=== PATIENT | male | born 1950 | race Caucasian/White ===

== ENCOUNTER → 2016-08-28 | Outpatient (REF) | payer MEDICARE ==
[~2016-08-28] MED LIST: /AUGM875TA; ACET650S3 PO; ASPI325T PO; ATOR1TAB18 PO; AUGM875T27 PO; AZUL500T; BENA25TA4 PO; BIOT10TA2 PO; CIPR500T3 PO; DARV100T; ECOT81TA5 PO; FLEXERIL; FLUO0.059 EXT; FURO40TA2 PO; GLIM4TAB PO; HUMA100I5 SC; HYDR-3713 PO; HYDR12.55 PO; INSULADS SC; K-TA10TA PO; KENAAER3 TOP; KETO2CR EXT; LASI40TA PO; LOPE1SUS PO; LOSA50TA20 PO; METF500T PO; MINO100T PO; NOVOINJ14 SC; POTA20TA PO; SILV1CRE19 TOP; SLOWTAB3 PO; SULF500T2 PO; TOUJ1.2I SC; TYLE325T5 PO; ZEST1TAB6 PO; [UNRECOGNIZED DRUG - CODE]
== END ==
LOC: M SFHCPLAZ 09:43
PROVIDERS: ATTEND Family Medicine
DX: Z00.00 Encounter for general adult medical examination without abnormal findings (principal)
CPT/HCPCS: 36415; G0103

== ENCOUNTER → 2016-09-16 | Outpatient (REF) | payer MEDICARE | LOC: M LABDRAWP 15:42 | PROVIDERS: ATTEND Surgery | DX: Z85.038 Personal history of other malignant neoplasm of large intestine (principal) ==

== ENCOUNTER 2016-09-25 02:16 | Emergency (ER) | payer MEDICARE ==
[~2016-09-25] VITALS: Ht 172.7 cm; Wt 163.3 kg
[2016-09-25] MEDS ORDERED: VICT18IN SC (02:30)
[2016-09-25 04:41] LABS: BASO % 0.1 % (0.0-1.0); EOS # 0.2 K/mm3 (0.0-0.50); EOS % 0.8 % (0.0-3.0); LARGE UNSTAINED CELL # 0.1 K/mm3 (0.0-0.4); LARGE UNSTAINED CELL % 0.2 % (0.0-4.0); LYMPH # 0.8 K/mm3 (1.5-4.5); LYMPH % 3.7 % (24.0-44.0); MEAN CORPUSCULAR HEMOGLOBIN 30.4 pg (27.0-33.0); MEAN CORPUSCULAR HGB CONC 34.1 g/dl (32.0-36.5); MEAN CORPUSCULAR VOLUME 89.1 fl (80.0-96.0); MONO # 0.4 K/mm3 (0.0-0.8); MONO % 1.8 % (0.0-5.0); NEUTROPHILS # 20.7 K/mm3 (1.8-7.7); NEUTROPHILS % 93.4 % (36.0-66.0); PLATELET COUNT, AUTOMATED 274 k/mm3 (150-450); RED CELL DISTRIBUTION WIDTH 13.2 % (11.5-14.5); WHITE BLOOD COUNT 22.2 K/mm3 (4.0-10.0)
[2016-09-25] MEDS ORDERED: GASTROGRAFIN SOLUTION 30ML (Q9963) PO ONE ×2 (04:45)
[2016-09-25 05:03] LABS: ALBUMIN 4.2 GM/DL (3.2-5.2); ALBUMIN/GLOBULIN RATIO 0.98 (1.00-1.93); ALKALINE PHOSPHATASE 135 U/L (45-117); ALT/SGPT 44 U/L (12-78); AMYLASE 43 U/L (25-115); ANION GAP 11 MEQ/L (8-16); AST/SGOT 21 U/L (15-37); BILIRUBIN,DIRECT 0.2 MG/DL (0.0-0.2); BILIRUBIN,TOTAL 0.7 MG/DL (0.2-1.0); BLOOD UREA NITROGEN 16 MG/DL (7-18); CALCIUM LEVEL 8.9 MG/DL (8.8-10.2); CARBON DIOXIDE LEVEL 22 MEQ/L (21-32); CHLORIDE LEVEL 106 MEQ/L (98-107); CREATININE FOR GFR 1.04 MG/DL (0.70-1.30); GLOMERULAR FILTRATION RATE > 60.0 (>49); GLUCOSE, FASTING 226 MG/DL (80-110); POTASSIUM SERUM 4.6 MEQ/L (3.5-5.1); SODIUM LEVEL 139 MEQ/L (136-145); TOTAL PROTEIN 8.5 GM/DL (6.4-8.2)
[2016-09-25] MEDS ORDERED: KETOROLAC 30 MG/ML VIAL (J1885) IV ONE (05:15)
--- NOTE | 2016-09-25 06:40 | REPUSA ---
CLINICAL HISTORY: Abdominal pain. TECHNIQUE: Multiple axial, sagittal and coronal CT images were obtained through the abdomen and pelvi s without administration of IV contrast material. Patient ingested oral contrast. COMMENTS: Comparison is made to the prior exam on 09/12/2015. Moderately distended stomach containing oral contrast. Prior colectomy. Moderate partial small bowel obstruction with a transition zone at the level of the ileostomy in the right lower quadrant. Anterior abdominal wall hernias containing distended small bowels. No evidence of bowel perforation or pneumatosis intestinalis. The liver is mildly enlarged without mass or defect. There is no intra or extrahepatic biliary ductal dilatation. The spleen is normal. The gallbladder is within normal limits. The pancreas is of normal contour and attenuation characteristics. There is no evidence of adrenal mass. Unchanged 4.5 cm left renal defined hypodense lesion suggestive of a cyst. The kidneys are normal in size, shape and configuration. No renal or ureteral calculi are identified. There is no hydroureter or hydronephrosis. There is no evidence of abdominal ascites or lymphadenopathy. There is no evidence of intrinsic or extrinsic bladder mass. There is no pelvic ascites or lymphadeno lyla. Images of the lung bases show no evidence of pleural or parenchymal mass. There are no pleural effusi ons. The bony structures are free of lytic or blastic lesions. Multilevel degenerative changes are seen in volving the thoracolumbar spine. Scattered calcifications are seen involving the aorta and major branches compatible with atherosclero sis. Bilateral fat containing inguinal hernias without incarceration. IMPRESSION: Prior colectomy. Moderate partial small bowel obstruction with a transition zone at the level of the ileostomy in the right lower quadrant. Anterior abdominal wall hernias containing distended small bowels. No evidence of bowel perforation or pneumatosis intestinalis. Thank you for your kind referral of this patient.
[2016-09-25] MEDS ORDERED: FURO40TA2 PO (07:49)
[2016-09-25] MEDS ORDERED: NOVO70IN SC (07:49)
[2016-09-25] MEDS ORDERED: POTA10TA16 PO (07:49)
[2016-09-25] MEDS ORDERED: FLUO5CR TOP (08:06)
[2016-09-25] MEDS ORDERED: KETO0.05 TOP (08:06)
--- NOTE | 2016-09-25 09:47 | ED PDOC ---
Post-Departure Follow-Up regarding ed eval on 09/25/16. dr robledo presented on multiple occasions to eval pt. pts osteomy opened up. pain resolved. symptoms resolved. pt tolerated fluids and food. dr robledo asked for discharge w zeus molina colorrectal surgeon - dr monteiro. Caroline Ricks MD September 25, 2016 09:47
[2016-09-25 10:25] VITALS: BP 136/72
== END 2016-09-25 11:18 | disposition home or self-care (01) ==
LOC: M ED 04:57
DX: R10.9 Unspecified abdominal pain (principal); Z93.2 Ileostomy status; K43.9 Ventral hernia without obstruction or gangrene; E11.9 Type 2 diabetes mellitus without complications; I10 Essential (primary) hypertension; E78.5 Hyperlipidemia, unspecified; K51.90 Ulcerative colitis, unspecified, without complications; Z87.891 Personal history of nicotine dependence; Z79.82 Long term (current) use of aspirin; Z79.4 Long term (current) use of insulin; Z79.84 Long term (current) use of oral hypoglycemic drugs; Z79.899 Other long term (current) drug therapy; Z91.030 Bee allergy status
CPT/HCPCS: 36415; 74176; 80048; 80076; 82150; 83690; 85025; 96374; 99284; J1885; Q9963

== ENCOUNTER 2017-01-17 09:54 | Inpatient (IN) | payer MEDICARE ==
[~2017-01-17] VITALS: Ht 172.7 cm; Wt 136.6 kg
[~2017-01-17 09:54] MED LIST changes: -ATOR1TAB18 PO; +ATOR80TA59 PO; -AUGM875T27 PO; +AUGM875T28 PO; +FLUO5CR TOP; +KETO0.05 TOP; -METF500T PO; +METF500T13 PO; +NOVO1INJ4 SC; +POTA10TA16 PO; -SILV1CRE19 TOP; +SILV1CRE60 TOP; +VICT18IN SC
[2017-01-17] MEDS ORDERED: PRED20TA (10:17)
[2017-01-17] MEDS ORDERED: ALBU17IN INH (10:17)
[2017-01-17] MEDS ORDERED: MORPHINE 4 MG/ML 1ML SYRINGE IV ONE ×3 (11:15→16:30)
[2017-01-17] MEDS ORDERED: NS 1,000 ML IV ONE (11:15)
[2017-01-17 11:48] LABS: BASO % 0.2 % (0.0-1.0); EOS % 0.2 % (0.0-3.0); LARGE UNSTAINED CELL # 0.1 K/mm3 (0.0-0.4); LARGE UNSTAINED CELL % 0.5 % (0.0-4.0); LYMPH # 0.8 K/mm3 (1.5-4.5); LYMPH % 4.4 % (24.0-44.0); MEAN CORPUSCULAR HEMOGLOBIN 30.5 pg (27.0-33.0); MEAN CORPUSCULAR HGB CONC 34.9 g/dl (32.0-36.5); MEAN CORPUSCULAR VOLUME 87.5 fl (80.0-96.0); MONO # 0.9 K/mm3 (0.0-0.8); MONO % 5.6 % (0.0-5.0); NEUTROPHILS # 14.2 K/mm3 (1.8-7.7); NEUTROPHILS % 89.1 % (36.0-66.0); PLATELET COUNT, AUTOMATED 234 k/mm3 (150-450); RED CELL DISTRIBUTION WIDTH 13.5 % (11.5-14.5)
[2017-01-17 11:59] LABS: ALBUMIN 3.8 GM/DL (3.2-5.2); ALBUMIN/GLOBULIN RATIO 0.97 (1.00-1.93); ALKALINE PHOSPHATASE 99 U/L (45-117); ALT/SGPT 39 U/L (12-78); ANION GAP 9 MEQ/L (8-16); AST/SGOT 22 U/L (15-37); BILIRUBIN,DIRECT 0.2 MG/DL (0.0-0.2); BILIRUBIN,TOTAL 0.7 MG/DL (0.2-1.0); BLOOD UREA NITROGEN 18 MG/DL (7-18); CALCIUM LEVEL 8.6 MG/DL (8.8-10.2); CARBON DIOXIDE LEVEL 26 MEQ/L (21-32); CHLORIDE LEVEL 103 MEQ/L (98-107); CREATININE FOR GFR 0.82 MG/DL (0.70-1.30); GLOMERULAR FILTRATION RATE > 60.0 (>49); GLUCOSE, FASTING 201 MG/DL (80-110); POTASSIUM SERUM 3.9 MEQ/L (3.5-5.1); SODIUM LEVEL 138 MEQ/L (136-145); TOTAL PROTEIN 7.7 GM/DL (6.4-8.2)
[2017-01-17] MEDS ORDERED: GASTROGRAFIN SOLUTION 30ML PO ONE (13:00)
[2017-01-17] MEDS ORDERED: GASTROGRAFIN SOLUTION 30ML (Q9963) PO ONE (13:30)
[2017-01-17] MEDS ORDERED: ISOVUE-370 76% 100ML VIAL (Q9967) As Ordered ONE (14:23)
--- NOTE | 2017-01-17 15:09 | REP ---
Clinical: Right lower quadrant pain. Technique: Axial contrast enhanced images from the lung bases to the pubic symphysis new oozing oral and 100 ml Isovue 370 intravenous contrast material with coronal and sagittal re-formations. Comparison: 09/25/2016. Findings: Acute small-bowel obstruction is appreciated and secondary to possible adhesions within a moderate to large parastomal hernia containing multiple dilated loops measuring up to approximately 4.7 cm diameter as well as collapsed loops within and exiting the multi-compartmental hernia. No free air, free fluid or drainable collection appreciated. Liver, spleen, pancreas, gallbladder, bilateral adrenal glands and right kidney are normal. Left kidney includes stable 5.8 cm cyst. Postsurgical changes involving the enteric system include colonic resection and right-sided ostomy. Pelvis demonstrates collapsed normal bladder and normal prostate gland. Fat containing left inguinal hernia identified. No significant adenopathy or mass lesion appreciated. Musculoskeletal structures demonstrate age-related degenerative changes. Lung bases clear. Impression: Findings most compatible with acute small-bowel obstruction with point of transition likely related to adhesions within the multi compartmental parastomal hernia. No associated free air, free fluid, or drainable collection. Signed by Rolando Sewell MD 01/17/2017 03:00 P
[2017-01-17] MEDS ORDERED: PIPERACILLIN/TAZOBACTAM SOD 3.375 GM in D5W MINI-BAG PLUS 50 ML IV ONE (15:15)
[2017-01-17] MEDS ORDERED: PRED10TA2 PO (15:56)
[2017-01-17] MEDS ORDERED: METF10004 PO (15:56)
--- NOTE | 2017-01-17 17:47 | REP ---
Abdomen series: Six views: History: Question obstruction versus ileus. Findings: Upright chest radiograph is compared with the prior study of 08/10/2015. The lungs are well inflated and clear. There is no evidence of free subdiaphragmatic air. Heart is not enlarged. The aorta is tortuous as before. There are some degenerative changes in the thoracic spine. Supine and upright views of the abdomen show air fluid levels and moderately dilated small bowel loops in the lower central abdomen. There is a right lower quadrant enterostomy ring. There is no colonic gas or air. Prior CT studies have shown that this patient is status post colon resection. Bowel gas pattern is similar to that seen at the time of the 09/25/[address] study. Impression: Dilated small bowel loops. Right lower quadrant ileostomy status post colon resection. I cannot exclude small bowel obstruction. No free air seen. Signed by Dru Anguiano MD 01/21/2017 08:08 A
[2017-01-17] MEDS ORDERED: GLUCOSE 4 GM CHEW TABLET PO PRN (20:15)
[2017-01-17] MEDS ORDERED: ALBUTEROL 90 MCG/ACT 8GM HFA INHALER INH PRN (20:15)
[2017-01-17] MEDS: NS 1,000 ML IV SCH (20:15)
[2017-01-17] MEDS ORDERED: DEXTROSE 50% 50 ML SYRINGE IV PRN (20:15)
[2017-01-17] MEDS ORDERED: GLUCAGON FOR INJ 1 MG VIAL (J1610) SC PRN (20:15)
[2017-01-17] MEDS ORDERED: KETOCONAZOLE 2% CREAM TOP PRN ×2 (20:15→20:45)
[2017-01-17] MEDS ORDERED: NORCO, ANEXSIA 5/325MG TABLET (HYDROcodone/ACETAMINOPHEN) PO PRN (20:15)
[2017-01-17] MEDS ORDERED: FLUOCINONIDE 0.05% CREAM 15 GM TOP PRN ×2 (20:15→20:45)
[2017-01-17] MEDS ORDERED: MORPHINE 2 MG/ML 1ML SYRINGE IV PRN (20:30)
[2017-01-17] MEDS ORDERED: ACETAMINOPHEN TAB 650MG DOSE (2X325MG) PO PRN (20:30)
[2017-01-17] MEDS ORDERED: ONDANSETRON 4MG/2ML VIAL (J2405) IV PRN (20:30)
[2017-01-17 23:30] VITALS: BP 169/72
[2017-01-18] MEDS: LEVEMIR (INSULIN DETEMIR) 1 UNITS/0.01ML SC SCH ×2 (00:44→09:03)
[2017-01-18] MEDS: HumaLOG INSULIN (NovoLOG) PER UNIT SC SCH ×2 (00:45→06:50)
[2017-01-18] MEDS: CHLORHEXIDINE GLUCONATE 0.12 % 15ML UDC (PERIDEX ORAL RINSE) SSP SCH ×2 (00:45→09:00)
[2017-01-18] MEDS: PIPERACILLIN/TAZOBACTAM SOD 3.375 GM in D5W MINI-BAG PLUS 50 ML IV SCH ×2 (00:45→06:50)
[2017-01-18 06:00] VITALS: BP 133/65
[2017-01-18] MEDS ORDERED: HEPARIN SOD (PORCINE) 5000 UNITS/ML VIAL SC SCH (06:00)
[2017-01-18] MEDS: NS 1,000 ML IV SCH (06:15)
--- NOTE | 2017-01-18 07:03 | HPE ---
DATE OF ADMISSION: 01/17/2017 PRIMARY CARE PROVIDER: Eugene Henriquez MD CHIEF COMPLAINT: Abdominal pain and distention, nausea, no vomiting, decrease in colostomy output. HISTORY OF PRESENT ILLNESS: This is a 66-year-old male patient with underlying medical history of morbid obesity, type 2 diabetes, poorly controlled, ulcerative colitis, depression, chronic lower back pain, obesity, degenerative disc disease, erythema nodosum, lower extremity edema, and history of malignant melanoma. As per patient, since last night at 7:00 p.m. the patient developed and started having abdominal pain and discomfort with distention, with nausea, no vomiting, and reported decreasing colostomy output. It was also noted that the patient has an open wound right next to the patient's ileostomy bag. As per patient, this wound has been there since the surgery for mesh in attempt to repair the patient's abdominal wall hernia. The patient denies any fevers or chills. Reported poor by mouth intake, reported decreasing ileostomy output, not passing gas. Patient denies any chest pain, pressure or discomfort. Has refused NG tube in the emergency room. Reported 4 out of 10 pain with no relieving or exacerbating factor. ALLERGIES: Bee venom. PAST MEDICAL HISTORY: Morbid obesity. Type 2 diabetes, poorly controlled. Ulcerative colitis. Depression. Chronic lower back pain. Obesity. Degenerative disc disease. Erythema nodosum. Lower extremity edema. Malignant melanoma. Chronic venous stasis. 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 PAST SURGICAL HISTORY: Broken nose repair. Appendectomy. Bowel repair for strangulated hernia. Colonoscopy. Robotic assisted proctocolectomy with ileostomy for ulcerative colitis and high grade adenocarcinoma with focal vascular space invasion with negative lymph nodes. Cataract removal bilateral eyes. FAMILY HISTORY: Father with liver failure and Methicillin-resistant Staphylococcus aureus (MRSA). Mother with insulin dependent diabetes. Brother with colon cancer. SOCIAL HISTORY: Lives alone at home. Quit smoking in 1998. Has not drank any alcoholic beverages for many years. Denies any illicit drug use. REVIEW OF SYSTEMS: Reported abdominal pain and abdominal distention, nausea, no vomiting, poor by mouth intake, not passing gas, abdominal wound, history of lower extremity swelling. All other review of systems negative. HOME MEDICATIONS: - hydrocodone/acetaminophen 5/325 by mouth four times a day as needed - Ventolin inhaler four times a day as needed - aspirin 81 mg by mouth daily - Lipitor 80 mg by mouth daily - fluocinonide cream as needed - Lasix 80 mg by mouth daily, 40 mg by mouth every evening - Novolin 70/30 34 units every morning and 34 units every evening - ketoconazole topical as needed - Victoza 0.2 mg subcu daily - losartan 50 mg by mouth daily - metformin 1000 mg by mouth twice a day - potassium chloride 20 mEq by mouth daily - prednisone 60 mg by mouth daily PHYSICAL EXAMINATION: VITAL SIGNS: Temperature 98.2, pulse 82, respirations 18, blood pressure 152/59, pulse oximetry 95% on room air. GENERAL: Patient alert and oriented times three in no acute distress, morbid obesity. HEENT: Normocephalic, atraumatic. PULMONARY: Bilaterally clear to auscultation. Distant heart sounds. CARDIAC: Regular rate and rhythm. Normal S1 and S2. ABDOMEN: Soft. Large abdominal wall hernia around the stump as well as a 2 cm open wound with purulent drainage with surrounding erythema. EXTREMITIES: Trace edema bilateral lower extremities. LABORATORIES: WBC 16, hemoglobin and hematocrit 13.7/39.4, platelets 234. Chemistries: Sodium 138, potassium 3.9, chloride 103, bicarb 26, BUN 18, creatinine 0.8, lactic acid 1.6, lipase negative. CT scan of the abdomen shows small bowel obstruction with point of transition likely related to adhesions within the multicompartmental parastomal hernia. ASSESSMENT/PLAN: This is a 66-year-old male patient with underlying medical history of multiple abdominal surgeries, obesity, type 2 diabetes, poorly controlled, ulcerative colitis, depression, high grade adenocarcinoma with proctocolectomy with ileostomy with abdominal wall hernia status post failed repair with open abdominal wound, depression, chronic low back pain, obesity, degenerative disc disease, erythema nodosum, and lower extremity edema, admitted with small bowel obstruction. PROBLEMS: 1. Small bowel obstruction secondary to abdominal wall hernia. Surgery has been consulted. Nothing by mouth. IV fluids. CT scan has been appreciated. Patient with abdominal pain and nausea, no vomiting. Strict intake and output. Monitor colostomy output. Patient refused NG tube. 2. Leukocytosis with open abdominal wound with surrounding erythema. C-reactive protein is negative. Possible leukocytosis secondary to steroids as well. Followup C-reactive protein. Followup cultures. Patient empirically started on Zosyn. Will continue to monitor. Prednisone has been discontinued. Likely received secondary to asthma exacerbation prior, but patient currently not having any wheeze. Will further investigate to see why the patient is on prednisone. 3. Diabetes. Poorly controlled. Given the patient is currently nothing by mouth, will put the patient on Levemir 15 units subcu twice a day which is a reduced dose from the patient's home medication and fingerstick every 6 hours with NovoLog insulin for coverage according to protocol. 4. Dyslipidemia. Continue statin. 5. Depression. Continue current medications. 6. Chronic lower back pain with degenerative disc disease. Continue current medications as ordered. 7. Hypertension. Continue current medications. 8. Deep vein thrombosis (DVT) prophylaxis. Heparin subcu. 9. Morbid obesity. Complicating care. DISPOSITION: Pending surgical consultation and clinical improvement.
[2017-01-18 07:07] LABS: MEAN CORPUSCULAR VOLUME 88.5 fl (80.0-96.0); RED CELL DISTRIBUTION WIDTH 13.5 % (11.5-14.5); WHITE BLOOD COUNT 9.6 K/mm3 (4.0-10.0)
[2017-01-18 07:30] LABS: ALBUMIN 3.1 GM/DL (3.2-5.2); ALBUMIN/GLOBULIN RATIO 0.79 (1.00-1.93); ALKALINE PHOSPHATASE 83 U/L (45-117); ALT/SGPT 31 U/L (12-78); ANION GAP 8 MEQ/L (8-16); AST/SGOT 16 U/L (15-37); BILIRUBIN,TOTAL 1.1 MG/DL (0.2-1.0); BLOOD UREA NITROGEN 11 MG/DL (7-18); CARBON DIOXIDE LEVEL 25 MEQ/L (21-32); CHLORIDE LEVEL 108 MEQ/L (98-107); CREATININE FOR GFR 0.77 MG/DL (0.70-1.30); GLOMERULAR FILTRATION RATE > 60.0 (>49); GLUCOSE, FASTING 133 MG/DL (80-110); MAGNESIUM LEVEL 2.1 MG/DL (1.8-2.4); POTASSIUM SERUM 3.8 MEQ/L (3.5-5.1); SODIUM LEVEL 141 MEQ/L (136-145)
[2017-01-18 08:00] VITALS: BP 146/63
[2017-01-18] MEDS ORDERED: PANTOPRAZOLE 40MG INJ (PROTONIX) (C9113) IV SCH (09:00)
[2017-01-18] MEDS ORDERED: ATORVASTATIN 20 MG TAB PO SCH (09:00)
[2017-01-18] MEDS ORDERED: LOSARTAN 50 MG TAB PO SCH (09:00)
[2017-01-18 09:04] VITALS: BP 146/63
--- NOTE | 2017-01-18 12:54 | DSES ---
DATE OF ADMISSION: 01/17/2017 DATE OF DISCHARGE: PRIMARY CARE PROVIDER: Eugene Henriquez MD CONSULTANTS: None. PROCEDURES: None. COMPLICATIONS: None. ADMISSION/DISCHARGE DIAGNOSES: 1. Small bowel obstruction likely related to colostomy obstruction, which has resolved. 2. History of high-grade adenocarcinoma of the sigmoid rectum resulting in resection and colostomy. 3. Morbid obesity, which complicates medical care. 4. Diabetes type 2, poorly controlled. 5. History of ulcerative colitis. 6. Depression. 7. Chronic low back pain. 8. Degenerative disc disease. 9. History of erythema nodosum, likely related to his ulcerative colitis. 10. Prior history of malignant melanoma. 11. Chronic venous stasis. BRIEF HOSPITAL COURSE: Mr. Singleton is a pleasant 66-year-old gentleman who presented to the emergency department last evening with abdominal pain, distension, nausea, vomiting, decreased colostomy output. He was made n.p.o., started on IV fluids and watched for observation. In the morning, his symptomatology had resolved and his colostomy has shown good output. There does not appear to be any erythema or redness or streaking around the ostomy site. No signs of infection. He is able to tolerate p.o. intake. For further information regarding intake physical, labs, and diagnostics, please refer to Dr. Puri's history and physical. PHYSICAL EXAMINATION: Temperature is 98, pulse 85, respiratory rate 18, blood pressure 146/63, SpO2 is 96% on room air. GENERAL: The patient appears to be in no acute distress, is alert, pleasant. HEENT: Unremarkable. LUNGS: Clear. HEART: Regular rate and rhythm. ABDOMEN: Obese, soft, nontender. Positive bowel sounds. Ostomy appears to be patent. EXTREMITIES: No edema, no calf tenderness. LABORATORIES: White count 9.6, hemoglobin is 13.2, platelets 202,000. Sodium 141, potassium 3.8, chloride 108, bicarb 25, anion gap 8, BUN is 11, creatinine 0.77, glucose 133, lactic acid 1.6, magnesium 2.1, total bilirubin 1.1, AST 16, ALT 31, alkaline phosphatase 83, albumin 3.1. CT of the abdomen and pelvis done on the admission did indicate acute small bowel obstruction with point transition likely related to adhesions within the multicompartmental parastomal hernia. No free air or drainable collection. DISCHARGE CONDITION: Good. DISPOSITION: Discharge to home. DISCHARGE MEDICATIONS: - [place] 5/325 one tablet four times a day as needed - albuterol inhaler as directed - aspirin 81 mg daily - Lipitor 40 mg daily - fluocinonide cream applied topically daily as needed - Lasix 80 mg daily and 40 mg at night - Novolin 70/30 34 units in the morning, 32 units in the evening - ketoconazole cream applied topically daily as needed - Victoza 18 mg injection 0.2 mL daily - losartan 50 mg daily - metformin 1000 mg twice a day - potassium chloride 20 mEq twice a day - prednisone 10 mg daily DISCHARGE INSTRUCTIONS: Discharge to home. Activity as tolerated. Followup with Dr. Henriquez in a week. Followup with Dr. Jones in the next week to 10 days for reevaluation of his colostomy. Consistent carbohydrate diet. He is instructed to seek medical attention if symptoms should worsen or progress. He voices understanding. Discharge took 35 minutes.
== END 2017-01-18 11:45 | disposition home or self-care (01) | DRG 394 ==
LOC: M ED 09:54 → M ED INP 20:21
PROVIDERS: ADMIT Hospitalist; ATTEND Hospitalist
DX: K94.03 Colostomy malfunction (principal); K56.60 Unspecified intestinal obstruction; E66.01 Morbid (severe) obesity due to excess calories; E11.9 Type 2 diabetes mellitus without complications; F32.9 Major depressive disorder, single episode, unspecified; M54.5 Low back pain; Z85.048 Personal history of other malignant neoplasm of rectum, rectosigmoid junction, and anus; Z79.899 Other long term (current) drug therapy; Z79.82 Long term (current) use of aspirin; I87.9 Disorder of vein, unspecified; E78.5 Hyperlipidemia, unspecified

== ENCOUNTER → 2017-02-25 | Outpatient (REF) | payer MEDICARE ==
[~2017-02-25] MED LIST changes: +ALBU17IN INH; +METF10004 PO; +PRED10TA2 PO; +PRED20TA
== END ==
LOC: M LABDRAWP 15:41
PROVIDERS: ATTEND Surgery
DX: Z85.038 Personal history of other malignant neoplasm of large intestine (principal)

== ENCOUNTER → 2017-02-25 | Outpatient (REF) | payer MEDICARE | LOC: M SFHCPLAZ 13:08 | PROVIDERS: ATTEND Family Medicine | DX: E11.42 Type 2 diabetes mellitus with diabetic polyneuropathy (principal); Z85.038 Personal history of other malignant neoplasm of large intestine ==

== ENCOUNTER → 2017-09-03 | Outpatient (REF) | payer MEDICARE | LOC: M LABDRAWP 15:25 | DX: Z85.038 Personal history of other malignant neoplasm of large intestine (principal) | CPT/HCPCS: 82378 ==

== ENCOUNTER → 2017-09-03 | Outpatient (REF) | payer MEDICARE ==
[2017-09-03 15:59] LABS: ANION GAP 8 MEQ/L (8-16); BLOOD UREA NITROGEN 19 MG/DL (7-18); CALCIUM LEVEL 8.9 MG/DL (8.8-10.2); CARBON DIOXIDE LEVEL 24 MEQ/L (21-32); CHLORIDE LEVEL 106 MEQ/L (98-107); GLOMERULAR FILTRATION RATE > 60.0 (>49); GLUCOSE, FASTING 120 MG/DL (70-100); POTASSIUM SERUM 3.8 MEQ/L (3.5-5.1); PSA SCREENING 0.61 NG/ML (< 4.0); SODIUM LEVEL 138 MEQ/L (136-145)
[2017-09-03 16:22] LABS: ESTIMATED AVERAGE GLUCOSE 194 MG/DL (60-110); HEMOGLOBIN A1c 8.4 %
[2017-09-03 16:24] LABS: CREATININE, URINE < 13.0 MG/DL; MALB URINE SIEMENS < 5.0 MG/L
[2017-09-05 11:01] LABS: CARCINOEMBRYONIC ANTIGEN < 0.5 NG/ML (<2.5)
== END ==
LOC: M SFHCPLAZ 13:01
DX: E11.65 Type 2 diabetes mellitus with hyperglycemia (principal); Z12.5 Encounter for screening for malignant neoplasm of prostate; Z85.038 Personal history of other malignant neoplasm of large intestine
CPT/HCPCS: 82378

== ENCOUNTER 2017-11-08 09:01 | Inpatient (IN) | payer MEDICARE ==
[2017-11-08] MEDS: NS 1,000 ML IV ×3 (10:12→21:09)
[2017-11-08] MEDS: MORPHINE 4 MG/ML 1ML VIAL/SYRINGE (J2270) IV ×7 (10:12→21:09)
[2017-11-08] MEDS: ONDANSETRON 4MG/2ML VIAL (J2405) IV ×2 (10:13→13:59)
[2017-11-08 10:21] LABS: BASO % 0.2 % (0.0-1.0); EOS % 0.1 % (0.0-3.0); HEMATOCRIT 44.2 % (42.0-52.0); HEMOGLOBIN 15.4 g/dl (13.5-17.5); LYMPH # 0.7 10^3/uL (1.5-4.5); LYMPH % 5.1 % (24.0-44.0); MEAN CORPUSCULAR HEMOGLOBIN 29.9 pg (27.0-33.0); MEAN CORPUSCULAR HGB CONC 34.8 g/dl (32.0-36.5); MEAN CORPUSCULAR VOLUME 85.8 fl (80.0-96.0); MONO # 0.8 10^3/uL (0.0-0.8); MONO % 5.7 % (0.0-5.0); NEUTROPHILS # 12.1 10^3/uL (1.8-7.7); NEUTROPHILS % 87.9 % (36.0-66.0); PLATELET COUNT, AUTOMATED 204 10^3/uL (150-450); RED BLOOD COUNT 5.15 10^6/uL (4.30-6.10); RED CELL DISTRIBUTION WIDTH 14.6 % (11.5-14.5); WHITE BLOOD COUNT 13.8 10^3/uL (4.0-10.0)
[2017-11-08 11:25] LABS: ALBUMIN 3.1 GM/DL (3.2-5.2); ALBUMIN/GLOBULIN RATIO 0.91 (1.00-1.93); ALKALINE PHOSPHATASE 83 U/L (45-117); ALT/SGPT 49 U/L (12-78); ANION GAP 10 MEQ/L (8-16); AST/SGOT 19 U/L (7-37); BILIRUBIN,TOTAL 0.7 MG/DL (0.2-1.0); BLOOD UREA NITROGEN 23 MG/DL (7-18); CALCIUM LEVEL 7.5 MG/DL (8.8-10.2); CARBON DIOXIDE LEVEL 26 MEQ/L (21-32); CHLORIDE LEVEL 101 MEQ/L (98-107); CREATININE FOR GFR 0.93 MG/DL (0.70-1.30); GLOMERULAR FILTRATION RATE > 60.0 (>49); GLUCOSE, FASTING 315 MG/DL (70-100); POTASSIUM SERUM 4.2 MEQ/L (3.5-5.1); SODIUM LEVEL 137 MEQ/L (136-145); TOTAL PROTEIN 6.5 GM/DL (6.4-8.2)
[2017-11-08 12:27] LABS: LACTIC ACID SEPSIS PROTOCOL 2.1 MMOL/L (0.4-2.0)
[2017-11-08] MEDS ORDERED: METOCLOPRAMIDE INJ 10MG/2ML VIAL (J2765) IV (12:30)
[2017-11-08] MEDS ORDERED: DEXTROSE 50% 50 ML SYRINGE IV (12:30)
[2017-11-08] MEDS ORDERED: IPRATROPIUM 0.5MG/ALBUTEROL 2.5MG INH SOL UD 3ML (DUONEB)(J7620) NEB (12:30)
[2017-11-08] MEDS ORDERED: GLUCAGON FOR INJ 1 MG VIAL (J1610) SC (12:30)
[2017-11-08] MEDS ORDERED: PROMETHAZINE INJ 25 MG/ML VIAL (J2550) IV (12:30)
[2017-11-08] MEDS ORDERED: GLUCOSE 4 GM CHEW TABLET PO (12:30)
[2017-11-08 13:15] LABS: BEDSIDE GLUCOSE 265 MG/DL (80-115)
[2017-11-08] MEDS: CIPROFLOXACIN 400 MG in APPROPRIATE DILUENT 1 EA IV (13:22)
[2017-11-08] MEDS: predniSONE 20 MG TAB PO (13:23)
[2017-11-08] MEDS: HumaLOG INSULIN (NovoLOG) PER UNIT SC ×2 (13:23→18:16)
[2017-11-08] MEDS: PANTOPRAZOLE 40MG INJ (PROTONIX) (C9113) IV (13:23)
[2017-11-08] MEDS: IPRATROPIUM 0.5MG/ALBUTEROL 2.5MG INH SOL UD 3ML (DUONEB)(J7620) NEB ×2 (14:00→19:58)
[2017-11-08] MEDS: metroNIDAZOLE 500 MG in APPROPRIATE DILUENT 1 EA IV ×2 (15:27→21:07)
[2017-11-08 16:04] LABS: LACTIC ACID SEPSIS PROTOCOL 1.7 MMOL/L (0.4-2.0)
[2017-11-08] MEDS: IRBESARTAN 150 MG TAB PO (16:35)
[2017-11-08 17:41] LABS: BEDSIDE GLUCOSE 220 MG/DL (80-115)
[2017-11-08] MEDS: methylPREDNISolone INJ 125 MG/2 ML VIAL (J2930) IV (21:09)
[2017-11-08] MEDS: LEVEMIR (INSULIN DETEMIR) 1 UNITS/0.01ML SC (21:10)
[2017-11-08 23:48] LABS: BEDSIDE GLUCOSE 267 MG/DL (80-115)
[2017-11-09] MEDS: CIPROFLOXACIN 400 MG in APPROPRIATE DILUENT 1 EA IV ×2 (00:26→13:00)
[2017-11-09] MEDS: HumaLOG INSULIN (NovoLOG) PER UNIT SC ×3 (00:26→12:03)
[2017-11-09] MEDS: IPRATROPIUM 0.5MG/ALBUTEROL 2.5MG INH SOL UD 3ML (DUONEB)(J7620) NEB ×3 (02:00→13:44)
[2017-11-09 02:39] LABS: BEDSIDE GLUCOSE 264 MG/DL (80-115)
[2017-11-09 05:29] LABS: HEMOGLOBIN 13.7 g/dl (13.5-17.5); MEAN CORPUSCULAR HEMOGLOBIN 29.5 pg (27.0-33.0); MEAN CORPUSCULAR HGB CONC 34.3 g/dl (32.0-36.5); MEAN CORPUSCULAR VOLUME 86.2 fl (80.0-96.0); PLATELET COUNT, AUTOMATED 178 10^3/uL (150-450); RED BLOOD COUNT 4.64 10^6/uL (4.30-6.10); RED CELL DISTRIBUTION WIDTH 14.8 % (11.5-14.5); WHITE BLOOD COUNT 6.3 10^3/uL (4.0-10.0)
[2017-11-09 05:45] LABS: ALBUMIN 2.9 GM/DL (3.2-5.2); ALBUMIN/GLOBULIN RATIO 0.81 (1.00-1.93); ALKALINE PHOSPHATASE 72 U/L (45-117); ALT/SGPT 41 U/L (12-78); ANION GAP 7 MEQ/L (8-16); AST/SGOT 10 U/L (7-37); BILIRUBIN,TOTAL 0.8 MG/DL (0.2-1.0); BLOOD UREA NITROGEN 15 MG/DL (7-18); CALCIUM LEVEL 7.4 MG/DL (8.8-10.2); CARBON DIOXIDE LEVEL 27 MEQ/L (21-32); CHLORIDE LEVEL 105 MEQ/L (98-107); CREATININE FOR GFR 0.83 MG/DL (0.70-1.30); GLOMERULAR FILTRATION RATE > 60.0 (>49); GLUCOSE, FASTING 267 MG/DL (70-100); POTASSIUM SERUM 4.3 MEQ/L (3.5-5.1); SODIUM LEVEL 139 MEQ/L (136-145); TOTAL PROTEIN 6.5 GM/DL (6.4-8.2)
[2017-11-09 05:46] LABS: BEDSIDE GLUCOSE 256 MG/DL (80-115)
[2017-11-09] MEDS: NS 1,000 ML IV (06:14)
[2017-11-09] MEDS: metroNIDAZOLE 500 MG in APPROPRIATE DILUENT 1 EA IV ×2 (06:15→14:00)
[2017-11-09] MEDS: IRBESARTAN 150 MG TAB PO (08:24)
[2017-11-09] MEDS: PANTOPRAZOLE 40MG INJ (PROTONIX) (C9113) IV (08:25)
[2017-11-09] MEDS: ATORVASTATIN 20 MG TAB PO (08:25)
[2017-11-09] MEDS: methylPREDNISolone INJ 125 MG/2 ML VIAL (J2930) IV (08:25)
[2017-11-09] MEDS ORDERED: GLUCOSE 4 GM CHEW TABLET PO (09:00)
[2017-11-09] MEDS ORDERED: DEXTROSE 50% 50 ML SYRINGE IV (09:00)
[2017-11-09] MEDS ORDERED: GLUCAGON FOR INJ 1 MG VIAL (J1610) SC (09:00)
[2017-11-09 11:24] LABS: BEDSIDE GLUCOSE 304 MG/DL (80-115)
[2017-11-09] MEDS ORDERED: HumaLOG INSULIN (NovoLOG) PER UNIT SC (21:00)
== END 2017-11-09 16:20 | disposition home or self-care (01) | DRG 394 ==
LOC: M ED 09:01 → M ED INP 12:16 → M MSPAV 14:38
DX: K43.3 Parastomal hernia with obstruction, without gangrene (principal); L88 Pyoderma gangrenosum; Z68.43 Body mass index [BMI] 50.0-59.9, adult; K51.90 Ulcerative colitis, unspecified, without complications; E66.01 Morbid (severe) obesity due to excess calories; E11.9 Type 2 diabetes mellitus without complications; Z79.52 Long term (current) use of systemic steroids; I10 Essential (primary) hypertension; Z79.899 Other long term (current) drug therapy; Z79.82 Long term (current) use of aspirin; Z79.4 Long term (current) use of insulin; Z91.038 Other insect allergy status; Z93.2 Ileostomy status; K40.90 Unilateral inguinal hernia, without obstruction or gangrene, not specified as recurrent

== ENCOUNTER 2017-11-10 21:47 | Inpatient (IN) | payer MEDICARE ==
[2017-11-11 00:38] LABS: BASO % 0.1 % (0.0-1.0); EOS % 0.1 % (0.0-3.0); HEMOGLOBIN 13.7 g/dl (13.5-17.5); IMMATURE GRANULOCYTE % 0.8 % (0-3.0); LYMPH # 0.5 10^3/uL (1.5-4.5); MEAN CORPUSCULAR HEMOGLOBIN 29.5 pg (27.0-33.0); MEAN CORPUSCULAR HGB CONC 34.3 g/dl (32.0-36.5); MEAN CORPUSCULAR VOLUME 86.2 fl (80.0-96.0); MONO # 0.6 10^3/uL (0.0-0.8); MONO % 6.4 % (0.0-5.0); NEUTROPHILS # 8.5 10^3/uL (1.8-7.7); NEUTROPHILS % 87.6 % (36.0-66.0); PLATELET COUNT, AUTOMATED 193 10^3/uL (150-450); RED BLOOD COUNT 4.64 10^6/uL (4.30-6.10); RED CELL DISTRIBUTION WIDTH 14.6 % (11.5-14.5); WHITE BLOOD COUNT 9.7 10^3/uL (4.0-10.0)
[2017-11-11 01:03] LABS: ALBUMIN/GLOBULIN RATIO 0.88 (1.00-1.93); ALKALINE PHOSPHATASE 70 U/L (45-117); ALT/SGPT 41 U/L (12-78); ANION GAP 9 MEQ/L (8-16); AST/SGOT 31 U/L (7-37); BILIRUBIN,DIRECT 0.1 MG/DL (0.0-0.2); BILIRUBIN,TOTAL 0.6 MG/DL (0.2-1.0); BLOOD UREA NITROGEN 21 MG/DL (7-18); CALCIUM LEVEL 7.8 MG/DL (8.8-10.2); CARBON DIOXIDE LEVEL 24 MEQ/L (21-32); CHLORIDE LEVEL 104 MEQ/L (98-107); CREATININE FOR GFR 1.08 MG/DL (0.70-1.30); GLOMERULAR FILTRATION RATE > 60.0 (>49); GLUCOSE, FASTING 212 MG/DL (70-100); LIPASE 86 U/L (73-393); SODIUM LEVEL 137 MEQ/L (136-145); TOTAL PROTEIN 6.4 GM/DL (6.4-8.2)
[2017-11-11 01:13] LABS: POTASSIUM SERUM 5.4 MEQ/L (3.5-5.1)
[2017-11-11] MEDS: ONDANSETRON 4MG/2ML VIAL (J2405) IV (02:41)
[2017-11-11] MEDS: MORPHINE 4 MG/ML 1ML VIAL/SYRINGE (J2270) IV ×2 (02:42→23:22)
[2017-11-11] MEDS: NS 1,000 ML IV (03:00)
[2017-11-11] MEDS ORDERED: ONDANSETRON 4MG/2ML VIAL (J2405) IV (07:00)
[2017-11-11] MEDS ORDERED: METOCLOPRAMIDE INJ 10MG/2ML VIAL (J2765) IV (07:00)
[2017-11-11] MEDS ORDERED: GLUCOSE 4 GM CHEW TABLET PO (07:00)
[2017-11-11] MEDS ORDERED: GLUCAGON FOR INJ 1 MG VIAL (J1610) SC (07:00)
[2017-11-11] MEDS ORDERED: DEXTROSE 50% 50 ML SYRINGE IV (07:00)
[2017-11-11 08:20] LABS: BEDSIDE GLUCOSE 214 MG/DL (80-115)
[2017-11-11] MEDS: LR 1,000 ML IV ×2 (08:28→16:29)
[2017-11-11] MEDS: KETOROLAC 30 MG/ML VIAL (J1885) IV (08:29)
[2017-11-11] MEDS: HumaLOG INSULIN (NovoLOG) PER UNIT SC ×3 (08:30→18:00)
[2017-11-11] MEDS: PANTOPRAZOLE 40MG INJ (PROTONIX) (C9113) IV (09:49)
[2017-11-11] MEDS: ENOXAPARIN 40 MG/0.4 ML SYRINGE (J1650) SC (09:50)
[2017-11-11 12:21] LABS: BASO % 0.1 % (0.0-1.0); EOS % 0.3 % (0.0-3.0); HEMATOCRIT 37.4 % (42.0-52.0); HEMOGLOBIN 12.8 g/dl (13.5-17.5); IMMATURE GRANULOCYTE % 0.4 % (0-3.0); LYMPH % 14.2 % (24.0-44.0); MEAN CORPUSCULAR HEMOGLOBIN 29.6 pg (27.0-33.0); MEAN CORPUSCULAR HGB CONC 34.2 g/dl (32.0-36.5); MEAN CORPUSCULAR VOLUME 86.6 fl (80.0-96.0); MONO % 13.8 % (0.0-5.0); NEUTROPHILS # 5.1 10^3/uL (1.8-7.7); NEUTROPHILS % 71.2 % (36.0-66.0); PLATELET COUNT, AUTOMATED 172 10^3/uL (150-450); RED BLOOD COUNT 4.32 10^6/uL (4.30-6.10); RED CELL DISTRIBUTION WIDTH 14.6 % (11.5-14.5); WHITE BLOOD COUNT 7.1 10^3/uL (4.0-10.0)
[2017-11-11 13:09] LABS: ANION GAP 5 MEQ/L (8-16); BLOOD UREA NITROGEN 15 MG/DL (7-18); CALCIUM LEVEL 7.7 MG/DL (8.8-10.2); CARBON DIOXIDE LEVEL 29 MEQ/L (21-32); CHLORIDE LEVEL 105 MEQ/L (98-107); CREATININE FOR GFR 0.81 MG/DL (0.70-1.30); GLOMERULAR FILTRATION RATE > 60.0 (>49); GLUCOSE, FASTING 166 MG/DL (70-100); POTASSIUM SERUM 3.9 MEQ/L (3.5-5.1); SODIUM LEVEL 139 MEQ/L (136-145)
[2017-11-11 18:11] LABS: BEDSIDE GLUCOSE 118 MG/DL (80-115)
[2017-11-11 23:55] LABS: BEDSIDE GLUCOSE 162 MG/DL (80-115)
[2017-11-12] MEDS: HumaLOG INSULIN (NovoLOG) PER UNIT SC ×5 (00:05→23:13)
[2017-11-12] MEDS: LR 1,000 ML IV ×4 (00:05→23:12)
[2017-11-12] MEDS: MORPHINE 4 MG/ML 1ML VIAL/SYRINGE (J2270) IV ×3 (02:15→10:06)
[2017-11-12 05:57] LABS: BEDSIDE GLUCOSE 152 MG/DL (80-115)
[2017-11-12 06:21] LABS: BEDSIDE GLUCOSE 161 MG/DL (80-115)
[2017-11-12] MEDS: PANTOPRAZOLE 40MG INJ (PROTONIX) (C9113) IV (10:05)
[2017-11-12] MEDS: ENOXAPARIN 40 MG/0.4 ML SYRINGE (J1650) SC (10:50)
[2017-11-12 12:06] LABS: BEDSIDE GLUCOSE 144 MG/DL (80-115)
[2017-11-12 17:46] LABS: BEDSIDE GLUCOSE 162 MG/DL (80-115)
[2017-11-12 23:10] LABS: BEDSIDE GLUCOSE 163 MG/DL (80-115)
[2017-11-13] MEDS: HumaLOG INSULIN (NovoLOG) PER UNIT SC ×4 (06:00→23:57)
[2017-11-13 06:20] LABS: BASO % 0.3 % (0.0-1.0); EOS # 0.1 10^3/uL (0.0-0.50); EOS % 1.6 % (0.0-3.0); HEMATOCRIT 39.8 % (42.0-52.0); HEMOGLOBIN 13.4 g/dl (13.5-17.5); IMMATURE GRANULOCYTE % 0.9 % (0-3.0); LYMPH % 30.1 % (24.0-44.0); MEAN CORPUSCULAR HEMOGLOBIN 29.6 pg (27.0-33.0); MEAN CORPUSCULAR HGB CONC 33.7 g/dl (32.0-36.5); MEAN CORPUSCULAR VOLUME 88.1 fl (80.0-96.0); MONO # 0.5 10^3/uL (0.0-0.8); MONO % 16.1 % (0.0-5.0); NEUTROPHILS # 1.6 10^3/uL (1.8-7.7); PLATELET COUNT, AUTOMATED 171 10^3/uL (150-450); RED BLOOD COUNT 4.52 10^6/uL (4.30-6.10); RED CELL DISTRIBUTION WIDTH 14.4 % (11.5-14.5); WHITE BLOOD COUNT 3.2 10^3/uL (4.0-10.0)
[2017-11-13 06:45] LABS: ALBUMIN 2.5 GM/DL (3.2-5.2); ALBUMIN/GLOBULIN RATIO 0.71 (1.00-1.93); ALKALINE PHOSPHATASE 58 U/L (45-117); ALT/SGPT 26 U/L (12-78); ANION GAP 6 MEQ/L (8-16); AST/SGOT 9 U/L (7-37); BLOOD UREA NITROGEN 8 MG/DL (7-18); CALCIUM LEVEL 8.1 MG/DL (8.8-10.2); CARBON DIOXIDE LEVEL 29 MEQ/L (21-32); CHLORIDE LEVEL 107 MEQ/L (98-107); CREATININE FOR GFR 0.76 MG/DL (0.70-1.30); GLOMERULAR FILTRATION RATE > 60.0 (>49); GLUCOSE, FASTING 132 MG/DL (70-100); SODIUM LEVEL 142 MEQ/L (136-145)
[2017-11-13] MEDS: ENOXAPARIN 40 MG/0.4 ML SYRINGE (J1650) SC (08:01)
[2017-11-13] MEDS: PANTOPRAZOLE 40MG INJ (PROTONIX) (C9113) IV (08:01)
[2017-11-13 11:41] LABS: BEDSIDE GLUCOSE 147 MG/DL (80-115)
[2017-11-13] MEDS: LR 1,000 ML IV (12:37)
[2017-11-13] MEDS ORDERED: BUPIVACAINE HCL 0.25% 30 ML VIAL As Ordered ×2 (15:34→17:25)
[2017-11-13] MEDS ORDERED: LIDOCAINE 2% INJ 100 MG/5 ML SDV (FOR ANES.) As Ordered (17:10)
[2017-11-13] MEDS ORDERED: ROCURONIUM BROMIDE 50 MG/5 ML VIAL As Ordered ×4 (17:10→21:26)
[2017-11-13] MEDS ORDERED: PROPOFOL 200 MG/20 ML VIAL As Ordered (17:10)
[2017-11-13] MEDS ORDERED: MIDAZOLAM INJ 2 MG/2 ML VIAL (J2250) As Ordered (17:10)
[2017-11-13] MEDS ORDERED: METOCLOPRAMIDE INJ 10MG/2ML VIAL (J2765) As Ordered (17:10)
[2017-11-13] MEDS ORDERED: dexameTHASONE 4 MG/ML 1ML VIAL (J1100) As Ordered (17:10)
[2017-11-13] MEDS ORDERED: fentaNYL 250 MCG/5 ML INJECTION (J3010) As Ordered ×2 (17:10→17:32)
[2017-11-13] MEDS ORDERED: NEOSTIGMINE 10 MG/10 ML VIAL (J2710) As Ordered (17:10)
[2017-11-13] MEDS ORDERED: GLYCOPYRROLATE INJ 0.2 MG/ML 2 ML VIAL As Ordered (17:10)
[2017-11-13] MEDS: cefoTEtan INJ 2GM VIAL (S0074 PER 500MG) As Ordered (17:25)
[2017-11-13] MEDS ORDERED: ONDANSETRON 4MG/2ML VIAL (J2405) As Ordered (17:39)
[2017-11-13] MEDS ORDERED: SUGAMMADEX SODIUM 500 MG/5 ML VIAL (BRIDION) As Ordered (17:39)
[2017-11-13] MEDS ORDERED: LABETALOL HCL 100 MG/20 ML VIAL As Ordered (18:47)
[2017-11-13] MEDS ORDERED: DESFLURANE 240 ML INHALANT As Ordered (20:22)
[2017-11-13] MEDS: ceFAZolin 1GM INJ (J0690 PER 500MG) As Ordered (21:25)
[2017-11-13] MEDS ORDERED: fentaNYL 100 MCG/2 ML INJECTION (J3010) As Ordered ×2 (22:02→23:03)
[2017-11-13] MEDS ORDERED: NALBUPHINE HCL 10 MG/ML AMP (J2300) IV (22:45)
[2017-11-13] MEDS ORDERED: MORPHINE 1MG/ML IN 0.9% NACL 100ML IV BAG As Ordered (22:45)
[2017-11-13] MEDS ORDERED: MORPHINE 1MG/ML IN 0.9% NACL 100ML IV BAG IV (22:45)
[2017-11-13] MEDS ORDERED: EPIDURAL/PCA KEYS XX (22:45)
[2017-11-13] MEDS ORDERED: ALBUTEROL 90 MCG/ACT 8GM HFA INHALER INH (22:45)
[2017-11-13] MEDS ORDERED: diphenhydrAMINE INJ 50MG/ML VIAL (J1200) IV (22:45)
[2017-11-13] MEDS ORDERED: NALOXONE INJ 0.4 MG/1 ML VIAL (J2310) IV (22:45)
[2017-11-13] MEDS ORDERED: ONDANSETRON 4MG/2ML VIAL (J2405) IV (23:00)
[2017-11-13] MEDS ORDERED: LR 1,000 ML IV (23:00)
[2017-11-13] MEDS ORDERED: MORPHINE 10 MG/ML 1ML VIAL (J2270) IV (23:00)
[2017-11-13] MEDS ORDERED: HumaLOG INSULIN (NovoLOG) PER UNIT As Ordered (23:03)
[2017-11-13] MEDS: fentaNYL 100 MCG/2 ML INJECTION (J3010) IV ×4 (23:07→23:37)
[2017-11-14] MEDS: predniSONE 20 MG TAB PO ×2 (01:17→17:29)
[2017-11-14] MEDS: guaiFENesin DM *SUGAR FREE* 5ML**DIABETIC TUSSIN DM PO ×3 (03:09→21:34)
[2017-11-14] MEDS: KETOROLAC 30 MG/ML VIAL (J1885) IV ×4 (05:08→14:03)
[2017-11-14] MEDS: LR 1,000 ML IV (05:22)
[2017-11-14 05:55] LABS: BASO % 0.2 % (0.0-1.0); HEMATOCRIT 37.1 % (42.0-52.0); HEMOGLOBIN 12.9 g/dl (13.5-17.5); IMMATURE GRANULOCYTE % 1.6 % (0-3.0); LYMPH # 0.3 10^3/uL (1.5-4.5); LYMPH % 5.5 % (24.0-44.0); MEAN CORPUSCULAR HGB CONC 34.8 g/dl (32.0-36.5); MEAN CORPUSCULAR VOLUME 86.3 fl (80.0-96.0); MONO # 0.4 10^3/uL (0.0-0.8); MONO % 6.4 % (0.0-5.0); NEUTROPHILS # 4.7 10^3/uL (1.8-7.7); NEUTROPHILS % 86.3 % (36.0-66.0); PLATELET COUNT, AUTOMATED 200 10^3/uL (150-450); RED CELL DISTRIBUTION WIDTH 14.1 % (11.5-14.5); WHITE BLOOD COUNT 5.5 10^3/uL (4.0-10.0)
[2017-11-14 06:24] LABS: ALBUMIN 2.3 GM/DL (3.2-5.2); ALBUMIN/GLOBULIN RATIO 0.66 (1.00-1.93); ALKALINE PHOSPHATASE 56 U/L (45-117); ALT/SGPT 28 U/L (12-78); ANION GAP 11 MEQ/L (8-16); AST/SGOT 8 U/L (7-37); BILIRUBIN,TOTAL 0.4 MG/DL (0.2-1.0); BLOOD UREA NITROGEN 9 MG/DL (7-18); CALCIUM LEVEL 7.8 MG/DL (8.8-10.2); CARBON DIOXIDE LEVEL 25 MEQ/L (21-32); CHLORIDE LEVEL 104 MEQ/L (98-107); CREATININE FOR GFR 0.74 MG/DL (0.70-1.30); GLOMERULAR FILTRATION RATE > 60.0 (>49); GLUCOSE, FASTING 220 MG/DL (70-100); POTASSIUM SERUM 4.5 MEQ/L (3.5-5.1); SODIUM LEVEL 140 MEQ/L (136-145); TOTAL PROTEIN 5.8 GM/DL (6.4-8.2)
[2017-11-14] MEDS: HumaLOG INSULIN (NovoLOG) PER UNIT SC ×5 (06:34→21:00)
[2017-11-14] MEDS: IRBESARTAN 150 MG TAB PO (09:23)
[2017-11-14] MEDS: FUROSEMIDE 40 MG TAB PO (09:23)
[2017-11-14] MEDS: PANTOPRAZOLE 40MG INJ (PROTONIX) (C9113) IV (09:24)
[2017-11-14] MEDS: ENOXAPARIN 40 MG/0.4 ML SYRINGE (J1650) SC (09:24)
[2017-11-14 11:37] LABS: BEDSIDE GLUCOSE 236 MG/DL (80-115)
[2017-11-14] MEDS: ATORVASTATIN 20 MG TAB PO (14:44)
[2017-11-14] MEDS: LEVEMIR (INSULIN DETEMIR) 1 UNITS/0.01ML SC ×2 (14:44→21:22)
[2017-11-14 16:58] LABS: BEDSIDE GLUCOSE 261 MG/DL (80-115)
[2017-11-14] MEDS ORDERED: HumaLOG INSULIN (NovoLOG) PER UNIT SC (17:30)
[2017-11-14 20:26] LABS: BEDSIDE GLUCOSE 234 MG/DL (80-115)
[2017-11-15] MEDS: KETOROLAC 30 MG/ML VIAL (J1885) IV ×4 (05:45→14:58)
[2017-11-15 05:55] LABS: BASO % 0.2 % (0.0-1.0); HEMATOCRIT 35.9 % (42.0-52.0); HEMOGLOBIN 12.3 g/dl (13.5-17.5); IMMATURE GRANULOCYTE % 1.6 % (0-3.0); LYMPH # 0.6 10^3/uL (1.5-4.5); LYMPH % 11.3 % (24.0-44.0); MEAN CORPUSCULAR HEMOGLOBIN 29.8 pg (27.0-33.0); MEAN CORPUSCULAR HGB CONC 34.3 g/dl (32.0-36.5); MEAN CORPUSCULAR VOLUME 86.9 fl (80.0-96.0); MONO # 0.8 10^3/uL (0.0-0.8); MONO % 14.6 % (0.0-5.0); NEUTROPHILS # 3.7 10^3/uL (1.8-7.7); NEUTROPHILS % 72.3 % (36.0-66.0); PLATELET COUNT, AUTOMATED 206 10^3/uL (150-450); RED BLOOD COUNT 4.13 10^6/uL (4.30-6.10); RED CELL DISTRIBUTION WIDTH 14.1 % (11.5-14.5); WHITE BLOOD COUNT 5.1 10^3/uL (4.0-10.0)
[2017-11-15 06:18] LABS: ANION GAP 7 MEQ/L (8-16); BLOOD UREA NITROGEN 8 MG/DL (7-18); CARBON DIOXIDE LEVEL 30 MEQ/L (21-32); CHLORIDE LEVEL 101 MEQ/L (98-107); CREATININE FOR GFR 0.66 MG/DL (0.70-1.30); GLOMERULAR FILTRATION RATE > 60.0 (>49); GLUCOSE, FASTING 217 MG/DL (70-100); POTASSIUM SERUM 4.1 MEQ/L (3.5-5.1); SODIUM LEVEL 138 MEQ/L (136-145)
[2017-11-15] MEDS: guaiFENesin DM *SUGAR FREE* 5ML**DIABETIC TUSSIN DM PO (06:36)
[2017-11-15] MEDS: LR 1,000 ML IV (08:15)
[2017-11-15] MEDS: LEVEMIR (INSULIN DETEMIR) 1 UNITS/0.01ML SC ×2 (08:16→21:26)
[2017-11-15] MEDS: ENOXAPARIN 40 MG/0.4 ML SYRINGE (J1650) SC (08:17)
[2017-11-15] MEDS: ATORVASTATIN 20 MG TAB PO (08:17)
[2017-11-15] MEDS: PANTOPRAZOLE 40MG INJ (PROTONIX) (C9113) IV (08:17)
[2017-11-15] MEDS: HumaLOG INSULIN (NovoLOG) PER UNIT SC ×4 (08:17→21:00)
[2017-11-15] MEDS: FUROSEMIDE 40 MG TAB PO ×2 (08:17→21:25)
[2017-11-15] MEDS: IRBESARTAN 150 MG TAB PO (08:18)
[2017-11-15] MEDS ORDERED: MORPHINE 4 MG/ML 1ML VIAL/SYRINGE (J2270) IV (10:15)
[2017-11-15] MEDS: NORCO, ANEXSIA 5/325MG TABLET (HYDROcodone/ACETAMINOPHEN) PO (10:43)
[2017-11-15 11:17] LABS: BEDSIDE GLUCOSE 262 MG/DL (80-115)
[2017-11-15 11:50] LABS: BEDSIDE GLUCOSE 252 MG/DL (80-115)
[2017-11-15 16:31] LABS: BEDSIDE GLUCOSE 158 MG/DL (80-115)
[2017-11-15] MEDS: predniSONE 20 MG TAB PO (18:11)
[2017-11-15 20:52] LABS: BEDSIDE GLUCOSE 165 MG/DL (80-115)
[2017-11-16] MEDS: KETOROLAC 30 MG/ML VIAL (J1885) IV ×2 (00:16→05:21)
[2017-11-16 06:16] LABS: BEDSIDE GLUCOSE 286 MG/DL (80-115)
[2017-11-16] MEDS ORDERED: IBUPROFEN 600 MG TAB PO (08:30)
[2017-11-16] MEDS: HumaLOG INSULIN (NovoLOG) PER UNIT SC ×4 (08:38→21:00)
[2017-11-16] MEDS: IRBESARTAN 150 MG TAB PO (08:39)
[2017-11-16] MEDS: PANTOPRAZOLE 40MG INJ (PROTONIX) (C9113) IV (08:39)
[2017-11-16] MEDS: ATORVASTATIN 20 MG TAB PO (08:39)
[2017-11-16] MEDS: LEVEMIR (INSULIN DETEMIR) 1 UNITS/0.01ML SC ×2 (08:39→21:21)
[2017-11-16] MEDS: ENOXAPARIN 40 MG/0.4 ML SYRINGE (J1650) SC (08:40)
[2017-11-16] MEDS: FUROSEMIDE 40 MG TAB PO ×2 (08:40→21:20)
[2017-11-16 11:54] LABS: BEDSIDE GLUCOSE 244 MG/DL (80-115)
[2017-11-16] MEDS: NORCO, ANEXSIA 5/325MG TABLET (HYDROcodone/ACETAMINOPHEN) PO ×2 (14:12→21:26)
[2017-11-16] MEDS: guaiFENesin DM *SUGAR FREE* 5ML**DIABETIC TUSSIN DM PO (16:18)
[2017-11-16 16:47] LABS: BEDSIDE GLUCOSE 165 MG/DL (80-115)
[2017-11-16] MEDS: predniSONE 20 MG TAB PO (18:10)
[2017-11-16 20:33] LABS: BEDSIDE GLUCOSE 156 MG/DL (80-115)
[2017-11-17] MEDS: NORCO, ANEXSIA 5/325MG TABLET (HYDROcodone/ACETAMINOPHEN) PO ×2 (03:42→09:56)
[2017-11-17 06:16] LABS: BEDSIDE GLUCOSE 277 MG/DL (80-115)
[2017-11-17] MEDS: FUROSEMIDE 40 MG TAB PO (07:33)
[2017-11-17] MEDS: ATORVASTATIN 20 MG TAB PO (07:34)
[2017-11-17] MEDS: ENOXAPARIN 40 MG/0.4 ML SYRINGE (J1650) SC (07:34)
[2017-11-17] MEDS: PANTOPRAZOLE 40MG INJ (PROTONIX) (C9113) IV (07:34)
[2017-11-17] MEDS: LEVEMIR (INSULIN DETEMIR) 1 UNITS/0.01ML SC (07:35)
[2017-11-17] MEDS: HumaLOG INSULIN (NovoLOG) PER UNIT SC (07:35)
[2017-11-17] MEDS: IRBESARTAN 150 MG TAB PO (10:21)
== END 2017-11-17 11:16 | disposition home or self-care (01) | DRG 336 ==
LOC: M ED 21:47 → M ED INP 11-11 06:58 → M MS4PR 11-11 09:05 → M MSPAV 11-11 16:02
PROC: 0DNU0ZZ Release Omentum, Open Approach (ICD-10-PCS; principal; 2017-11-13 07:30)
PROC: 0WQF0ZZ Repair Abdominal Wall, Open Approach (ICD-10-PCS; 2017-11-13 07:30)
PROC: 0WUF0JZ Supplement Abdominal Wall with Synthetic Substitute, Open Approach (ICD-10-PCS; 2017-11-13 07:30)
DX: K43.3 Parastomal hernia with obstruction, without gangrene (principal); Z68.43 Body mass index [BMI] 50.0-59.9, adult; E66.01 Morbid (severe) obesity due to excess calories; K43.9 Ventral hernia without obstruction or gangrene; K43.0 Incisional hernia with obstruction, without gangrene; E11.9 Type 2 diabetes mellitus without complications; Z79.899 Other long term (current) drug therapy; Z79.82 Long term (current) use of aspirin; Z79.4 Long term (current) use of insulin; M54.5 Low back pain; I10 Essential (primary) hypertension; K21.9 Gastro-esophageal reflux disease without esophagitis; E78.5 Hyperlipidemia, unspecified; Z85.038 Personal history of other malignant neoplasm of large intestine; I87.2 Venous insufficiency (chronic) (peripheral)

== ENCOUNTER → 2017-12-29 | Outpatient (REF) | payer MEDICARE | LOC: M LAB REF 16:38 | DX: S31.109D Unspecified open wound of abdominal wall, unspecified quadrant without penetration into peritoneal cavity, subsequent encounter (principal); X58.XXXD Exposure to other specified factors, subsequent encounter; Y92.9 Unspecified place or not applicable; Y93.9 Activity, unspecified | CPT/HCPCS: 87186 ==

== ENCOUNTER → 2018-02-16 | Outpatient (REF) | payer MEDICARE ==
[2018-02-16 14:01] LABS: CREATININE FOR GFR 0.78 MG/DL (0.70-1.30); GLOMERULAR FILTRATION RATE > 60.0 (>49)
[2018-02-16 14:01] LABS: BLOOD UREA NITROGEN 18 MG/DL (7-18)
== END ==
LOC: M LAB REF 12:11
DX: S31.109D Unspecified open wound of abdominal wall, unspecified quadrant without penetration into peritoneal cavity, subsequent encounter (principal); W18.30XD Fall on same level, unspecified, subsequent encounter; Y92.009 Unspecified place in unspecified non-institutional (private) residence as the place of occurrence of the external cause
CPT/HCPCS: 82565

== ENCOUNTER → 2018-02-19 | Outpatient (CLI) | payer MEDICARE ==
[~2018-02-19] MED LIST changes: -/AUGM875TA; -ACET650S3 PO; -ALBU17IN INH; -ASPI325T PO; -ATOR80TA59 PO; -AUGM875T28 PO; -AZUL500T; -BENA25TA4 PO; -BIOT10TA2 PO; -CIPR500T3 PO; -DARV100T; -ECOT81TA5 PO; -FLEXERIL; -FLUO0.059 EXT; -FLUO5CR TOP; -FURO40TA2 PO; +GASTROGRAFIN SOLUTION 30ML (Q9963) As Ordered; -GLIM4TAB PO; -HUMA100I5 SC; -HYDR-3713 PO; -HYDR12.55 PO; -INSULADS SC; +ISOVUE-370 76% 100ML VIAL (Q9967) As Ordered; -K-TA10TA PO; -KENAAER3 TOP; -KETO0.05 TOP; -KETO2CR EXT; -LASI40TA PO; -LOPE1SUS PO; -LOSA50TA20 PO; -METF10004 PO; -METF500T13 PO; -MINO100T PO; -NOVO1INJ4 SC; -NOVOINJ14 SC; -POTA10TA16 PO; -POTA20TA PO; -PRED10TA2 PO; -PRED20TA; -SILV1CRE60 TOP; -SLOWTAB3 PO; -SULF500T2 PO; -TOUJ1.2I SC; -TYLE325T5 PO; -VICT18IN SC; -ZEST1TAB6 PO; -[UNRECOGNIZED DRUG - CODE]
== END ==
LOC: M RAD 13:26
DX: S31.109D Unspecified open wound of abdominal wall, unspecified quadrant without penetration into peritoneal cavity, subsequent encounter (principal); K40.90 Unilateral inguinal hernia, without obstruction or gangrene, not specified as recurrent; T81.49XA Infection following a procedure, other surgical site, initial encounter
CPT/HCPCS: Q9963

== ENCOUNTER → 2018-04-22 | Outpatient (REF) | payer MEDICARE ==
[2018-04-22 12:42] LABS: ESTIMATED AVERAGE GLUCOSE 169 MG/DL (60-110); HEMOGLOBIN A1c 7.5 %
== END ==
LOC: M SFHCPLAZ 08:27
DX: E11.65 Type 2 diabetes mellitus with hyperglycemia (principal)

== ENCOUNTER → 2018-04-22 | Outpatient (REF) | payer MEDICARE ==
[2018-04-24 10:36] LABS: CARCINOEMBRYONIC ANTIGEN < 0.5 NG/ML (<2.5)
== END ==
LOC: M LABDRAWP 08:34
DX: Z08 Encounter for follow-up examination after completed treatment for malignant neoplasm (principal); Z85.038 Personal history of other malignant neoplasm of large intestine; E11.65 Type 2 diabetes mellitus with hyperglycemia
CPT/HCPCS: 82378

== ENCOUNTER 2018-08-31 13:46 | Emergency (ER) | payer MEDICARE ==
[~2018-08-31] VITALS: Ht 172.7 cm; Wt 172.7 kg
[~2018-08-31 13:46] MED LIST changes: +/AUGM875TA; +ACET650S3 PO; +ALBU17IN INH; +ASPI-1 PO; +ASPI81TAEC PO; +ATOR80TA59 PO; +AUGM875T28 PO; +AZUL500T; +BENA25TA4 PO; +BIOT10TA2 PO; +CIPR500T3 PO; +DARV100T; +ECOT81TA5 PO; +FLEXERIL; +FLUO-157 EXT; +FLUO0.05 TOP; +FURO40TA2 PO; -GASTROGRAFIN SOLUTION 30ML (Q9963) As Ordered; +GLIM4TAB PO; +HUMA100I5 SC; +HYDR-3713 PO; +HYDR12.55 PO; +INSULADS SC; +IRBE300T10 PO; -ISOVUE-370 76% 100ML VIAL (Q9967) As Ordered; +K-TA10TA PO; +KENAAER3 TOP; +KETO0.05 TOP; +KETO2CR EXT; +KLOR20TA42 PO; +LASI40TA9 PO; +LOPE1SUS PO; +LOSA50TA88 PO; +METF10004 PO; +METF500T13 PO; +MINO100T PO; +NOVO1INJ4 SC; +NOVOINJ14 SC; +POTA10TA16 PO; +PRED10TA2 PO; +PRED20TA; +PRED20TA PO; +SILV1CRE60 TOP; +SLOWTAB3 PO; +SULF500T2 PO; +TOUJ1.2I SC; +TYLE325T5 PO; +VICT18IN SC; +ZEST1TAB6 PO; +[UNRECOGNIZED DRUG - CODE]
[2018-08-31 15:45] VITALS: BP 155/69
[2018-08-31] MEDS ORDERED: NAPR-837 PO (15:45)
[2018-08-31] MEDS ORDERED: ROBA500T PO (15:45)
[2018-08-31] MEDS ORDERED: KETOROLAC 60 MG/2 ML VIAL (J1885) IM ONE (15:45)
== END 2018-08-31 16:10 | disposition home or self-care (01) ==
LOC: M ED 13:46
DX: M54.41 Lumbago with sciatica, right side (principal); I10 Essential (primary) hypertension; E11.9 Type 2 diabetes mellitus without complications; E78.00 Pure hypercholesterolemia, unspecified; G62.9 Polyneuropathy, unspecified; K21.9 Gastro-esophageal reflux disease without esophagitis; F33.9 Major depressive disorder, recurrent, unspecified; F41.9 Anxiety disorder, unspecified; Z79.899 Other long term (current) drug therapy; Z79.4 Long term (current) use of insulin; Z79.82 Long term (current) use of aspirin; Z91.030 Bee allergy status; Z87.891 Personal history of nicotine dependence
CPT/HCPCS: 96372; 99283; J1885

== ENCOUNTER → 2018-10-22 | Outpatient (REF) | payer MEDICARE ==
[~2018-10-22] MED LIST changes: +NAPR-837 PO; +ROBA500T PO
[2018-10-22 16:27] LABS: BLOOD UREA NITROGEN 26 MG/DL (7-18); CARBON DIOXIDE LEVEL 25 MEQ/L (21-32); CHLORIDE LEVEL 105 MEQ/L (98-107); CHOLESTEROL LEVEL 112 MG/DL (<200); CHOLESTEROL RISK RATIO 2.871 (<5); CREATININE FOR GFR 0.92 MG/DL (0.70-1.30); GLOMERULAR FILTRATION RATE > 60.0 (>49); GLUCOSE, FASTING 159 MG/DL (70-100); HDL CHOLESTEROL 39 MG/DL (>40); LDL CHOLESTEROL 40 MG/DL (<100); NON-HDL-C 73 MG/DL; POTASSIUM SERUM 4.3 MEQ/L (3.5-5.1); SODIUM LEVEL 139 MEQ/L (136-145); TRIGLYCERIDES LEVEL 166 MG/DL (<150)
[2018-10-22 18:26] LABS: HEMOGLOBIN A1c 8.3 %
== END ==
LOC: M SFHCPLAZ 13:45
PROVIDERS: ATTEND Family Medicine
DX: E11.65 Type 2 diabetes mellitus with hyperglycemia (principal)

== ENCOUNTER → 2018-10-28 | Outpatient (REF) | payer MEDICARE ==
[2018-10-28 16:38] LABS: MALB URINE SIEMENS 10.2 MG/L; MAU/CREAT RATIO 9.7 MCG/MG (0.0-30.0)
== END ==
LOC: M SFHCPLAZ 15:43
PROVIDERS: ATTEND Family Medicine
DX: E11.65 Type 2 diabetes mellitus with hyperglycemia (principal)
CPT/HCPCS: 82043; G0463

== ENCOUNTER → 2018-11-24 | Outpatient (CLI) | payer MEDICARE ==
--- NOTE | 2018-11-24 13:34 | REP ---
RIGHT LOWER EXTREMITY DUPLEX DOPPLER VENOUS ULTRASOUND WITH EVALUATION FOR VENOUS REFLUX: Real-time compression and duplex Doppler interrogation of the right lower extremity deep venous system is performed. The right common femoral, superficial femoral and popliteal veins are fully compressible with transducer pressure and demonstrate normal spontaneous and phasic flow without evidence of deep venous thrombosis. Evaluation for venous reflux demonstrates some reflux in the common femoral vein and proximal superficial femoral vein with no reflux in the more distal superficial femoral vein. There is also reflux in the popliteal vein. There is no evidence of an anterior accessory greater saphenous vein. There is reflux in the greater saphenous vein at the saphenofemoral junction with duration of 5.4 seconds, AP diameter of 5 mm, also at the mid thigh with a duration of 4.8 seconds with AP diameter 5 mm as well as at the level of the knee with a duration of 3 seconds, AP dimension 7 mm. There is no reflux in the lesser saphenous vein. Electronically Signed by Paul Martinez MD 11/26/2018 09:18 A
== END ==
LOC: M RAD 08:03
PROVIDERS: ATTEND Surgery
DX: I87.311 Chronic venous hypertension (idiopathic) with ulcer of right lower extremity (principal)

== ENCOUNTER → 2018-12-04 | Outpatient (REF) | payer MEDICARE ==
[~2018-12-04] MED LIST changes: -GLIM4TAB PO; +GLIM4TAB5 PO
== END ==
LOC: M SFHCPLAZ 17:04
PROVIDERS: ATTEND Dermatology
DX: L82.1 Other seborrheic keratosis (principal)

== ENCOUNTER → 2019-01-12 | Outpatient (CLI) | payer MEDICARE ==
[~2019-01-12] MED LIST changes: +GLIM4TAB PO; -GLIM4TAB5 PO
--- NOTE | 2019-01-16 00:20 | ECWPNPC ---
PATIENT NAME: MIKEY SOLIZ : 1950 GENDER: MALE VISIT DATE: 01/12/2019 DISCHARGE DATE: 01/12/19 1636 VISIT LOCKED DATE TIME: PHYSICIAN: DONI DUMONT MD RESOURCE: DONI DUMONT MD REASON FOR APPOINTMENT 1. NPC BACK HISTORY OF PRESENT ILLNESS PAIN SCREENING: PATIENT HAS A COMPLAINT OF ACUTE OR CHRONIC PAIN :YES 68 YEAR OLD MALE PATIENT WITH A HISTORY OF CHRONIC LOW BACK PAIN. THE PATIENT DESCRIBES THE PAIN ACHING, SHARP, AND CONTINUOUS WITH A PAIN SCORE OF 6-9/10 DEPENDING ON PHYSICAL ACTIVITY. THE PATIENT STATES HIS PAIN BEGINS IN HIS LOW BACK AND RADIATES DOWN HIS RIGHT LEG. THE PATIENT SAYS HE HAS BEEN SUFFERING FROM THIS PAIN FOR MANY YEARS. THE PATIENT SAYS THE PAIN IS AFFECTING HIS ABILITY TO PERFORM HIS DAILY ACTIVITIES SUCH WALKING, GROCERY SHOPPING, AND CLEANING HIS HOUSE. THE PATIENT STATES HE HAS A COLOSTOMY BAG AND HAS A HISTORY OF DIABETES. THE PATIENT MENTIONS HE HAS BEEN SEEN AT A WOUND CARE CLINIC TO TREAT HIS ULCERS IN THE PAST, HOWEVER THE ULCERS ARE CURRENTLY HEALED. PATIENT DENIES UNEXPLAINABLE WEIGHT LOSS, FEVER, CHILLS, NEW CHANGES ON HIS URINARY OR BOWEL CONTROL. FALL RISK SCREENING: SCREENING :NO FALLS REPORTED IN THE LAST YEAR CURRENT MEDICATIONS TAKING ALCOHOL SWABS 70 % PAD SWAB SKIN PRIOR TO FINGERSTICK BEFORE MEALS AND BEDTIME. DX: Z79.4 TAKING MAY HAVE . 1 [facility] POUCH REFER [id number]/ DX CODE 154.1 CHANGE NEEDED TAKING MAY USE . [id number] DX CODE 154.1 CHANGE DIRECTED TAKING [employer] ADHESIVE REMOVER WIPES . PACKET DX CODE 154.1 TOPICALLY USE DIRECTED TAKING [employer] PROTECT BARRIER WIPES . MISCELLANEOUS DX CODE 154.21 TOPICALLY USE DIRECTED TAKING STOMAHESIVE PASTE . PASTE DX CODE 154.21 TOPICALLY DIRECTED TAKING TEOFILO COHESIVE SEALS . MISCELLANEOUS DX CODE 154.1 TOPICALLY DIRECTED TAKING ASPIRIN 81 MG TABLET CHEWABLE 1 TABLET ORALLY ONCE A DAY TAKING LANCETS FOR ONE TOUCH ULTRA MINI TAKE 1 STRIP TOP TWICE A DAY NEEDED DX E11.9 TAKING MAY . POWDER DX FXOK337.1 TOPICALLY DIRECTED TAKING VENTOLIN HFA 108 (90 BASE) MCG/ACT AEROSOL SOLUTION 2 PUFFS NEEDED INHALATION EVERY 4 HRS NEEDED FOR WHEEZING OR SHORTNESS OF BREATH TAKING ALCOHOL SWABS 70 % PAD BEFORE GLUCOSE CHECKS TO SKIN. DX: E11.9 BEFORE MEALS AND BEDTIME TAKING ALCOHOL SWABS N/A ALCOHOL PADS USE BEFORE MEALS AND BEDTIME TAKING FLUOCINONIDE 0.05 % CREAM 1 EXTERNALLY APPLY TO ULCER WITH EACH STOMA CHANGE TAKING BLOOD GLUCOSE TEST - STRIP DIRECTED IN VITRO 2 TIMES DAILY. Z79.4 TAKING INSULIN SYRINGE 28G X 1/2 MISCELLANEOUS DIRECTED SUBCUTANEOUSLY TWICE DAILY. DX: Z79.4 TAKING REPAGLINIDE 0.5 MG TABLET 1 TABLET 15 TO 30 MINUTES BEFORE MEALS ORALLY THREE TIMES DAILY AT MEALS ONLY, NOTES: DIABETES TAKING BLOOD GLUCOSE TEST ONETOUCH ULTRA BLUE STRIP USE DIRECTED TWO TIMES A DAY TAKING MAY HAVE - - LIFT CHAIR TO AIDE IN MOBILITY SIT-STAND CHAIR DAILY NEEDED FOR IMPAIRED MOBILITY AND MORBID OBESITY. DX: E66.01, Z74.09 TAKING LIPITOR 80 MG TABLET TAKE ONE TABLET BY MOUTH EVERY DAY ORALLY ONCE A DAY TAKING TYLENOL EXTRA STRENGTH 500 MG TABLET 1 TABLET NEEDED ORALLY EVERY 6 HRS TAKING METFORMIN HCL 1000 MG TABLET 1 TABLET WITH MEALS ORALLY TWICE A DAY TAKING NOVOLIN 70/30 (70-30) 100 UNIT/ML SUSPENSION 40 UNITS IN THE AM, 50 UNITS IN THE PM SUBCUTANEOUS TWICE A DAY TAKING GABAPENTIN 600 MG TABLET 1 CAPSULE ORALLY THREE TIMES DAILY TAKING POTASSIUM CHLORIDE ER 10 MEQ TABLET EXTENDED RELEASE 2 TABLET WITH FOOD ORALLY TWICE A DAY TAKING IRBESARTAN 300 MG TABLET 1 TABLET ORALLY ONCE A DAY TAKING FUROSEMIDE 40 MG TABLET 1 TABLETS ORALLY 2 TABS IN AM, 1 TAB IN PM TAKING METOPROLOL SUCCINATE ER 100 MG TABLET EXTENDED RELEASE 24 HOUR 1 TABLET ORALLY ONCE A DAY TAKING DULOXETINE HCL 60 MG CAPSULE DELAYED RELEASE PARTICLES 1 CAPSULE ORALLY DAILY, NOTES: START WITH 1 CAP DAILY FOR 7 DAYS, THEN INCREASE TO 1 CAP TWICE DAILY THEREAFTER TAKING BUPROPION HCL ER (XL) 150 MG TABLET EXTENDED RELEASE 24 HOUR 1 TABLET IN THE MORNING ORALLY ONCE A DAY TAKING HYDROCODONE-ACETAMINOPHEN 5-325 MG TABLET 1 TABLET NEEDED ORALLY THREE TIMES DAILY NEEDED FOR SEVERE PAIN.MDD 3 NOT-TAKING IRBESARTAN 300 MG TABLET 1 TABLET ORALLY ONCE A DAY NOT-TAKING METHOCARBAMOL 500 MG TABLET TAKE TWO TABLETS BY MOUTH AT BEDTIME NEEDED FOR PAIN ORAL NOT-TAKING NAPROXEN 500 MG TABLET TAKE ONE TABLET BY MOUTH TWICE A DAY WITH FOOD ORAL MEDICATION LIST REVIEWED AND RECONCILED WITH THE PATIENT PAST MEDICAL HISTORY TYPE 2 DM 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 ULCERATIVE COLITIS DEPRESSION CHRONIC LBP OBESITY DEGENERATIVE DISC DISEASE ERYTHEMA NODOSUM LE EDEMA MALIGNANT MELANOMA LEFT FOREARM 11/26-- SEES DERM Q [address] PRAKASH CHRONIC VENOUS STASIS DERMATITIS AND ULCES OF RIGHT LE HIGH GRADE ADENOCARCINOMA SIGMOID/RECTAL 05/01; CEA 0.5 01/31, 05/02 HTN; NM STRESS TEST 03/2017 ALLERGIES BEE STINGS/ YELLOW JACKET: HIVES/SWELLING - ALLERGY - ONSET DATE 12/01/2018 SURGICAL HISTORY BROKEN NOSE REPAIR NO PERSONAL OR FHX OF SEVERE REACTION TO ANESTHESIA APPENDECTOMY BOWEL REPAIR D/T STRANGULATED HERNIA 09/2009 COLONOSCOPIES 2003,2007,2008 ROBOTIC-ASISTED TOTAL PROCTOCOLECTOMY WITH ILEOSTOMY FOR U/C AND HIGH GRADE ADENOCARCINOMA; FOCAL VASCULAR SPACE INVASION ON PATH BUT ALL LYMPH NODES (23 PERIRECTAL AND 53 COLONIC) NEG FOR TUMOR 06/2014 CATARACT REMOVED FROM RIGHT EYE 04/2016 CATARACT REMOVED LEFT EYE 05/03/16 LAPAROSCOPTIC AND OPEN REPAIR OF INCARCERATED PARASTOMAL HERNIA WITH SMALL BOWEL OBSTRUCTION 10/2017 LAPRASCOPTIC AND PARTIAL OPEN REPAIR OF INCRACERATED RECURRENT VENTRAL INCISIONAL HERNIA WITH MESH 10/2017 LESION REMOVED FROM LEFT FOREARM- MELANOMA 2009 FAMILY HISTORY FATHER: 84 YRS, LIVER FAILURE, MRSA MOTHER: 87 YRS, NIDDM, DIAGNOSED WITH DIABETES SIBLINGS: ALIVE 61 YRS, BROTHER DM, SISTER COLON CA AGE 61, DIABETES, CANCER 1 BROTHER(S) , 3 SISTER(S) . 1 SON(S) , 3 DAUGHTER(S) . BROTHER DIABETIC TYPE 2 AND COPD\NSISTER DIABETIC AND CANCER- IN MAY PATERANAL AUNT HAD PANCREATIC CANCER. DENIES FAMILY HX OF MELANOMA. SOCIAL HISTORY GENERAL: TOBACCO USE ARE YOU A:FORMER SMOKER HOW LONG HAS IT BEEN SINCE YOU LAST SMOKED?> 10 YEARS HIV / HEP-C SCREENING HIV TEST OFFERED TO PATIENT:YES DATE OFFERED:07/02/2016 TEST ACCEPTED:NO REASON:PATIENT DECLINED HEP-C TEST OFFERED TO PATIENT:YES DATE OFFERED:07/02/2016 TEST ACCEPTED:NO REASON:PATIENT DECLINED OTHERS AT HOME: CHILDREN, GRANDCHILDREN. HOUSING: OWNS HOME. DIET: REGULAR. DOMESTIC VIOLENCE DO YOU FEEL SAFE IN YOUR ENVIRONMENT?YES NEW PATIENT PAIN DIARY PATIENT DESCRIBES PAIN :ACHING, SHARP FROM 0-10, WHAT LEVEL IS YOUR PAIN TODAY?7 PRECIPITATING FACTORS STANDING, WALKING ALLEVIATING FACTORS SITTING AND LYING DOWN MAKE PAIN BETTER IMPACT ON FUNCTION MAKES HIM NOT BE ABLE TO DO THE THINGS HE USED TO DO HAVE YOU BEEN SICK IN THE LAST WEEK (COLD, COUGH, FEVER, FLU, ETC)NO DO YOU TAKE ANY BLOOD THINNERS?NO ASPIRIN 81 MG DAILY DO YOU HAVE ANY RASHES OR OPEN SORES?NO ANY CHANGE IN BOWEL OR BLADDER CONTROL?NO ARE YOU ALLERGIC TO SHELLFISH OR IV DYE?NO ARE YOU DIABETIC?YES DO YOU HAVE A PACEMAKER OR DEFIBRILLATOR?NO HAVE YOU FALLEN IN THE LAST 6 MONTHS?YES FELL IN NOVEMBER- TRIPPED ON A STICK IN THE [place], NO INJURIES, NO MEDICAL CARE DO YOU USE ANY TYPE OF TOBACCO (SMOKE, SMOKELESS, CHEW, ETC.)NO ARE YOU ABUSED, NEGLECTED, OR IN AN UNSAFE ENVIRONMENT?NO DO YOU HAVE THOUGHTS OF HURTING YOURSELF OR SOMEONE ELSE?NO INTENSITY SCALE REVIEWEDNUMBER BMI CARE GOAL FOLLOW-UP ABOVE NORMAL BMI FOLLOW-UPLIFESTYLE EDUCATION REGARDING DIET RECREATIONAL DRUG USE DRUG USE?NO EXERCISE: NO REGULAR EXERCISE. LEARNING BARRIERS / SPECIAL NEEDS CHANGE FROM LAST VISIT?NO 12/04/18 BARRIERS TO LEARNING?NO HEARING IMPAIRED?NO VISION IMPAIRED?YES :CORRECTIVE LENSES COGNITIVELY IMPAIRED?NO READINESS TO LEARN?YES LEARNING PREFERENCES?NO LEARNING CAPABILITIES PRESENT?YES EMOTIONAL BARRIERS?NO SPECIAL DEVICES?YES :CANE SKI LIFT MECHANIC NEEDED?NO PAIN CLINIC PFS, CLERGY, PUBLIC HEALTH REFERRALS PFS REFERRAL NEEDED?NO CLERGY REFERRAL NEEDED?NO PUBLIC HEALTH REFERRAL NEEDED?NO WAS THE PROVIDER NOTIFIED OF ANY PERTINENT INFO?YES HAS THE PATIENT BEEN EDUCATED REGARDING HIS/HER PLAN OF CARE?YES HAS THE PATIENT BEEN EDUCATED REGARDING PAIN, THE RISK FOR PAIN, THE IMPORTANCE OF EFFECTIVE PAIN MANAGEMENT, AND THE PAIN ASSESSMENT PROCESS?YES LATEX QUESTIONNAIRE LATEX ALLERGY : HAVE YOU EVER DEVELOPED ANY TYPE OF REACTION AFTER HANDLING LATEX PRODUCTS SUCH RUBBER GLOVES, CONDOMS, DIAPHRAGMS, BALLOONS, SOCKS, OR UNDERWEAR?NO LATEX ALLERGY : HAVE YOU EVER DEVELOPED ANY TYPE OF REACTION DURING OR AFTER DENTAL APPOINTMENT, VAGINAL/RECTAL EXAMINATION, SURGICAL PROCEDURE, OR ANY OTHER EXPOSURE?NO LATEX RISK : HAVE YOU EVER HAD ANY DIFFICULTY BREATHING OR HIVES AFTER EATING OR HANDLING ANY FRUITS, OR VEGETABLES; SUCH KIWI, BANANAS, STONE FRUITS, OR CHESTNUTSNO LATEX RISK : DO YOU HAVE A PREVIOUS PERSONAL HISTORY OF MORE THAN NINE SURGERIES, SPINA BIFIDA, OR REPEATED CATHERIZATIONS? NO LATEX RISK : ARE YOU FREQUENTLY EXPOSED TO LATEX PRODUCTS IN YOUR OCCUPATION?NO DATE ASKED : 07/29/2018 CAFFEINE CAFFEINE USE? TEA >5 ADVANCE DIRECTIVE ADVANCE DIRECTIVE DISCUSSED WITH PATIENT: PATIENT STATES HE DOES NOT HAVE ANY ADVANCED DIRECTIVES, DECLINED INFORMATION 01/12/19 1538 NL MARITAL STATUS: .. ALCOHOL SCREENING POINTS: 0, INTERPRETATION: NEGATIVE. OCCUPATION: DISABLED. SEXUAL HX HAD SEX IN THE LAST 12 MONTHS (VAGINAL, ORAL, OR ANAL)?NO HAVE YOU EVER HAD AN STD?NO REVIEWED, NO CHANGESREVIEWED WITH PATIENT 01/12/19 1538 NLJ. HOSPITALIZATION/MAJOR DIAGNOSTIC PROCEDURE SURGERY RELATED BOWEL OBSTRUCTION JULY 2015 BILATERAL LOWER LEG CELLULITIS 2013 BOWEL OBSTRUCTION 01/17/17 BOWEL OBSTRUCTION 10/2017 3 DAY STAY FOR BROKEN FINGER WHEN A CHILD REVIEW OF SYSTEMS REVIEWED BY: PROVIDER: DONI DUMONT MD . CONSTITUTIONAL: ANY CHANGE IN YOUR MEDICAL CONDITION? NO . CHILLS NO . FEVER NO . INFECTION: DO YOU HAVE NEW INFECTIONS? NO . DO YOU HAVE HISTORY OF MRSA? NO . MUSCULOSKELETAL: ANY NEW PATTERNS OF PAIN OR NUMBNESS? YES- LOW BACK PAIN SINCE IN THE 90S, STATES HE NOTICED THE INCREASED PAIN WHILE WALKING IN THE [place], STATES HE HAS HIS RIGHT LEG BE VERY PAINFUL, AND HAS HAD TO COME TO ER AT TIMES FROM PAIN . SYTEMIC LUPUS NO . GASTROENTEROLOGY: ANY NEW CHANGE IN BOWEL CONTROL? NO . BARRETTS ESOPHAGUS NO . CIRRHOSIS NO . HEPATITIS NO . LIVER FAILURE NO . ACID REFLUX NO . UNEXPLAINED WEIGHT LOSS NO . GENITOURINARY: ANY NEW CHANGE IN BLADDER CONTROL? NO . IS THERE A CHANCE YOU COULD BE ? NO . HEMATOLOGY/LYMPH: DO YOU TAKE ANY BLOOD THINNERS? (FOR EXAMPLE- COUMADIN, PLAVIX, AGGRENOX, PLATEL, PRADAXA, OR XARELTO) YES- ASPIRIN 81 MG DAILY . WHEN WAS YOUR LAST DOSE? DATE: TIME: . LOW PLATELET COUNT NO . SICKLE CELL DISEASE NO . VON WILLIEBRANDS NO . FACTOR V LEIDEN NO . THALLASEMIA NO . ANEMIA NO . EASY BRUISING NO . NEUROLOGY: HAVE YOU FALLEN IN THE PAST 12 MONTHS? YES- FELL IN THE [place] IN NOVEMBER, TRIPPED OVER A STICK IN THE [place], NO INJURIES . ANY NEW EXTREMITY NUMBNESS OR WEAKNESS? NO . HEAD INJURY NO . DEMENTIA NO . CEREBRAL PALSY NO . MULTIPLE SCLEROSIS NO . DIZZINESS NO . HEADACHE NO . STROKES NO . VERTIGO NO . CARDIOLOGY: DO YOU HAVE A PACEMAKER OR DEFIBRILLATOR? NO . ANGINA NO . HEART ATTACK NO . HEART SURGERY NO . CONGESTIVE HEART FAILURE/FLUID OVERLOAD NO . CHEST PAIN NO . HIGH BLOOD PRESSURE ON MEDICATION(S) . IRREGULAR HEART BEAT NO . RESPIRATORY: HAVE YOU BEEN SICK IN THE PAST WEEK? NO . FEVER NO . FLU LIKE SYMPTOMS? NO . CPAP NO . BYPAP NO . ASTHMA NO . EMPHYSEMA NO . CHRONIC LUNG DISEASES NO . SHORTNESS OF BREATH ON EXERTION NO . COUGH NO . SNORING NO . INTEGUMENTARY: DO YOU HAVE ANY RASHES OR OPEN SORES? NO . ALLERGIC/IMMUNO: ARE YOU ALLERGIC TO IV DYE? NO . ANY NEW ALLERGIES? NO . PSYCHIATRIC: DO YOU HAVE THOUGHTS OF HURTING YOURSELF OR SOMEONE ELSE? NO . ARE YOU ABUSED, NEGLECTED, OR IN AN UNSAFE ENVIRONMENT? NO . ENDOCRINOLOGY: ARE YOU DIABETIC? YES . THYROID DISORDER NO . OTHER: DO YOU NEED ANY PRESCRIPTIONS? NO . IF YES, PLEASE LIST: ____ . ANY NEW PROBLEMS WITH YOUR MEDICATIONS? NO . WHEN DID YOU LAST EAT? ____ . WHEN DID YOU LAST DRINK? ____ . WHAT DID YOU LAST DRINK? ____ . 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 ____ . DO YOU HAVE ANY OTHER QUESTIONS OR CONCERNS YES- STATES HE WOULD LIKE TO DISCUSS OPTIONS TO HELP WITH BACK PAIN SO THAT HE CAN DO THINGS ON HIS OWN AND NOT OTHER PEOPLE TO DO THINGS WITH HIM, STATES HE CAN ONLY DO SO MUCH BEFORE HE HAS TO STOP AND SIT DUE TO THE PAIN . VITAL SIGNS WT 386.4 LBS, HT 69 IN, BMI 57.06 INDEX, BP 169/74 MM HG, HR 71 /MIN, RR 18 /MIN, TEMP 97.6 F, OXYGEN SAT % 97%, NA INITIALS SC 14:11. EXAMINATION GENERAL EXAMINATION: PATIENT IS ALERT O X 3 AND COOPERATIVE. LUNGS CLEAR, TO AUSCULTATION. HEART: NO MURMURS OR GALLOPS; FACIAL CRANIAL NERVES ARE GROSSLY NORMAL. GOOD SYMMETRY OF FACIAL MUSCLE MOVEMENT. NORMAL VISUAL BETHEA. ANTALGIC WALK. TENDERNESS IN THE LOW BACK, ESPECIALLY ON THE RIGHT SIDE. PRESENCE OF BANDS OF TISSUE AND TRIGGER POINTS WITH RESTRICTION OF MOVEMENT OF THE LOW BACK. RIGHT LEG IS WEAKER AT EXTENSION AND FLEXION. SOME INFLAMMATION AND PAST EVIDENCE OF ULCERS OF THE LOWER EXTREMITIES. X-RAYS OF THE LUMBAR SPINE DONE ON 10/28/2018 SHOWS FACET ARTHROPATHY CHANGES AND SOME NARROWING OF DISC SPACE AT MULTIPLE LEVELS. ASSESSMENTS LUMBAGO WITH SCIATICA, UNSPECIFIED SIDE - M54.40 (PRIMARY) OTHER CHRONIC PAIN - G89.29 MYALGIA, OTHER SITE - M79.18 SPONDYLOSIS OF LUMBAR REGION WITHOUT MYELOPATHY OR RADICULOPATHY - M47.816 SPONDYLOSIS OF LUMBOSACRAL REGION WITHOUT MYELOPATHY OR RADICULOPATHY - M47.817 TREATMENT LUMBAGO WITH SCIATICA, UNSPECIFIED SIDE CLINICAL NOTES: WE DISCUSSED SEVERAL ISSUES WITH MR. SOLIZ'S PAIN MANAGEMENT CASE. DUE TO THE TRIGGER POINTS, BANDS OF TISSUE, AND RESTRICTION OF MOVEMENT, I WOULD LIKE TO MOVE FORWARD WITH A TRIGGER POINT INJECTION AT THIS TIME. WE DISCUSSED THE BENEFITS, RISKS, AND ALTERNATIVES OF THE INJECTION AND THE PATIENT WOULD LIKE TO PROCEED. I AM REFERRING THE PATIENT TO [facility]'S PALLIATIVE CARE PROGRAM TO CONSIDER MEDICATION MANAGEMENT. I AM REQUESTING FOR A LUMBAR SPINE MRI TO BE PERFORMED TO UNDERSTAND WHERE THE PATIENT'S PAIN IS ORIGINATING FROM. THE PATIENT WILL FOLLOW UP IN SEVERAL WEEKS AFTER THE INJECTION. INSTRUCTIONS WERE GIVEN, QUESTIONS WERE ANSWERED, PATIENT REPORTS UNDERSTANDING AND AGREES WITH THE PLAN. I, GREGG GARCIA, DOCUMENTED THE ABOVE INFORMATION ACTING A SCRIBE FOR DR. DUMONT. I HAVE REVIEWED THE ABOVE DOCUMENT, WRITTEN BY GREGG CRAMER AND I VERIFY THAT IT IS ACCURATE. DEAR DR. MACKENZIE FAULKNER MD: THANK YOU FOR YOUR KIND REFERRAL OF MIKEY SOLIZ. IF YOU WANT TO DISCUSS HIS CASE WITH ME PLEASE CALL ME AT THE PAIN CENTER AT [phone]. SINCERELY, DONI DUMONT MD PAIN MEDICINE . PREVENTIVE MEDICINE PAIN CLINIC TEACHING: PROCEDURE TEACHING TRIGGER POINT INJECTION INFORMATION PRINTED AND REVIEWED WITH PATIENT 01/12/19 1623 NLJ. PROCEDURE CODES FA211 ESTABILISHED PATIENT [facility] FACILITY CHARGE [id number] CURRENT MEDS W/DOSAGES DOCUMENTED G8730 PAIN ASSESS POS TOOL F/U PLAN DOC DISPOSITION & COMMUNICATION FOLLOW UP 3 WEEKS (REASON: TPI, LS MRI, REFERRING TO PALLIATIVE CARE FOR MED MANAGE) ELECTRONICALLY SIGNED BY DONI DUMONT MD, MD ON 01/15/2019 AT 05:02 PM EDT DISCLAIMER : THIS IS A VISIT SUMMARY EXTRACTED FROM THE [employer] CHART. IT IS NOT A COPY OF THE [employer] PROGRESS NOTE. MTDD
== END ==
LOC: M PAIN 14:00
PROVIDERS: ATTEND Anesthesiology
DX: M54.40 Lumbago with sciatica, unspecified side (principal); G89.29 Other chronic pain; M79.18 Myalgia, other site; M47.816 Spondylosis without myelopathy or radiculopathy, lumbar region; M47.817 Spondylosis without myelopathy or radiculopathy, lumbosacral region; E11.40 Type 2 diabetes mellitus with diabetic neuropathy, unspecified; Z86.59 Personal history of other mental and behavioral disorders; I10 Essential (primary) hypertension; Z87.891 Personal history of nicotine dependence; Z91.030 Bee allergy status; Z79.82 Long term (current) use of aspirin; E66.01 Morbid (severe) obesity due to excess calories; Z68.43 Body mass index [BMI] 50.0-59.9, adult; Z79.4 Long term (current) use of insulin; Z79.899 Other long term (current) drug therapy

== ENCOUNTER → 2019-01-26 | Outpatient (CLI) | payer MEDICARE ==
--- NOTE | 2019-01-26 13:31 | REP ---
MRI of the lumbar spine without contrast Indication: Low back pain. Lumbago. Comparison: None Technique: MRI of the lumbar spine was performed utilizing sagittal STIR, T1 and T2, and axial T1 and T2 weighted imaging. No intravenous contrast was administered. Findings: There is mild exaggeration of lumbar lordosis. There is 2 mm retrolisthesis of L1 on L2 and L4 on L5. There is edema signal along the superior endplates of L2 and L4, likely degenerative. There is susceptibility related to vacuum disc phenomenon at L1-L5. Vertebral body heights and intervertebral disc heights are maintained. The visualized spinal cord is normal. The conus medullaris terminates at the level of L1. There is a component of congenital spinal canal stenosis. There is prominence of the posterior epidural fat at T12-L1 and below. Level specific observations: L1-L2: Diffuse disc bulge, eccentric to the right. Superimposed central disc extrusion with inferior migration. No acquired spinal canal stenosis. Mild bilateral neural foraminal narrowing, worse on the right. L2-L3: Diffuse disc bulge, eccentric to the left. Bilateral facet arthropathy, greater on the right. Prominence of the posterior epidural fat. Moderate to severe spinal canal stenosis. Moderate bilateral neural foraminal narrowing, worse on the right. L3-L4: Diffuse disc bulge, eccentric to the right. Bilateral facet arthropathy. Prominence of the posterior epidural fat. Moderate spinal canal stenosis. Moderate left and severe right neural foraminal narrowing. L4-L5: Diffuse disc bulge. Bilateral facet arthropathy. Prominence of the posterior epidural fat. Mild left neural foraminal narrowing. L5-S1: Bilateral facet arthropathy. Impression: 1. Grade 1 retrolisthesis of L1 on L2 and L4 on L5. 2. Lumbar spondylosis with a component of congenital spinal stenosis, multilevel facet arthropathy and prominence of the posterior epidural fat resulting in moderate to severe spinal canal stenosis at L2-L3 and moderate spinal canal stenosis at L3-L4. 3. Additionally, there is multilevel neural foraminal narrowing at L1-L5, most notably at L3-L4 with moderate left and severe right neural foraminal narrowing, moderate bilateral neural foraminal narrowing and L2-L3, mild bilateral neural foraminal narrowing at L1-L2 and mild left neural foraminal narrowing at L4-L5. Electronically Signed by Regina Guzmán MD 01/26/2019 01:22 P
== END ==
LOC: M RAD 10:55
PROVIDERS: ATTEND Anesthesiology
DX: M54.5 Low back pain (principal)

== ENCOUNTER → 2019-02-17 | Outpatient (CLI) | payer MEDICARE ==
[~2019-02-17] MED LIST changes: +BUPIVACAINE HCL 0.25% 10 ML VIAL As Ordered ONE; +BUPIVACAINE HCL 0.25% 30 ML VIAL As Ordered ONE; -GLIM4TAB PO; +GLIM4TAB5 PO; +NORCO, ANEXSIA 5/325MG TABLET (HYDROcodone/ACETAMINOPHEN) As Ordered ONE; +TRIAMCINOLONE ACETONIDE SUSP 40 MG/ML VIAL (J3301) As Ordered ONE
--- NOTE | 2019-03-08 11:39 | ECWPNPC ---
PATIENT NAME: MIKEY SOLIZ : 1950 GENDER: MALE VISIT DATE: 02/17/2019 DISCHARGE DATE: 02/17/19 1228 VISIT LOCKED DATE TIME: PHYSICIAN: DONI DUMONT MD RESOURCE: DONI DUMONT MD REASON FOR APPOINTMENT 1. TPI BACK HISTORY OF PRESENT ILLNESS HISTORY OF PRESENT ILLNESS: PAIN THE PATIENT DESCRIBES THE PAIN... FALL RISK SCREENING: SCREENING :NO FALLS REPORTED IN THE LAST YEAR CURRENT MEDICATIONS TAKING ALCOHOL SWABS 70 % PAD SWAB SKIN PRIOR TO FINGERSTICK BEFORE MEALS AND BEDTIME. DX: Z79.4 TAKING MAY HAVE . 1 CONVATEC POUCH REFER [id number]/ DX CODE 154.1 CHANGE NEEDED TAKING MAY USE . 1 CONVATEC FLANGE REF NUM [id number] DX CODE 154.1 CHANGE DIRECTED TAKING [employer] ADHESIVE REMOVER WIPES . PACKET DX CODE 154.1 TOPICALLY USE DIRECTED TAKING [employer] PROTECT BARRIER WIPES . MISCELLANEOUS DX CODE 154.21 TOPICALLY USE DIRECTED TAKING STOMAHESIVE PASTE . PASTE DX CODE 154.21 TOPICALLY DIRECTED TAKING TEOFILO COHESIVE SEALS . MISCELLANEOUS DX CODE 154.1 TOPICALLY DIRECTED TAKING ASPIRIN 81 MG TABLET CHEWABLE 1 TABLET ORALLY ONCE A DAY, NOTES: 02/16 10AM TAKING LANCETS FOR ONE TOUCH ULTRA MINI TAKE 1 STRIP TOP TWICE A DAY NEEDED DX E11.9 TAKING MAY . POWDER DX UODK037.1 TOPICALLY DIRECTED TAKING VENTOLIN HFA 108 (90 BASE) MCG/ACT AEROSOL SOLUTION 2 PUFFS NEEDED INHALATION EVERY 4 HRS NEEDED FOR WHEEZING OR SHORTNESS OF BREATH, NOTES: DECEMBER 2017 TAKING ALCOHOL SWABS 70 % PAD BEFORE GLUCOSE CHECKS TO SKIN. DX: E11.9 BEFORE MEALS AND BEDTIME TAKING ALCOHOL SWABS N/A ALCOHOL PADS USE BEFORE MEALS AND BEDTIME TAKING BLOOD GLUCOSE TEST - STRIP DIRECTED IN VITRO 2 TIMES DAILY. Z79.4 TAKING INSULIN SYRINGE 28G X /2 MISCELLANEOUS DIRECTED SUBCUTANEOUSLY TWICE DAILY. DX: Z79.4, NOTES: 02/17 1AM TAKING REPAGLINIDE 0.5 MG TABLET 1 TABLET 15 TO 30 MINUTES BEFORE MEALS ORALLY THREE TIMES DAILY AT MEALS ONLY, NOTES: DIABETES 02/16 10AM TAKING BLOOD GLUCOSE TEST ONETOUCH ULTRA BLUE STRIP USE DIRECTED TWO TIMES A DAY TAKING MAY HAVE - - LIFT CHAIR TO AIDE IN MOBILITY SIT-STAND CHAIR DAILY NEEDED FOR IMPAIRED MOBILITY AND MORBID OBESITY. DX: E66.01, Z74.09 TAKING LIPITOR 80 MG TABLET TAKE ONE TABLET BY MOUTH EVERY DAY ORALLY ONCE A DAY, NOTES: 02/16 10AM TAKING TYLENOL EXTRA STRENGTH 500 MG TABLET 1 TABLET NEEDED ORALLY EVERY 6 HRS TAKING METFORMIN HCL 1000 MG TABLET 1 TABLET WITH MEALS ORALLY TWICE A DAY, NOTES: 02/17 1A TAKING NOVOLIN 70/30 (70-30) 100 UNIT/ML SUSPENSION 40 UNITS IN THE AM, 50 UNITS IN THE PM SUBCUTANEOUS TWICE A DAY, NOTES: 02/17 1A TAKING GABAPENTIN 600 MG TABLET 1 CAPSULE ORALLY THREE TIMES DAILY, NOTES: 02/17 1A TAKING POTASSIUM CHLORIDE ER 10 MEQ TABLET EXTENDED RELEASE 2 TABLET WITH FOOD ORALLY TWICE A DAY, NOTES: 02/17 TAKING IRBESARTAN 300 MG TABLET 1 TABLET ORALLY ONCE A DAY, NOTES: 02/16M TAKING FUROSEMIDE 40 MG TABLET 1 TABLETS ORALLY 2 TABS IN AM, 1 TAB IN PM, NOTES: 02/17 1A TAKING METOPROLOL SUCCINATE ER 100 MG TABLET EXTENDED RELEASE 24 HOUR 1 TABLET ORALLY ONCE A DAY, NOTES: 02/16 10AM TAKING DULOXETINE HCL 60 MG CAPSULE DELAYED RELEASE PARTICLES 1 CAPSULE ORALLY DAILY, NOTES: START WITH 1 CAP DAILY FOR 7 DAYS, THEN INCREASE TO 1 CAP TWICE DAILY THEREAFTER TAKING BUPROPION HCL ER (XL) 150 MG TABLET EXTENDED RELEASE 24 HOUR 1 TABLET IN THE MORNING ORALLY ONCE A DAY, NOTES: 02/16 10AM TAKING HYDROCODONE-ACETAMINOPHEN 5-325 MG TABLET 1 TABLET NEEDED ORALLY THREE TIMES DAILY NEEDED FOR SEVERE PAIN.MDD 3, NOTES: 02/16 10AM NOT-TAKING FLUOCINONIDE 0.05 % CREAM 1 EXTERNALLY APPLY TO ULCER WITH EACH STOMA CHANGE, NOTES: 1 YEAR AGO NOT-TAKING IRBESARTAN 300 MG TABLET 1 TABLET ORALLY ONCE A DAY NOT-TAKING METHOCARBAMOL 500 MG TABLET TAKE TWO TABLETS BY MOUTH AT BEDTIME NEEDED FOR PAIN ORAL NOT-TAKING NAPROXEN 500 MG TABLET TAKE ONE TABLET BY MOUTH TWICE A DAY WITH FOOD ORAL MEDICATION LIST REVIEWED AND RECONCILED WITH THE PATIENT PAST MEDICAL HISTORY TYPE 2 DM 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 ULCERATIVE COLITIS DEPRESSION CHRONIC LBP OBESITY DEGENERATIVE DISC DISEASE ERYTHEMA NODOSUM LE EDEMA MALIGNANT MELANOMA LEFT FOREARM 11/26-- SEES DERM Q [address] PRAKASH CHRONIC VENOUS STASIS DERMATITIS AND ULCES OF RIGHT LE HIGH GRADE ADENOCARCINOMA SIGMOID/RECTAL 05/01; CEA 0.5 01/31, 05/02 HTN; NM STRESS TEST 03/2017 ALLERGIES BEE STINGS/ YELLOW JACKET: HIVES/SWELLING - ALLERGY - ONSET DATE 12/01/2018 SURGICAL HISTORY BROKEN NOSE REPAIR NO PERSONAL OR FHX OF SEVERE REACTION TO ANESTHESIA APPENDECTOMY BOWEL REPAIR D/T STRANGULATED HERNIA 09/2009 COLONOSCOPIES 2003,2007,2008 ROBOTIC-ASISTED TOTAL PROCTOCOLECTOMY WITH ILEOSTOMY FOR U/C AND HIGH GRADE ADENOCARCINOMA; FOCAL VASCULAR SPACE INVASION ON PATH BUT ALL LYMPH NODES (23 PERIRECTAL AND 53 COLONIC) NEG FOR TUMOR 06/2014 CATARACT REMOVED FROM RIGHT EYE 04/2016 CATARACT REMOVED LEFT EYE 05/03/16 LAPAROSCOPTIC AND OPEN REPAIR OF INCARCERATED PARASTOMAL HERNIA WITH SMALL BOWEL OBSTRUCTION 10/2017 LAPRASCOPTIC AND PARTIAL OPEN REPAIR OF 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 1 SON(S) , 3 DAUGHTER(S) . BROTHER DIABETIC TYPE 2 AND COPD\NSISTER DIABETIC AND CANCER- IN MAY PATERANAL AUNT HAD PANCREATIC CANCER. DENIES FAMILY HX OF MELANOMA. SOCIAL HISTORY GENERAL: TOBACCO USE ARE YOU A:FORMER SMOKER HOW LONG HAS IT BEEN SINCE YOU LAST SMOKED?> 10 YEARS HIV / HEP-C SCREENING HIV TEST OFFERED TO PATIENT:YES DATE OFFERED:07/02/2016 TEST ACCEPTED:NO HEP-C TEST OFFERED TO PATIENT:YES DATE OFFERED:07/02/2016 REASON:PATIENT DECLINED TEST ACCEPTED:NO REASON:PATIENT DECLINED OTHERS AT HOME: CHILDREN, GRANDCHILDREN. HOUSING: OWNS HOME. DIET: REGULAR. DOMESTIC VIOLENCE DO YOU FEEL SAFE IN YOUR ENVIRONMENT?YES NEW PATIENT PAIN DIARY PATIENT DESCRIBES PAIN :ACHING, SHARP FROM 0-10, WHAT LEVEL IS YOUR PAIN TODAY?7 PRECIPITATING FACTORS STANDING, WALKING ALLEVIATING FACTORS SITTING AND LYING DOWN MAKE PAIN BETTER IMPACT ON FUNCTION MAKES HIM NOT BE ABLE TO DO THE THINGS HE USED TO DO HAVE YOU BEEN SICK IN THE LAST WEEK (COLD, COUGH, FEVER, FLU, ETC)NO DO YOU TAKE ANY BLOOD THINNERS?NO ASPIRIN 81 MG DAILY DO YOU HAVE ANY RASHES OR OPEN SORES?NO ANY CHANGE IN BOWEL OR BLADDER CONTROL?NO ARE YOU ALLERGIC TO SHELLFISH OR IV DYE?NO ARE YOU DIABETIC?YES DO YOU HAVE A PACEMAKER OR DEFIBRILLATOR?NO HAVE YOU FALLEN IN THE LAST 6 MONTHS?YES FELL IN NOVEMBER- TRIPPED ON A STICK IN THE [place], NO INJURIES, NO MEDICAL CARE DO YOU USE ANY TYPE OF TOBACCO (SMOKE, SMOKELESS, CHEW, ETC.)NO ARE YOU ABUSED, NEGLECTED, OR IN AN UNSAFE ENVIRONMENT?NO DO YOU HAVE THOUGHTS OF HURTING YOURSELF OR SOMEONE ELSE?NO INTENSITY SCALE REVIEWEDNUMBER BMI CARE GOAL FOLLOW-UP ABOVE NORMAL BMI FOLLOW-UPLIFESTYLE EDUCATION REGARDING DIET RECREATIONAL DRUG USE DRUG USE?NO EXERCISE: NO REGULAR EXERCISE. 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 NEEDED?NO PAIN CLINIC PFS, CLERGY, PUBLIC HEALTH REFERRALS PFS REFERRAL NEEDED?NO CLERGY REFERRAL NEEDED?NO PUBLIC HEALTH REFERRAL NEEDED?NO WAS THE PROVIDER NOTIFIED OF ANY PERTINENT INFO?YES HAS THE PATIENT BEEN EDUCATED REGARDING HIS/HER PLAN OF CARE?YES HAS THE PATIENT BEEN EDUCATED REGARDING PAIN, THE RISK FOR PAIN, THE IMPORTANCE OF EFFECTIVE PAIN MANAGEMENT, AND THE PAIN ASSESSMENT PROCESS?YES LATEX QUESTIONNAIRE LATEX ALLERGY : HAVE YOU EVER DEVELOPED ANY TYPE OF REACTION AFTER HANDLING LATEX PRODUCTS SUCH RUBBER GLOVES, CONDOMS, DIAPHRAGMS, BALLOONS, SOCKS, OR UNDERWEAR?NO LATEX ALLERGY : HAVE YOU EVER DEVELOPED ANY TYPE OF REACTION DURING OR AFTER DENTAL APPOINTMENT, VAGINAL/RECTAL EXAMINATION, SURGICAL PROCEDURE, OR ANY OTHER EXPOSURE?NO LATEX RISK : HAVE YOU EVER HAD ANY DIFFICULTY BREATHING OR HIVES AFTER EATING OR HANDLING ANY FRUITS, OR VEGETABLES; SUCH KIWI, BANANAS, STONE FRUITS, OR CHESTNUTSNO LATEX RISK : DO YOU HAVE A PREVIOUS PERSONAL HISTORY OF MORE THAN NINE SURGERIES, SPINA BIFIDA, OR REPEATED CATHERIZATIONS? NO LATEX RISK : ARE YOU FREQUENTLY EXPOSED TO LATEX PRODUCTS IN YOUR OCCUPATION?NO DATE ASKED : 02/17/2019 CAFFEINE CAFFEINE USE? TEA >5 ADVANCE DIRECTIVE ADVANCE DIRECTIVE DISCUSSED WITH PATIENT: PATIENT STATES HE DOES NOT HAVE ANY ADVANCED DIRECTIVES, DECLINED INFORMATION MARITAL STATUS: .. ALCOHOL SCREENING POINTS: 0, INTERPRETATION: NEGATIVE. OCCUPATION: DISABLED. SEXUAL HX HAD SEX IN THE LAST 12 MONTHS (VAGINAL, ORAL, OR ANAL)?NO HAVE YOU EVER HAD AN STD?NO REVIEWED, NO CHANGESREVIEWED WITH PATIENT 01/12/19 1538 NLJ. HOSPITALIZATION/MAJOR DIAGNOSTIC PROCEDURE SURGERY RELATED BOWEL OBSTRUCTION JULY 2015 BILATERAL LOWER LEG CELLULITIS 2013 BOWEL OBSTRUCTION 01/17/17 BOWEL OBSTRUCTION 10/2017 3 DAY STAY FOR BROKEN FINGER WHEN A CHILD REVIEW OF SYSTEMS REVIEWED BY: PROVIDER: . CONSTITUTIONAL: ANY CHANGE IN YOUR MEDICAL CONDITION? NO . CHILLS NO . FEVER NO . INFECTION: DO YOU HAVE NEW INFECTIONS? NO . DO YOU HAVE HISTORY OF MRSA? NO . MUSCULOSKELETAL: ANY NEW PATTERNS OF PAIN OR NUMBNESS? YES, PAIN MORE INTENSE . GASTROENTEROLOGY: ANY NEW CHANGE IN BOWEL CONTROL? NO . GENITOURINARY: ANY NEW CHANGE IN BLADDER CONTROL? NO . IS THERE A CHANCE YOU COULD BE ? NO . HEMATOLOGY/LYMPH: DO YOU TAKE ANY BLOOD THINNERS? (FOR EXAMPLE- COUMADIN, PLAVIX, AGGRENOX, PLATEL, PRADAXA, OR XARELTO) YES, ASA 81MG 02/16 10AM . WHEN WAS YOUR LAST DOSE? DATE: TIME: . NEUROLOGY: HAVE YOU FALLEN IN THE PAST 12 MONTHS? YES, PT STATES THAT HE FELL WHILE IN THE [place], NO INJURY. DS . ANY NEW EXTREMITY NUMBNESS OR WEAKNESS? NO . CARDIOLOGY: DO YOU HAVE A PACEMAKER OR DEFIBRILLATOR? NO . RESPIRATORY: HAVE YOU BEEN SICK IN THE PAST WEEK? NO . FEVER NO . FLU LIKE SYMPTOMS? NO . COUGH NO . INTEGUMENTARY: DO YOU HAVE ANY RASHES OR OPEN SORES? YES, STUBBED TOE AND NAIL CAME OFF ON 02/16/19 . ALLERGIC/IMMUNO: ARE YOU ALLERGIC TO IV DYE? NO . ANY NEW ALLERGIES? NO . PSYCHIATRIC: DO YOU HAVE THOUGHTS OF HURTING YOURSELF OR SOMEONE ELSE? NO . ARE YOU ABUSED, NEGLECTED, OR IN AN UNSAFE ENVIRONMENT? NO . ENDOCRINOLOGY: ARE YOU DIABETIC? YES, FSBS 101 02/17 0945AM . OTHER: DO YOU NEED ANY PRESCRIPTIONS? NO . IF YES, PLEASE LIST: ____ . ANY NEW PROBLEMS WITH YOUR MEDICATIONS? NO . WHEN DID YOU LAST EAT? 02/17 1AM . WHEN DID YOU LAST DRINK? 02/17 10AM . WHAT DID YOU LAST DRINK? WATER . 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 DO YOU HAVE ANY OTHER QUESTIONS OR CONCERNS NO . VITAL SIGNS WT 385 LBS, HT 69 IN, BMI 56.85 INDEX, BP 162/69 MM HG, HR 74 /MIN, RR 18 /MIN, TEMP 97.3 F, OXYGEN SAT % 97%, SAFE IN ENV? (Y/N) Y, NA INITIALS MN 10;54, REVIEWED BY: DS. ASSESSMENTS MYALGIA, OTHER SITE - M79.18 (PRIMARY) PROCEDURES PN TRIGGER POINT INJECTION WITH STEROIDS PRE PROCEDURE DIAGNOSIS 1. MYALGIA 2. PAIN AT BILATERAL LOW BACK AREA. POST PROCEDURE DIAGNOSIS 1. MYALGIA 2. PAIN AT BILATERAL LOW BACK AREA. PROCEDURE TRIGGER POINT INJECTION AT RIGHT AND LEFT LOW BACK AREA. SURGEON DR. DONI DUMONT [facility] SECURITY DIRECTOR NONE ANESTHESIA LOCAL PRE PROCEDURE NOTE THE PATIENT HAS A HISTORY OF CHRONIC PAIN AT THE RIGHT AND LEFT LOW BACK AREA. I EVALUATED THE PATIENT AND REVIEWED THE CHART. THERE IS EVIDENCE OF BANDS OF TISSUE WITH RESTRICTION OF MOVEMENT AND PRESENCE OF TRIGGER POINT AT THE AFFECTED AREA. I WENT OVER THE RISKS, ALTERNATIVES, AND BENEFITS ASSOCIATED WITH THIS PROCEDURE. THE PATIENT WOULD LIKE TO PROCEED AND GIVES CONSENT TO PERFORM THE PROCEDURE. THE PATIENT DENIES UNEXPLAINABLE WEIGHT LOSS, FEVER, CHILLS, OR NEW CHANGES IN URINARY OR BOWEL CONTROL DESCRIPTION OF PROCEDURE THE PATIENT WAS BROUGHT TO THE PROCEDURE ROOM AND PLACED IN THE SITTING POSITION. THE AREA WAS CLEANED WITH ALCOHOL. THE PROCEDURE WAS DONE USING ASEPTIC STERILE TECHNIQUE. I CHECKED LATERALITY AND THE LEVEL WHERE THE PROCEDURE WAS GOING TO BE PERFORMED WITH THE PATIENT AND THE SUPPORTING STAFF AT THE MOMENT OF THE TIME OUT IN THE PROCEDURE ROOM. USING A 25-GAUGE NEEDLE, TRIGGER POINTS WERE INJECTED AT THE RIGHT AND LEFT LOW BACK AREA WITH A TOTAL OF 40 ML OF BUPIVACAINE 0.25% AND KENALOG 40 MG. THERE WAS NO EVIDENCE OF BLOOD, PARESTHESIA OR CEREBROSPINAL FLUID DURING THE PROCEDURE. THE PATIENT WAS SENT TO THE RECOVERY ROOM. THE PATIENT WAS MOVING THE EXTREMITIES AND DOING WELL. THERE WAS NO COMPLICATION DURING THE PROCEDURE POST PROCEDURE NOTE THE PATIENT WILL BE SEEN IN A FOLLOW UP IN THE NEXT FEW WEEKS. INSTRUCTIONS WERE GIVEN, QUESTIONS WERE ANSWERED, AND THE PATIENT EXPRESSED UNDERSTANDING AND AGREES WITH THE PLAN. I, GREGG GARCIA, DOCUMENTED THE ABOVE INFORMATION ACTING A SCRIBE FOR DR. DUMONT. I HAVE REVIEWED THE ABOVE DOCUMENT, WRITTEN BY GREGG CRAMER AND I VERIFY THAT IT IS ACCURATE. PREVENTIVE MEDICINE PAIN CLINIC TEACHING: THE PATIENT HAS BEEN EDUCATED REGARDING HIS/HER PLAN OF CARE : DISCUSSED AND REVIEWED TRIGGER POINT INJECTION PROCEDURE, PT ACKNOWLEDGED UNDERSTANDING. DS PROCEDURE CODES [id number] INJ TRIGGER POINT /2 MUSCL DISPOSITION & COMMUNICATION FOLLOW UP 3 WEEKS ELECTRONICALLY SIGNED BY DONI DUMONT MD, MD ON 02/25/2019 AT 03:16 PM EDT DISCLAIMER : THIS IS A VISIT SUMMARY EXTRACTED FROM THE [employer] CHART. IT IS NOT A COPY OF THE [employer] PROGRESS NOTE. CLAY
== END ==
LOC: M PAIN 10:45
PROVIDERS: ATTEND Anesthesiology
DX: M79.18 Myalgia, other site (principal); E11.42 Type 2 diabetes mellitus with diabetic polyneuropathy; K51.90 Ulcerative colitis, unspecified, without complications; F32.9 Major depressive disorder, single episode, unspecified; E66.9 Obesity, unspecified; M54.5 Low back pain; Z68.43 Body mass index [BMI] 50.0-59.9, adult; L52 Erythema nodosum; Z85.820 Personal history of malignant melanoma of skin; I87.2 Venous insufficiency (chronic) (peripheral); Z85.038 Personal history of other malignant neoplasm of large intestine; I10 Essential (primary) hypertension; L97.919 Non-pressure chronic ulcer of unspecified part of right lower leg with unspecified severity; Z90.49 Acquired absence of other specified parts of digestive tract; Z98.41 Cataract extraction status, right eye; Z98.42 Cataract extraction status, left eye; Z87.891 Personal history of nicotine dependence; Z91.030 Bee allergy status
CPT/HCPCS: 20552; J3301

== ENCOUNTER → 2019-03-08 | Outpatient (CLI) | payer MEDICARE ==
[~2019-03-08] MED LIST changes: -BUPIVACAINE HCL 0.25% 10 ML VIAL As Ordered ONE; -BUPIVACAINE HCL 0.25% 30 ML VIAL As Ordered ONE; +GLIM4TAB3 PO; -GLIM4TAB5 PO; -NORCO, ANEXSIA 5/325MG TABLET (HYDROcodone/ACETAMINOPHEN) As Ordered ONE; -TRIAMCINOLONE ACETONIDE SUSP 40 MG/ML VIAL (J3301) As Ordered ONE
--- NOTE | 2019-03-10 01:26 | ECWPNPC ---
PATIENT NAME: MIKEY SOLIZ : 1950 GENDER: MALE VISIT DATE: 03/08/2019 DISCHARGE DATE: 03/08/19 1518 VISIT LOCKED DATE TIME: PHYSICIAN: NOAH ELENA RESOURCE: NOAH ELENA REASON FOR APPOINTMENT 1. POST TPI HISTORY OF PRESENT ILLNESS HISTORY OF PRESENT ILLNESS: PAIN THE PATIENT DESCRIBES THE PAIN... 60-YEAR-OLD MALE IN FOR POST TPI FOLLOW-UP. HE RATES HIS PAIN PREPROCEDURE AT A 6-9 OUT OF 10 AND POSTPROCEDURE AT A 2-3 OUT OF 10. HE DOES ADMIT THAT THE PAIN RETURNS TO 6-9 OUT OF 10 WITH MOVEMENT BUT FEELS THE TRIGGER POINT INJECTIONS DID GIVE HIM INCREASED FUNCTIONALITY. HE RATES HIS PAIN CURRENTLY AT A 2-3 OUT OF 10 WITH SITTING AND A 6 OUT OF 10 WITH STANDING AND/OR ACTIVITY. HE DESCRIBES HIS PAIN ACHING AND BURNING. FALL RISK SCREENING: SCREENING :NO FALLS REPORTED IN THE LAST YEAR CURRENT MEDICATIONS TAKING ALCOHOL SWABS 70 % PAD SWAB SKIN PRIOR TO FINGERSTICK BEFORE MEALS AND BEDTIME. DX: Z79.4 TAKING MAY HAVE . [id number]/ DX CODE 154.1 CHANGE NEEDED TAKING MAY USE . [facility] [id number] DX CODE 154.1 CHANGE DIRECTED TAKING ALLKARE ADHESIVE REMOVER WIPES . PACKET DX CODE 154.1 TOPICALLY USE DIRECTED TAKING [employer]KARE PROTECT BARRIER WIPES . MISCELLANEOUS DX CODE 154.21 TOPICALLY USE DIRECTED TAKING STOMAHESIVE PASTE . PASTE DX CODE 154.21 TOPICALLY DIRECTED TAKING TEOFILO COHESIVE SEALS . MISCELLANEOUS DX CODE 154.1 TOPICALLY DIRECTED TAKING ASPIRIN 81 MG TABLET CHEWABLE 1 TABLET ORALLY ONCE A DAY TAKING LANCETS FOR ONE TOUCH ULTRA MINI TAKE 1 STRIP TOP TWICE A DAY NEEDED DX E11.9 TAKING MAY . POWDER DX QYIL785.1 TOPICALLY DIRECTED TAKING VENTOLIN HFA 108 (90 BASE) MCG/ACT AEROSOL SOLUTION 2 PUFFS NEEDED INHALATION EVERY 4 HRS NEEDED FOR WHEEZING OR SHORTNESS OF BREATH TAKING ALCOHOL SWABS 70 % PAD BEFORE GLUCOSE CHECKS TO SKIN. DX: E11.9 BEFORE MEALS AND BEDTIME TAKING ALCOHOL SWABS N/A ALCOHOL PADS USE BEFORE MEALS AND BEDTIME TAKING BLOOD GLUCOSE TEST - STRIP DIRECTED IN VITRO 2 TIMES DAILY. Z79.4 TAKING INSULIN SYRINGE 28G X 1/2 MISCELLANEOUS DIRECTED SUBCUTANEOUSLY TWICE DAILY. DX: Z79.4 TAKING REPAGLINIDE 0.5 MG TABLET 1 TABLET 15 TO 30 MINUTES BEFORE MEALS ORALLY THREE TIMES DAILY AT MEALS ONLY TAKING BLOOD GLUCOSE TEST ONETOUCH ULTRA BLUE STRIP USE DIRECTED TWO TIMES A DAY TAKING MAY HAVE - - LIFT CHAIR TO AIDE IN MOBILITY SIT-STAND CHAIR DAILY NEEDED FOR IMPAIRED MOBILITY AND MORBID OBESITY. DX: E66.01, Z74.09 TAKING LIPITOR 80 MG TABLET TAKE ONE TABLET BY MOUTH EVERY DAY ORALLY ONCE A DAY TAKING TYLENOL EXTRA STRENGTH 500 MG TABLET 1 TABLET NEEDED ORALLY EVERY 6 HRS TAKING NOVOLIN 70/30 (70-30) 100 UNIT/ML SUSPENSION 40 UNITS IN THE AM, 50 UNITS IN THE PM SUBCUTANEOUS TWICE A DAY TAKING GABAPENTIN 600 MG TABLET 1 CAPSULE ORALLY THREE TIMES DAILY TAKING POTASSIUM CHLORIDE ER 10 MEQ TABLET EXTENDED RELEASE 2 TABLET WITH FOOD ORALLY TWICE A DAY TAKING IRBESARTAN 300 MG TABLET 1 TABLET ORALLY ONCE A DAY TAKING FUROSEMIDE 40 MG TABLET 1 TABLETS ORALLY 2 TABS IN AM, 1 TAB IN PM TAKING METOPROLOL SUCCINATE ER 100 MG TABLET EXTENDED RELEASE 24 HOUR 1 TABLET ORALLY ONCE A DAY TAKING DULOXETINE HCL 60 MG CAPSULE DELAYED RELEASE PARTICLES 1 CAPSULE ORALLY DAILY, NOTES: START WITH 1 CAP DAILY FOR 7 DAYS, THEN INCREASE TO 1 CAP TWICE DAILY THEREAFTER TAKING BUPROPION HCL ER (XL) 150 MG TABLET EXTENDED RELEASE 24 HOUR 1 TABLET IN THE MORNING ORALLY ONCE A DAY TAKING HYDROCODONE-ACETAMINOPHEN 5-325 MG TABLET 1 TABLET NEEDED ORALLY THREE TIMES DAILY NEEDED FOR SEVERE PAIN.MDD 3 TAKING METFORMIN HCL 1000 MG TAB TAKE ONE TABLET BY MOUTH TWICE A DAY WITH MEALS NOT-TAKING FLUOCINONIDE 0.05 % CREAM 1 EXTERNALLY APPLY TO ULCER WITH EACH STOMA CHANGE, NOTES: 1 YEAR AGO NOT-TAKING IRBESARTAN 300 MG TABLET 1 TABLET ORALLY ONCE A DAY NOT-TAKING METHOCARBAMOL 500 MG TABLET TAKE TWO TABLETS BY MOUTH AT BEDTIME NEEDED FOR PAIN ORAL NOT-TAKING NAPROXEN 500 MG TABLET TAKE ONE TABLET BY MOUTH TWICE A DAY WITH FOOD ORAL DISCONTINUED METFORMIN HCL 1000 MG TABLET 1 TABLET WITH MEALS ORALLY TWICE A DAY MEDICATION LIST REVIEWED AND RECONCILED WITH THE PATIENT PAST MEDICAL HISTORY TYPE 2 DM WITH PN ULCERATIVE COLITIS DEPRESSION CHRONIC LBP OBESITY DEGENERATIVE DISC DISEASE ERYTHEMA NODOSUM LE EDEMA MALIGNANT MELANOMA LEFT FOREARM 11/26-- SEES DERM Q [address] PRAKASH CHRONIC VENOUS STASIS DERMATITIS AND ULCES OF RIGHT LE HIGH GRADE ADENOCARCINOMA SIGMOID/RECTAL 12/14; CEA 0.5 01/31, 05/02 HTN; NM STRESS TEST 03/2017 ALLERGIES BEE STINGS/ YELLOW JACKET: HIVES/SWELLING - ALLERGY - ONSET DATE 12/01/2018 SURGICAL HISTORY BROKEN NOSE REPAIR NO PERSONAL OR FHX OF SEVERE REACTION TO ANESTHESIA APPENDECTOMY BOWEL REPAIR D/T STRANGULATED HERNIA 09/2009 COLONOSCOPIES 2003,2007,2008 ROBOTIC-ASISTED TOTAL PROCTOCOLECTOMY WITH ILEOSTOMY FOR U/C AND HIGH GRADE ADENOCARCINOMA; FOCAL VASCULAR SPACE INVASION ON PATH BUT ALL LYMPH NODES (23 PERIRECTAL AND 53 COLONIC) NEG FOR TUMOR 06/2014 CATARACT REMOVED FROM RIGHT EYE 04/2016 CATARACT REMOVED LEFT EYE 05/03/16 LAPAROSCOPTIC AND OPEN REPAIR OF INCARCERATED PARASTOMAL HERNIA WITH SMALL BOWEL OBSTRUCTION 10/2017 LAPRASCOPTIC AND PARTIAL OPEN REPAIR OF 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 1 SON(S) , 3 DAUGHTER(S) . BROTHER DIABETIC TYPE 2 AND COPD\NSISTER DIABETIC AND CANCER- IN MAY PATERANAL AUNT HAD PANCREATIC CANCER. DENIES FAMILY HX OF MELANOMA. SOCIAL HISTORY GENERAL: TOBACCO USE ARE YOU A:FORMER SMOKER HOW LONG HAS IT BEEN SINCE YOU LAST SMOKED?> 10 YEARS HIV / HEP-C SCREENING HIV TEST OFFERED TO PATIENT:YES DATE OFFERED:07/02/2016 TEST ACCEPTED:NO HEP-C TEST OFFERED TO PATIENT:YES DATE OFFERED:07/02/2016 REASON:PATIENT DECLINED TEST ACCEPTED:NO REASON:PATIENT DECLINED OTHERS AT HOME: CHILDREN, GRANDCHILDREN. HOUSING: OWNS HOME. DIET: REGULAR. DOMESTIC VIOLENCE DO YOU FEEL SAFE IN YOUR ENVIRONMENT?YES NEW PATIENT PAIN DIARY PATIENT DESCRIBES PAIN :ACHING, SHARP FROM 0-10, WHAT LEVEL IS YOUR PAIN TODAY?7 PRECIPITATING FACTORS STANDING, WALKING ALLEVIATING FACTORS SITTING AND LYING DOWN MAKE PAIN BETTER IMPACT ON FUNCTION MAKES HIM NOT BE ABLE TO DO THE THINGS HE USED TO DO HAVE YOU BEEN SICK IN THE LAST WEEK (COLD, COUGH, FEVER, FLU, ETC)NO DO YOU TAKE ANY BLOOD THINNERS?NO ASPIRIN 81 MG DAILY DO YOU HAVE ANY RASHES OR OPEN SORES?NO ANY CHANGE IN BOWEL OR BLADDER CONTROL?NO ARE YOU ALLERGIC TO SHELLFISH OR IV DYE?NO ARE YOU DIABETIC?YES DO YOU HAVE A PACEMAKER OR DEFIBRILLATOR?NO HAVE YOU FALLEN IN THE LAST 6 MONTHS?YES FELL IN NOVEMBER- TRIPPED ON A STICK IN THE [place], NO INJURIES, NO MEDICAL CARE DO YOU USE ANY TYPE OF TOBACCO (SMOKE, SMOKELESS, CHEW, ETC.)NO ARE YOU ABUSED, NEGLECTED, OR IN AN UNSAFE ENVIRONMENT?NO DO YOU HAVE THOUGHTS OF HURTING YOURSELF OR SOMEONE ELSE?NO INTENSITY SCALE REVIEWEDNUMBER BMI CARE GOAL FOLLOW-UP ABOVE NORMAL BMI FOLLOW-UPLIFESTYLE EDUCATION REGARDING DIET RECREATIONAL DRUG USE DRUG USE?NO EXERCISE: NO REGULAR EXERCISE. 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 NEEDED?NO PAIN CLINIC PFS, CLERGY, PUBLIC HEALTH REFERRALS PFS REFERRAL NEEDED?NO CLERGY REFERRAL NEEDED?NO PUBLIC HEALTH REFERRAL NEEDED?NO WAS THE PROVIDER NOTIFIED OF ANY PERTINENT INFO?YES HAS THE PATIENT BEEN EDUCATED REGARDING HIS/HER PLAN OF CARE?YES HAS THE PATIENT BEEN EDUCATED REGARDING PAIN, THE RISK FOR PAIN, THE IMPORTANCE OF EFFECTIVE PAIN MANAGEMENT, AND THE PAIN ASSESSMENT PROCESS?YES LATEX QUESTIONNAIRE LATEX ALLERGY : HAVE YOU EVER DEVELOPED ANY TYPE OF REACTION AFTER HANDLING LATEX PRODUCTS SUCH RUBBER GLOVES, CONDOMS, DIAPHRAGMS, BALLOONS, SOCKS, OR UNDERWEAR?NO LATEX ALLERGY : HAVE YOU EVER DEVELOPED ANY TYPE OF REACTION DURING OR AFTER DENTAL APPOINTMENT, VAGINAL/RECTAL EXAMINATION, SURGICAL PROCEDURE, OR ANY OTHER EXPOSURE?NO DATE ASKED : 02/17/2019 LATEX RISK : HAVE YOU EVER HAD ANY DIFFICULTY BREATHING OR HIVES AFTER EATING OR HANDLING ANY FRUITS, OR VEGETABLES; SUCH KIWI, BANANAS, STONE FRUITS, OR CHESTNUTSNO LATEX RISK : DO YOU HAVE A PREVIOUS PERSONAL HISTORY OF MORE THAN NINE SURGERIES, SPINA BIFIDA, OR REPEATED CATHERIZATIONS? NO LATEX RISK : ARE YOU FREQUENTLY EXPOSED TO LATEX PRODUCTS IN YOUR OCCUPATION?NO CAFFEINE CAFFEINE USE? TEA >5 ADVANCE DIRECTIVE ADVANCE DIRECTIVE DISCUSSED WITH PATIENT: PATIENT STATES HE DOES NOT HAVE ANY ADVANCED DIRECTIVES, DECLINED INFORMATION MARITAL STATUS: .. ALCOHOL SCREENING POINTS: 0, INTERPRETATION: NEGATIVE. OCCUPATION: DISABLED. SEXUAL HX HAD SEX IN THE LAST 12 MONTHS (VAGINAL, ORAL, OR ANAL)?NO HAVE YOU EVER HAD AN STD?NO REVIEWED, NO CHANGESREVIEWED WITH PATIENT 01/12/19 1538 NLJ. HOSPITALIZATION/MAJOR DIAGNOSTIC PROCEDURE SURGERY RELATED BOWEL OBSTRUCTION JULY 2015 BILATERAL LOWER LEG CELLULITIS 2013 BOWEL OBSTRUCTION 01/17/17 BOWEL OBSTRUCTION 10/2017 3 DAY STAY FOR BROKEN FINGER WHEN A CHILD REVIEW OF SYSTEMS REVIEWED BY: PROVIDER: GARFIELD ELENA DECORATING CONSULTANT-C . CONSTITUTIONAL: ANY CHANGE IN YOUR MEDICAL CONDITION? NO . CHILLS NO . FEVER NO . INFECTION: DO YOU HAVE NEW INFECTIONS? NO . DO YOU HAVE HISTORY OF MRSA? NO . MUSCULOSKELETAL: ANY NEW PATTERNS OF PAIN OR NUMBNESS? YES, PAIN IS WORSE STANDING/WALKING . GASTROENTEROLOGY: ANY NEW CHANGE IN BOWEL CONTROL? NO . GENITOURINARY: ANY NEW CHANGE IN BLADDER CONTROL? NO . IS THERE A CHANCE YOU COULD BE ? NO . HEMATOLOGY/LYMPH: DO YOU TAKE ANY BLOOD THINNERS? (FOR EXAMPLE- COUMADIN, PLAVIX, AGGRENOX, PLATEL, PRADAXA, OR XARELTO) NO . WHEN WAS YOUR LAST DOSE? DATE: TIME: . NEUROLOGY: HAVE YOU FALLEN IN THE PAST 12 MONTHS? NO . ANY NEW EXTREMITY NUMBNESS OR WEAKNESS? YES, RIGHT LAG FELT WEAK IF IT WOULD BUCKLE . CARDIOLOGY: DO YOU HAVE A PACEMAKER OR DEFIBRILLATOR? NO . RESPIRATORY: HAVE YOU BEEN SICK IN THE PAST WEEK? YES, URI . FEVER NO . FLU LIKE SYMPTOMS? NO . COUGH YES, PRODUCTIVE YELLOW/GREEN SPUTUM . INTEGUMENTARY: DO YOU HAVE ANY RASHES OR OPEN SORES? YES, TO LEFT LOWER LEG . ALLERGIC/IMMUNO: ARE YOU ALLERGIC TO IV DYE? NO . ANY NEW ALLERGIES? NO . PSYCHIATRIC: DO YOU HAVE THOUGHTS OF HURTING YOURSELF OR SOMEONE ELSE? NO . ARE YOU ABUSED, NEGLECTED, OR IN AN UNSAFE ENVIRONMENT? NO . ENDOCRINOLOGY: ARE YOU DIABETIC? YES . OTHER: DO YOU NEED ANY PRESCRIPTIONS? NO . IF YES, PLEASE LIST: ____ . ANY NEW PROBLEMS WITH YOUR MEDICATIONS? NO . WHEN DID YOU LAST EAT? ____ . WHEN DID YOU LAST DRINK? ____ . WHAT DID YOU LAST DRINK? ____ . 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 ____ . DO YOU HAVE ANY OTHER QUESTIONS OR CONCERNS NO . VITAL SIGNS WT 378.4 LBS, HT 69 IN, BMI 55.87 INDEX, BP 173/74 MM HG, HR 74 /MIN, RR 18 /MIN, TEMP 97.9 F, OXYGEN SAT % 97%, NA INITIALS SC 14:26, REVIEWED BY: EM. EXAMINATION GENERAL EXAMINATION: GENERALNO ACUTE DISTRESS, WELL NOURISHED AND HYDRATED. PSYCHAPPROPRIATE MOOD AND AFFECT . LUNGS:CLEAR TO AUSCULTATION BILATERALLY, NO WHEEZES, RHONCHI, RALES. HEART:NO MURMURS, REGULAR RATE AND RHYTHM. ASSESSMENTS MYALGIA, OTHER SITE - M79.18 (PRIMARY) TREATMENT MYALGIA, OTHER SITE START TIZANIDINE HCL TABLET, 4 MG, 1 TABLET NEEDED, ORALLY, THREE TIMES A DAY, 30 DAYS, 90 TABLET, REFILLS 1 CLINICAL NOTES: 60-YEAR-OLD MALE IN FOR POST TPI FOLLOW-UP. HE IS NOTED TO HAVE A RESPIRATORY INFECTION AT THIS VISIT SUCH NO PROCEDURE WAS SCHEDULED AT THIS TIME. DID RECOMMEND TIZANIDINE 4 MG 3 TIMES A DAY NEEDED FOR MUSCLE SPASM. MRI RESULTS WERE DISCUSSED WITH PATIENT. GIVEN PRESENTING SYMPTOMS AND RESULTS PHYSICAL EXAMINATION RECOMMENDED FOLLOW-UP IN 2 MONTHS. PATIENT HAS EXPRESSED UNDERSTANDING OF AND WAS IN AGREEMENT WITH TREATMENT PLAN. GIVEN TIME TO ASK QUESTIONS AND EXPRESS CONCERNS. OTHERS NOTES: TIZANIDINE MATERIAL WAS PRINTED. PROCEDURE CODES FA211 ESTABILISHED PATIENT [facility] FACILITY CHARGE FA211 ESTABILISHED PATIENT [facility] CHARGE DISPOSITION & COMMUNICATION FOLLOW UP 2 MONTHS (REASON: CHRONIC PAIN ) ELECTRONICALLY SIGNED BY JACINTA KAPADIA ON 03/09/2019 AT 01:05 PM EDT DISCLAIMER : THIS IS A VISIT SUMMARY EXTRACTED FROM THE [employer] CHART. IT IS NOT A COPY OF THE [employer] PROGRESS NOTE. CLAY
== END ==
LOC: M PAIN 14:15
PROVIDERS: ATTEND Family Medicine
DX: M79.18 Myalgia, other site (principal); E11.9 Type 2 diabetes mellitus without complications; Z86.59 Personal history of other mental and behavioral disorders; I10 Essential (primary) hypertension; Z87.891 Personal history of nicotine dependence; Z91.030 Bee allergy status; E66.01 Morbid (severe) obesity due to excess calories; Z68.43 Body mass index [BMI] 50.0-59.9, adult; Z79.82 Long term (current) use of aspirin; Z79.4 Long term (current) use of insulin; Z79.899 Other long term (current) drug therapy

== ENCOUNTER → 2019-04-19 | Outpatient (REF) | payer MEDICARE ==
[2019-04-19 15:50] LABS: BLOOD UREA NITROGEN 15 MG/DL (7-18); CALCIUM LEVEL 8.8 MG/DL (8.8-10.2); CARBON DIOXIDE LEVEL 27 MEQ/L (21-32); CHLORIDE LEVEL 106 MEQ/L (98-107); CREATININE FOR GFR 0.96 MG/DL (0.70-1.30); GLOMERULAR FILTRATION RATE > 60.0 (>49); GLUCOSE, FASTING 94 MG/DL (70-100); SODIUM LEVEL 141 MEQ/L (136-145)
[2019-04-19 15:58] LABS: HEMOGLOBIN A1c 7.4 %
== END ==
LOC: M SFHCPLAZ 13:46
PROVIDERS: ATTEND Family Medicine
DX: E11.21 Type 2 diabetes mellitus with diabetic nephropathy (principal); I10 Essential (primary) hypertension; Z12.5 Encounter for screening for malignant neoplasm of prostate; Z51.81 Encounter for therapeutic drug level monitoring; Z85.038 Personal history of other malignant neoplasm of large intestine
CPT/HCPCS: 36415; 80048; 80307; 82378; 83036; G0103

== ENCOUNTER → 2019-05-07 | Outpatient (CLI) | payer MEDICARE ==
--- NOTE | 2019-05-11 04:25 | ECWPNPC ---
PATIENT NAME: MIKEY SOLIZ : 1950 GENDER: MALE VISIT DATE: 05/07/2019 DISCHARGE DATE: 05/07/19 1531 VISIT LOCKED DATE TIME: PHYSICIAN: NOAH ELENA RESOURCE: NOAH ELENA REASON FOR APPOINTMENT 1. 2 MONTHS HISTORY OF PRESENT ILLNESS HISTORY OF PRESENT ILLNESS: PAIN THE PATIENT DESCRIBES THE PAIN... 68-YEAR-OLD MALE IN FOR CHRONIC PAIN FOLLOW-UP. AT LAST CLINIC VISIT HE WAS STARTED ON TIZANIDINE AND FEELS THIS HAS BEEN HELPFUL IN MANAGING HIS SYMPTOMS. HE RATES HIS PAIN CURRENTLY AT AN 8 OUT OF 10 AND DESCRIBES IT ACHING, AND SHARP. FALL RISK SCREENING: SCREENING :NO FALLS REPORTED IN THE LAST YEAR CURRENT MEDICATIONS TAKING ALCOHOL SWABS 70 % PAD SWAB SKIN PRIOR TO FINGERSTICK BEFORE MEALS AND BEDTIME. DX: Z79.4 TAKING ASPIRIN 81 MG TABLET CHEWABLE 1 TABLET ORALLY ONCE A DAY TAKING LANCETS FOR ONE TOUCH ULTRA MINI TAKE 1 STRIP TOP TWICE A DAY NEEDED DX E11.9 TAKING BLOOD GLUCOSE TEST ONETOUCH ULTRA BLUE STRIP USE DIRECTED TWO TIMES A DAY TAKING NOVOLIN 70/30 (70-30) 100 UNIT/ML SUSPENSION 40 UNITS IN THE AM, 50 UNITS IN THE PM SUBCUTANEOUS TWICE A DAY TAKING GABAPENTIN 600 MG TABLET 1 CAPSULE ORALLY THREE TIMES A DAY TAKING HYDROCODONE-ACETAMINOPHEN 5-325 MG TABLET 1 TABLET NEEDED ORALLY THREE TIMES DAILY NEEDED FOR SEVERE PAIN.MDD 3 TAKING TIZANIDINE HCL 4 MG TABLET 1 TABLET NEEDED ORALLY THREE TIMES A DAY TAKING MAY HAVE - - LIFT CHAIR TO AIDE IN MOBILITY SIT-STAND CHAIR DAILY NEEDED FOR IMPAIRED MOBILITY AND MORBID OBESITY. 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 MISCELLANEOUS DX CODE 154.1 TOPICALLY DIRECTED TAKING STOMAHESIVE PASTE . PASTE DX CODE 154.21 TOPICALLY DIRECTED TAKING ALLKARE PROTECT BARRIER WIPES . MISCELLANEOUS DX CODE 154.21 TOPICALLY USE DIRECTED TAKING [employer] ADHESIVE REMOVER WIPES . PACKET DX CODE 154.1 TOPICALLY USE DIRECTED TAKING MAY USE . [facility] [id number] DX CODE 154.1 CHANGE DIRECTED TAKING MAY HAVE . 1 CONVATE POUCH REFER [id number]/ DX CODE 154.1 CHANGE NEEDED TAKING IRBESARTAN 300 MG TABLET 1 TABLET ORALLY ONCE A DAY TAKING BUPROPION HCL ER (XL) 150 MG TABLET EXTENDED RELEASE 24 HOUR 1 TABLET IN THE MORNING ORALLY BID TAKING DULOXETINE HCL 60 MG CAPSULE DELAYED RELEASE PARTICLES 1 CAPSULE ORALLY DAILY TAKING METOPROLOL SUCCINATE ER 100 MG TABLET EXTENDED RELEASE 24 HOUR 1 TABLET ORALLY ONCE A DAY TAKING FUROSEMIDE 40 MG TABLET 1 TABLETS ORALLY 2 TABS IN AM, 1 TAB IN PM TAKING METFORMIN HCL 1000 MG TAB TAKE ONE TABLET BY MOUTH TWICE A DAY WITH MEALS ORALLY TWICE A DAY TAKING POTASSIUM CHLORIDE ER 10 MEQ TABLET EXTENDED RELEASE 2 TABLET WITH FOOD ORALLY TWICE A DAY TAKING LIPITOR 80 MG TABLET TAKE ONE TABLET BY MOUTH EVERY DAY ORALLY ONCE A DAY TAKING REPAGLINIDE 0.5 MG TABLET 1 TABLET 15 TO 30 MINUTES BEFORE MEALS ORALLY THREE TIMES DAILY AT MEALS ONLY TAKING INSULIN SYRINGE 28G X 1/2 MISCELLANEOUS DIRECTED SUBCUTANEOUSLY TWICE DAILY. DX: Z79.4 TAKING BLOOD GLUCOSE TEST - STRIP DIRECTED IN VITRO 2 TIMES DAILY. Z79.4 NOT-TAKING TESSALON PERLES 100 MG CAPSULE 1 CAPSULE NEEDED ORALLY THREE TIMES A DAY NOT-TAKING MAY . POWDER DX FYWO721.1 TOPICALLY DIRECTED MEDICATION LIST REVIEWED AND RECONCILED WITH THE PATIENT PAST MEDICAL HISTORY TYPE 2 DM WITH PN ULCERATIVE COLITIS DEPRESSION CHRONIC LBP OBESITY DEGENERATIVE DISC DISEASE ERYTHEMA NODOSUM LE EDEMA MALIGNANT MELANOMA LEFT FOREARM 11/26-- SEES DERM Q [address] PRAKASH CHRONIC VENOUS STASIS DERMATITIS AND ULCES OF RIGHT LE HIGH GRADE ADENOCARCINOMA SIGMOID/RECTAL 05/01; CEA 0.5 01/31, 05/02 HTN; NM STRESS TEST 03/2017 ALLERGIES BEE STINGS/ YELLOW JACKET: HIVES/SWELLING - ALLERGY - ONSET DATE 12/01/2018 SURGICAL HISTORY BROKEN NOSE REPAIR NO PERSONAL OR FHX OF SEVERE REACTION TO ANESTHESIA APPENDECTOMY BOWEL REPAIR D/T STRANGULATED HERNIA 09/2009 COLONOSCOPIES 2003,2007,2008 ROBOTIC-ASISTED TOTAL PROCTOCOLECTOMY WITH ILEOSTOMY FOR U/C AND HIGH GRADE ADENOCARCINOMA; FOCAL VASCULAR SPACE INVASION ON PATH BUT ALL LYMPH NODES (23 PERIRECTAL AND 53 COLONIC) NEG FOR TUMOR 06/2014 CATARACT REMOVED FROM RIGHT EYE 04/2016 CATARACT REMOVED LEFT EYE 05/03/16 LAPAROSCOPTIC AND OPEN REPAIR OF INCARCERATED PARASTOMAL HERNIA WITH SMALL BOWEL OBSTRUCTION 10/2017 LAPRASCOPTIC AND PARTIAL OPEN REPAIR OF 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 1 SON(S) , 3 DAUGHTER(S) . BROTHER DIABETIC TYPE 2 AND COPD\\NSISTER DIABETIC AND CANCER- IN MAY PATERANAL AUNT HAD PANCREATIC CANCER. DENIES FAMILY HX OF MELANOMA. SOCIAL HISTORY GENERAL: TOBACCO USE ARE YOU A:FORMER SMOKER HOW LONG HAS IT BEEN SINCE YOU LAST SMOKED?> 10 YEARS HIV / HEP-C SCREENING HIV TEST OFFERED TO PATIENT:YES DATE OFFERED:07/02/2016 TEST ACCEPTED:NO HEP-C TEST OFFERED TO PATIENT:YES DATE OFFERED:07/02/2016 REASON:PATIENT DECLINED TEST ACCEPTED:NO REASON:PATIENT DECLINED OTHERS AT HOME: CHILDREN, GRANDCHILDREN. HOUSING: OWNS HOME. EDUCATION LEVEL OF EDUCATION:COLLEGE DIET: REGULAR. LANGUAGE LANGUAGES SPOKEN:[place] DOMESTIC VIOLENCE DO YOU FEEL SAFE IN YOUR ENVIRONMENT?YES NEW PATIENT PAIN DIARY PATIENT DESCRIBES PAIN :ACHING, SHARP FROM 0-10, WHAT LEVEL IS YOUR PAIN TODAY?7 PRECIPITATING FACTORS STANDING, WALKING ALLEVIATING FACTORS SITTING AND LYING DOWN MAKE PAIN BETTER IMPACT ON FUNCTION MAKES HIM NOT BE ABLE TO DO THE THINGS HE USED TO DO HAVE YOU BEEN SICK IN THE LAST WEEK (COLD, COUGH, FEVER, FLU, ETC)NO DO YOU TAKE ANY BLOOD THINNERS?NO ASPIRIN 81 MG DAILY DO YOU HAVE ANY RASHES OR OPEN SORES?NO ANY CHANGE IN BOWEL OR BLADDER CONTROL?NO ARE YOU ALLERGIC TO SHELLFISH OR IV DYE?NO ARE YOU DIABETIC?YES DO YOU HAVE A PACEMAKER OR DEFIBRILLATOR?NO HAVE YOU FALLEN IN THE LAST 6 MONTHS?YES FELL IN NOVEMBER- TRIPPED ON A STICK IN THE [place], NO INJURIES, NO MEDICAL CARE DO YOU USE ANY TYPE OF TOBACCO (SMOKE, SMOKELESS, CHEW, ETC.)NO ARE YOU ABUSED, NEGLECTED, OR IN AN UNSAFE ENVIRONMENT?NO DO YOU HAVE THOUGHTS OF HURTING YOURSELF OR SOMEONE ELSE?NO INTENSITY SCALE REVIEWEDNUMBER BMI CARE GOAL FOLLOW-UP ABOVE NORMAL BMI FOLLOW-UPLIFESTYLE EDUCATION REGARDING DIET RECREATIONAL DRUG USE DRUG USE?NO EXERCISE: NO REGULAR EXERCISE. 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 CLINIC PFS, CLERGY, PUBLIC HEALTH REFERRALS PFS REFERRAL NEEDED?NO CLERGY REFERRAL NEEDED?NO PUBLIC HEALTH REFERRAL NEEDED?NO WAS THE PROVIDER NOTIFIED OF ANY PERTINENT INFO?YES HAS THE PATIENT BEEN EDUCATED REGARDING HIS/HER PLAN OF CARE?YES HAS THE PATIENT BEEN EDUCATED REGARDING PAIN, THE RISK FOR PAIN, THE IMPORTANCE OF EFFECTIVE PAIN MANAGEMENT, AND THE PAIN ASSESSMENT PROCESS?YES LATEX QUESTIONNAIRE LATEX ALLERGY : HAVE YOU EVER DEVELOPED ANY TYPE OF REACTION AFTER HANDLING LATEX PRODUCTS SUCH RUBBER GLOVES, CONDOMS, DIAPHRAGMS, BALLOONS, SOCKS, OR UNDERWEAR?NO LATEX ALLERGY : HAVE YOU EVER DEVELOPED ANY TYPE OF REACTION DURING OR AFTER DENTAL APPOINTMENT, VAGINAL/RECTAL EXAMINATION, SURGICAL PROCEDURE, OR ANY OTHER EXPOSURE?NO DATE ASKED : 02/17/2019 LATEX RISK : HAVE YOU EVER HAD ANY DIFFICULTY BREATHING OR HIVES AFTER EATING OR HANDLING ANY FRUITS, OR VEGETABLES; SUCH KIWI, BANANAS, STONE FRUITS, OR CHESTNUTSNO LATEX RISK : DO YOU HAVE A PREVIOUS PERSONAL HISTORY OF MORE THAN NINE SURGERIES, SPINA BIFIDA, OR REPEATED CATHERIZATIONS? NO LATEX RISK : ARE YOU FREQUENTLY EXPOSED TO LATEX PRODUCTS IN YOUR OCCUPATION?NO CAFFEINE CAFFEINE USE? TEA >5 ADVANCE DIRECTIVE ADVANCE DIRECTIVE DISCUSSED WITH PATIENT: PATIENT STATES HE DOES NOT HAVE ANY ADVANCED DIRECTIVES, DECLINED INFORMATION CAODAISM [id number] NONE MARITAL STATUS: .. ALCOHOL SCREENING POINTS: 0, INTERPRETATION: NEGATIVE. OCCUPATION: DISABLED. SEXUAL HX HAD SEX IN THE LAST 12 MONTHS (VAGINAL, ORAL, OR ANAL)?NO HAVE YOU EVER HAD AN STD?NO REVIEWED, NO CHANGESREVIEWED WITH PATIENT 01/12/19 1538 NL. HOSPITALIZATION/MAJOR DIAGNOSTIC PROCEDURE SURGERY RELATED BOWEL OBSTRUCTION JULY 2015 BILATERAL LOWER LEG CELLULITIS 2014 BOWEL OBSTRUCTION 01/17/17 BOWEL OBSTRUCTION 10/2017 3 DAY STAY FOR BROKEN FINGER WHEN A CHILD REVIEW OF SYSTEMS REVIEWED BY: PROVIDER: GARFIELD WORKMAN-C . CONSTITUTIONAL: ANY CHANGE IN YOUR MEDICAL CONDITION? NO . CHILLS NO . FEVER NO . INFECTION: DO YOU HAVE NEW INFECTIONS? NO . DO YOU HAVE HISTORY OF MRSA? NO . MUSCULOSKELETAL: ANY NEW PATTERNS OF PAIN OR NUMBNESS? YES- "BENT OVER TO PICK SOMETHING UP" BEEN HURTING FOR A WHILE SINCE THEN - 2 TO 3 WEEKS AGO . GASTROENTEROLOGY: ANY NEW CHANGE IN BOWEL CONTROL? NO . GENITOURINARY: ANY NEW CHANGE IN BLADDER CONTROL? NO . IS THERE A CHANCE YOU COULD BE ? NO . HEMATOLOGY/LYMPH: DO YOU TAKE ANY BLOOD THINNERS? (FOR EXAMPLE- COUMADIN, PLAVIX, AGGRENOX, PLATEL, PRADAXA, OR XARELTO) NO . WHEN WAS YOUR LAST DOSE? DATE: TIME: . NEUROLOGY: HAVE YOU FALLEN IN THE PAST 12 MONTHS? LAST NOVEMBER "FEEL IN THE [place]" . ANY NEW EXTREMITY NUMBNESS OR WEAKNESS? NO . CARDIOLOGY: DO YOU HAVE A PACEMAKER OR DEFIBRILLATOR? NO . RESPIRATORY: HAVE YOU BEEN SICK IN THE PAST WEEK? NO . FEVER NO . FLU LIKE SYMPTOMS? NO . COUGH NO . INTEGUMENTARY: DO YOU HAVE ANY RASHES OR OPEN SORES? NO . ALLERGIC/IMMUNO: ARE YOU ALLERGIC TO IV DYE? NO . ANY NEW ALLERGIES? NO . PSYCHIATRIC: DO YOU HAVE THOUGHTS OF HURTING YOURSELF OR SOMEONE ELSE? NO . ARE YOU ABUSED, NEGLECTED, OR IN AN UNSAFE ENVIRONMENT? NO . ENDOCRINOLOGY: ARE YOU DIABETIC? NO . OTHER: DO YOU NEED ANY PRESCRIPTIONS? NO . IF YES, PLEASE LIST: ____ . ANY NEW PROBLEMS WITH YOUR MEDICATIONS? NO . WHEN DID YOU LAST EAT? ____ . WHEN DID YOU LAST DRINK? ____ . WHAT DID YOU LAST DRINK? ____ . 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 ____ . DO YOU HAVE ANY OTHER QUESTIONS OR CONCERNS NO . VITAL SIGNS WT 383.8 LBS, HT 69 IN, BMI 56.67 INDEX, BP 129/62 MM HG, HR 72 /MIN, RR 18 /MIN, TEMP 96.5 F, OXYGEN SAT % 96%, NA INITIALS AW 1447. EXAMINATION GENERAL EXAMINATION: GENERALNO ACUTE DISTRESS, WELL NOURISHED AND HYDRATED. PSYCHAPPROPRIATE MOOD AND AFFECT . LUNGS:CLEAR TO AUSCULTATION BILATERALLY, NO WHEEZES, RHONCHI, RALES. HEART:NO MURMURS, REGULAR RATE AND RHYTHM. ASSESSMENTS SPONDYLOSIS OF LUMBAR REGION WITHOUT MYELOPATHY OR RADICULOPATHY - M47.816 (PRIMARY) TREATMENT SPONDYLOSIS OF LUMBAR REGION WITHOUT MYELOPATHY OR RADICULOPATHY REFILL TIZANIDINE HCL TABLET, 4 MG, 1 TABLET NEEDED, ORALLY, THREE TIMES A DAY, 30 DAYS, 90 CLINICAL NOTES: 60-YEAR-OLD MALE IN FOR CHRONIC PAIN FOLLOW-UP. GIVEN PRESENTING SYMPTOMS AND RESULTS OF PHYSICAL EXAMINATION RECOMMENDED CONTINUATION OF CURRENT MEDICATION REGIMEN WITH FOLLOW-UP IN 2 MONTHS. PATIENT EXPRESSED UNDERSTANDING OF AND WAS IN AGREEMENT WITH TREATMENT PLAN. GIVEN TIME TO ASK QUESTIONS AND EXPRESS CONCERNS. PROCEDURE CODES FA211 ESTABILISHED PATIENT [facility] CHARGE DISPOSITION & COMMUNICATION FOLLOW UP 2 MONTHS (REASON: LOW BACK PAIN) ELECTRONICALLY SIGNED BY JACINTA KAPADIA ON 05/10/2019 AT 02:43 PM EST DISCLAIMER : THIS IS A VISIT SUMMARY EXTRACTED FROM THE [email or web address] CHART. IT IS NOT A COPY OF THE [email or web address] PROGRESS NOTE. CLAY
== END ==
LOC: M PAIN 14:30
PROVIDERS: ATTEND Family Medicine
DX: M47.816 Spondylosis without myelopathy or radiculopathy, lumbar region (principal)

== ENCOUNTER → 2019-07-02 | Outpatient (CLI) | payer MEDICARE ==
[~2019-07-02] MED LIST changes: -GLIM4TAB3 PO; +GLIM4TAB5 PO; -IRBE300T10 PO; +IRBE300T7 PO
--- NOTE | 2019-07-13 04:44 | ECWPNPC ---
PATIENT NAME: MIKEY SOLIZ : 1950 GENDER: MALE VISIT DATE: 07/02/2019 DISCHARGE DATE: 07/02/19 1454 VISIT LOCKED DATE TIME: PHYSICIAN: NOAH ELENA RESOURCE: NOAH ELENA REASON FOR APPOINTMENT 1. LOW BACK HISTORY OF PRESENT ILLNESS HISTORY OF PRESENT ILLNESS: PAIN THE PATIENT DESCRIBES THE PAIN... 68-YEAR-OLD MALE IN FOR CHRONIC PAIN FOLLOW-UP. HE RATES HIS PAIN AT A 6.5 OUT OF 10 AND DESCRIBING IT ACHING, AND SHARP. PATIENT HAS HAD TRIGGER POINT INJECTIONS IN THE PAST AND FOUND THEM HELPFUL AND WOULD LIKE TO DISCUSS REPEAT INJECTIONS TODAY. FALL RISK SCREENING: SCREENING :NO FALLS REPORTED IN THE LAST YEAR CURRENT MEDICATIONS TAKING ALCOHOL SWABS 70 % PAD SWAB SKIN PRIOR TO FINGERSTICK BEFORE MEALS AND BEDTIME. DX: Z79.4 TAKING ASPIRIN 81 MG TABLET CHEWABLE 1 TABLET ORALLY ONCE A DAY TAKING LANCETS FOR ONE TOUCH ULTRA MINI TAKE 1 STRIP TOP TWICE A DAY NEEDED DX E11.9 TAKING BLOOD GLUCOSE TEST ONETOUCH ULTRA BLUE STRIP USE DIRECTED TWO TIMES A DAY TAKING GABAPENTIN 600 MG TABLET 1 CAPSULE ORALLY THREE TIMES A DAY TAKING HYDROCODONE-ACETAMINOPHEN 5-325 MG TABLET 1 TABLET NEEDED ORALLY THREE TIMES DAILY NEEDED FOR SEVERE PAIN.MDD 3 TAKING MAY HAVE - - LIFT CHAIR TO AIDE IN MOBILITY SIT-STAND CHAIR DAILY NEEDED FOR IMPAIRED MOBILITY AND MORBID OBESITY. 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 MISCELLANEOUS DX CODE 154.1 TOPICALLY DIRECTED TAKING STOMAHESIVE PASTE . PASTE DX CODE 154.21 TOPICALLY DIRECTED TAKING [employer]KARE PROTECT BARRIER WIPES . MISCELLANEOUS DX CODE 154.21 TOPICALLY USE DIRECTED TAKING [employer]KARE ADHESIVE REMOVER WIPES . PACKET DX CODE 154.1 TOPICALLY USE DIRECTED TAKING [facility] . [id number] DX CODE 154.1 CHANGE DIRECTED TAKING MAY HAVE . [id number]/ DX CODE 154.1 CHANGE NEEDED TAKING LIPITOR 80 MG TABLET TAKE ONE TABLET BY MOUTH EVERY DAY ORALLY ONCE A DAY TAKING INSULIN SYRINGE 28G X 1/2 MISCELLANEOUS DIRECTED SUBCUTANEOUSLY TWICE DAILY. DX: Z79.4 TAKING BLOOD GLUCOSE TEST - STRIP DIRECTED IN VITRO 2 TIMES DAILY. Z79.4 TAKING TIZANIDINE HCL 4 MG TABLET 1 TABLET NEEDED ORALLY THREE TIMES A DAY TAKING CICLOPIROX 0.77 % GEL 1 APPLICATION EXTERNALLY TWICE A DAY TO CHEST AND ABDOMEN RASH TAKING DIFLUCAN 200 MG TABLET 1 TABLET ORALLY 1 TABLET NOW AND REPEAT IN 1 WEEK TAKING KETOCONAZOLE 2 % CREAM 1 APPLICATION EXTERNALLY ONCE A DAY TO HEAD AND NECK TAKING BUPROPION HCL ER (SR) 150 MG TABLET EXTENDED RELEASE 12 HOUR 1 TABLET IN THE MORNING ORALLY BID TAKING DULOXETINE HCL 60 MG CAPSULE DELAYED RELEASE PARTICLES 1 CAPSULE ORALLY DAILY TAKING METOPROLOL SUCCINATE ER 100 MG TABLET EXTENDED RELEASE 24 HOUR 1 TABLET ORALLY ONCE A DAY TAKING FUROSEMIDE 40 MG TABLET 1 TABLETS ORALLY 2 TABS IN AM, 1 TAB IN PM TAKING POTASSIUM CHLORIDE ER 10 MEQ TABLET EXTENDED RELEASE 2 TABLET WITH FOOD ORALLY TWICE A DAY TAKING METFORMIN HCL 1000 MG TAB TAKE ONE TABLET BY MOUTH TWICE A DAY WITH MEALS ORALLY TWICE A DAY TAKING REPAGLINIDE 0.5 MG TABLET 1 TABLET 15 TO 30 MINUTES BEFORE MEALS ORALLY THREE TIMES DAILY AT MEALS ONLY TAKING IRBESARTAN 300 MG TABLET 1 TABLET ORALLY ONCE A DAY TAKING NOVOLIN 70/30 (70-30) 100 UNIT/ML SUSPENSION 40 UNITS IN THE AM, 50 UNITS IN THE PM SUBCUTANEOUS TWICE A DAY NOT-TAKING CICLOPIROX OLAMINE 0.77 % CREAM 1 APPLICATION EXTERNALLY TWICE A DAY TO AREAS ON BODY WITH RASH NOT-TAKING TESSALON PERLES 100 MG CAPSULE 1 CAPSULE NEEDED ORALLY THREE TIMES A DAY NOT-TAKING SEPTEMBER . 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 ULCERATIVE COLITIS DEPRESSION CHRONIC LBP OBESITY DEGENERATIVE DISC DISEASE ERYTHEMA NODOSUM LE EDEMA MALIGNANT MELANOMA LEFT FOREARM 11/26-- SEES DERM Q [address] PRAKASH CHRONIC VENOUS STASIS DERMATITIS AND ULCES OF RIGHT LE HIGH GRADE ADENOCARCINOMA SIGMOID/RECTAL 05/01; CEA 0.5 01/31, 05/02 HTN; NM STRESS TEST 03/2017 ALLERGIES BEE STINGS/ YELLOW JACKET: HIVES/SWELLING - ALLERGY - ONSET DATE 12/01/2018 SURGICAL HISTORY BROKEN NOSE REPAIR NO PERSONAL OR FHX OF SEVERE REACTION TO ANESTHESIA APPENDECTOMY BOWEL REPAIR D/T STRANGULATED HERNIA 09/2009 COLONOSCOPIES 2003,2007,2008 ROBOTIC-ASISTED TOTAL PROCTOCOLECTOMY WITH ILEOSTOMY FOR U/C AND HIGH GRADE ADENOCARCINOMA; FOCAL VASCULAR SPACE INVASION ON PATH BUT ALL LYMPH NODES (23 PERIRECTAL AND 53 COLONIC) NEG FOR TUMOR 06/2014 CATARACT REMOVED FROM RIGHT EYE 04/2016 CATARACT REMOVED LEFT EYE 05/03/16 LAPAROSCOPTIC AND OPEN REPAIR OF INCARCERATED PARASTOMAL HERNIA WITH SMALL BOWEL OBSTRUCTION 10/2017 LAPRASCOPTIC AND PARTIAL OPEN REPAIR OF INCRACERATED RECURRENT VENTRAL INCISIONAL HERNIA WITH MESH 10/2017 LESION REMOVED FROM LEFT FOREARM- MELANOMA 2010 FAMILY HISTORY FATHER: 84 YRS, LIVER FAILURE, MRSA MOTHER: 87 YRS, NIDDM, DIAGNOSED WITH DIABETES SIBLINGS: ALIVE 61 YRS, BROTHER DM, SISTER COLON CA AGE 61, DIABETES, OTHER MALIGNANT NEOPLASM OF UNSPECIFIED SITE 1 BROTHER(S) , 3 SISTER(S) . 1 SON(S) , 3 DAUGHTER(S) . BROTHER DIABETIC TYPE 2 AND COPD\NSISTER DIABETIC AND CANCER- IN MAY PATERANAL AUNT HAD PANCREATIC CANCER. DENIES FAMILY HX OF MELANOMA. SOCIAL HISTORY GENERAL: TOBACCO USE ARE YOU A:FORMER SMOKER HOW LONG HAS IT BEEN SINCE YOU LAST SMOKED?> 10 YEARS HIV / HEP-C SCREENING HIV TEST OFFERED TO PATIENT:YES DATE OFFERED:07/02/2016 TEST ACCEPTED:NO HEP-C TEST OFFERED TO PATIENT:YES DATE OFFERED:07/02/2016 REASON:PATIENT DECLINED TEST ACCEPTED:NO REASON:PATIENT DECLINED OTHERS AT HOME: CHILDREN, GRANDCHILDREN. HOUSING: OWNS HOME. EDUCATION LEVEL OF EDUCATION:COLLEGE DIET: REGULAR. LANGUAGE LANGUAGES SPOKEN:FRENCH DOMESTIC VIOLENCE DO YOU FEEL SAFE IN YOUR ENVIRONMENT?YES NEW PATIENT PAIN DIARY PATIENT DESCRIBES PAIN :ACHING, SHARP FROM 0-10, WHAT LEVEL IS YOUR PAIN TODAY?7 PRECIPITATING FACTORS STANDING, WALKING ALLEVIATING FACTORS SITTING AND LYING DOWN MAKE PAIN BETTER IMPACT ON FUNCTION MAKES HIM NOT BE ABLE TO DO THE THINGS HE USED TO DO HAVE YOU BEEN SICK IN THE LAST WEEK (COLD, COUGH, FEVER, FLU, ETC)NO DO YOU TAKE ANY BLOOD THINNERS?NO ASPIRIN 81 MG DAILY DO YOU HAVE ANY RASHES OR OPEN SORES?NO ANY CHANGE IN BOWEL OR BLADDER CONTROL?NO ARE YOU ALLERGIC TO SHELLFISH OR IV DYE?NO ARE YOU DIABETIC?YES DO YOU HAVE A PACEMAKER OR DEFIBRILLATOR?NO HAVE YOU FALLEN IN THE LAST 6 MONTHS?YES FELL IN NOVEMBER- TRIPPED ON A STICK IN THE [place], NO INJURIES, NO MEDICAL CARE DO YOU USE ANY TYPE OF TOBACCO (SMOKE, SMOKELESS, CHEW, ETC.)NO ARE YOU ABUSED, NEGLECTED, OR IN AN UNSAFE ENVIRONMENT?NO DO YOU HAVE THOUGHTS OF HURTING YOURSELF OR SOMEONE ELSE?NO INTENSITY SCALE REVIEWEDNUMBER BMI CARE GOAL FOLLOW-UP ABOVE NORMAL BMI FOLLOW-UPLIFESTYLE EDUCATION REGARDING DIET RECREATIONAL DRUG USE DRUG USE?NO EXERCISE: NO REGULAR EXERCISE. LEARNING BARRIERS / SPECIAL NEEDS CHANGE FROM LAST VISIT?NO 12/04/18 BARRIERS TO LEARNING?NO HEARING IMPAIRED?NO VISION IMPAIRED?YES COGNITIVELY IMPAIRED?NO :CORRECTIVE LENSES READINESS TO LEARN?YES LEARNING PREFERENCES?NO LEARNING CAPABILITIES PRESENT?YES EMOTIONAL BARRIERS?NO SPECIAL DEVICES?YES :CANE FORENSIC SCIENCE EXAMINER NEEDED?NO PAIN CLINIC PFS, CLERGY, PUBLIC HEALTH REFERRALS PFS REFERRAL NEEDED?NO CLERGY REFERRAL NEEDED?NO PUBLIC HEALTH REFERRAL NEEDED?NO WAS THE PROVIDER NOTIFIED OF ANY PERTINENT INFO?YES HAS THE PATIENT BEEN EDUCATED REGARDING HIS/HER PLAN OF CARE?YES HAS THE PATIENT BEEN EDUCATED REGARDING PAIN, THE RISK FOR PAIN, THE IMPORTANCE OF EFFECTIVE PAIN MANAGEMENT, AND THE PAIN ASSESSMENT PROCESS?YES LATEX QUESTIONNAIRE LATEX ALLERGY : HAVE YOU EVER DEVELOPED ANY TYPE OF REACTION AFTER HANDLING LATEX PRODUCTS SUCH RUBBER GLOVES, CONDOMS, DIAPHRAGMS, BALLOONS, SOCKS, OR UNDERWEAR?NO LATEX ALLERGY : HAVE YOU EVER DEVELOPED ANY TYPE OF REACTION DURING OR AFTER DENTAL APPOINTMENT, VAGINAL/RECTAL EXAMINATION, SURGICAL PROCEDURE, OR ANY OTHER EXPOSURE?NO LATEX RISK : HAVE YOU EVER HAD ANY DIFFICULTY BREATHING OR HIVES AFTER EATING OR HANDLING ANY FRUITS, OR VEGETABLES; SUCH KIWI, BANANAS, STONE FRUITS, OR CHESTNUTSNO LATEX RISK : DO YOU HAVE A PREVIOUS PERSONAL HISTORY OF MORE THAN NINE SURGERIES, SPINA BIFIDA, OR REPEATED CATHERIZATIONS? NO LATEX RISK : ARE YOU FREQUENTLY EXPOSED TO LATEX PRODUCTS IN YOUR OCCUPATION?NO DATE ASKED : 07/02/2019 CAFFEINE CAFFEINE USE? TEA >5 ADVANCE DIRECTIVE ADVANCE DIRECTIVE DISCUSSED WITH PATIENT:YES PATIENT STATES HE DOES NOT HAVE ANY ADVANCED DIRECTIVES, DECLINED INFORMATION BAPTISM [id number] NONE MARITAL STATUS: .. ALCOHOL SCREENING POINTS: 0, INTERPRETATION: NEGATIVE. OCCUPATION: DISABLED. SEXUAL HX HAD SEX IN THE LAST 12 MONTHS (VAGINAL, ORAL, OR ANAL)?NO HAVE YOU EVER HAD AN STD?NO REVIEWED, NO CHANGESREVIEWED WITH PATIENT 01/12/19 1538 NLJREVIEWED WITH PATIENT 07/02/2019 DS. HOSPITALIZATION/MAJOR DIAGNOSTIC PROCEDURE SURGERY RELATED BOWEL OBSTRUCTION JULY 2015 BILATERAL LOWER LEG CELLULITIS 2013 BOWEL OBSTRUCTION 01/17/17 BOWEL OBSTRUCTION 10/2017 3 DAY STAY FOR BROKEN FINGER WHEN A CHILD REVIEW OF SYSTEMS REVIEWED BY: PROVIDER: [employer]AR[employer] WORKMAN-Delmar . CONSTITUTIONAL: ANY CHANGE IN YOUR MEDICAL CONDITION? NO . CHILLS NO . FEVER NO . INFECTION: DO YOU HAVE NEW INFECTIONS? NO . DO YOU HAVE HISTORY OF MRSA? NO . MUSCULOSKELETAL: ANY NEW PATTERNS OF PAIN OR NUMBNESS? YES, PT STATES THAT HE HAD PAIN IN BACK, INCREASED PAIN SINCE MAY. DECREASED MOBILITY, PT HAS BEEN SITTING OR LAYING DOWN PRIMARILY SINCE MAY. DS . GASTROENTEROLOGY: ANY NEW CHANGE IN BOWEL CONTROL? NO . GENITOURINARY: ANY NEW CHANGE IN BLADDER CONTROL? NO . IS THERE A CHANCE YOU COULD BE ? NO . HEMATOLOGY/LYMPH: DO YOU TAKE ANY BLOOD THINNERS? (FOR EXAMPLE- COUMADIN, PLAVIX, AGGRENOX, PLATEL, PRADAXA, OR XARELTO) NO . WHEN WAS YOUR LAST DOSE? DATE: TIME: . NEUROLOGY: HAVE YOU FALLEN IN THE PAST 12 MONTHS? YES, PT STATES THAT HE FELL WHILE AT HOME, NO INJURY FROM FALL, NO REPORT TO ED. DS . ANY NEW EXTREMITY NUMBNESS OR WEAKNESS? NO . CARDIOLOGY: DO YOU HAVE A PACEMAKER OR DEFIBRILLATOR? NO . RESPIRATORY: HAVE YOU BEEN SICK IN THE PAST WEEK? NO . FEVER NO . FLU LIKE SYMPTOMS? NO . COUGH NO . INTEGUMENTARY: DO YOU HAVE ANY RASHES OR OPEN SORES? YES, PT STATES THAT HE HAS RASHES AND OPEN SORES ON CHEST AND BACK, CURRRENTLY SEEING DERMATALOGIST, RECEIVING MEDICATION FOR TREATMENT AT THIS TIME. DS . ALLERGIC/IMMUNO: ARE YOU ALLERGIC TO IV DYE? NO . ANY NEW ALLERGIES? NO . PSYCHIATRIC: DO YOU HAVE THOUGHTS OF HURTING YOURSELF OR SOMEONE ELSE? NO . ARE YOU ABUSED, NEGLECTED, OR IN AN UNSAFE ENVIRONMENT? NO . ENDOCRINOLOGY: ARE YOU DIABETIC? YES, MANAGED WITH INSULIN AND ORAL MEDICATIONS. DS . OTHER: DO YOU NEED ANY PRESCRIPTIONS? NO . IF YES, PLEASE LIST: ____ . ANY NEW PROBLEMS WITH YOUR MEDICATIONS? NO . WHEN DID YOU LAST EAT? ____ . WHEN DID YOU LAST DRINK? ____ . WHAT DID YOU LAST DRINK? ____ . 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 ____ . DO YOU HAVE ANY OTHER QUESTIONS OR CONCERNS NO . VITAL SIGNS WT 387.2 LBS, HT 69 IN, BMI 57.17 INDEX, BP 166/70 MM HG, HR 70 /MIN, RR 18 /MIN, TEMP 97.7 F, OXYGEN SAT % 97, SAFE IN ENV? (Y/N) Y, REVIEWED BY: SID. EXAMINATION GENERAL EXAMINATION: GENERALNO ACUTE DISTRESS, WELL NOURISHED AND HYDRATED. PSYCHAPPROPRIATE MOOD AND AFFECT . LUNGS:CLEAR TO AUSCULTATION BILATERALLY, NO WHEEZES, RHONCHI, RALES. HEART:NO MURMURS, REGULAR RATE AND RHYTHM. BACK:SURROUNDING SKIN OF LOW BACK SHOWS NO ERYTHEMA, ECCHYMOSIS, INCREASED WARMTH, AND/OR SKIN ERUPTIONS NOTED.. ASSESSMENTS MYALGIA, OTHER SITE - M79.18 (PRIMARY) TREATMENT MYALGIA, OTHER SITE NOTES: BILATERAL LOW BACK TPI. CLINICAL NOTES: 68-YEAR-OLD MALE IN FOR CHRONIC PAIN FOLLOW-UP. GIVEN PRESENTING SYMPTOMS AND RESULTS OF PHYSICAL EXAMNATION RECOMMENDED CONTINUATION OF CURRENT MEDICATION REGIMEN AND TRIGGER POINT INJECTIONS OF THE LOW BACK BILATERALLY WITH POSTPROCEDURAL FOLLOW-UP. PATIENT HAS EXPRESSED UNDERSTANDING OF AND WAS IN AGREEMENT WITH TREATMENT PLAN. GIVEN TIME TO ASK QUESTIONS AND EXPRESS CONCERNS. PREVENTIVE MEDICINE PAIN CLINIC TEACHING: THE PATIENT HAS BEEN EDUCATED REGARDING PAIN, THE RISK FOR PAIN, THE IMPORTANCE OF EFFECTIVE PAIN MANAGEMENT, AND THE PAIN ASSESSMENT PROCESS. : REVIEWED AND DISCUSSED WRITTEN PRE-PROCEDURE INSTRUCTIONS WITH PATIENT, REVIEWED TREATMENT CARE PLAN WITH PT, PT ACKNOWLEDGED UNDERSTANDING. SID PROCEDURE CODES [id number] ESTABILISHED PATIENT [facility] CHARGE DISPOSITION & COMMUNICATION FOLLOW UP POSTPROCEDURE (REASON: BILATERAL LOW BACK TPI) ELECTRONICALLY SIGNED BY JACINTA KAPADIA ON 07/12/2019 AT 02:07 PM EST DISCLAIMER : THIS IS A VISIT SUMMARY EXTRACTED FROM THE [employer] CHART. IT IS NOT A COPY OF THE [employer] PROGRESS NOTE. CLAY
== END ==
LOC: M PAIN 14:15
PROVIDERS: ATTEND Family Medicine
DX: M79.18 Myalgia, other site (principal); E11.9 Type 2 diabetes mellitus without complications; Z86.59 Personal history of other mental and behavioral disorders; I10 Essential (primary) hypertension; Z87.891 Personal history of nicotine dependence; Z91.030 Bee allergy status; E66.01 Morbid (severe) obesity due to excess calories; Z68.43 Body mass index [BMI] 50.0-59.9, adult; Z79.82 Long term (current) use of aspirin; Z79.4 Long term (current) use of insulin; Z79.899 Other long term (current) drug therapy

== ENCOUNTER → 2019-07-12 | Outpatient (REF) | payer MEDICARE | LOC: M LAB REF 09:05 | PROVIDERS: ATTEND Dermatology | DX: D23.5 Other benign neoplasm of skin of trunk (principal) ==

== ENCOUNTER → 2019-07-30 | Outpatient (CLI) | payer MEDICARE ==
[~2019-07-30] MED LIST changes: +BUPIVACAINE HCL 0.25% 30 ML VIAL As Ordered ONE; +NORCO, ANEXSIA 5/325MG TABLET (HYDROcodone/ACETAMINOPHEN) As Ordered ONE; +TRIAMCINOLONE ACETONIDE SUSP 40 MG/ML VIAL (J3301) As Ordered ONE
--- NOTE | 2019-08-13 01:53 | ECWPNPC ---
PATIENT NAME: MIKEY SOLIZ : 1950 GENDER: MALE VISIT DATE: 07/30/2019 DISCHARGE DATE: 07/30/19 1634 VISIT LOCKED DATE TIME: PHYSICIAN: DONI DUMONT MD RESOURCE: DONI DUMONT MD REASON FOR APPOINTMENT 1. BIATERAL LB TPI HISTORY OF PRESENT ILLNESS HISTORY OF PRESENT ILLNESS: PAIN THE PATIENT DESCRIBES THE PAIN... FALL RISK SCREENING: SCREENING :NO FALLS REPORTED IN THE LAST YEAR CURRENT MEDICATIONS TAKING ALCOHOL SWABS 70 % PAD SWAB SKIN PRIOR TO FINGERSTICK BEFORE MEALS AND BEDTIME. DX: Z79.4 TAKING ASPIRIN 81 MG TABLET CHEWABLE 1 TABLET ORALLY ONCE A DAY, NOTES: 07/29/19 0900 TAKING LANCETS FOR ONE TOUCH ULTRA MINI TAKE 1 STRIP TOP TWICE A DAY NEEDED DX E11.9 TAKING BLOOD GLUCOSE TEST ONETOUCH ULTRA BLUE STRIP USE DIRECTED TWO TIMES A DAY TAKING GABAPENTIN 600 MG TABLET 1 CAPSULE ORALLY THREE TIMES A DAY, NOTES: 07/29/2019 0900 TAKING HYDROCODONE-ACETAMINOPHEN 5-325 MG TABLET 1 TABLET NEEDED ORALLY THREE TIMES DAILY NEEDED FOR SEVERE PAIN.MDD 3, NOTES: > 2 WEEKS TAKING MAY HAVE - - LIFT CHAIR TO AIDE IN MOBILITY SIT-STAND CHAIR DAILY NEEDED FOR IMPAIRED MOBILITY AND MORBID OBESITY. 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 MISCELLANEOUS DX CODE 154.1 TOPICALLY DIRECTED TAKING STOMAHESIVE PASTE . PASTE DX CODE 154.21 TOPICALLY DIRECTED TAKING [place] PROTECT BARRIER WIPES . MISCELLANEOUS DX CODE 154.21 TOPICALLY USE DIRECTED TAKING [employer] ADHESIVE REMOVER WIPES . PACKET DX CODE 154.1 TOPICALLY USE DIRECTED TAKING MAY USE . 1 [facility] REF NUM [id number] DX CODE 154.1 CHANGE DIRECTED TAKING MAY HAVE . 1 [facility] REFER [id number]/ DX CODE 154.1 CHANGE NEEDED TAKING LIPITOR 80 MG TABLET TAKE ONE TABLET BY MOUTH EVERY DAY ORALLY ONCE A DAY, NOTES: 07/30/2019 0900 TAKING INSULIN SYRINGE 28G X 1/2 MISCELLANEOUS DIRECTED SUBCUTANEOUSLY TWICE DAILY. DX: Z79.4 TAKING BLOOD GLUCOSE TEST - STRIP DIRECTED IN VITRO 2 TIMES DAILY. Z79.4 TAKING TIZANIDINE HCL 4 MG TABLET 1 TABLET NEEDED ORALLY THREE TIMES A DAY, NOTES: 07/26/2019 TAKING BUPROPION HCL ER (SR) 150 MG TABLET EXTENDED RELEASE 12 HOUR 1 TABLET IN THE MORNING ORALLY BID, NOTES: 07/30/2019899 TAKING DULOXETINE HCL 60 MG CAPSULE DELAYED RELEASE PARTICLES 1 CAPSULE ORALLY DAILY, NOTES: 07/30/2019899 TAKING METOPROLOL SUCCINATE ER 100 MG TABLET EXTENDED RELEASE 24 HOUR 1 TABLET ORALLY ONCE A DAY, NOTES: 07/30/2019899 TAKING FUROSEMIDE 40 MG TABLET 1 TABLETS ORALLY 2 TABS IN AM, 1 TAB IN PM, NOTES: 07/30/2019899 TAKING POTASSIUM CHLORIDE ER 10 MEQ TABLET EXTENDED RELEASE 2 TABLET WITH FOOD ORALLY TWICE A DAY, NOTES: 07/29/1009899 TAKING REPAGLINIDE 0.5 MG TABLET 1 TABLET 15 TO 30 MINUTES BEFORE MEALS ORALLY THREE TIMES DAILY AT MEALS ONLY, NOTES: 07/29/2019 TAKING IRBESARTAN 300 MG TABLET 1 TABLET ORALLY ONCE A DAY, NOTES: 07/30/2019899 TAKING NOVOLIN 70/30 (70-30) 100 UNIT/ML SUSPENSION 40 UNITS IN THE AM, 50 UNITS IN THE PM SUBCUTANEOUS TWICE A DAY, NOTES: 07/29/2019 TAKING CICLOPIROX OLAMINE 0.77 % CREAM 1 APPLICATION EXTERNALLY TWICE A DAY TO AREAS ON BODY WITH RASH, NOTES: 07/29/2019 TAKING METFORMIN HCL 1000 MG TAB TAKE ONE TABLET BY MOUTH TWICE A DAY WITH MEALS ORALLY TWICE A DAY, NOTES: 07/29/20192099 TAKING KETOCONAZOLE 2 % CREAM 1 APPLICATION EXTERNALLY ONCE A DAY NOT-TAKING DIFLUCAN 200 MG TABLET 1 TABLET ORALLY 1 TABLET NOW AND REPEAT IN 1 WEEK NOT-TAKING CICLOPIROX 0.77 % GEL 1 APPLICATION EXTERNALLY TWICE A DAY TO CHEST AND ABDOMEN RASH NOT-TAKING TESSALON PERLES 100 MG CAPSULE 1 CAPSULE NEEDED ORALLY THREE TIMES A DAY NOT-TAKING MAY . 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 ULCERATIVE COLITIS DEPRESSION CHRONIC LBP OBESITY DEGENERATIVE DISC DISEASE ERYTHEMA NODOSUM LE EDEMA MALIGNANT MELANOMA LEFT FOREARM 11/26-- SEES DERM Q [address] PRAKASH CHRONIC VENOUS STASIS DERMATITIS AND ULCES OF RIGHT LE HIGH GRADE ADENOCARCINOMA SIGMOID/RECTAL 05/01; CEA 0.5 01/31, 05/02 HTN; NM STRESS TEST 03/2017 ALLERGIES BEE STINGS/ YELLOW JACKET: HIVES/SWELLING - ALLERGY - ONSET DATE 12/01/2018 SURGICAL HISTORY BROKEN NOSE REPAIR NO PERSONAL OR FHX OF SEVERE REACTION TO ANESTHESIA APPENDECTOMY BOWEL REPAIR D/T STRANGULATED HERNIA 09/2009 COLONOSCOPIES 2003,2007,2008 ROBOTIC-ASISTED TOTAL PROCTOCOLECTOMY WITH ILEOSTOMY FOR U/C AND HIGH GRADE ADENOCARCINOMA; FOCAL VASCULAR SPACE INVASION ON PATH BUT ALL LYMPH NODES (23 PERIRECTAL AND 53 COLONIC) NEG FOR TUMOR 06/2014 CATARACT REMOVED FROM RIGHT EYE 04/2016 CATARACT REMOVED LEFT EYE 05/03/16 LAPAROSCOPTIC AND OPEN REPAIR OF INCARCERATED PARASTOMAL HERNIA WITH SMALL BOWEL OBSTRUCTION 10/2017 LAPRASCOPTIC AND PARTIAL OPEN REPAIR OF 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 1 SON(S) , 3 DAUGHTER(S) . BROTHER DIABETIC TYPE 2 AND COPD\NSISTER DIABETIC AND CANCER- IN MAY PATERANAL AUNT HAD PANCREATIC CANCER. DENIES FAMILY HX OF MELANOMA. SOCIAL HISTORY GENERAL: TOBACCO USE ARE YOU A:FORMER SMOKER HOW LONG HAS IT BEEN SINCE YOU LAST SMOKED?> 10 YEARS HIV / HEP-C SCREENING HIV TEST OFFERED TO PATIENT:YES DATE OFFERED:07/02/2016 TEST ACCEPTED:NO HEP-C TEST OFFERED TO PATIENT:YES DATE OFFERED:07/02/2016 REASON:PATIENT DECLINED TEST ACCEPTED:NO REASON:PATIENT DECLINED OTHERS AT HOME: CHILDREN, GRANDCHILDREN. HOUSING: OWNS HOME. EDUCATION LEVEL OF EDUCATION:COLLEGE DIET: REGULAR. LANGUAGE LANGUAGES SPOKEN:URUGUAYAN DOMESTIC VIOLENCE DO YOU FEEL SAFE IN YOUR ENVIRONMENT?YES NEW PATIENT PAIN DIARY PATIENT DESCRIBES PAIN :ACHING, SHARP FROM 0-10, WHAT LEVEL IS YOUR PAIN TODAY?7 PRECIPITATING FACTORS STANDING, WALKING ALLEVIATING FACTORS SITTING AND LYING DOWN MAKE PAIN BETTER IMPACT ON FUNCTION MAKES HIM NOT BE ABLE TO DO THE THINGS HE USED TO DO HAVE YOU BEEN SICK IN THE LAST WEEK (COLD, COUGH, FEVER, FLU, ETC)NO DO YOU TAKE ANY BLOOD THINNERS?NO ASPIRIN 81 MG DAILY DO YOU HAVE ANY RASHES OR OPEN SORES?NO ANY CHANGE IN BOWEL OR BLADDER CONTROL?NO ARE YOU ALLERGIC TO SHELLFISH OR IV DYE?NO ARE YOU DIABETIC?YES DO YOU HAVE A PACEMAKER OR DEFIBRILLATOR?NO HAVE YOU FALLEN IN THE LAST 6 MONTHS?YES FELL IN NOVEMBER- TRIPPED ON A STICK IN THE [place], NO INJURIES, NO MEDICAL CARE DO YOU USE ANY TYPE OF TOBACCO (SMOKE, SMOKELESS, CHEW, ETC.)NO ARE YOU ABUSED, NEGLECTED, OR IN AN UNSAFE ENVIRONMENT?NO DO YOU HAVE THOUGHTS OF HURTING YOURSELF OR SOMEONE ELSE?NO INTENSITY SCALE REVIEWEDNUMBER BMI CARE GOAL FOLLOW-UP ABOVE NORMAL BMI FOLLOW-UPLIFESTYLE EDUCATION REGARDING DIET RECREATIONAL DRUG USE DRUG USE?NO EXERCISE: NO REGULAR EXERCISE. LEARNING BARRIERS / SPECIAL NEEDS CHANGE FROM LAST VISIT?NO 12/04/18 BARRIERS TO LEARNING?NO HEARING IMPAIRED?NO VISION IMPAIRED?YES COGNITIVELY IMPAIRED?NO :CORRECTIVE LENSES READINESS TO LEARN?YES LEARNING PREFERENCES?NO LEARNING CAPABILITIES PRESENT?YES EMOTIONAL BARRIERS?NO SPECIAL DEVICES?YES :CANE ADMISSION DISCHARGE RN NEEDED?NO PAIN CLINIC PFS, CLERGY, PUBLIC HEALTH REFERRALS PFS REFERRAL NEEDED?NO CLERGY REFERRAL NEEDED?NO PUBLIC HEALTH REFERRAL NEEDED?NO WAS THE PROVIDER NOTIFIED OF ANY PERTINENT INFO?YES HAS THE PATIENT BEEN EDUCATED REGARDING HIS/HER PLAN OF CARE?YES HAS THE PATIENT BEEN EDUCATED REGARDING PAIN, THE RISK FOR PAIN, THE IMPORTANCE OF EFFECTIVE PAIN MANAGEMENT, AND THE PAIN ASSESSMENT PROCESS?YES LATEX QUESTIONNAIRE LATEX ALLERGY : HAVE YOU EVER DEVELOPED ANY TYPE OF REACTION AFTER HANDLING LATEX PRODUCTS SUCH RUBBER GLOVES, CONDOMS, DIAPHRAGMS, BALLOONS, SOCKS, OR UNDERWEAR?NO LATEX ALLERGY : HAVE YOU EVER DEVELOPED ANY TYPE OF REACTION DURING OR AFTER DENTAL APPOINTMENT, VAGINAL/RECTAL EXAMINATION, SURGICAL PROCEDURE, OR ANY OTHER EXPOSURE?NO DATE ASKED : 07/02/2019 LATEX RISK : HAVE YOU EVER HAD ANY DIFFICULTY BREATHING OR HIVES AFTER EATING OR HANDLING ANY FRUITS, OR VEGETABLES; SUCH KIWI, BANANAS, STONE FRUITS, OR CHESTNUTSNO LATEX RISK : DO YOU HAVE A PREVIOUS PERSONAL HISTORY OF MORE THAN NINE SURGERIES, SPINA BIFIDA, OR REPEATED CATHERIZATIONS? NO LATEX RISK : ARE YOU FREQUENTLY EXPOSED TO LATEX PRODUCTS IN YOUR OCCUPATION?NO CAFFEINE CAFFEINE USE? TEA >5 ADVANCE DIRECTIVE ADVANCE DIRECTIVE DISCUSSED WITH PATIENT:YES PATIENT STATES HE DOES NOT HAVE ANY ADVANCED DIRECTIVES, DECLINED INFORMATION OR ASSISTANCE AT THIS TIME ORTHODOX [id number] NONE MARITAL STATUS: .. ALCOHOL SCREENING POINTS: 0, INTERPRETATION: NEGATIVE. OCCUPATION: DISABLED. SEXUAL HX HAD SEX IN THE LAST 12 MONTHS (VAGINAL, ORAL, OR ANAL)?NO HAVE YOU EVER HAD AN STD?NO HOSPITALIZATION/MAJOR DIAGNOSTIC PROCEDURE SURGERY RELATED BOWEL OBSTRUCTION JULY 2015 BILATERAL LOWER LEG CELLULITIS 2013 BOWEL OBSTRUCTION 01/17/17 BOWEL OBSTRUCTION 10/2017 3 DAY STAY FOR BROKEN FINGER WHEN A CHILD REVIEW OF SYSTEMS REVIEWED BY: PROVIDER: . CONSTITUTIONAL: ANY CHANGE IN YOUR MEDICAL CONDITION? NO . CHILLS NO . FEVER NO . INFECTION: DO YOU HAVE NEW INFECTIONS? NO . DO YOU HAVE HISTORY OF MRSA? NO . MUSCULOSKELETAL: ANY NEW PATTERNS OF PAIN OR NUMBNESS? YES PAIN INCREASED SINCE MID MAY . GASTROENTEROLOGY: ANY NEW CHANGE IN BOWEL CONTROL? NO . GENITOURINARY: ANY NEW CHANGE IN BLADDER CONTROL? NO . IS THERE A CHANCE YOU COULD BE ? NO . HEMATOLOGY/LYMPH: DO YOU TAKE ANY BLOOD THINNERS? (FOR EXAMPLE- COUMADIN, PLAVIX, AGGRENOX, PLATEL, PRADAXA, OR XARELTO) NO . WHEN WAS YOUR LAST DOSE? DATE: TIME: . NEUROLOGY: HAVE YOU FALLEN IN THE PAST 12 MONTHS? YES PT REPORTS HE TRIPPED IN AND FELL, DENIES INJURIESL . ANY NEW EXTREMITY NUMBNESS OR WEAKNESS? NO . CARDIOLOGY: DO YOU HAVE A PACEMAKER OR DEFIBRILLATOR? NO . RESPIRATORY: HAVE YOU BEEN SICK IN THE PAST WEEK? NO . FEVER NO . FLU LIKE SYMPTOMS? NO . COUGH NO . INTEGUMENTARY: DO YOU HAVE ANY RASHES OR OPEN SORES? YES PT HAS SCALY SKIN PATCHES, SEES A DOUGHNUT FRYER . ALLERGIC/IMMUNO: ARE YOU ALLERGIC TO IV DYE? NO . ANY NEW ALLERGIES? NO . PSYCHIATRIC: DO YOU HAVE THOUGHTS OF HURTING YOURSELF OR SOMEONE ELSE? NO . ARE YOU ABUSED, NEGLECTED, OR IN AN UNSAFE ENVIRONMENT? NO . ENDOCRINOLOGY: ARE YOU DIABETIC? YES . OTHER: DO YOU NEED ANY PRESCRIPTIONS? NO . IF YES, PLEASE LIST: ____ . ANY NEW PROBLEMS WITH YOUR MEDICATIONS? NO . WHEN DID YOU LAST EAT? ____ . WHEN DID YOU LAST DRINK? ____ . WHAT DID YOU LAST DRINK? ____ . 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 ____ . DO YOU HAVE ANY OTHER QUESTIONS OR CONCERNS NO . VITAL SIGNS WT 394 LBS, HT 69 IN, BMI 58.18 INDEX, BP 134/65 MM HG, HR 78 /MIN, RR 18 /MIN, TEMP 99.7 F, OXYGEN SAT % 94%, BLOOD GLUCOSE LEVEL 105 THIS AM PER PT, SAFE IN ENV? (Y/N) YES, REVIEWED BY: LAS. EMANUEL MYALGIA, OTHER SITE - M79.18 (PRIMARY) PROCEDURES PN TRIGGER POINT INJECTION WITH STEROIDS PRE PROCEDURE DIAGNOSIS 1. MYALGIA 2. PAIN AT BILATERAL LUMBAR AREA. POST PROCEDURE DIAGNOSIS 1. MYALGIA 2. PAIN AT BILATERAL LOW BACK AREA. PROCEDURE TRIGGER POINT INJECTION AT RIGHT AND LEFT LOW BACK AREA. SURGEON DR. DONI DUMONT MANAGER ANIMAL NONE ANESTHESIA LOCAL PRE PROCEDURE NOTE THE PATIENT HAS A HISTORY OF CHRONIC PAIN AT THE RIGHT AND LEFT LOW BACK AREA. I EVALUATED THE PATIENT AND REVIEWED THE CHART. THERE IS EVIDENCE OF BANDS OF TISSUE WITH RESTRICTION OF MOVEMENT AND PRESENCE OF TRIGGER POINT AT THE AFFECTED AREA. I WENT OVER THE RISKS, ALTERNATIVES, AND BENEFITS ASSOCIATED WITH THIS PROCEDURE. THE PATIENT WOULD LIKE TO PROCEED AND GIVE CONSENT TO PERFORMED THE PROCEDURE. THE PATIENT DENIES UNEXPLAINABLE WEIGHT LOSS, FEVER, CHILLS, OR NEW CHANGES IN URINARY OR BOWEL CONTROL DESCRIPTION OF PROCEDURE THE PATIENT WAS BROUGHT TO THE PROCEDURE ROOM AND PLACED IN THE SITTING POSITION. THE AREA WAS CLEANED WITH ALCOHOL. THE PROCEDURE WAS DONE USING ASEPTIC STERILE TECHNIQUE. I CHECKED LATERALITY AND THE LEVEL WHERE THE PROCEDURE WAS GOING TO BE PERFORMED WITH THE PATIENT AND THE SUPPORTING STAFF AT THE MOMENT OF THE TIME OUT IN THE PROCEDURE ROOM. USING A 25-GAUGE NEEDLE, TRIGGER POINTS WERE INJECTED AT THE RIGHT AND LEFT LOW BACK AREA WITH A TOTAL OF 40 ML OF BUPIVACAINE 0.25% AND KENALOG 40 MG. THERE WAS NO EVIDENCE OF BLOOD, PARESTHESIA OR CEREBROSPINAL FLUID DURING THE PROCEDURE. THE PATIENT WAS SENT TO THE RECOVERY ROOM. THE PATIENT WAS MOVING THE EXTREMITIES AND DOING WELL. THERE WAS NO COMPLICATION DURING THE PROCEDURE POST PROCEDURE NOTE THE PATIENT WILL BE SEEN IN A FOLLOW UP IN THE NEXT FEW WEEKS. INSTRUCTIONS WERE GIVEN, QUESTIONS WERE ANSWERED, AND THE PATIENT EXPRESSED UNDERSTANDING AND AGREES WITH THE PLAN. I, GREGG GARCIA, DOCUMENTED THE ABOVE INFORMATION ACTING A SCRIBE FOR DR. DUMONT. I HAVE REVIEWED THE ABOVE DOCUMENT, WRITTEN BY GREGG CRAMER AND I VERIFY THAT IT IS ACCURATE. PROCEDURE CODES [id number] INJ TRIGGER POINT 05/20 [facility] [place] DISPOSITION & COMMUNICATION FOLLOW UP 3 WEEKS ELECTRONICALLY SIGNED BY DONI DUMONT MD, MD ON 08/12/2019 AT 10:04 AM EDT DISCLAIMER : THIS IS A VISIT SUMMARY EXTRACTED FROM THE [employer] CHART. IT IS NOT A COPY OF THE [employer] PROGRESS NOTE. CLAY
== END ==
LOC: M PAIN 14:30
PROVIDERS: ATTEND Anesthesiology
DX: M79.18 Myalgia, other site (principal)
CPT/HCPCS: 20552; J3301

== ENCOUNTER → 2019-08-17 | Outpatient (CLI) | payer MEDICARE ==
[~2019-08-17] MED LIST changes: -BUPIVACAINE HCL 0.25% 30 ML VIAL As Ordered ONE; -NORCO, ANEXSIA 5/325MG TABLET (HYDROcodone/ACETAMINOPHEN) As Ordered ONE; -TRIAMCINOLONE ACETONIDE SUSP 40 MG/ML VIAL (J3301) As Ordered ONE
--- NOTE | 2019-08-19 03:08 | ECWPNPC ---
PATIENT NAME: MIKEY SOLIZ : 1950 GENDER: MALE VISIT DATE: 08/17/2019 DISCHARGE DATE: 08/17/19 1210 VISIT LOCKED DATE TIME: PHYSICIAN: NOAH ELENA RESOURCE: NOAH ELENA REASON FOR APPOINTMENT 1. BILATERAL TPI FOLLOW UP HISTORY OF PRESENT ILLNESS HISTORY OF PRESENT ILLNESS: PAIN THE PATIENT DESCRIBES THE PAINAFTER THE PROCEDURE SEVERITY - PAIN SCORE OF4/10 LOCATIONSLOWER BACK QUALITYACHING DURATIONCONTINUOUS, CONSTANT, ALL DAY PAIN IS INCREASED BY:ACTIVITIES, PROLONGED STANDING PAIN IS DECREASED BY:SITTING PERMISSION REQUESTED AND RECEIVED FROM PATIENT TO PERFORM TELEPHONE VISIT. 68-YEAR-OLD MALE IN FOR POST TRIGGER POINT INJECTION FOLLOW-UP. PATIENT DOES ADMIT TO SOME TENDERNESS AT THE SITE A COUPLE DAYS AFTER THE PROCEDURE HOWEVER HE FEELS THE PROCEDURE WAS EFFECTIVE OVERALL RATING HIS PAIN PREPROCEDURE AT A 7-8 OUT OF 10 AND POSTPROCEDURE 0-4/10. HE FURTHER STATES THE PROCEDURE CONTINUES TO HELP HIM TODAY RATING HIS PAIN AT A 4 OUT OF 10 AND DESCRIBING IT ACHING. HE DOES ADMIT TO SOME BRUISING AND ITCHINESS AT THE SITE OF INJECTION. FALL RISK SCREENING: SCREENING :NO FALLS REPORTED IN THE LAST YEAR CURRENT MEDICATIONS TAKING ALCOHOL SWABS 70 % PAD SWAB SKIN PRIOR TO FINGERSTICK BEFORE MEALS AND BEDTIME. DX: Z79.4 TAKING ASPIRIN 81 MG TABLET CHEWABLE 1 TABLET ORALLY ONCE A DAY, NOTES: 07/29/19 0900 TAKING LANCETS FOR ONE TOUCH ULTRA MINI TAKE 1 STRIP TOP TWICE A DAY NEEDED DX E11.9 TAKING BLOOD GLUCOSE TEST ONETOUCH ULTRA BLUE STRIP USE DIRECTED TWO TIMES A DAY TAKING HYDROCODONE-ACETAMINOPHEN 5-325 MG TABLET 1 TABLET NEEDED ORALLY THREE TIMES DAILY NEEDED FOR SEVERE PAIN.MDD 3, NOTES: > 2 WEEKS TAKING MAY HAVE - - LIFT CHAIR TO AIDE IN MOBILITY SIT-STAND CHAIR DAILY NEEDED FOR IMPAIRED MOBILITY AND MORBID OBESITY. 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 MISCELLANEOUS DX CODE 154.1 TOPICALLY DIRECTED TAKING STOMAHESIVE PASTE . PASTE DX CODE 154.21 TOPICALLY DIRECTED TAKING ALLKARE PROTECT BARRIER WIPES . MISCELLANEOUS DX CODE 154.21 TOPICALLY USE DIRECTED TAKING ALLKARE ADHESIVE REMOVER WIPES . PACKET DX CODE 154.1 TOPICALLY USE DIRECTED TAKING MAY USE . 1 [facility] FLANGE REF NUM [id number] DX CODE 154.1 CHANGE DIRECTED TAKING MAY HAVE . 1 [facility] POUCH REFER [id number]/ DX CODE 154.1 CHANGE NEEDED TAKING LIPITOR 80 MG TABLET TAKE ONE TABLET BY MOUTH EVERY DAY ORALLY ONCE A DAY, NOTES: 07/30/2019899 TAKING INSULIN SYRINGE 28G X 1/2 MISCELLANEOUS DIRECTED SUBCUTANEOUSLY TWICE DAILY. DX: Z79.4 TAKING BLOOD GLUCOSE TEST - STRIP DIRECTED IN VITRO 2 TIMES DAILY. Z79.4 TAKING BUPROPION HCL ER (SR) 150 MG TABLET EXTENDED RELEASE 12 HOUR 1 TABLET IN THE MORNING ORALLY BID, NOTES: 07/30/2019899 TAKING DULOXETINE HCL 60 MG CAPSULE DELAYED RELEASE PARTICLES 1 CAPSULE ORALLY DAILY, NOTES: 07/30/2019899 TAKING METOPROLOL SUCCINATE ER 100 MG TABLET EXTENDED RELEASE 24 HOUR 1 TABLET ORALLY ONCE A DAY, NOTES: 07/30/2019899 TAKING FUROSEMIDE 40 MG TABLET 1 TABLETS ORALLY 2 TABS IN AM, 1 TAB IN PM, NOTES: 07/30/2019899 TAKING POTASSIUM CHLORIDE ER 10 MEQ TABLET EXTENDED RELEASE 2 TABLET WITH FOOD ORALLY TWICE A DAY, NOTES: 07/29/1009899 TAKING REPAGLINIDE 0.5 MG TABLET 1 TABLET 15 TO 30 MINUTES BEFORE MEALS ORALLY THREE TIMES DAILY AT MEALS ONLY, NOTES: 07/29/2019 TAKING IRBESARTAN 300 MG TABLET 1 TABLET ORALLY ONCE A DAY, NOTES: 07/30/2019899 TAKING NOVOLIN 70/30 (70-30) 100 UNIT/ML SUSPENSION 40 UNITS IN THE AM, 50 UNITS IN THE PM SUBCUTANEOUS TWICE A DAY, NOTES: 07/29/2019 TAKING CICLOPIROX OLAMINE 0.77 % CREAM 1 APPLICATION EXTERNALLY TWICE A DAY TO AREAS ON BODY WITH RASH, NOTES: 07/29/2019 TAKING METFORMIN HCL 1000 MG TAB TAKE ONE TABLET BY MOUTH TWICE A DAY WITH MEALS ORALLY TWICE A DAY, NOTES: 07/29/20192099 TAKING KETOCONAZOLE 2 % CREAM 1 APPLICATION EXTERNALLY ONCE A DAY TAKING TIZANIDINE HCL 4 MG TABLET 1 TABLET NEEDED ORALLY THREE TIMES A DAY, NOTES: 07/26/2019 TAKING GABAPENTIN 600 MG TABLET 1 CAPSULE ORALLY THREE TIMES A DAY NOT-TAKING DIFLUCAN 200 MG TABLET 1 TABLET ORALLY 1 TABLET NOW AND REPEAT IN 1 WEEK NOT-TAKING CICLOPIROX 0.77 % GEL 1 APPLICATION EXTERNALLY TWICE A DAY TO CHEST AND ABDOMEN RASH NOT-TAKING TESSALON PERLES 100 MG CAPSULE 1 CAPSULE NEEDED ORALLY THREE TIMES A DAY NOT-TAKING SEPTEMBER . POWDER DX EIFP098.1 TOPICALLY DIRECTED MEDICATION LIST REVIEWED AND RECONCILED WITH THE PATIENT PAST MEDICAL HISTORY TYPE 2 DM WITH PN ULCERATIVE COLITIS DEPRESSION CHRONIC LBP OBESITY DEGENERATIVE DISC DISEASE ERYTHEMA NODOSUM LE EDEMA MALIGNANT MELANOMA LEFT FOREARM 11/26-- SEES DERM Q [address] PRAKASH CHRONIC VENOUS STASIS DERMATITIS AND ULCES OF RIGHT LE HIGH GRADE ADENOCARCINOMA SIGMOID/RECTAL 05/01; CEA 0.5 01/31, 05/02 HTN; NM STRESS TEST 03/2017 ALLERGIES BEE STINGS/ YELLOW JACKET: HIVES/SWELLING - ALLERGY - ONSET DATE 12/01/2018 SURGICAL HISTORY BROKEN NOSE REPAIR NO PERSONAL OR FHX OF SEVERE REACTION TO ANESTHESIA APPENDECTOMY BOWEL REPAIR D/T STRANGULATED HERNIA 09/2009 COLONOSCOPIES 2003,2007,2008 ROBOTIC-ASISTED TOTAL PROCTOCOLECTOMY WITH ILEOSTOMY FOR U/C AND HIGH GRADE ADENOCARCINOMA; FOCAL VASCULAR SPACE INVASION ON PATH BUT ALL LYMPH NODES (23 PERIRECTAL AND 53 COLONIC) NEG FOR TUMOR 06/2014 CATARACT REMOVED FROM RIGHT EYE 04/2016 CATARACT REMOVED LEFT EYE 05/03/16 LAPAROSCOPTIC AND OPEN REPAIR OF INCARCERATED PARASTOMAL HERNIA WITH SMALL BOWEL OBSTRUCTION 10/2017 LAPRASCOPTIC AND PARTIAL OPEN REPAIR OF 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 1 SON(S) , 3 DAUGHTER(S) . BROTHER DIABETIC TYPE 2 AND COPD\NSISTER DIABETIC AND CANCER- IN MAY PATERANAL AUNT HAD PANCREATIC CANCER. DENIES FAMILY HX OF MELANOMA. SOCIAL HISTORY GENERAL: TOBACCO USE ARE YOU A:FORMER SMOKER HOW LONG HAS IT BEEN SINCE YOU LAST SMOKED?> 10 YEARS HIV / HEP-C SCREENING HIV TEST OFFERED TO PATIENT:YES DATE OFFERED:07/02/2016 TEST ACCEPTED:NO HEP-C TEST OFFERED TO PATIENT:YES DATE OFFERED:07/02/2016 REASON:PATIENT DECLINED TEST ACCEPTED:NO REASON:PATIENT DECLINED OTHERS AT HOME: CHILDREN, GRANDCHILDREN. HOUSING: OWNS HOME. EDUCATION LEVEL OF EDUCATION:COLLEGE DIET: REGULAR. LANGUAGE LANGUAGES SPOKEN:CAYMAN ISLANDER DOMESTIC VIOLENCE DO YOU FEEL SAFE IN YOUR ENVIRONMENT?YES NEW PATIENT PAIN DIARY PATIENT DESCRIBES PAIN :ACHING, SHARP FROM 0-10, WHAT LEVEL IS YOUR PAIN TODAY?7 PRECIPITATING FACTORS STANDING, WALKING ALLEVIATING FACTORS SITTING AND LYING DOWN MAKE PAIN BETTER IMPACT ON FUNCTION MAKES HIM NOT BE ABLE TO DO THE THINGS HE USED TO DO HAVE YOU BEEN SICK IN THE LAST WEEK (COLD, COUGH, FEVER, FLU, ETC)NO DO YOU TAKE ANY BLOOD THINNERS?NO ASPIRIN 81 MG DAILY DO YOU HAVE ANY RASHES OR OPEN SORES?NO ANY CHANGE IN BOWEL OR BLADDER CONTROL?NO ARE YOU ALLERGIC TO SHELLFISH OR IV DYE?NO ARE YOU DIABETIC?YES DO YOU HAVE A PACEMAKER OR DEFIBRILLATOR?NO HAVE YOU FALLEN IN THE LAST 6 MONTHS?YES FELL IN NOVEMBER- TRIPPED ON A STICK IN THE [place], NO INJURIES, NO MEDICAL CARE DO YOU USE ANY TYPE OF TOBACCO (SMOKE, SMOKELESS, CHEW, ETC.)NO ARE YOU ABUSED, NEGLECTED, OR IN AN UNSAFE ENVIRONMENT?NO DO YOU HAVE THOUGHTS OF HURTING YOURSELF OR SOMEONE ELSE?NO INTENSITY SCALE REVIEWEDNUMBER BMI CARE GOAL FOLLOW-UP ABOVE NORMAL BMI FOLLOW-UPLIFESTYLE EDUCATION REGARDING DIET RECREATIONAL DRUG USE DRUG USE?NO EXERCISE: NO REGULAR EXERCISE. LEARNING BARRIERS / SPECIAL NEEDS CHANGE FROM LAST VISIT?NO 12/04/18 BARRIERS TO LEARNING?NO HEARING IMPAIRED?NO VISION IMPAIRED?YES COGNITIVELY IMPAIRED?NO :CORRECTIVE LENSES READINESS TO LEARN?YES LEARNING PREFERENCES?NO LEARNING CAPABILITIES PRESENT?YES EMOTIONAL BARRIERS?NO SPECIAL DEVICES?YES :CANE MAGNETIC TESTING TECHNICIAN NEEDED?NO PAIN CLINIC PFS, CLERGY, PUBLIC HEALTH REFERRALS PFS REFERRAL NEEDED?NO CLERGY REFERRAL NEEDED?NO PUBLIC HEALTH REFERRAL NEEDED?NO WAS THE PROVIDER NOTIFIED OF ANY PERTINENT INFO?YES HAS THE PATIENT BEEN EDUCATED REGARDING HIS/HER PLAN OF CARE?YES HAS THE PATIENT BEEN EDUCATED REGARDING PAIN, THE RISK FOR PAIN, THE IMPORTANCE OF EFFECTIVE PAIN MANAGEMENT, AND THE PAIN ASSESSMENT PROCESS?YES LATEX QUESTIONNAIRE LATEX ALLERGY : HAVE YOU EVER DEVELOPED ANY TYPE OF REACTION AFTER HANDLING LATEX PRODUCTS SUCH RUBBER GLOVES, CONDOMS, DIAPHRAGMS, BALLOONS, SOCKS, OR UNDERWEAR?NO LATEX ALLERGY : HAVE YOU EVER DEVELOPED ANY TYPE OF REACTION DURING OR AFTER DENTAL APPOINTMENT, VAGINAL/RECTAL EXAMINATION, SURGICAL PROCEDURE, OR ANY OTHER EXPOSURE?NO DATE ASKED : 07/02/2019 LATEX RISK : HAVE YOU EVER HAD ANY DIFFICULTY BREATHING OR HIVES AFTER EATING OR HANDLING ANY FRUITS, OR VEGETABLES; SUCH KIWI, BANANAS, STONE FRUITS, OR CHESTNUTSNO LATEX RISK : DO YOU HAVE A PREVIOUS PERSONAL HISTORY OF MORE THAN NINE SURGERIES, SPINA BIFIDA, OR REPEATED CATHERIZATIONS? NO LATEX RISK : ARE YOU FREQUENTLY EXPOSED TO LATEX PRODUCTS IN YOUR OCCUPATION?NO CAFFEINE CAFFEINE USE? TEA >5 ADVANCE DIRECTIVE ADVANCE DIRECTIVE DISCUSSED WITH PATIENT:YES PATIENT STATES HE DOES NOT HAVE ANY ADVANCED DIRECTIVES, DECLINED INFORMATION OR ASSISTANCE AT THIS TIME SHINTO [id number] NONE MARITAL STATUS: .. ALCOHOL SCREENING POINTS: 0, INTERPRETATION: NEGATIVE. OCCUPATION: DISABLED. SEXUAL HX HAD SEX IN THE LAST 12 MONTHS (VAGINAL, ORAL, OR ANAL)?NO HAVE YOU EVER HAD AN STD?NO HOSPITALIZATION/MAJOR DIAGNOSTIC PROCEDURE SURGERY RELATED BOWEL OBSTRUCTION JULY 2015 BILATERAL LOWER LEG CELLULITIS 2013 BOWEL OBSTRUCTION 01/17/17 BOWEL OBSTRUCTION 10/2017 3 DAY STAY FOR BROKEN FINGER WHEN A CHILD REVIEW OF SYSTEMS REVIEWED BY: PROVIDER: GARFIELD WORKMAN-Delmar . CONSTITUTIONAL: ANY CHANGE IN YOUR MEDICAL CONDITION? NO . CHILLS NO . FEVER NO . INFECTION: DO YOU HAVE NEW INFECTIONS? NO . DO YOU HAVE HISTORY OF MRSA? NO . MUSCULOSKELETAL: ANY NEW PATTERNS OF PAIN OR NUMBNESS? NO . GASTROENTEROLOGY: ANY NEW CHANGE IN BOWEL CONTROL? YES, ILEOSTOMY . GENITOURINARY: ANY NEW CHANGE IN BLADDER CONTROL? NO . IS THERE A CHANCE YOU COULD BE ? NO . HEMATOLOGY/LYMPH: DO YOU TAKE ANY BLOOD THINNERS? (FOR EXAMPLE- COUMADIN, PLAVIX, AGGRENOX, PLATEL, PRADAXA, OR XARELTO) NO . WHEN WAS YOUR LAST DOSE? DATE: TIME: . NEUROLOGY: HAVE YOU FALLEN IN THE PAST 12 MONTHS? NO . ANY NEW EXTREMITY NUMBNESS OR WEAKNESS? NO . CARDIOLOGY: DO YOU HAVE A PACEMAKER OR DEFIBRILLATOR? NO . RESPIRATORY: HAVE YOU BEEN SICK IN THE PAST WEEK? NO . FEVER NO . FLU LIKE SYMPTOMS? NO . COUGH NO . INTEGUMENTARY: DO YOU HAVE ANY RASHES OR OPEN SORES? NO . ALLERGIC/IMMUNO: ARE YOU ALLERGIC TO IV DYE? NO . ANY NEW ALLERGIES? NO . PSYCHIATRIC: DO YOU HAVE THOUGHTS OF HURTING YOURSELF OR SOMEONE ELSE? NO . ARE YOU ABUSED, NEGLECTED, OR IN AN UNSAFE ENVIRONMENT? NO . ENDOCRINOLOGY: ARE YOU DIABETIC? NO . OTHER: DO YOU NEED ANY PRESCRIPTIONS? NO . IF YES, PLEASE LIST: ____ . ANY NEW PROBLEMS WITH YOUR MEDICATIONS? NO . WHEN DID YOU LAST EAT? ____ . WHEN DID YOU LAST DRINK? ____ . WHAT DID YOU LAST DRINK? ____ . 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 ____ . DO YOU HAVE ANY OTHER QUESTIONS OR CONCERNS YES, DISCUSS ITCHINESS AT THE AREA OF THE SHOT, WOULD LIKE TO KNOW IF REFILL CAN BE SENT OUT FOR TIZANIDINE . ASSESSMENTS MYALGIA, OTHER SITE - M79.18 (PRIMARY) TREATMENT MYALGIA, OTHER SITE CLINICAL NOTES: 68-YEAR-OLD MALE IN FOR POST BILATERAL TPI FOLLOW-UP. DISCUSSED IRRITATION AT THE SITE OF INJECTION INFORMED PATIENT THAT HE SHOULD CONTINUE TO WATCH IT AND IF HE NOTICES ANY WORSENING SYMPTOMS HE IS TO CALL THIS STORE TEAM MEMBER TO INFORM HIM. GIVEN PRESENTING SYMPTOMS RECOMMEND FOLLOW-UP IN 2 MONTHS. PATIENT EXPRESSED UNDERSTANDING OF AND WAS IN AGREEMENT WITH TREATMENT PLAN. GIVEN TIME TO ASK QUESTIONS AND EXPRESS CONCERNS.THIS VISIT TO BE BILLED BASED ON TIME SPENT WITH PATIENT. TIME SPENT WITH PATIENT 11 MINUTES. DISPOSITION & COMMUNICATION FOLLOW UP 2 MONTHS (REASON: BACK PAIN) ELECTRONICALLY SIGNED BY JACINTA KAPADIA ON 08/18/2019 AT 09:36 AM EDT DISCLAIMER : THIS IS A VISIT SUMMARY EXTRACTED FROM THE [employer] CHART. IT IS NOT A COPY OF THE [employer] PROGRESS NOTE. CLAY
== END ==
LOC: M PAIN 11:45
PROVIDERS: ATTEND Family Medicine
DX: M79.18 Myalgia, other site (principal)

== ENCOUNTER → 2019-09-16 | Outpatient (REF) | payer MEDICARE ==
[2019-09-16 10:49] LABS: HEMATOCRIT 43.1 % (42.0-52.0); HEMOGLOBIN 14.3 g/dl (13.5-17.5); MEAN CORPUSCULAR HGB CONC 33.2 g/dl (32.0-36.5); MEAN CORPUSCULAR VOLUME 90.4 fl (80.0-96.0); PLATELET COUNT, AUTOMATED 240 10^3/uL (150-450); RED BLOOD COUNT 4.77 10^6/uL (4.30-6.10); WHITE BLOOD COUNT 9.8 10^3/uL (4.0-10.0)
[2019-09-16 11:16] LABS: BLOOD UREA NITROGEN 10 MG/DL (7-18); CALCIUM LEVEL 8.9 MG/DL (8.8-10.2); CARBON DIOXIDE LEVEL 27 MEQ/L (21-32); CHLORIDE LEVEL 101 MEQ/L (98-107); FERRITIN 109 NG/ML (26-388); GLOMERULAR FILTRATION RATE > 60.0 (>49); GLUCOSE, FASTING 97 MG/DL (70-100); IRON (FE) 70 UG/DL (65-175); PERCENT SATURATION 21.8 % (19.7-50.0); POTASSIUM SERUM 3.9 MEQ/L (3.5-5.1); SODIUM LEVEL 136 MEQ/L (136-145); TOTAL IRON BINDING CAPACITY 321 UG/DL (250-450)
[2019-09-16 11:45] LABS: HEMOGLOBIN A1c 7.6 %
== END ==
LOC: M PLALAB 08:11
PROVIDERS: ATTEND Family Medicine
DX: D50.9 Iron deficiency anemia, unspecified (principal); E11.42 Type 2 diabetes mellitus with diabetic polyneuropathy; I10 Essential (primary) hypertension
CPT/HCPCS: 36415; 80048; 82728; 83036; 83550; 85027; G0463

== ENCOUNTER → 2019-10-14 | Outpatient (CLI) | payer MEDICARE ==
--- NOTE | 2019-10-16 03:55 | ECWPNPC ---
PATIENT NAME: MIKEY SOLIZ : 1950 GENDER: MALE VISIT DATE: 10/14/2019 DISCHARGE DATE: 10/14/19 1512 VISIT LOCKED DATE TIME: PHYSICIAN: NOAH ELENA RESOURCE: NOAH ELENA REASON FOR APPOINTMENT 1. BACK PAIN HISTORY OF PRESENT ILLNESS GENERAL: - PERMISSION REQUESTED AND RECEIVED FROM PATIENT TO PERFORM TELEPHONE VISIT. 69-YEAR-OLD MALE IN FOR CHRONIC PAIN FOLLOW-UP. WHEN ASKED TO RATE HIS PAIN PATIENT STATES HE REALLY DOESN'T HAVE ANY AT THIS MOMENT. PATIENT HAD TRIGGER POINT INJECTIONS DONE IN JULY AND FEELS THEY CONTINUE TO HELP HIM TODAY. FALL RISK SCREENING: SCREENING :TWO OR MORE FALLS WITHOUT INJURY IN THE PAST YEAR PAIN SCREENING: PATIENT HAS A COMPLAINT OF ACUTE OR CHRONIC PAIN :YES LOCATION OF PAIN:MID BACK, LOW BACK INTENSITY OF PAIN (SCALE OF 1 TO 10):5 WHAT DOES YOUR PAIN FEEL LIKE:ACHING, INTERMITTENT PAIN IS INREASED BY:ACTIVITIES PAIN IS DECREASED BY:USE OF PAIN MEDICATIONS, SITTING TREATMENT/MEDICATIONS USED TO MANAGE PAIN:NSAIDS, OPIOIDS PAIN HAS INTERFERED WITH THE FOLLOWING:WALKING ABILITY, SLEEP, ENJOYMENT OF LIFE PLAN/GOALS/TREATMENT/INTERVENTION/FOLLOW UP:SEE PLAN NURSING NOTE: -. PAIN CENTER INTAKE QUESTIONS: DO YOU HAVE A HISTORY OF MRSA? :NO DO YOU TAKE A BLOOD THINNERS? :NO DO YOU HAVE ANY BLEEDING DISORDERS? :NO ANY NEW NUMBNESS OR WEAKNESS IN YOUR LEGS OR ARMS? :YES PT REPORTS INCREASED WEAKNESS IN LEGS,AND AN ACHE IN LEFT ARM/NECK FOR 4-6 EEKS ANY PACEMAKER,DEFIBRILLATOR, OR DORSAL COLUMN STIMULATOR? :NO DO YOU HAVE ANY RASHES OR OPEN SORES? :YES BOTH LEGS, SEES DR KEYS ARE YOU ALLERGIC TO IV DYE? :NO ARE YOU DIABETIC? :YES ANY NEW PROBLEMS WITH YOUR MEDICATIONS? :NO HAVE YOU RECEIVED A VACCINE IN THE PAST 30 DAYS? :NO DO YOU PLAN TO RECEIVE A VACCINE IN THE NEXT 21 DAYS? :NO DO YOU NEED ANY PRESCRIPTION? :NO DO YOU TAKE ANY IMMUNOSUPPRESSIVE MEDICATIONS? :NO CURRENT MEDICATIONS TAKING ALCOHOL SWABS 70 % PAD SWAB SKIN PRIOR TO FINGERSTICK BEFORE MEALS AND BEDTIME. DX: Z79.4 TAKING LANCETS FOR ONE TOUCH ULTRA MINI TAKE 1 STRIP TOP TWICE A DAY NEEDED DX E11.9 TAKING BLOOD GLUCOSE TEST ONETOUCH ULTRA BLUE STRIP USE DIRECTED TWO TIMES A DAY TAKING MAY HAVE - - LIFT CHAIR TO AIDE IN MOBILITY SIT-STAND CHAIR DAILY NEEDED FOR IMPAIRED MOBILITY AND MORBID OBESITY. 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 MISCELLANEOUS DX CODE 154.1 TOPICALLY DIRECTED TAKING STOMAHESIVE PASTE . PASTE DX CODE 154.21 TOPICALLY DIRECTED TAKING ALLKARE PROTECT BARRIER WIPES . MISCELLANEOUS DX CODE 154.21 TOPICALLY USE DIRECTED TAKING ALLKARE ADHESIVE REMOVER WIPES . PACKET DX CODE 154.1 TOPICALLY USE DIRECTED TAKING MAY USE . [facility] REF NUM [id number] DX CODE 154.1 CHANGE DIRECTED TAKING MAY HAVE . [facility] POUCH REFER [id number]/ DX CODE 154.1 CHANGE NEEDED TAKING INSULIN SYRINGE 28G X 1/2 MISCELLANEOUS DIRECTED SUBCUTANEOUSLY TWICE DAILY. DX: Z79.4 TAKING BLOOD GLUCOSE TEST - STRIP DIRECTED IN VITRO 2 TIMES DAILY. Z79.4 TAKING CICLOPIROX OLAMINE 0.77 % CREAM 1 APPLICATION EXTERNALLY TWICE A DAY TO AREAS ON BODY WITH RASH, NOTES: 07/29/2019 TAKING KETOCONAZOLE 2 % CREAM 1 APPLICATION EXTERNALLY ONCE A DAY TAKING GABAPENTIN 600 MG TABLET 1 CAPSULE ORALLY THREE TIMES A DAY TAKING TIZANIDINE HCL 4 MG TABLET 1 TABLET NEEDED ORALLY THREE TIMES A DAY, NOTES: 07/26/2019 TAKING REPAGLINIDE 0.5 MG TABLET 1 TABLET 15 TO 30 MINUTES BEFORE MEALS ORALLY THREE TIMES DAILY AT MEALS ONLY TAKING ASPIRIN 81 MG TABLET CHEWABLE 1 TABLET ORALLY ONCE A DAY, NOTES: 07/29/19899 TAKING BUPROPION HCL ER (SR) 150 MG TABLET EXTENDED RELEASE 12 HOUR 1 TABLET IN THE MORNING ORALLY BID, NOTES: 07/30/2019899 TAKING DULOXETINE HCL 60 MG CAPSULE DELAYED RELEASE PARTICLES 1 CAPSULE ORALLY DAILY, NOTES: 07/30/2019899 TAKING METOPROLOL SUCCINATE ER 100 MG TABLET EXTENDED RELEASE 24 HOUR 1 TABLET ORALLY ONCE A DAY, NOTES: 07/30/2019899 TAKING FUROSEMIDE 40 MG TABLET 1 TABLETS ORALLY 2 TABS IN AM, 1 TAB IN PM, NOTES: 07/30/2019899 TAKING POTASSIUM CHLORIDE ER 10 MEQ TABLET EXTENDED RELEASE 2 TABLET WITH FOOD ORALLY TWICE A DAY, NOTES: 07/29/1009899 TAKING IRBESARTAN 300 MG TABLET 1 TABLET ORALLY ONCE A DAY, NOTES: 07/30/2019 0900 TAKING NOVOLIN 70/30 (70-30) 100 UNIT/ML SUSPENSION 40 UNITS IN THE AM, 50 UNITS IN THE PM SUBCUTANEOUS TWICE A DAY, NOTES: 07/29/2019 TAKING METFORMIN HCL 1000 MG TAB TAKE ONE TABLET BY MOUTH TWICE A DAY WITH MEALS ORALLY TWICE A DAY, NOTES: 07/29/20192099 TAKING LIPITOR 80 MG TABLET TAKE ONE TABLET BY MOUTH EVERY DAY ORALLY ONCE A DAY TAKING HYDROCODONE-ACETAMINOPHEN 5-325 MG TABLET 1 TABLET NEEDED ORALLY THREE TIMES DAILY NEEDED FOR SEVERE PAIN.MDD 3, NOTES: > 2 WEEKS MEDICATION LIST REVIEWED AND RECONCILED WITH THE PATIENT PAST MEDICAL HISTORY TYPE 2 DM WITH PN ULCERATIVE COLITIS DEPRESSION CHRONIC LBP OBESITY DEGENERATIVE DISC DISEASE ERYTHEMA NODOSUM LE EDEMA MALIGNANT MELANOMA LEFT FOREARM 11/26-- SEES DERM Q [address] PRAKASH CHRONIC VENOUS STASIS DERMATITIS AND ULCES OF RIGHT LE HIGH GRADE ADENOCARCINOMA SIGMOID/RECTAL 05/01; CEA 0.5 01/31, 05/02 HTN; NM STRESS TEST 03/2017 ALLERGIES BEE STINGS/ YELLOW JACKET: HIVES/SWELLING - ALLERGY - ONSET DATE 12/01/2018 SURGICAL HISTORY BROKEN NOSE REPAIR NO PERSONAL OR FHX OF SEVERE REACTION TO ANESTHESIA APPENDECTOMY BOWEL REPAIR D/T STRANGULATED HERNIA 09/2009 COLONOSCOPIES 2003,2007,2008 ROBOTIC-ASISTED TOTAL PROCTOCOLECTOMY WITH ILEOSTOMY FOR U/C AND HIGH GRADE ADENOCARCINOMA; FOCAL VASCULAR SPACE INVASION ON PATH BUT ALL LYMPH NODES (23 PERIRECTAL AND 53 COLONIC) NEG FOR TUMOR 06/2014 CATARACT REMOVED FROM RIGHT EYE 04/2016 CATARACT REMOVED LEFT EYE 05/03/16 LAPAROSCOPTIC AND OPEN REPAIR OF INCARCERATED PARASTOMAL HERNIA WITH SMALL BOWEL OBSTRUCTION 10/2017 LAPRASCOPTIC AND PARTIAL OPEN REPAIR OF 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 1 SON(S) , 3 DAUGHTER(S) . BROTHER DIABETIC TYPE 2 AND COPD\NSISTER DIABETIC AND CANCER- IN MAY PATERANAL AUNT HAD PANCREATIC CANCER. DENIES FAMILY HX OF MELANOMA. SOCIAL HISTORY GENERAL: TOBACCO USE ARE YOU A:FORMER SMOKER HOW LONG HAS IT BEEN SINCE YOU LAST SMOKED?> 10 YEARS LATEX QUESTIONNAIRE LATEX ALLERGY : HAVE YOU EVER DEVELOPED ANY TYPE OF REACTION AFTER HANDLING LATEX PRODUCTS SUCH RUBBER GLOVES, CONDOMS, DIAPHRAGMS, BALLOONS, SOCKS, OR UNDERWEAR?NO LATEX ALLERGY : HAVE YOU EVER DEVELOPED ANY TYPE OF REACTION DURING OR AFTER DENTAL APPOINTMENT, VAGINAL/RECTAL EXAMINATION, SURGICAL PROCEDURE, OR ANY OTHER EXPOSURE?NO DATE ASKED : 07/02/2019 LATEX RISK : HAVE YOU EVER HAD ANY DIFFICULTY BREATHING OR HIVES AFTER EATING OR HANDLING ANY FRUITS, OR VEGETABLES; SUCH KIWI, BANANAS, STONE FRUITS, OR CHESTNUTSNO LATEX RISK : DO YOU HAVE A PREVIOUS PERSONAL HISTORY OF MORE THAN NINE SURGERIES, SPINA BIFIDA, OR REPEATED CATHERIZATIONS? NO LATEX RISK : ARE YOU FREQUENTLY EXPOSED TO LATEX PRODUCTS IN YOUR OCCUPATION?NO BMI CARE GOAL FOLLOW-UP ABOVE NORMAL BMI FOLLOW-UPLIFESTYLE EDUCATION REGARDING DIET ALCOHOL SCREENING POINTS: 0, INTERPRETATION: NEGATIVE. RECREATIONAL DRUG USE DRUG USE?NO CAFFEINE CAFFEINE USE? TEA >5 SEXUAL HX HAD SEX IN THE LAST 12 MONTHS (VAGINAL, ORAL, OR ANAL)?NO HAVE YOU EVER HAD AN STD?NO HIV / HEP-C SCREENING HIV TEST OFFERED TO PATIENT:YES DATE OFFERED:07/02/2016 TEST ACCEPTED:NO HEP-C TEST OFFERED TO PATIENT:YES DATE OFFERED:07/02/2016 REASON:PATIENT DECLINED TEST ACCEPTED:NO REASON:PATIENT DECLINED [place] [id number] NONE LANGUAGE LANGUAGES SPOKEN:DIVEHI EDUCATION LEVEL OF EDUCATION:COLLEGE LEARNING BARRIERS / SPECIAL NEEDS CHANGE FROM LAST VISIT?NO 12/04/18 BARRIERS TO LEARNING?NO HEARING IMPAIRED?NO VISION IMPAIRED?YES COGNITIVELY IMPAIRED?NO :CORRECTIVE LENSES READINESS TO LEARN?YES LEARNING PREFERENCES?NO LEARNING CAPABILITIES PRESENT?YES EMOTIONAL BARRIERS?NO SPECIAL DEVICES?YES :CANE VESSEL SPECIALIST NEEDED?NO DOMESTIC VIOLENCE DO YOU FEEL SAFE IN YOUR ENVIRONMENT?YES OCCUPATION: DISABLED. DIET: REGULAR. EXERCISE: NO REGULAR EXERCISE. MARITAL STATUS: .. OTHERS AT HOME: CHILDREN, GRANDCHILDREN. NEW PATIENT PAIN DIARY PATIENT DESCRIBES PAIN :ACHING, SHARP FROM 0-10, WHAT LEVEL IS YOUR PAIN TODAY?7 PRECIPITATING FACTORS STANDING, WALKING ALLEVIATING FACTORS SITTING AND LYING DOWN MAKE PAIN BETTER IMPACT ON FUNCTION MAKES HIM NOT BE ABLE TO DO THE THINGS HE USED TO DO HAVE YOU BEEN SICK IN THE LAST WEEK (COLD, COUGH, FEVER, FLU, ETC)NO DO YOU TAKE ANY BLOOD THINNERS?NO ASPIRIN 81 MG DAILY DO YOU HAVE ANY RASHES OR OPEN SORES?NO ANY CHANGE IN BOWEL OR BLADDER CONTROL?NO ARE YOU ALLERGIC TO SHELLFISH OR IV DYE?NO ARE YOU DIABETIC?YES DO YOU HAVE A PACEMAKER OR DEFIBRILLATOR?NO HAVE YOU FALLEN IN THE LAST 6 MONTHS?YES FELL IN NOVEMBER- TRIPPED ON A STICK IN THE [place], NO INJURIES, NO MEDICAL CARE DO YOU USE ANY TYPE OF TOBACCO (SMOKE, SMOKELESS, CHEW, ETC.)NO ARE YOU ABUSED, NEGLECTED, OR IN AN UNSAFE ENVIRONMENT?NO DO YOU HAVE THOUGHTS OF HURTING YOURSELF OR SOMEONE ELSE?NO INTENSITY SCALE REVIEWEDNUMBER PAIN CLINIC PFS, CLERGY, PUBLIC HEALTH REFERRALS PFS REFERRAL NEEDED?NO CLERGY REFERRAL NEEDED?NO PUBLIC HEALTH REFERRAL NEEDED?NO WAS THE PROVIDER NOTIFIED OF ANY PERTINENT INFO?YES HAS THE PATIENT BEEN EDUCATED REGARDING HIS/HER PLAN OF CARE?YES HAS THE PATIENT BEEN EDUCATED REGARDING PAIN, THE RISK FOR PAIN, THE IMPORTANCE OF EFFECTIVE PAIN MANAGEMENT, AND THE PAIN ASSESSMENT PROCESS?YES HOUSING: OWNS HOME. ADVANCE DIRECTIVE ADVANCE DIRECTIVE DISCUSSED WITH PATIENT:YES PATIENT STATES HE DOES NOT HAVE ANY ADVANCED DIRECTIVES, DECLINED INFORMATION OR ASSISTANCE AT THIS TIME HOSPITALIZATION/MAJOR DIAGNOSTIC PROCEDURE SURGERY RELATED BOWEL OBSTRUCTION JULY 2015 BILATERAL LOWER LEG CELLULITIS 2013 BOWEL OBSTRUCTION 01/17/17 BOWEL OBSTRUCTION 10/2017 3 DAY STAY FOR BROKEN FINGER WHEN A CHILD REVIEW OF SYSTEMS CONSTITUTIONAL: ANY RECENT FEVER OR ILLNESS NO . CHILLS NO . GASTROENTEROLOGY: BOWEL INCONTINENCE NO . ANY NEW CHANGE IN BOWEL CONTROL? NO . ABDOMINAL PAIN NO . CONSTIPATION NO . GENITOURINARY: ANY NEW CHANGE IN BLADDER CONTROL? NO . IS THERE A CHANCE YOU COULD BE ? NO . URINARY INCONTINENCE NO . CARDIOLOGY: CHEST PRESSURE NO . CHEST PAIN NO . RESPIRATORY: COUGH NO . SHORTNESS OF BREATH NO . EXAMINATION GENERAL EXAMINATION: PSYCHAPPROPRIATE MOOD AND AFFECT , ORIENTED X 3. ASSESSMENTS SPONDYLOSIS OF LUMBOSACRAL REGION WITHOUT MYELOPATHY OR RADICULOPATHY - M47.817 (PRIMARY) TREATMENT SPONDYLOSIS OF LUMBOSACRAL REGION WITHOUT MYELOPATHY OR RADICULOPATHY CLINICAL NOTES: 69-YEAR-OLD MALE IN FOR CHRONIC PAIN FOLLOW-UP. GIVEN PRESENTING SYMPTOMS RECOMMEND FOLLOW-UP IN CLINIC IN 2 MONTHS. PATIENT HAS EXPRESSED UNDERSTANDING OF AND WAS IN AGREEMENT WITH TREATMENT PLAN. GIVEN TIME TO ASK QUESTIONS AND EXPRESS CONCERNS. VISIT TO BE BILLED BASED ON TIME SPENT WITH PATIENT. TIME SPENT WITH PATIENT 11 MINUTES. DISPOSITION & COMMUNICATION FOLLOW UP 2 MONTHS (REASON: BACK PAIN) ELECTRONICALLY SIGNED BY JACINTA KAPADIA ON 10/15/2019 AT 08:17 AM EDT DISCLAIMER : THIS IS A VISIT SUMMARY EXTRACTED FROM THE [employer] CHART. IT IS NOT A COPY OF THE [employer] PROGRESS NOTE. CLAY
== END ==
LOC: M PAIN 14:30
PROVIDERS: ATTEND Family Medicine
DX: M47.817 Spondylosis without myelopathy or radiculopathy, lumbosacral region (principal)

== ENCOUNTER 2020-01-19 02:24 | Inpatient (IN) | payer MEDICARE ==
[~2020-01-19] VITALS: Ht 172.7 cm; Wt 174.1 kg
[2020-01-19] MEDS ORDERED: BUPR150T5 (02:43)
[2020-01-19] MEDS ORDERED: GABA600T4 (02:43)
[2020-01-19] MEDS ORDERED: REPA1TAB3 (02:43)
[2020-01-19] MEDS ORDERED: METO1TAB33 (02:43)
[2020-01-19] MEDS ORDERED: DULO1CAP6 (02:43)
[2020-01-19] MEDS ORDERED: TIZA4TAB4 (02:43)
[2020-01-19] MEDS ORDERED: ONDANSETRON 4MG/2ML VIAL IV ONE (03:45)
[2020-01-19 03:59] LABS: BASO % 0.2 % (0.0-1.0); EOS % 0.1 % (0.0-3.0); HEMATOCRIT 45.8 % (42.0-52.0); HEMOGLOBIN 15.5 g/dl (13.5-17.5); LYMPH # 0.7 10^3/uL (1.5-5.0); LYMPH % 3.7 % (24.0-44.0); MEAN CORPUSCULAR HEMOGLOBIN 30.8 pg (27.0-33.0); MEAN CORPUSCULAR HGB CONC 33.8 g/dl (32.0-36.5); MEAN CORPUSCULAR VOLUME 91.1 fl (80.0-96.0); MONO # 0.8 10^3/uL (0.0-0.8); MONO % 4.3 % (0.0-5.0); NEUTROPHILS % 91.2 % (36.0-66.0); PLATELET COUNT, AUTOMATED 231 10^3/uL (150-450); RED BLOOD COUNT 5.03 10^6/uL (4.30-6.10); WHITE BLOOD COUNT 17.6 10^3/uL (4.0-10.0)
[2020-01-19] MEDS ORDERED: ISOVUE-370 76% 100ML VIAL As Ordered ONE (04:12)
[2020-01-19 04:44] LABS: ALBUMIN 3.7 GM/DL (3.2-5.2); ALT/SGPT 40 U/L (12-78); BILIRUBIN,DIRECT 0.1 MG/DL (0.0-0.2); BILIRUBIN,TOTAL 0.5 MG/DL (0.2-1.0); BLOOD UREA NITROGEN 18 MG/DL (7-18); CALCIUM LEVEL 9.2 MG/DL (8.8-10.2); CARBON DIOXIDE LEVEL 27 MEQ/L (21-32); CHLORIDE LEVEL 107 MEQ/L (98-107); CREATININE FOR GFR 1.13 MG/DL (0.70-1.30); GLOMERULAR FILTRATION RATE > 60.0 (>49); GLUCOSE, FASTING 243 MG/DL (70-100); LIPASE 57 U/L (73-393); POTASSIUM SERUM 4.1 MEQ/L (3.5-5.1); SODIUM LEVEL 143 MEQ/L (136-145); TOTAL PROTEIN 8.1 GM/DL (6.4-8.2)
[2020-01-19] MEDS: MORPHINE 4 MG/ML 1ML VIAL/SYRINGE (J2270) IV PRN ×2 (05:03→08:04)
--- NOTE | 2020-01-19 05:22 | REPVR ---
PROCEDURE INFORMATION: Exam: CT Abdomen And Pelvis With Contrast Exam date and time: 01/19/2020 4:05 AM Age: 69 years old Clinical indication: Abdominal pain; Generalized; Additional info: Abd pain, decreased ostomy output, R/O sbo TECHNIQUE: Imaging protocol: Computed tomography of the abdomen and pelvis with intravenous contrast. Radiation optimization: All CT scans at this facility use at least one of these dose optimization techniques: automated exposure control; mA and/or kV adjustment per patient size (includes targeted exams where dose is matched to clinical indication); or iterative reconstruction. Contrast material: ISO; Contrast volume: 100 ml; Contrast route: INTRAVENOUS (IV); COMPARISON: CT ABD PELVIS W/O FOL BY WIT 02/19/2018 3:29 PM FINDINGS: Lungs: Minimal bibasilar interstitial prominence with minimal right lower lobe atelectasis. Liver: Normal. No mass. Gallbladder and bile ducts: Normal. No calcified stones. No ductal dilation. Pancreas: Normal. No ductal dilation. Spleen: Normal. No splenomegaly. Adrenals: Normal. No mass. Kidneys and ureters: There is a left renal cyst measuring up to 3.4 cm in the upper pole with a Hounsfield measurement of 17 consistent with a Bosniak 1 cyst and is similar to 02/19/2018. No follow-up is recommended. Stomach and bowel: Borderline fluid distention of the stomach. Status post colectomy with large right anterolateral ventral wall hernia in the upper pelvis or lower abdomen which may be an ostomy hernia. Mild small bowel dilatation with multiple air-fluid levels which is likely a small bowel obstruction. There is distention of the small bowel which enters the hernia. There is likely a point of obstruction within the hernia sac which is not defined. Appendix: No evidence of appendicitis. Intraperitoneal space: Unremarkable. No free air. No significant fluid collection. Vasculature: There is minimal atherosclerotic calcification of the abdominal aorta. Lymph nodes: Unremarkable. No enlarged lymph nodes. Bladder: Unremarkable as visualized. Reproductive: Unremarkable as visualized. Bones/joints: Degenerative disc change and facet arthropathy of the lumbar spine. Soft tissues: Mild fat filled left inguinal hernia which is incompletely seen. IMPRESSION: 1. Large right anterolateral ventral wall hernia in the upper pelvis or lower abdomen which is likely and ostomy hernia which is not included on this examination. 2. Status post colectomy with probable ileostomy in the right lower quadrant which is incompletely seen. 3. Distended small bowel with air-fluid levels extending into the ostomy hernia and likely reflects a small bowel obstruction with a point of transition which probably lies within the hernia or possibly at the ostomy opening. 4. Mild fat filled left inguinal hernia which is incompletely seen but similar to the prior study. Electronically signed by: Silver Whitaker On 01/19/2020 05:22:11 AM
[2020-01-19] MEDS ORDERED: ONDANSETRON 4MG/2ML VIAL IV PRN (05:45)
[2020-01-19] MEDS ORDERED: NOVO1INJ4 SC (06:19)
[2020-01-19] MEDS ORDERED: HYDR-3713 PO (06:19)
[2020-01-19] MEDS ORDERED: BUPR15TASR PO (06:19)
[2020-01-19] MEDS ORDERED: METO1TAB33 PO (06:19)
[2020-01-19] MEDS ORDERED: GABA600T4 PO (06:19)
[2020-01-19] MEDS ORDERED: DULO1CAP6 PO (06:19)
[2020-01-19] MEDS ORDERED: REPA1TAB3 PO (06:19)
[2020-01-19] MEDS ORDERED: TIZA4TAB4 PO (06:19)
[2020-01-19] MEDS: LR 1,000 ML IV SCH ×3 (06:37→21:40)
[2020-01-19 06:43] LABS: INR 1.06
--- NOTE | 2020-01-19 07:29 | HPEPDOC ---
[facility] Medical History & Physical Date of Admission Jan 19, 2020 Date of Service: Jan 19, 2020 Attending Physician: RUDDY NICOLE MD History and Physical TIME OF SERVICE: 640am CHIEF COMPLAINT: abdominal pain HISTORY OF PRESENT ILLNESS: This is a 69 yr old M who presents w c/o /10 in severity RLQ abdominal pain which he cant characterize. He cant identify any aggravating or alleviating factors. He has had an SBO in the past requiring surgery. REVIEW OF SYSTEMS: n/a except as listed in HPI and left leg pain PAST MEDICAL/ SURGICAL HISTORY: DM UC s/p total proctocolectomy w Ileostomy Chronic ulceration around stoma Cataract surgery Infection of mesh w subsequent removal Resection of colon adenocarcinoma Melanoma resection Morbid obesity SOCIAL HISTORY: -tobacco, alcohol FAMILY HISTORY: Liver failure ALLERGIES: Please see below. HOME MEDICATIONS: Please see below. PHYSICAL EXAM Vital Signs Date Time Temp Pulse Resp B/P (MAP) Pulse Ox O2 Delivery O2 Flow Rate FiO2 01/19/20 02:25 96.8 68 18 192/88 (122) 95 Room Air GENERAL APPEARANCE: obese/ well developed /NAD HEENT: no scleral icterus / EOMI / NG in place CARDIOVASCULAR: RRR/NMRG / trace BLE edema LUNGS: CTAB on RA ABDOMEN: distended/ ileostomy bag draining liquid feces / skin surrounding ileostomy is red MUSCULOSKELETAL: ISAURO x 4 INTEGUMENT: no generalized pallor NEUROLOGICAL: CN -12 intact / speech not dysarthric PSYCHIATRIC: A&Ox 3 /able to understand and follow all commands LABORATORY DATA: 01/19/20 03:45 01/19/20 04:03 Immature Granulocyte % (Auto) 0.5, Neutrophils (%) (Auto) 91.2H, Lymphocytes (%) (Auto) 3.7L, Monocytes (%) (Auto) 4.3, Eosinophils (%) (Auto) 0.1, Basophils (%) (Auto) 0.2, Neutrophils # (Auto) 16.0H, Lymphocytes # (Auto) 0.7L, Monocytes # (Auto) 0.8, Eosinophils # (Auto) 0.0, Basophils # (Auto) 0.0, Nucleated Red Blood Cells % (auto) 0.0 01/19/20 04:03: Anion Gap 9, Glomerular Filtration Rate > 60.0, Lactic Acid Level 2.0, Calcium Level 9.2, Total Bilirubin 0.5, Direct Bilirubin 0.1, Aspartate Amino Transf (AST/SGOT) 16, Alanine Aminotransferase (ALT/SGPT) 40, Alkaline Phosphatase 104, Total Protein 8.1, Albumin 3.7, Albumin/Globulin Ratio 0.8, Lipase 57L 01/19/20 04:07: Prothrombin Time 14.0, Prothromb Time International Ratio 1.06, Activated Partial Thromboplast Time 34.0 01/19/20 06:34: IMAGING: CT abd/pelvis IMPRESSION: 1. Large right anterolateral ventral wall hernia in the upper pelvis or lower abdomen which is likely and ostomy hernia which is not included on this examination. 2. Status post colectomy with probable ileostomy in the right lower quadrant which is incompletely seen. 3. Distended small bowel with air-fluid levels extending into the ostomy hernia and likely reflects a small bowel obstruction with a point of transition which probably lies within the hernia or possibly at the ostomy opening. 4. Mild fat filled left inguinal hernia which is incompletely seen but similar to the prior study. MICROBIOLOGY: Please see below. ASSESSMENT: is a 69 yr old w hx of colectomy for cancer, protocolectomy for UC, hx of mesh implantation w resection and episodes of SBO who is admitted for the latter. PLAN: 1 SBO Likely 2/2 adhesions Plan: admit to med floor, NPO, IVF, NG to suction w intermittent clamping for oral meds / Zofran, f/u w Dr. Salazar / Ceftriaxone 2 Left Leg pain 2/2 Sciatica Plan: flector patch 3 Possible abdominal wall cellulitis Chronic ulceration around stoma but area is very red Plan: c/w ceftriaxone and vanc 4 UC s/p total proctocolectomy w Ileosotomy Plan: stoma care 5 DM w neuropathy Plan: FSBS, SSI, A1C, hypoglycemia protocol , gabapentin, levemir 20 units BID (home med 70-30 insulin 40 units daily and 50units qhs 6 Chronic HTN Plan: irbersartan, metoprolol, lasix Obesity 7 BMI of >59 complicates care Plan f/u w PCP for sleep apnea screening /baratric bed DVT Px SCDs Dispo: home after more than 2 midnights stay Home Medications Scheduled Aspirin (Aspirin EC) 81 Mg Tabec, 81 MG PO DAILY Atorvastatin Calcium (Atorvastatin Calcium) 80 Mg Tab, 80 MG PO DAILY Bupropion HCl (Bupropion HCl Sr) 150 Mg Tab.er.12h, 150 MG PO BID Duloxetine Hcl (Duloxetine HCl) 60 Mg Capsule.dr, 60 MG PO DAILY Furosemide (Lasix) 40 Mg Tab, 80 MG PO DAILY Furosemide (Furosemide) 40 Mg Tab, 40 MG PO QPM TAKES AROUND DINNERTIME Gabapentin (Gabapentin) 600 Mg Tablet, 600 MG PO TID Insulin NPH Hum/Reg Insulin Hm (Novolin 70-30 100 Unit/ml Vial) 1 Inj Inj, 50 UNITS SC QHS Insulin NPH Hum/Reg Insulin Hm (Novolin 70-30 100 Unit/ml Vial) 100 Unit/1 Ml Vial, 40 UNITS SC DAILY Irbesartan (Irbesartan) 300 Mg Tab, 300 MG PO DAILY Metformin HCl (Metformin HCl) 1,000 Mg Tab, 1,000 MG PO BID Metoprolol Succinate (Metoprolol Succinate) 100 Mg Tab.er.24h, 100 MG PO DAILY Potassium Chloride (Potassium Chloride) 10 Meq Tab, 20 MEQ PO BID Repaglinide (Repaglinide) 0.5 Mg Tablet, 0.5 MG PO AC Scheduled PRN Hydrocodone/Acetaminophen (Hydrocodone-Acetamin 5-325 mg) 1 Each Tablet, 1 TAB PO Q6H PRN for PAIN MDD 4 Tizanidine HCl (Tizanidine HCl) 4 Mg Tablet, 4 MG PO TID PRN for MUSCLE SPASMS Miscellaneous Medications Tizanidine HCl (Tizanidine HCl) 4 Mg Tablet Allergies Coded Allergies: bee venom protein (honey bee) (Verified Allergy, Intermediate, 08/31/18) hives A-FIB/CHADSVASC A-FIB History Current/History of A-Fib/PAF?: No Current PO Anticoag Therapy: No RUDDY NICOLE MD Jan 19, 2020 07:28
[2020-01-19] MEDS: LEVEMIR (INSULIN DETEMIR) 1 UNITS/0.01ML SC SCH ×2 (09:00→21:39)
[2020-01-19] MEDS: cefTRIAXone SOD 2 GM in D5W MINI-BAG PLUS 50 ML IV SCH (09:09)
[2020-01-19] MEDS: IRBESARTAN 150MG TAB PO SCH ×2 (10:12→12:02)
[2020-01-19] MEDS: DICLOFENAC EPOLAMINE 1.3 % PATCH TOP SCH ×2 (10:16→12:01)
[2020-01-19 10:51] LABS: HEMOGLOBIN A1c 7.6 %
[2020-01-19 11:00] VITALS: BP 140/76
[2020-01-19] MEDS ORDERED: VANCOMYCIN HCL 1,000 MG, VIAL MATE ADAPTER 1 EACH in D5W 250 ML IV ONE (11:00)
[2020-01-19] MEDS: VANCOMYCIN HCL 1,000 MG, VIAL MATE ADAPTER 1 EACH in D5W 250 ML IV SCH ×2 (12:00→18:59)
[2020-01-19] MEDS: buPROPion **SR TABLET** (ZYBAN) 150MG PO SCH ×2 (12:02→21:40)
[2020-01-19] MEDS: GABAPENTIN 300 MG CAP PO SCH ×3 (12:03→21:40)
[2020-01-19] MEDS: POTASSIUM CHLORIDE 10 MEQ SR TABLET PO SCH ×2 (12:03→21:40)
[2020-01-19] MEDS: DULoxetine 30 MG CAP (CYMBALTA) PO SCH (12:04)
[2020-01-19] MEDS: METOPROLOL SUCC (TopROL XL) 100MG *XL* TAB PO SCH (12:04)
[2020-01-19] MEDS: tiZANidine 4 MG TAB PO PRN (12:05)
[2020-01-19] MEDS: FUROSEMIDE 40 MG TAB PO SCH ×2 (12:06→17:44)
[2020-01-19] MEDS ORDERED: LEVEMIR (INSULIN DETEMIR) 1 UNITS/0.01ML SC ONE (12:45)
--- NOTE | 2020-01-19 12:59 | IPNPDOC ---
Text Note Date of Service The patient was seen on 01/19/20. NOTE Patient seen and examined, full consult to follow 69 M, morbidly obese (current BMI of 59.8) with incarcerated parastomal hernia and small bowel obstruction, has failed multiple hernia repairs including one done in 2018 also as an urgent procedure for bowel obstructiion. Plan: I adjusted his NGT and seems to be working better (at 60 cms at nares). continue with LIWS for bowel decompression. No signs of threatened, ischemic bowel, peritonitis. Would like to get better bowel decompression especially if this does not resolve and would need to go to surgery. will follow along closely. Continue IVF hydration. Ambulate if able. VS,Fishbone, I+O VS, Fishbone, I+O Laboratory Tests 01/19/20 03:45 01/19/20 04:03 Vital Signs Date Time Temp Pulse Resp B/P (MAP) Pulse Ox O2 Delivery O2 Flow Rate FiO2 01/19/20 12:04 91 140/76 01/19/20 11:00 97.0 18 92 Room Air CLARITA SMILEY MD Jan 19, 2020 12:59
[2020-01-19 14:00] VITALS: BP 152/82
[2020-01-19] MEDS: MORPHINE 2 MG/ML 1ML VIAL (J2270) IV PRN ×3 (15:25→22:06)
[2020-01-19 18:00] VITALS: BP 168/87
[2020-01-19] MEDS: NYSTATIN 100,000 UNITS/GM TOPICAL PWD 15 GM TOP SCH (21:39)
[2020-01-19 22:00] VITALS: BP 162/68
[2020-01-20 02:00] VITALS: BP 164/68
[2020-01-20] MEDS: VANCOMYCIN HCL 1,000 MG, VIAL MATE ADAPTER 1 EACH in D5W 250 ML IV SCH ×3 (02:23→17:21)
[2020-01-20 05:59] LABS: HEMATOCRIT 39.1 % (42.0-52.0); MEAN CORPUSCULAR HEMOGLOBIN 30.3 pg (27.0-33.0); MEAN CORPUSCULAR HGB CONC 33.2 g/dl (32.0-36.5); MEAN CORPUSCULAR VOLUME 91.1 fl (80.0-96.0); PLATELET COUNT, AUTOMATED 207 10^3/uL (150-450); RED BLOOD COUNT 4.29 10^6/uL (4.30-6.10); WHITE BLOOD COUNT 5.3 10^3/uL (4.0-10.0)
[2020-01-20 06:00] VITALS: BP 166/62
[2020-01-20 06:23] LABS: BLOOD UREA NITROGEN 13 MG/DL (7-18); CALCIUM LEVEL 8.5 MG/DL (8.8-10.2); CARBON DIOXIDE LEVEL 29 MEQ/L (21-32); CHLORIDE LEVEL 106 MEQ/L (98-107); CREATININE FOR GFR 0.93 MG/DL (0.70-1.30); GLOMERULAR FILTRATION RATE > 60.0 (>49); GLUCOSE, FASTING 223 MG/DL (70-100); POTASSIUM SERUM 3.9 MEQ/L (3.5-5.1); SODIUM LEVEL 142 MEQ/L (136-145)
[2020-01-20] MEDS: MORPHINE 2 MG/ML 1ML VIAL (J2270) IV PRN ×2 (08:08→17:30)
[2020-01-20] MEDS: LEVEMIR (INSULIN DETEMIR) 1 UNITS/0.01ML SC SCH ×2 (08:11→21:17)
[2020-01-20] MEDS: GABAPENTIN 300 MG CAP PO SCH ×3 (08:12→21:15)
[2020-01-20] MEDS: cefTRIAXone SOD 2 GM in D5W MINI-BAG PLUS 50 ML IV SCH (08:12)
[2020-01-20] MEDS: buPROPion **SR TABLET** (ZYBAN) 150MG PO SCH ×2 (08:12→21:15)
[2020-01-20] MEDS: FUROSEMIDE 40 MG TAB PO SCH ×2 (08:15→17:22)
[2020-01-20] MEDS: IRBESARTAN 150MG TAB PO SCH (08:15)
[2020-01-20] MEDS: METOPROLOL SUCC (TopROL XL) 100MG *XL* TAB PO SCH (08:16)
[2020-01-20] MEDS: POTASSIUM CHLORIDE 10 MEQ SR TABLET PO SCH ×2 (08:16→21:15)
[2020-01-20] MEDS: DULoxetine 30 MG CAP (CYMBALTA) PO SCH (08:16)
[2020-01-20] MEDS: DICLOFENAC EPOLAMINE 1.3 % PATCH TOP SCH ×2 (08:18→21:16)
[2020-01-20] MEDS: NYSTATIN 100,000 UNITS/GM TOPICAL PWD 15 GM TOP SCH ×2 (08:18→21:16)
[2020-01-20] MEDS ORDERED: FLUBLOK(EGG FREE)(QUAD)INFLUENZA VACC 0.5ML SYRINGE 18YRS & OLDER IM ONE (09:00)
[2020-01-20] MEDS ORDERED: FLUBLOK(EGG FREE)(QUAD)INFLUENZA VACC 0.5ML SYRINGE 18YRS & OLDER IM SCH (09:00)
[2020-01-20 10:00] VITALS: BP 180/83
[2020-01-20] MEDS: LR 1,000 ML IV SCH ×2 (10:27→23:13)
--- NOTE | 2020-01-20 10:42 | IPNPDOC ---
Text Note Date of Service The patient was seen on 01/20/20. NOTE Patient felt improvement today after he had a large amount of ngt output and his ostomy started putting out more output also eventually, had 2 emesis yesterday. His abdomen feels softer. VS stable: HTN nontachycardic Patient appears more comfortable today NGT in place abdomen markedly obese and protuberant. The parastomal hernia is softer though not fully reducible (patient reports chronically protuding outward). Ostomy is pink and healthy with thin brownish liquid stool in bag, not much air Impression: morbid obesity parastomal hernia small bowel obstruction Patient improved with bowel decompression and ostomy seems to be working now. will clamp ngt and see if tolerated. I had a long talk with him about his condition. The size of his hernia and condition of the abdominal wall, presence of permanent ostomy makes it likely that he will keep having intermittent o bstruction. At his current state he need extensive prehabilitation to meet criteria for abdominal wall reconstruction which he needs, primarily needs a lot of weight loss to a target of bmi 35 (current bmi 60) and only proven way to do this will be consideration for bariatric surgery. Patient does not want to go this route unfortunately. currently complains of left leg and buttock pain - I told him to address this with his medical doctors, suspect pad. may need workup prob. outpt. vascular con sult. VS,Jimenez, I+O VS, Jimenez, I+O Laboratory Tests 01/20/20 05:42 Vital Signs Date Time Temp Pulse Resp B/P (MAP) Pulse Ox O2 Delivery O2 Flow Rate FiO2 01/20/20 08:33 18 01/20/20 08:16 87 188/81 01/20/20 06:00 99.8 93 Room Air I&O- Last 24 Hours up to 6 AM 01/20/20 06:00 Intake Total 1340 ml Output Total 2425 ml Balance -1085 ml CLARITA SMILEY MD Jan 20, 2020 10:42
[2020-01-20 14:00] VITALS: BP 177/80
[2020-01-20 18:00] VITALS: BP 167/82
[2020-01-20 22:00] VITALS: BP 148/70
--- NOTE | 2020-01-20 23:59 | IPNPDOC ---
Text Note Date of Service The patient was seen on 01/20/20. NOTE SUBJECTIVE: stable overnight OBJECTIVE: FOCUSED EXAMINATION: GENERAL APPEARANCE: obese/ well developed /NAD HEENT: no scleral icterus / EOMI / NG in place CARDIOVASCULAR: RRR/NMRG / trace BLE edema LUNGS: CTAB on RA ABDOMEN: distended/ ileostomy bag draining liquid feces / skin surrounding ileostomy is red MUSCULOSKELETAL: ISAURO x 4 INTEGUMENT: no generalized pallor NEUROLOGICAL:no focal concerns PSYCHIATRIC: A&Ox 3 /able to understand and follow all commands VITAL SIGNS: Please see below. ASSESSMENT and PLAN: 1 SBO -no operative plans at this time 2 Left Leg pain 2/2 Sciatica Plan: flector patch 3 Possible abdominal wall cellulitis Chronic ulceration around stoma but area is very red Plan: c/w ceftriaxone and vanc 4 UC s/p total proctocolectomy w Ileosotomy Plan: stoma care 5 DM w neuropathy Plan: insulin dispo: PT/OT assessment VS,Jimenez, I+O VS, Jimenez, I+O Laboratory Tests 01/20/20 05:42 Vital Signs Date Time Temp Pulse Resp B/P (MAP) Pulse Ox O2 Delivery O2 Flow Rate FiO2 01/20/20 22:00 97.3 70 20 148/70 (96) 95 Room Air I&O- Last 24 Hours up to 6 AM 01/20/20 06:00 Intake Total 1340 ml Output Total 2425 ml Balance -1085 ml BALDOMERO RATLIFF DO Jan 20, 2020 23:59
[2020-01-21] MEDS: VANCOMYCIN HCL 1,000 MG, VIAL MATE ADAPTER 1 EACH in D5W 250 ML IV SCH ×3 (01:59→18:07)
[2020-01-21 02:00] VITALS: BP 160/68
[2020-01-21] MEDS: MORPHINE 2 MG/ML 1ML VIAL (J2270) IV PRN ×4 (03:37→23:34)
[2020-01-21 06:00] VITALS: BP 166/69
[2020-01-21] MEDS: NYSTATIN 100,000 UNITS/GM TOPICAL PWD 15 GM TOP SCH ×2 (09:09→20:52)
[2020-01-21] MEDS: DICLOFENAC EPOLAMINE 1.3 % PATCH TOP SCH ×2 (09:10→20:49)
[2020-01-21] MEDS: tiZANidine 4 MG TAB PO PRN ×2 (09:10→17:11)
[2020-01-21] MEDS: cefTRIAXone SOD 2 GM in D5W MINI-BAG PLUS 50 ML IV SCH (09:11)
[2020-01-21] MEDS: LR 1,000 ML IV SCH ×2 (09:11→18:10)
[2020-01-21] MEDS: FUROSEMIDE 40 MG TAB PO SCH ×2 (09:34→17:11)
[2020-01-21] MEDS: DULoxetine 30 MG CAP (CYMBALTA) PO SCH (09:34)
[2020-01-21] MEDS: IRBESARTAN 150MG TAB PO SCH (09:34)
[2020-01-21] MEDS: GABAPENTIN 300 MG CAP PO SCH ×3 (09:34→20:51)
[2020-01-21] MEDS: POTASSIUM CHLORIDE 10 MEQ SR TABLET PO SCH ×2 (09:35→20:51)
[2020-01-21] MEDS: METOPROLOL SUCC (TopROL XL) 100MG *XL* TAB PO SCH (09:36)
[2020-01-21] MEDS: LEVEMIR (INSULIN DETEMIR) 1 UNITS/0.01ML SC SCH ×2 (09:37→20:50)
[2020-01-21 10:00] VITALS: BP 160/60
[2020-01-21 11:01] LABS: BASO % 0.3 % (0.0-1.0); EOS # 0.2 10^3/uL (0.0-0.5); EOS % 2.6 % (0.0-3.0); HEMATOCRIT 38.4 % (42.0-52.0); LYMPH # 0.8 10^3/uL (1.5-5.0); MEAN CORPUSCULAR HEMOGLOBIN 30.7 pg (27.0-33.0); MEAN CORPUSCULAR HGB CONC 33.9 g/dl (32.0-36.5); MEAN CORPUSCULAR VOLUME 90.8 fl (80.0-96.0); MONO # 0.9 10^3/uL (0.0-0.8); MONO % 14.5 % (0.0-5.0); NEUTROPHILS # 4.3 10^3/uL (1.5-8.5); NEUTROPHILS % 69.1 % (36.0-66.0); PLATELET COUNT, AUTOMATED 191 10^3/uL (150-450); RED BLOOD COUNT 4.23 10^6/uL (4.30-6.10); WHITE BLOOD COUNT 6.2 10^3/uL (4.0-10.0)
--- NOTE | 2020-01-21 11:15 | IPNPDOC ---
Text Note Date of Service The patient was seen on 01/21/20. NOTE Patient opened up with bowel decompression. NGT removed yesterday and tolerating clears. I have started him on regular diet today. Ostomy output normal now. VS stable Comfortable Alert, awake, oriented abdomen: obese, soft, nondistended, parastomal hernia not fully reducible but soft, ostomy working Impression morbid obesity bmi 60 parastomal hernia small bowel obstruction resolved sbo from incarcerated parastomal hernia resolved. I have spoken to him about need for weight loss to be able to adequately repair his parastomal hernia. He will need abdominal wall reconstruction. I have suggested bariatric surgery but patient not too keen on it. Follow up with me prn once stable enough to go home. VS,Jimenez, I+O VS, Jimenez, I+O Laboratory Tests 01/21/20 10:37 Vital Signs Date Time Temp Pulse Resp B/P (MAP) Pulse Ox O2 Delivery O2 Flow Rate FiO2 01/21/20 09:37 16 01/21/20 09:36 77 167/68 01/21/20 09:09 Room Air 01/21/20 06:00 98.5 93 I&O- Last 24 Hours up to 6 AM 01/21/20 06:00 Intake Total 2630 ml Output Total 1140 ml Balance 1490 ml CLARITA SMILEY MD Jan 21, 2020 11:15
[2020-01-21] MEDS ORDERED: GLUCOSE 4GM CHEW TABLET PO PRN (11:30)
[2020-01-21] MEDS ORDERED: DEXTROSE 50% 50 ML SYRINGE IV PRN (11:30)
[2020-01-21] MEDS ORDERED: GLUCAGON INJ 1MG VIAL SC PRN (11:30)
[2020-01-21] MEDS: buPROPion **SR TABLET** (ZYBAN) 150MG PO SCH ×2 (11:31→20:50)
[2020-01-21 12:13] LABS: BLOOD UREA NITROGEN 9 MG/DL (7-18); CALCIUM LEVEL 7.9 MG/DL (8.8-10.2); CARBON DIOXIDE LEVEL 30 MEQ/L (21-32); CHLORIDE LEVEL 99 MEQ/L (98-107); CREATININE FOR GFR 0.86 MG/DL (0.70-1.30); GLOMERULAR FILTRATION RATE > 60.0 (>49); GLUCOSE, FASTING 224 MG/DL (70-100); POTASSIUM SERUM 3.5 MEQ/L (3.5-5.1); SODIUM LEVEL 136 MEQ/L (136-145)
[2020-01-21] MEDS: HumaLOG INSULIN (NovoLOG) PER UNIT SC SCH ×3 (12:51→20:52)
[2020-01-21 14:00] VITALS: BP 167/66
[2020-01-21 22:00] VITALS: BP 139/42
[2020-01-22] MEDS: VANCOMYCIN HCL 1,000 MG, VIAL MATE ADAPTER 1 EACH in D5W 250 ML IV SCH ×2 (01:59→10:13)
[2020-01-22 04:00] VITALS: BP 154/62
[2020-01-22] MEDS: LR 1,000 ML IV SCH ×2 (05:50→12:03)
[2020-01-22] MEDS: IRBESARTAN 150MG TAB PO SCH (09:27)
[2020-01-22] MEDS: DICLOFENAC EPOLAMINE 1.3 % PATCH TOP SCH ×2 (09:28→20:48)
[2020-01-22] MEDS: cefTRIAXone SOD 2 GM in D5W MINI-BAG PLUS 50 ML IV SCH (09:29)
[2020-01-22] MEDS: GABAPENTIN 300 MG CAP PO SCH ×3 (09:29→20:48)
[2020-01-22] MEDS: METOPROLOL SUCC (TopROL XL) 100MG *XL* TAB PO SCH (09:30)
[2020-01-22] MEDS: HumaLOG INSULIN (NovoLOG) PER UNIT SC SCH ×4 (09:30→21:00)
[2020-01-22] MEDS: DULoxetine 30 MG CAP (CYMBALTA) PO SCH (09:30)
[2020-01-22] MEDS: buPROPion **SR TABLET** (ZYBAN) 150MG PO SCH ×2 (09:31→20:48)
[2020-01-22] MEDS: FUROSEMIDE 40 MG TAB PO SCH ×2 (09:31→16:36)
[2020-01-22] MEDS: POTASSIUM CHLORIDE 10 MEQ SR TABLET PO SCH ×2 (09:31→20:48)
[2020-01-22] MEDS: LEVEMIR (INSULIN DETEMIR) 1 UNITS/0.01ML SC SCH ×2 (09:32→21:56)
[2020-01-22] MEDS: NYSTATIN 100,000 UNITS/GM TOPICAL PWD 15 GM TOP SCH ×2 (09:32→20:49)
[2020-01-22] MEDS: MORPHINE 2 MG/ML 1ML VIAL (J2270) IV PRN ×2 (13:10→20:50)
[2020-01-22] MEDS: LevoFLOXacin 750 MG TABLET PO SCH (18:03)
[2020-01-22] MEDS: metroNIDAZOLE (FLAGYL) 500MG TABLET PO SCH (21:55)
[2020-01-22] MEDS: HYDROCORTISONE 1% CREAM 30 GM TOP PRN (23:44)
[2020-01-23] MEDS ORDERED: diphenhydrAMINE 25MG CAP PO ONE (00:15)
[2020-01-23] MEDS: MORPHINE 2 MG/ML 1ML VIAL (J2270) IV PRN ×4 (01:38→22:57)
[2020-01-23] MEDS ORDERED: amLODIPine 5 MG TAB PO STA (04:59)
[2020-01-23] MEDS: metroNIDAZOLE (FLAGYL) 500MG TABLET PO SCH ×3 (05:08→21:45)
[2020-01-23 06:00] VITALS: BP_SYST 170; BP_SYST 185; BP_DIAS 75; BP_DIAS 90
[2020-01-23] MEDS ORDERED: amLODIPine 5 MG TAB PO ONE (07:00)
[2020-01-23] MEDS: HumaLOG INSULIN (NovoLOG) PER UNIT SC SCH ×4 (08:23→20:34)
[2020-01-23] MEDS: LEVEMIR (INSULIN DETEMIR) 1 UNITS/0.01ML SC SCH ×2 (08:23→21:46)
[2020-01-23] MEDS: DICLOFENAC EPOLAMINE 1.3 % PATCH TOP SCH ×2 (08:24→21:46)
[2020-01-23] MEDS: POTASSIUM CHLORIDE 10 MEQ SR TABLET PO SCH ×2 (08:26→21:45)
[2020-01-23] MEDS: IRBESARTAN 150MG TAB PO SCH (08:26)
[2020-01-23] MEDS: GABAPENTIN 300 MG CAP PO SCH ×3 (08:26→21:45)
[2020-01-23] MEDS: buPROPion **SR TABLET** (ZYBAN) 150MG PO SCH ×2 (08:26→21:45)
[2020-01-23] MEDS: FUROSEMIDE 40 MG TAB PO SCH ×2 (08:27→17:46)
[2020-01-23] MEDS: LevoFLOXacin 750 MG TABLET PO SCH (08:27)
[2020-01-23] MEDS: METOPROLOL SUCC (TopROL XL) 100MG *XL* TAB PO SCH (08:27)
[2020-01-23] MEDS: NYSTATIN 100,000 UNITS/GM TOPICAL PWD 15 GM TOP SCH ×2 (08:27→21:47)
[2020-01-23] MEDS: DULoxetine 30 MG CAP (CYMBALTA) PO SCH (08:27)
[2020-01-23] MEDS: HYDROCORTISONE 1% CREAM 30 GM TOP PRN (15:12)
[2020-01-24] MEDS: tiZANidine 4 MG TAB PO PRN ×2 (02:17→13:49)
[2020-01-24 06:00] VITALS: BP 133/83
[2020-01-24] MEDS: metroNIDAZOLE (FLAGYL) 500MG TABLET PO SCH ×3 (06:08→22:59)
[2020-01-24] MEDS: MORPHINE 2 MG/ML 1ML VIAL (J2270) IV PRN ×2 (06:08→10:22)
[2020-01-24 08:20] VITALS: BP 155/71
[2020-01-24] MEDS: LEVEMIR (INSULIN DETEMIR) 1 UNITS/0.01ML SC SCH ×2 (08:42→20:19)
[2020-01-24] MEDS: HumaLOG INSULIN (NovoLOG) PER UNIT SC SCH ×4 (08:43→20:18)
[2020-01-24] MEDS: NYSTATIN 100,000 UNITS/GM TOPICAL PWD 15 GM TOP SCH ×2 (08:44→20:20)
[2020-01-24] MEDS: IRBESARTAN 150MG TAB PO SCH (08:45)
[2020-01-24] MEDS: DICLOFENAC EPOLAMINE 1.3 % PATCH TOP SCH ×2 (08:46→20:19)
[2020-01-24] MEDS: DULoxetine 30 MG CAP (CYMBALTA) PO SCH (08:46)
[2020-01-24] MEDS: buPROPion **SR TABLET** (ZYBAN) 150MG PO SCH ×2 (08:47→20:18)
[2020-01-24] MEDS: METOPROLOL SUCC (TopROL XL) 100MG *XL* TAB PO SCH (08:47)
[2020-01-24] MEDS: POTASSIUM CHLORIDE 10 MEQ SR TABLET PO SCH ×2 (08:48→20:18)
[2020-01-24] MEDS: FUROSEMIDE 40 MG TAB PO SCH ×2 (08:48→16:56)
[2020-01-24] MEDS: LevoFLOXacin 750 MG TABLET PO SCH (08:48)
[2020-01-24] MEDS: GABAPENTIN 300 MG CAP PO SCH ×3 (08:49→20:18)
--- NOTE | 2020-01-24 12:50 | IPNPDOC ---
Text Note Date of Service The patient was seen on 01/24/20. NOTE SUBJECTIVE: Continues to complain of pain, particularly in the left knee and ankle. His hip also hurts him, but his knee and ankle seem to the limiting factors in his opinion. He continues to struggle with PT/OT. He reports that his belly is feeling much better, he was eating breakfast when I cam in this morning. Remainder of ROS is negative OBJECTIVE: FOCUSED EXAMINATION: GENERAL APPEARANCE: obese/ well developed /NAD HEENT: no scleral icterus / EOMI / NG in place CARDIOVASCULAR: RRR/NMRG / trace BLE edema LUNGS: CTAB on RA ABDOMEN: distended/ ileostomy bag draining liquid feces / skin surrounding ileostomy is red NEUROLOGICAL:no focal concerns PSYCHIATRIC: A&Ox 3 /able to understand and follow all commands VITAL SIGNS: Please see below. ASSESSMENT and PLAN: 1 SBO -no operative plans at this time. Pain improved. Continues to have output from ileostomy bag 2 Left Leg pain 2/2 Sciatica Plan: flector patch. He reports that he fell about 3 weeks ago on this leg. Will order xray of L knee and ankle also just to be sure. 3 Possible abdominal wall cellulitis Chronic ulceration around stoma but area is very red Plan: c/w levaquin 4 UC s/p total proctocolectomy w Ileosotomy Plan: stoma care 5 DM w neuropathy Plan: insulin dispo: per recommendations from PT/OT assessment VS,Fishbone, I+O VS, Fishbone, I+O Vital Signs Date Time Temp Pulse Resp B/P (MAP) Pulse Ox O2 Delivery O2 Flow Rate FiO2 01/24/20 10:55 18 01/24/20 08:45 155/71 01/24/20 08:20 98.9 77 96 Room Air I&O- Last 24 Hours up to 6 AM 01/24/20 06:00 Intake Total 900 ml Balance 900 ml GABBIE CHOUDHARY DO Jan 24, 2020 12:50
[2020-01-24] MEDS: HYDROCORTISONE 1% CREAM 30 GM TOP PRN (20:39)
[2020-01-24] MEDS: PERCOCET 5MG/325MG TAB PO PRN (22:58)
[2020-01-25] MEDS: PERCOCET 5MG/325MG TAB PO PRN ×3 (03:21→21:36)
[2020-01-25] MEDS: metroNIDAZOLE (FLAGYL) 500MG TABLET PO SCH ×3 (05:31→21:17)
[2020-01-25] MEDS: HYDROCORTISONE 1% CREAM 30 GM TOP PRN ×3 (05:44→21:37)
[2020-01-25 06:00] VITALS: BP 152/76
[2020-01-25] MEDS: DICLOFENAC EPOLAMINE 1.3 % PATCH TOP SCH ×2 (09:10→21:19)
[2020-01-25] MEDS: HumaLOG INSULIN (NovoLOG) PER UNIT SC SCH ×4 (09:10→21:00)
[2020-01-25] MEDS: LevoFLOXacin 750 MG TABLET PO SCH (09:10)
[2020-01-25] MEDS: IRBESARTAN 150MG TAB PO SCH (09:10)
[2020-01-25] MEDS: NYSTATIN 100,000 UNITS/GM TOPICAL PWD 15 GM TOP SCH ×2 (09:10→21:18)
[2020-01-25] MEDS: buPROPion **SR TABLET** (ZYBAN) 150MG PO SCH ×2 (09:10→21:16)
[2020-01-25] MEDS: METOPROLOL SUCC (TopROL XL) 100MG *XL* TAB PO SCH (09:10)
[2020-01-25] MEDS: FUROSEMIDE 40 MG TAB PO SCH ×2 (09:10→16:06)
[2020-01-25] MEDS: DULoxetine 30 MG CAP (CYMBALTA) PO SCH (09:10)
[2020-01-25] MEDS: POTASSIUM CHLORIDE 10 MEQ SR TABLET PO SCH ×2 (09:10→21:17)
[2020-01-25] MEDS: GABAPENTIN 300 MG CAP PO SCH ×3 (09:10→21:17)
[2020-01-25] MEDS: LEVEMIR (INSULIN DETEMIR) 1 UNITS/0.01ML SC SCH ×2 (09:10→21:16)
--- NOTE | 2020-01-25 10:29 | REPVR ---
PROCEDURE INFORMATION: Exam: XR Bilateral Hips with Pelvis when Performed Exam date and time: 01/25/2020 9:54 AM Age: 69 years old Clinical indication: Hip pain; Bilateral TECHNIQUE: Imaging protocol: XR bilateral hips with pelvis when performed. Views: 2 views. COMPARISON: CT ABD/PEL W/IV CONTRAST ONLY 01/19/2020 4:52 AM FINDINGS: Bones/joints: No acute fracture or dislocation is identified. The femoral head articular contours are maintained, and the femoral heads appear to be of normal density. There is very mild osteophyte formation about the hip joints. No focal lytic or blastic lesion is identified. Soft tissues: Phleboliths overlie the pelvis. Gastrointestinal tract: There again appears to be dilatation of multiple small bowel loops. IMPRESSION: 1. Degenerative changes as described. 2. Apparent dilatation of multiple small bowel loops, as on CT of 01/19/20. Electronically signed by: Juan Graff On 01/25/2020 10:30:20 AM
--- NOTE | 2020-01-25 10:32 | REPVR ---
PROCEDURE INFORMATION: Exam: XR Thoracolumbar Spine, 2 Views Exam date and time: 01/25/2020 10:00 AM Age: 69 years old Clinical indication: Low back pain; Patient HX: Physician ordered thoracolumbar cpt code 93845 thoracolumbar junction. Informed floor of order. Floor stated that is what they want. TECHNIQUE: Imaging protocol: XR of the thoracolumbar spine, 2 views. COMPARISON: MRI-Spine, L.S. without con 01/26/2019 11:39 AM FINDINGS: Vertebrae: The spine is included from the lower thoracic through upper lumbar levels. Vertebral body heights are intact. Alignment is maintained. The pedicles appear intact. No acute fracture is identified. There is multilevel facet arthrosis, disc space narrowing and marginal osteophyte formation. Soft tissues: Grossly unremarkable. IMPRESSION: Degenerative disk disease which could be better evaluated by means of MRI as clinically indicated. Electronically signed by: Juan Graff On 01/25/2020 10:31:46 AM
[2020-01-25] MEDS: **hydrALAZINE** 10 MG TAB PO SCH ×3 (12:23→21:18)
[2020-01-25] MEDS: HEPARIN SOD (PORCINE) 5000UNITS/ML 1ML VIAL/SYRINGE SQ SCH ×2 (14:01→21:15)
--- NOTE | 2020-01-25 14:16 | REPVR ---
PROCEDURE INFORMATION: Exam: MR Lumbar Spine Without Contrast. Exam date and time: 01/25/2020 1:18 PM Age: 69 years old Clinical indication: Pain; Lumbago with sciatica; Left; Additional info: Radicular pain TECHNIQUE: Imaging protocol: Multiplanar magnetic resonance images of the lumbar spine without intravenous contrast. COMPARISON: MRI-Spine, L.S. without con 01/26/2019 11:39 AM FINDINGS: Limitations: Variable motion. Vertebrae: Vertebral body heights are intact. Alignment is maintained. No pars defect is identified. Spinal cord: The conus is unremarkable in appearance, with its tip at the L1 level. Multilevel findings: There are fairly similar degrees of disc desiccation indicating intervertebral disc degeneration. T12-L1: Included on the sagittal sequences only, there appears to be a similar small bulge. L1-L2: Similar diffuse bulge with inferiorly directed central extrusion combining with facet arthrosis and ligamentum flavum hypertrophy to lead to similar, mild bilateral neural foraminal narrowing with very mild left lateral recess narrowing and borderline central canal stenosis. There is again small fluid in the right facet joint. L2-L3: Similar disc osteophyte complex combining with facet arthrosis and ligamentum flavum hypertrophy to lead to moderate bilateral neural foraminal narrowing with moderate right and mild left lateral recess narrowing and moderate central canal stenosis. L3-L4: Similar disc osteophyte complex combining with facet arthrosis and ligamentum flavum hypertrophy to lead to moderate to severe right and mild to moderate left neural foraminal narrowing with moderate right and mild left lateral recess narrowing and moderate central canal stenosis. L4-L5: Similar disc osteophyte complex combining with facet arthrosis and ligamentum flavum hypertrophy to lead to mild to moderate bilateral neural foraminal narrowing with moderate narrowing of the bilateral lateral recesses and mild central canal stenosis. L5-S1: Similar disc osteophyte complex combining with facet arthrosis to lead to very mild right and mild left neural foraminal narrowing with mild left lateral recess narrowing, without significant central canal stenosis. Soft tissues: Unremarkable. IMPRESSION: Multilevel disc desiccation indicating intervertebral disk degeneration with disc displacements as described. The appearance is fairly similar as compared with 01/26/19. COMMENTS: If surgery is considered, recommend level confirmation. Electronically signed by: Juan Graff On 01/25/2020 14:16:39 PM
[2020-01-25] MEDS: tiZANidine 4 MG TAB PO PRN (23:30)
[2020-01-26] MEDS: metroNIDAZOLE (FLAGYL) 500MG TABLET PO SCH ×2 (05:15→14:04)
[2020-01-26] MEDS: PERCOCET 5MG/325MG TAB PO PRN ×3 (05:16→20:25)
[2020-01-26] MEDS: HEPARIN SOD (PORCINE) 5000UNITS/ML 1ML VIAL/SYRINGE SQ SCH ×3 (05:16→21:15)
[2020-01-26 06:00] VITALS: BP 151/67
[2020-01-26] MEDS ORDERED: PERCOCET PO (07:51)
[2020-01-26] MEDS ORDERED: DICL1PAT6 TOP (07:53)
[2020-01-26] MEDS: LEVEMIR (INSULIN DETEMIR) 1 UNITS/0.01ML SC SCH ×2 (08:00→20:26)
[2020-01-26] MEDS: DULoxetine 30 MG CAP (CYMBALTA) PO SCH (08:01)
[2020-01-26] MEDS: HumaLOG INSULIN (NovoLOG) PER UNIT SC SCH ×4 (08:01→20:26)
[2020-01-26] MEDS: IRBESARTAN 150MG TAB PO SCH (08:02)
[2020-01-26] MEDS: METOPROLOL SUCC (TopROL XL) 100MG *XL* TAB PO SCH (08:03)
[2020-01-26] MEDS: GABAPENTIN 300 MG CAP PO SCH ×3 (08:03→20:27)
[2020-01-26] MEDS: **hydrALAZINE** 10 MG TAB PO SCH ×4 (08:03→20:27)
[2020-01-26] MEDS: FUROSEMIDE 40 MG TAB PO SCH ×2 (08:03→16:40)
[2020-01-26] MEDS: NYSTATIN 100,000 UNITS/GM TOPICAL PWD 15 GM TOP SCH ×2 (08:04→20:24)
[2020-01-26] MEDS: DICLOFENAC EPOLAMINE 1.3 % PATCH TOP SCH ×2 (08:04→20:24)
[2020-01-26] MEDS: buPROPion **SR TABLET** (ZYBAN) 150MG PO SCH ×2 (08:04→20:24)
[2020-01-26] MEDS: POTASSIUM CHLORIDE 10 MEQ SR TABLET PO SCH ×2 (08:04→20:24)
[2020-01-26] MEDS: HYDROCORTISONE 1% CREAM 30 GM TOP PRN (22:26)
[2020-01-27] MEDS: PERCOCET 5MG/325MG TAB PO PRN (05:11)
[2020-01-27] MEDS: HEPARIN SOD (PORCINE) 5000UNITS/ML 1ML VIAL/SYRINGE SQ SCH ×2 (05:12→14:00)
[2020-01-27 06:00] VITALS: BP 151/76
[2020-01-27] MEDS: LEVEMIR (INSULIN DETEMIR) 1 UNITS/0.01ML SC SCH (08:29)
[2020-01-27] MEDS: DICLOFENAC EPOLAMINE 1.3 % PATCH TOP SCH (08:29)
[2020-01-27] MEDS: HumaLOG INSULIN (NovoLOG) PER UNIT SC SCH ×2 (08:30→12:17)
[2020-01-27] MEDS: FUROSEMIDE 40 MG TAB PO SCH (08:30)
[2020-01-27] MEDS: **hydrALAZINE** 10 MG TAB PO SCH ×2 (08:31→12:16)
[2020-01-27] MEDS: DULoxetine 30 MG CAP (CYMBALTA) PO SCH (08:31)
[2020-01-27] MEDS: IRBESARTAN 150MG TAB PO SCH (08:31)
[2020-01-27] MEDS: METOPROLOL SUCC (TopROL XL) 100MG *XL* TAB PO SCH (08:31)
[2020-01-27] MEDS: buPROPion **SR TABLET** (ZYBAN) 150MG PO SCH (08:31)
[2020-01-27] MEDS: POTASSIUM CHLORIDE 10 MEQ SR TABLET PO SCH (08:32)
[2020-01-27] MEDS: NYSTATIN 100,000 UNITS/GM TOPICAL PWD 15 GM TOP SCH (08:32)
[2020-01-27] MEDS: GABAPENTIN 300 MG CAP PO SCH (08:32)
[2020-01-27] MEDS: HYDROCORTISONE 1% CREAM 30 GM TOP PRN (12:11)
[2020-01-27 12:16] VITALS: BP 122/55
--- NOTE | 2020-01-27 12:57 | IPN ---
DATE: 01/25/2020 SUBJECTIVE: Patient seen and examined at the bedside. Chart has been reviewed. Complains of pain in the left hip and back pain 10/10 when he tries to move, difficult when he is ambulating. Abdomen is better. Per surgery, medically stable for hospital discharge. He has right-sided ileostomy bag. He is on Levaquin for cellulitis of the abdomen. PHYSICAL EXAMINATION: VITALS: Temperature 97, pulse 72, respiratory rate 18, blood pressure 152/76. GENERAL: Awake, alert and oriented to person, place and time. Answers questions appropriately. LUNGS: Clear to auscultation. No wheezing, rales or rhonchi. HEART: S1, S2, sinus rhythm. ABDOMEN: Obese, soft, nontender, non-distended. There is some erythema around the ileostomy site. Some tenderness. No induration. EXTREMITIES: 2+ trace lower extremity edema bilaterally. Tenderness around L4, L3. Left hip could not be examined due to severe pain with range of motion. LABORATORY DATA: The 01/21/2020 CBC has been reviewed and metabolic panel. ASSESSMENT: This is a 69-year-old with super-morbid obesity; BMI of 58.4, history of ulcerative colitis with ileostomy and total proctocolectomy, chronic ulceration around the stoma, type 2 diabetes, cataract surgery, infection with mesh and subsequent removal, colon adenocarcinoma, melanoma resection, probable JU, and lumbar spinal stenosis, who presents with chronic back pain. PLAN: Medically stable from a surgical standpoint. Pain management has been consulted for the chronic back pain and left hip pain. Patient's CT abdomen and pelvis was unremarkable with a large ventral hernia, per surgery is medically stable for hospital discharge. Await pain control with pain management. Obtain MRI of the lumbar spine and x-ray of the left hip. [facility]
--- NOTE | 2020-01-27 15:46 | DS.PDOC ---
Discharge Summary General Date of Admission Jan 19, 2020 at 05:41 Date of Discharge 01/27/20 Discharge Summary DISCHARGE DIAGNOSES: morbid obesity bmi 58.4 parastomal hernia small bowel obstruction chronic ulceration around stoma abd wall cellulitis h/o uc with ileostomy dm2 sciatica lumbar spinal stenosis probable ju DISCHARGE MEDICATIONS; SEE BELOW LABORATORY TECH GENERAL SURGERY-DR. SHERICE QUACH [facility]RSE: This is a 69-year-old with super-morbid obesity; BMI of 58.4, history of ulcerative colitis with ileostomy and total proctocolectomy, chronic ulceration around the stoma, type 2 diabetes, cataract surgery, infection with mesh and subsequent removal, colon adenocarcinoma, melanoma resection, probable JU, and lumbar spinal stenosis, who presents with chronic back pain. SBO, resolved. managed by general surgery with conservative mgt. npo status, ivfluids, slowly advanced on diet. had been on levaquin and flagyl. Abd wall cellulitis. initially started on vanco and ceftriaxone. changed to levaquin with resolution . afebrile improved leukocytosis. Lumbar spine stenosis. [facility] with improvement with pe rcocet. outpt fu appt. DISCHARGE PHYSICAL EXAMINATION: VITALS : SEE BELOW GENERAL: Awake, alert and oriented to person, place and time. Answers questions appropriately. LUNGS: Clear to auscultation. No wheezing, rales or rhonchi. HEART: S1, S2, sinus rhythm. ABDOMEN: Obese, soft, nontender, non-distended. There is some erythema around the ileostomy site. Some tenderness. No induration. EXTREMITIES: 2+ trace lower extremity edema bilaterally. Tenderness around L4, L3. Left hip could not be examined due to severe pain with range of motion. DISCHARGE LABORATORY DATA, MICROBIOLOGY, IMAGING STUDIES: SEE BELOW MRI LUMBAR SPINE Vertebrae: Vertebral body heights are intact. Alignment is maintained. No pars defect is identified. Spinal cord: The conus is unremarkable in appearance, with its tip at the L1 level. Multilevel findings: There are fairly similar degrees of disc desiccation indicating intervertebral disc degeneration. T12-L1: Included on the sagittal sequences only, there appears to be a similar small bulge. L1-L2: Similar diffuse bulge with inferiorly directed central extrusion combining with facet arthrosis and ligamentum flavum hypertrophy to lead to similar, mild bilateral neural foraminal narrowing with very mild left lateral recess narrowing and borderline central canal stenosis. There is again small fluid in the right facet joint. L2-L3: Similar disc osteophyte complex combining with facet arthrosis and ligamentum flavum hypertrophy to lead to moderate bilateral neural foraminal narrowing with moderate right and mild left lateral recess narrowing and moderate central canal stenosis. L3-L4: Similar disc osteophyte complex combining with facet arthrosis and ligamentum flavum hypertrophy to lead to moderate to severe right and mild to moderate left neural foraminal narrowing with moderate right and mild left lateral recess narrowing and moderate central canal stenosis. L4-L5: Similar disc osteophyte complex combining with facet arthrosis and ligamentum flavum hypertrophy to lead to mild to moderate bilateral neural foraminal narrowing with moderate narrowing of the bilateral lateral recesses and mild central canal stenosis. L5-S1: Similar disc osteophyte complex combining with facet arthrosis to lead to very mild right and mild left neural foraminal narrowing with mild left lateral recess narrowing, without significant central canal stenosis. Exam: XR Bilateral Hips with Pelvis when Performed Exam date and time: 01/25/2020 9:54 AM Age: 69 years old Clinical indication: Hip pain; Bilateral TECHNIQUE: Imaging protocol: XR bilateral hips with pelvis when performed. Views: 2 views. COMPARISON: CT ABD/PEL W/IV CONTRAST ONLY 01/19/2020 4:52 AM FINDINGS: Bones/joints: No acute fracture or dislocation is identified. The femoral head articular contours are maintained, and the femoral heads appear to be of normal density. There is very mild osteophyte formation about the hip joints. No focal lytic or blastic lesion is identified. Soft tissues: Phleboliths overlie the pelvis. Gastrointestinal tract: There again appears to be dilatation of multiple small bowel loops. TIME SPENT ON DISCHARGE: 30 MIN DISCHARGE INSTRUCTIONS: PAIN MGT IN 1 WK TO RESTART TRIGGER POINT INJECTIONS. HOME PT. PCP FU 1 WK. Vital Signs/I&Os Vital Signs Date Time Temp Pulse Resp B/P (MAP) Pulse Ox O2 Delivery O2 Flow Rate FiO2 01/27/20 12:16 122/55 01/27/20 06:00 97.6 74 16 95 Room Air I&O- Last 24 Hours up to 6 AM 01/27/20 06:00 Intake Total 2980 ml Output Total 740 ml Balance 2240 ml Laboratory Data Labs 24H Laboratory Tests 2 01/26/20 16:26: Bedside Glucose (Misc Panel) 168H 01/26/20 19:41: Bedside Glucose (Misc Panel) 262H 01/27/20 05:44: Bedside Glucose (Misc Panel) 206H 01/27/20 11:56: Bedside Glucose (Misc Panel) 273H FSBS Laboratory Tests Test 01/26/20 16:26 01/26/20 19:41 01/27/20 05:44 01/27/20 11:56 Range/Units Bedside Glucose (Misc Panel) 168 262 206 273 80-115 MG/DL Discharge Medications Scheduled Aspirin (Aspirin EC) 81 Mg Tabec, 81 MG PO DAILY, (Reported) Atorvastatin Calcium (Atorvastatin Calcium) 80 Mg Tab, 80 MG PO DAILY, (Reported) Bupropion HCl (Bupropion HCl Sr) 150 Mg Tab.er.12h, 150 MG PO BID, (Reported) Diclofenac Epolamine (Diclofenac Epolamine) 1 Each Patch.td12, 1 PATCH TOP Q12H Duloxetine Hcl (Duloxetine HCl) 60 Mg Capsule.dr, 60 MG PO DAILY, (Reported) Furosemide (Lasix) 40 Mg Tab, 80 MG PO DAILY, (Reported) Furosemide (Furosemide) 40 Mg Tab, 40 MG PO QPM, (Reported) TAKES AROUND DINNERTIME Gabapentin (Gabapentin) 600 Mg Tablet, 600 MG PO TID, (Reported) Insulin NPH Hum/Reg Insulin Hm (Novolin 70-30 100 Unit/ml Vial) 1 Inj Inj, 50 UNITS SC QHS, (Reported) Insulin NPH Hum/Reg Insulin Hm (Novolin 70-30 100 Unit/ml Vial) 100 Unit/1 Ml Vial, 40 UNITS SC DAILY, (Reported) Irbesartan (Irbesartan) 300 Mg Tab, 300 MG PO DAILY, (Reported) Metformin HCl (Metformin HCl) 1,000 Mg Tab, 1,000 MG PO BID, (Reported) Metoprolol Succinate (Metoprolol Succinate) 100 Mg Tab.er.24h, 100 MG PO DAILY, (Reported) Potassium Chloride (Potassium Chloride) 10 Meq Tab, 20 MEQ PO BID, (Reported) Repaglinide (Repaglinide) 0.5 Mg Tablet, 0.5 MG PO AC, (Reported) Scheduled PRN Oxycodone/Acetaminophen (Oxycodone-Acetaminophen 5-325) 1 Each Tablet, 2 TAB PO Q4HP PRN for SEVERE PAIN (PS 8-10) Tizanidine HCl (Tizanidine HCl) 4 Mg Tablet, 4 MG PO TID PRN for MUSCLE SPASMS, (Reported) Miscellaneous Medications Tizanidine HCl (Tizanidine HCl) 4 Mg Tablet, (Reported) Allergies Coded Allergies: bee venom protein (honey bee) (Verified Allergy, Intermediate, 08/31/18) LINNEA Bay MD Jan 27, 2020 15:39
--- NOTE | 2020-01-30 10:36 | IPN ---
DATE: 01/26/2020 SUBJECTIVE: Patient states that his pain is 6/10 of the shoulder and radicular pain down the leg. He had a fall yesterday despite PT clearing him, therefore repeat PT home safety evaluation was requested this morning. PHYSICAL EXAMINATION: VITALS: Temperature 97.8, pulse 72, respiratory rate 19, blood pressure 131/69. GENERAL: Morbidly obese. No JVD. No thyromegaly. Poor dentition, missing teeth. Dry mucous membranes. LUNGS: Clear to auscultation. HEART: Distant heart sounds. S1, S2. ABDOMEN: Obese, ileostomy with some erythema on the site, no induration improving. EXTREMITIES: Chronic edema 1+. LABORATORY DATA: The 01/21/2020 CBC and metabolic panel have been reviewed. ASSESSMENT AND PLAN: This is a 69-year-old male admitted on 01/19/2020, history of morbid obesity, diabetes, UC; status post proctocolectomy with ileostomy, chronic ulceration around the stoma, cataract surgery, infection of mesh with parastomal hernia, colon adenocarcinoma and resection, admitted due to abdominal pain. 1. Parastomal hernia. 2. Small bowel obstruction. 3. Morbid obesity; BMI 58.4. 4. Probable obstructive sleep apnea. 5. Abdominal wall cellulitis around the stoma with chronic ulceration. 6. History of UC; status post total proctocolectomy with ileostomy. 7. Type 2 diabetes with chronic neuropathy. 8. Sciatica with a fall on 01/25/2020. 9. Chronic shoulder osteoarthritis. PLAN: Patient was seen by pain management, Giuliana Torres, with recommendations to continue with Percocet as needed every 4 hours up to two tablets daily, and outpatient follow-up with pain management service. Per Dr. Salazar, no acute indication for any surgical intervention, outpatient follow-up. Patient has completed Levaquin, still on Flagyl until the . Continue on all home medications including Avapro, Metoprolol, Lasix, Tizanidine, potassium and Levemir. Awaiting PT clearance prior to discharge home 1-2 days. MTDD
--- NOTE | 2020-02-15 13:30 | REP ---
LEFT ANKLE SERIES CLINICAL: Pain. Trauma. TECHNIQUE: AP and lateral views of the left ankle. FINDINGS: Age-related degenerative changes and suggestions for old injury. No acute fracture or dislocation. Ankle mortise appears intact and stable. IMPRESSION: Age-related degenerative changes and suggestions for old injury. No acute fracture or dislocation. [facility]
--- NOTE | 2020-02-15 13:31 | REP ---
LEFT KNEE SERIES CLINICAL: Trauma. Pain. TECHNIQUE: AP and lateral views of the left knee. FINDINGS: Moderate arthritic degenerative changes are appreciated. No acute fracture or dislocation. No obvious effusion. IMPRESSION: Degenerative changes. No acute fracture or dislocation. MTDD
== END 2020-01-27 15:35 | disposition home health service (06) | DRG 394 ==
LOC: M ED 02:24 → M ED INP 05:41 → ENRESERV 06:43 → M MSPAV 10:40
PROVIDERS: ADMIT Internal Medicine; ATTEND General Practice
DX: K43.3 Parastomal hernia with obstruction, without gangrene (principal); L03.311 Cellulitis of abdominal wall; K51.90 Ulcerative colitis, unspecified, without complications; K56.50 Intestinal adhesions [bands], unspecified as to partial versus complete obstruction; Z68.43 Body mass index [BMI] 50.0-59.9, adult; K94.09 Other complications of colostomy; E66.01 Morbid (severe) obesity due to excess calories; G47.33 Obstructive sleep apnea (adult) (pediatric); E11.40 Type 2 diabetes mellitus with diabetic neuropathy, unspecified; Z85.038 Personal history of other malignant neoplasm of large intestine; Z79.4 Long term (current) use of insulin; Z79.899 Other long term (current) drug therapy; Z91.030 Bee allergy status; I10 Essential (primary) hypertension

== ENCOUNTER → 2020-02-04 | Outpatient (CLI) | payer MEDICARE ==
[~2020-02-04] MED LIST changes: +BUPR150T5; +BUPR15TASR PO; +DICL1PAT6 TOP; +DULO1CAP6; +DULO1CAP6 PO; +GABA600T4; +GABA600T4 PO; +METO1TAB33; +METO1TAB33 PO; +PERCOCET PO; +REPA1TAB3; +REPA1TAB3 PO; +TIZA4TAB4; +TIZA4TAB4 PO
== END ==
LOC: M PAIN 14:02
PROVIDERS: ATTEND Family Medicine
DX: M79.18 Myalgia, other site (principal)

== ENCOUNTER 2020-02-20 07:41 | Inpatient (IN) | payer MEDICARE ==
[~2020-02-20] VITALS: Ht 172.7 cm; Wt 163.2 kg
[2020-02-20 08:39] LABS: BASO # 0.1 10^3/uL (0.0-0.2); BASO % 0.2 % (0.0-1.0); EOS # 0.1 10^3/uL (0.0-0.5); EOS % 0.3 % (0.0-3.0); HEMATOCRIT 45.4 % (42.0-52.0); HEMOGLOBIN 15.5 g/dl (13.5-17.5); LYMPH # 1.5 10^3/uL (1.5-5.0); LYMPH % 5.6 % (24.0-44.0); MEAN CORPUSCULAR HEMOGLOBIN 30.8 pg (27.0-33.0); MEAN CORPUSCULAR HGB CONC 34.1 g/dl (32.0-36.5); MEAN CORPUSCULAR VOLUME 90.3 fl (80.0-96.0); MONO # 0.9 10^3/uL (0.0-0.8); MONO % 3.6 % (0.0-5.0); NEUTROPHILS # 23.2 10^3/uL (1.5-8.5); NEUTROPHILS % 89.5 % (36.0-66.0); PLATELET COUNT, AUTOMATED 293 10^3/uL (150-450); RED BLOOD COUNT 5.03 10^6/uL (4.30-6.10)
[2020-02-20] MEDS ORDERED: KETOROLAC 30 MG/ML 1ML VIAL IV ONE (08:45)
--- NOTE | 2020-02-20 09:33 | REPVR ---
PROCEDURE INFORMATION: Exam: XR Complete Acute Abdomen Series Exam date and time: 02/20/2020 8:43 AM Age: 69 years old Clinical indication: Abdominal pain; Additional info: Concern for bowel obstruction TECHNIQUE: Imaging protocol: XR complete acute abdomen series, including 2 or more views of the abdomen and a single view chest. COMPARISON: CR Abdomen,Flat Upright,PA CHEST 01/17/2017 11:45 AM FINDINGS: Lungs: Emphysematous change and mild interstitial prominence. Pleural space: Extrapleural thickening. No dependent pleural effusion. Heart/Mediastinum: Epicardial fat without cardiomegaly. Gastrointestinal tract: Extensive small bowel dilatation and air-fluid levels, in a pattern of small bowel obstruction. Intraperitoneal space: Subcentimeter pelvic calcifications, statistically most likely vascular in etiology. Bones/joints: Degenerative change. Other findings: Partial obscuration of the right apex by the patient's mandible. IMPRESSION: 1. Extensive small bowel dilatation and air-fluid levels, in a pattern of small bowel obstruction. 2. Additional findings as described above. Electronically signed by: Leon Sanchez On 02/20/2020 09:33:04 AM
[2020-02-20 10:19] LABS: ALBUMIN 4.1 GM/DL (3.2-5.2); BILIRUBIN,DIRECT 0.2 MG/DL (0.0-0.2); BILIRUBIN,TOTAL 0.5 MG/DL (0.2-1.0); CALCIUM LEVEL 9.9 MG/DL (8.8-10.2); CREATININE FOR GFR 1.3 MG/DL (0.70-1.30); GLOMERULAR FILTRATION RATE 58.3 (>49); POTASSIUM SERUM 4.4 MEQ/L (3.5-5.1); TOTAL PROTEIN 8.3 GM/DL (6.4-8.2)
--- NOTE | 2020-02-20 12:09 | HPEPDOC ---
[facility] Medical History & Physical Date of Admission Feb 20, 2020 Date of Service: Feb 20, 2020 Attending Physician: ABI CROWELL MD History and Physical CHIEF COMPLAINT: abd pain HISTORY OF PRESENT ILLNESS: This is a 69 yr old M with PMHx DM, Obesity, UC s/p total proctocolectomy w Ileostomy, Chronic ulceration around stoma, recent hospitalization for SBO who presents with Nausea and abd pain after eating dinner last night. Pt notes 7/10 pain around stoma site and lower quad. Denies CP/SOB/palpitations. No vomiting. Pt noted to have SBO in the ER. NG tube place. ED staff spoke with Dr. Hendrickson who recc conservative management and he will see pt in am and determine if he needs CT a/p. PAST MEDICAL HISTORY:as per hpi PAST SURGICAL HISTORY: UC s/p total proctocolectomy w Ileostomy Chronic ulceration around stoma Cataract surgery Infection of mesh w subsequent removal Resection of colon adenocarcinoma Melanoma resection SOCIAL HISTORY: Denies tobacco, alcohol use FAMILY HISTORY: liver dz ALLERGIES: Please see below. REVIEW OF SYSTEMS: HEENT: Denies sore throat/headache CARDIOVASCULAR: Denies chest pain/palpitations RESPIRATORY: Denies shortness of breath/cough GASTROINTESTINAL: + nausea. No vomiting GENITOURINARY: Denies dysuria/urinary urgency. MUSCULOSKELETAL: Denies myalgias/arthralgias NEUROLOGICAL: Denies any focal weakness HOME MEDICATIONS: Please see below. PHYSICAL EXAMINATION: Vitals: (see below) General: No acute distress, laying comfortably in bed. HEENT: Moist mucous membranes. Neck: No JVD or lymphadenopathy Cardiac: RRR, No murmurs Pulm: Clear to auscultation b/l. No wheezing, rhonchi Abd: + BS in upper quad, diminished in lower quad. Obese. Mild TTP around stoma site. No rebound/guarding/rigidity. soft Ext:Chronic skin changes. No cyanosis. distal pulses intact. LABORATORY DATA: See below. IMAGING: MICROBIOLOGY: Please see below. ASSESSMENT/PLAN: 1.Sepsis 2/2 SBO - recent hospitalization last month and resolved with conse rvative management. NPO, IVF, NG to suction w intermittent clamping for oral meds / Zofran, f/u w Dr. Hendrickson. Dr. Hendrickson with re-eval in am before ordered CT. Start Ceftriaxone 1g IV daily, Flagyl 500mg IV q8h. 2. Leukoctytosis likely 2/2 above. Will also check UA/CXR 3 UC s/p total proctocolectomy w Ileosotomy -stoma care 4. DM w neuropathy - SSI, levemir 20 units BID (home med 70-30 insulin 40 units daily and 50units qhs) 5. HTN cont home meds 6.Obesity complicating care DVT Prophy: Hep SQ F/u w PCP for sleep apnea screening /baratric bed Full code. Pt expected to be hospitalized for >2 midnights for the treatment of the above. Vital Signs Vital Signs Date Time Temp Pulse Resp B/P (MAP) Pulse Ox O2 Delivery O2 Flow Rate FiO2 02/20/20 08:19 02/20/20 07:50 97.4 108 18 97 Room Air Laboratory Data Labs 24H Laboratory Tests 2 02/20/20 08:23: Immature Granulocyte % (Auto) 0.8, Neutrophils (%) (Auto) 89.5H, Lymphocytes (%) (Auto) 5.6L, Monocytes (%) (Auto) 3.6, Eosinophils (%) (Auto) 0.3, Basophils (%) (Auto) 0.2, Neutrophils # (Auto) 23.2H, Lymphocytes # (Auto) 1.5, Monocytes # (Auto) 0.9H, Eosinophils # (Auto) 0.1, Basophils # (Auto) 0.1, Nucleated Red Blood Cells % (auto) 0.0, Anion Gap 9, Glomerular Filtration Rate 58.3, Lactic Acid Level 2.3*H, Calcium Level 9.9, Total Bilirubin 0.5, Direct Bilirubin 0.2, Aspartate Amino Transf (AST/SGOT) 24, Alanine Aminotransferase (ALT/SGPT) 57, Alkaline Phosphatase 96, Total Protein 8.3H, Albumin 4.1, Albumin/Globulin Ratio 1.0, Lipase 82 CBC/BMP Laboratory Tests 02/20/20 08:23 Microbiology Microbiology 02/20/20 Blood Culture, Received Pending 02/20/20 Blood Culture, Received Pending Home Medications Scheduled Aspirin (Aspirin EC) 81 Mg Tabec, 81 MG PO DAILY Atorvastatin Calcium (Atorvastatin Calcium) 80 Mg Tab, 80 MG PO DAILY Bupropion HCl (Bupropion HCl Sr) 150 Mg Tab.er.12h, 150 MG PO BID Duloxetine Hcl (Duloxetine HCl) 60 Mg Capsule.dr, 60 MG PO DAILY Furosemide (Lasix) 40 Mg Tab, 80 MG PO DAILY Furosemide (Furosemide) 40 Mg Tab, 40 MG PO QPM TAKES AROUND DINNERTIME Gabapentin (Gabapentin) 600 Mg Tablet, 600 MG PO TID Insulin NPH Hum/Reg Insulin Hm (Novolin 70-30 100 Unit/ml Vial) 1 Inj Inj, 50 UNITS SC QHS Insulin NPH Hum/Reg Insulin Hm (Novolin 70-30 100 Unit/ml Vial) 100 Unit/1 Ml Vial, 40 UNITS SC DAILY Irbesartan (Irbesartan) 300 Mg Tab, 300 MG PO DAILY Metformin HCl (Metformin HCl) 1,000 Mg Tab, 1,000 MG PO BID Metoprolol Succinate (Metoprolol Succinate) 100 Mg Tab.er.24h, 100 MG PO DAILY Potassium Chloride (Potassium Chloride) 10 Meq Tab, 20 MEQ PO BID Repaglinide (Repaglinide) 0.5 Mg Tablet, 0.5 MG PO AC 30 MINUTES BEFORE MEALS Scheduled PRN Tizanidine HCl (Tizanidine HCl) 4 Mg Tablet, 4 MG PO TID PRN for MUSCLE SPASMS Allergies Coded Allergies: bee venom protein (honey bee) (Verified Allergy, Intermediate, 08/31/18) hives A-FIB/CHADSVASC A-FIB History Current/History of A-Fib/PAF?: No ABI CROWELL MD Feb 20, 2020 12:09
[2020-02-20] MEDS ORDERED: NS 500 ML IV ONE (13:00)
[2020-02-20 14:18] VITALS: BP 142/93
[2020-02-20] MEDS: cefTRIAXone SOD 1 GM in D5W MINI-BAG PLUS 50 ML IV SCH (15:40)
[2020-02-20] MEDS: HEPARIN SOD (PORCINE) 5000UNITS/ML 1ML VIAL/SYRINGE SC SCH ×2 (15:41→21:56)
[2020-02-20] MEDS: D5W/0.9% SODIUM CHLORIDE 1,000 ML IV SCH (15:42)
[2020-02-20 16:00] VITALS: BP 171/75
[2020-02-20] MEDS: metroNIDAZOLE 500 MG in IV 1 EA IV SCH ×2 (17:40→21:56)
[2020-02-20 20:00] VITALS: BP 160/82
[2020-02-20] MEDS ORDERED: DEXTROSE 50% 50 ML SYRINGE IV PRN (20:45)
[2020-02-20] MEDS ORDERED: GLUCOSE 4GM CHEW TABLET PO PRN (20:45)
[2020-02-20] MEDS ORDERED: GLUCAGON INJ 1MG VIAL SC PRN (20:45)
[2020-02-20] MEDS ORDERED: IRBESARTAN 150MG TAB PO ONE (21:30)
[2020-02-20] MEDS: HumaLOG INSULIN (NovoLOG) PER UNIT SC SCH (23:18)
[2020-02-21] VITALS: BP 148/62
[2020-02-21 04:00] VITALS: BP 160/60
[2020-02-21 05:29] LABS: MEAN CORPUSCULAR HEMOGLOBIN 30.3 pg (27.0-33.0); MEAN CORPUSCULAR HGB CONC 34.1 g/dl (32.0-36.5); MEAN CORPUSCULAR VOLUME 88.8 fl (80.0-96.0); PLATELET COUNT, AUTOMATED 235 10^3/uL (150-450); RED BLOOD COUNT 4.39 10^6/uL (4.30-6.10); WHITE BLOOD COUNT 8.6 10^3/uL (4.0-10.0)
[2020-02-21] MEDS: HumaLOG INSULIN (NovoLOG) PER UNIT SC SCH ×3 (05:31→18:48)
[2020-02-21] MEDS: metroNIDAZOLE 500 MG in IV 1 EA IV SCH ×3 (05:31→22:00)
[2020-02-21] MEDS: HEPARIN SOD (PORCINE) 5000UNITS/ML 1ML VIAL/SYRINGE SC SCH ×3 (05:31→21:59)
[2020-02-21] MEDS: D5W/0.9% SODIUM CHLORIDE 1,000 ML IV SCH (05:32)
[2020-02-21 05:42] LABS: HEMOGLOBIN 13.3 g/dl (13.5-17.5)
[2020-02-21 05:55] LABS: ALBUMIN 3.2 GM/DL (3.2-5.2); ALT/SGPT 44 U/L (12-78); BILIRUBIN,TOTAL 1.1 MG/DL (0.2-1.0); BLOOD UREA NITROGEN 17 MG/DL (7-18); CALCIUM LEVEL 8.8 MG/DL (8.8-10.2); CARBON DIOXIDE LEVEL 26 MEQ/L (21-32); CHLORIDE LEVEL 104 MEQ/L (98-107); CREATININE FOR GFR 0.98 MG/DL (0.70-1.30); GLOMERULAR FILTRATION RATE > 60.0 (>49); GLUCOSE, FASTING 198 MG/DL (70-100); POTASSIUM SERUM 3.9 MEQ/L (3.5-5.1); SODIUM LEVEL 136 MEQ/L (136-145); TOTAL PROTEIN 6.7 GM/DL (6.4-8.2)
[2020-02-21] MEDS ORDERED: tiZANidine 4 MG TAB PO PRN (07:45)
[2020-02-21 08:00] VITALS: BP 138/72
[2020-02-21] MEDS: cefTRIAXone SOD 1 GM in D5W MINI-BAG PLUS 50 ML IV SCH (09:29)
[2020-02-21] MEDS: buPROPion **SR TABLET** (ZYBAN) 150MG PO SCH ×2 (09:30→21:59)
[2020-02-21] MEDS: IRBESARTAN 150MG TAB PO SCH (09:30)
[2020-02-21] MEDS: ASPIRIN 81 MG ENTERIC TAB PO SCH (09:30)
[2020-02-21] MEDS: DULoxetine 30 MG CAP (CYMBALTA) PO SCH (09:31)
[2020-02-21] MEDS: ATORVASTATIN 20 MG TAB PO SCH (09:31)
[2020-02-21] MEDS: METOPROLOL SUCC (TopROL XL) 100MG *XL* TAB PO SCH (09:31)
[2020-02-21] MEDS: GABAPENTIN 300 MG CAP PO SCH ×3 (09:31→21:59)
[2020-02-21 12:00] VITALS: BP 127/58
--- NOTE | 2020-02-21 13:44 | IPNPDOC ---
Text Note Date of Service The patient was seen on 02/21/20. NOTE Subjective: Pt feels well. Denies N/V. No abd pain. Has ostomy outpt now. PHYSICAL EXAMINATION: Vitals: (see below) General: No acute distress, laying comfortably in bed. HEENT: Moist mucous membranes. Neck: No JVD or lymphadenopathy Cardiac: RRR, No murmurs Pulm: Clear to auscultation b/l. No wheezing, rhonchi Abd: Obese. NT. No rebound/guarding/rigidity. soft Ext:Chronic skin changes. No cyanosis. distal pulses intact. LABORATORY DATA: See below. IMAGING: MICROBIOLOGY: Please see below. ASSESSMENT/PLAN: 1.S/p SBO - recent hospitalization last month and resolved with conservative management.d/c ivf. on Clears per surg. NG tube d/c. intermittent clamping for oral meds / Zofran, f/u w Dr. Hendrickson. Dr. Faye Ceftriaxone / Flagyl . 2. Leukoctytosis likely 2/2 above. Resolved. 3 UC s/p total proctocolectomy w Ileosotomy -stoma care 4. DM w neuropathy - SSI, levemir 20 units BID (home med 70-30 insulin 40 units daily and 50units qhs) 5. HTN cont home meds 6.Obesity complicating care DVT Prophy: Hep SQ F/u w PCP for sleep apnea screening /baratric bed Full code. VS,Fishbone, I+O VS, Fishbone, I+O Laboratory Tests 02/21/20 04:41 Vital Signs Date Time Temp Pulse Resp B/P (MAP) Pulse Ox O2 Delivery O2 Flow Rate FiO2 02/21/20 12:00 97.6 72 18 127/58 (81) 94 Room Air I&O- Last 24 Hours up to 6 AM 02/21/20 06:00 Intake Total 700 ml Output Total 3600 ml Balance -2900 ml ABI CROWELL MD Feb 21, 2020 13:44
[2020-02-21 16:00] VITALS: BP 167/77
[2020-02-21] MEDS: diphenhydrAMINE 25MG CAP PO PRN ×2 (16:33→22:57)
[2020-02-21 20:00] VITALS: BP 158/73
--- NOTE | 2020-02-21 20:51 | ECGEPIP ---
[facility] Test Date: 2020-02-20 Pat Name: MIKEY SOLIZ Department: Room: [place] [address] Gender: Male [employer]: FAUZIA : 1950 Requested By: ABI CROWELL Order Number: [id number] Reading MD: Juliet Robledo Measurements Intervals [place] Rate: 118 P: 53 TX: 156 QRS: -20 QRSD: 86 T: 63 QT: 302 QTc: 423 Interpretive Statements SINUS TACHYCARDIA ABNORMAL RHYTHM ECG SIMILAR TO 11/13/17 BUT FOR FASTER HR Electronically Signed on 02-21-2020 20:51:32 EDT by Juliet Robledo
[2020-02-22] VITALS: BP 152/82
[2020-02-22] MEDS: HumaLOG INSULIN (NovoLOG) PER UNIT SC SCH ×3 (00:20→12:53)
[2020-02-22 04:00] VITALS: BP 146/78
[2020-02-22 05:41] LABS: HEMATOCRIT 39.7 % (42.0-52.0); HEMOGLOBIN 13.1 g/dl (13.5-17.5); MEAN CORPUSCULAR VOLUME 91.1 fl (80.0-96.0); PLATELET COUNT, AUTOMATED 232 10^3/uL (150-450); RED BLOOD COUNT 4.36 10^6/uL (4.30-6.10); WHITE BLOOD COUNT 9.6 10^3/uL (4.0-10.0)
[2020-02-22 06:05] LABS: ALBUMIN 3.3 GM/DL (3.2-5.2); ALT/SGPT 39 U/L (12-78); BILIRUBIN,TOTAL 0.7 MG/DL (0.2-1.0); BLOOD UREA NITROGEN 9 MG/DL (7-18); CALCIUM LEVEL 8.6 MG/DL (8.8-10.2); CARBON DIOXIDE LEVEL 27 MEQ/L (21-32); CHLORIDE LEVEL 102 MEQ/L (98-107); CREATININE FOR GFR 0.92 MG/DL (0.70-1.30); GLOMERULAR FILTRATION RATE > 60.0 (>49); GLUCOSE, FASTING 142 MG/DL (70-100); POTASSIUM SERUM 3.7 MEQ/L (3.5-5.1); SODIUM LEVEL 135 MEQ/L (136-145); TOTAL PROTEIN 6.9 GM/DL (6.4-8.2)
[2020-02-22] MEDS: diphenhydrAMINE 25MG CAP PO PRN (06:27)
[2020-02-22] MEDS: HEPARIN SOD (PORCINE) 5000UNITS/ML 1ML VIAL/SYRINGE SC SCH (06:27)
[2020-02-22] MEDS: metroNIDAZOLE 500 MG in IV 1 EA IV SCH (06:27)
[2020-02-22 08:00] VITALS: BP 125/69
[2020-02-22] MEDS: cefTRIAXone SOD 1 GM in D5W MINI-BAG PLUS 50 ML IV SCH (09:37)
[2020-02-22] MEDS: GABAPENTIN 300 MG CAP PO SCH (09:40)
[2020-02-22] MEDS: DULoxetine 30 MG CAP (CYMBALTA) PO SCH (09:40)
[2020-02-22] MEDS: ATORVASTATIN 20 MG TAB PO SCH (09:40)
[2020-02-22] MEDS: buPROPion **SR TABLET** (ZYBAN) 150MG PO SCH (09:40)
[2020-02-22] MEDS: ASPIRIN 81 MG ENTERIC TAB PO SCH (09:40)
[2020-02-22 09:41] VITALS: BP 125/69
[2020-02-22] MEDS: METOPROLOL SUCC (TopROL XL) 100MG *XL* TAB PO SCH (09:41)
[2020-02-22] MEDS: IRBESARTAN 150MG TAB PO SCH (09:41)
[2020-02-22 12:00] VITALS: BP 146/81
[2020-02-22 16:00] VITALS: BP 137/63
--- NOTE | 2020-02-22 16:58 | DS.PDOC ---
Discharge Summary General Date of Admission Feb 20, 2020 at 11:47 Date of Discharge 02/22/20 Attending Physician: Jyoti Tanner MD Discharge Summary HISTORY OF PRESENT ILLNESS: Patient is a 69 yr old M with PMHx DM, Obesity, UC s/p total proctocolectomy w ileostomy, chronic ulceration around stoma, recent hospitalization for SBO who presented to [facility] with nausea and abd pain after eating dinner. Pt noted 7/10 pain around stoma site and lower quad. Denies CP/SOB/palpitations. No vomiting. Pt noted to have SBO in the ER. NG tube place. ED staff spoke with Dr. Hendrickson who recc conservative management and he will see pt in am and determine if he needs CT a/p. HOSPITAL COURSE: Patient was kept NPO and IVFs. Within 24 hrs patient's stoma was noted to have output, watery. Abdominal pain resolved. His diet was slowly advanced and he tolerated his diet well. On 02/22/20 patient was discharged with follow up with PCP within 1-2 weeks. At discharge patient denied abd pain, n/v/d, fevers, chills, shortness of breath or chest pain. PAST MEDICAL HISTORY: PAST SURGICAL HISTORY: UC s/p total proctocolectomy w Ileostomy Chronic ulceration around stoma Cataract surgery Infection of mesh w subsequent removal Resection of colon adenocarcinoma Melanoma resection SOCIAL HISTORY: Denies tobacco, alcohol use FAMILY HISTORY: liver dz ALLERGIES: Please see below PHYSICAL EXAMINATION: Vitals: (see below) General: No acute distress, laying comfortably in bed. HEENT: Moist mucous membranes. Neck: No JVD or lymphadenopathy Cardiac: RRR, No murmurs Pulm: Clear to auscultation b/l. No wheezing, rhonchi Abd: Obese. NT. No rebound/guarding/rigidity. soft, stoma in right quadrant, pink Ext:Chronic skin changes. No cyanosis. distal pulses intact. LABORATORY DATA: See below. IMAGING: AbdXR: 1. Extensive small bowel dilatation and air-fluid levels, in a pattern of small bowel obstruction. ASSESSMENT/PLAN: 1. SBO, resolved with conservative treatment. Recent hospitalization last month and resolved with conservative management. tolerated diet. F/u with PCP as o/p. 2. Leukoctytosis likely 2/2 above. Resolved. No need for continued abx. 3. UC s/p total proctocolectomy w Ileosotomy. Stoma care. Stable. 4. DM w neuropathy. C/w home medications. 5. HTN. C/w home medications. 6. Obesity. Recommend lifestyle changes, f/u with PCP. DISPOSITION: Discharged today in improved condition. F/u w PCP for sleep apnea screening /baratric bed. TIME SPENT ON DISCHARGE: Greater than 30 minutes. Vital Signs/I&Os Vital Signs Date Time Temp Pulse Resp B/P (MAP) Pulse Ox O2 Delivery O2 Flow Rate FiO2 02/22/20 16:00 96.8 85 20 137/63 (87) 98 Room Air I&O- Last 24 Hours up to 6 AM 02/22/20 06:00 Intake Total 1160 ml Output Total 2300 ml Balance -1140 ml Laboratory Data Labs 24H Laboratory Tests 2 02/21/20 18:30: Bedside Glucose (Misc Panel) 176H 02/21/20 23:37: Bedside Glucose (Misc Panel) 143H 02/22/20 04:53: Nucleated Red Blood Cells % (auto) 0.0, Anion Gap 6L, Glomerular Filtration Rate > 60.0, Calcium Level 8.6L, Total Bilirubin 0.7, Aspartate Amino Transf (AST/SGOT) 18, Alanine Aminotransferase (ALT/SGPT) 39, Alkaline Phosphatase 78, Total Protein 6.9, Albumin 3.3, Albumin/Globulin Ratio 0.9 02/22/20 06:05: Bedside Glucose (Misc Panel) 160H 02/22/20 12:20: Bedside Glucose (Misc Panel) 175H CBC/BMP Laboratory Tests 02/22/20 04:53 FSBS Laboratory Tests Test 02/21/20 18:30 02/21/20 23:37 02/22/20 06:05 02/22/20 12:20 Range/Units Bedside Glucose (Misc Panel) 176 143 160 175 80-115 MG/DL Microbiology Microbiology 02/20/20 Blood Culture - Preliminary, Resulted No Growth after 48 hours. All Specime... 02/20/20 Blood Culture - Preliminary, Resulted No Growth after 48 hours. All Specime... Discharge Medications Scheduled Aspirin (Aspirin EC) 81 Mg Tabec, 81 MG PO DAILY, (Reported) Atorvastatin Calcium (Atorvastatin Calcium) 80 Mg Tab, 80 MG PO DAILY, (Reported) Bupropion HCl (Bupropion HCl Sr) 150 Mg Tab.er.12h, 150 MG PO BID, (Reported) Duloxetine Hcl (Duloxetine HCl) 60 Mg Capsule.dr, 60 MG PO DAILY, (Reported) Furosemide (Lasix) 40 Mg Tab, 80 MG PO DAILY, (Reported) Furosemide (Furosemide) 40 Mg Tab, 40 MG PO QPM, (Reported) TAKES AROUND DINNERTIME Gabapentin (Gabapentin) 600 Mg Tablet, 600 MG PO TID, (Reported) Insulin NPH Hum/Reg Insulin Hm (Novolin 70-30 100 Unit/ml Vial) 1 Inj Inj, 50 UNITS SC QHS, (Reported) Insulin NPH Hum/Reg Insulin Hm (Novolin 70-30 100 Unit/ml Vial) 100 Unit/1 Ml Vial, 40 UNITS SC DAILY, (Reported) Irbesartan (Irbesartan) 300 Mg Tab, 300 MG PO DAILY, (Reported) Metformin HCl (Metformin HCl) 1,000 Mg Tab, 1,000 MG PO BID, (Reported) Metoprolol Succinate (Metoprolol Succinate) 100 Mg Tab.er.24h, 100 MG PO DAILY, (Reported) Potassium Chloride (Potassium Chloride) 10 Meq Tab, 20 MEQ PO BID, (Reported) Repaglinide (Repaglinide) 0.5 Mg Tablet, 0.5 MG PO AC, (Reported) 30 MINUTES BEFORE MEALS Scheduled PRN Tizanidine HCl (Tizanidine HCl) 4 Mg Tablet, 4 MG PO TID PRN for MUSCLE SPASMS, (Reported) Allergies Coded Allergies: bee venom protein (honey bee) (Verified Allergy, Intermediate, 08/31/18) Jyoti Childs MD Feb 22, 2020 16:58
--- NOTE | 2020-02-23 08:30 | CR ---
DATE OF CONSULTATION: 02/20/2020 CHIEF COMPLAINT: Small bowel obstruction. BRIEF HISTORY OF PRESENT ILLNESS: Patient is a 69-year-old male who has had ulcerative colitis in the past with a total proctocolectomy with ileostomy. He has had multiple small bowel obstructions in the past with multiple hernias, also parastomal hernias, presents with acute onset of abdominal pain last night with decreased ostomy output consistent with his multiple episodes that he has had in the past, came to the emergency room with evidence of small bowel obstruction on his x-rays with an elevated white count and a lactic acidosis. Initially he was having quite severe pain but then all of a sudden he noticed that his ostomy output significantly increased just before coming up to the floor. He has had continued output out of his ostomy and has had minimal nasogastric (NG) tube output at this time. PAST MEDICAL HISTORY: Significant for ulcerative colitis status post total proctocolectomy with ileostomy, history of chronic wound problems around his ostomy, history of infected mesh in the past for hernia repairs, history of colon cancer, history of melanoma, history of super morbid obesity, history of diabetes mellitus, history of hypertension, history of depression, history of hypercholesterolemia. MEDICATIONS: Include: - aspirin - atorvastatin - Wellbutrin - duloxetine - Lasix - gabapentin - insulin - irbesartan - metformin - metoprolol - potassium - repaglinide PHYSICAL EXAMINATION: Reveals a morbidly obese male who looks stated age. HEENT: Unremarkable. Neck: Supple without adenopathy. Lungs: Clear anteriorly. Heart: Regular with multiple irregular beats. Abdomen: Softly distended, nontender. No guarding, no rebound, no peritoneal signs are appreciated. His ostomy is functioning fine. He does have a large parastomal hernia as well as midline incisional hernia. IMPRESSION/PLAN: Patient has what appears to be actually a resolving small bowel obstruction given his ostomy output. Thus, at this point I do feel that it is reasonable to be on the conservative side given his elevated white count and his lactic acidosis, but he has no peritoneal signs and his obstruction looks like it is resolving. Thus, I feel that at this time his etiology for his elevated white count, if it stays elevated, is not secondary to his small bowel obstruction since this seems to be resolving. I would recommend, if he has an elevated white count tomorrow, to have a CT scan of the abdomen and pelvis to rule out any other etiology for this. Once again, at this point no operative intervention is needed given that he probably has resolution of his obstruction, but since he has had his nasogastric (NG) tube placed and he has some concerning other laboratory findings, it makes more sense to be conservative and keep the NG tube in overnight. If he has not had significant output then discontinuing the NG tube and progressing his diet is reasonable. I have discussed with him specifically weight loss issues and that he should be evaluated as an outpatient to discuss hernia repair as well as parastomal hernia repair but if he could lose some significant amount of weight that he actually would become much more of a reasonable operative candidate as well as decrease the likelihood of recurrence, etc. Especially with his previous mesh infection associated with operative intervention, I do feel that he is extremely high risk for operative intervention for hernia repair at this time for recurrence/infection issues. He understands and depending on his status, if he is doing well in the morning can progress his diet as tolerated, discharge to home, and followup as an outpatient. CLAY
== END 2020-02-22 18:16 | disposition home or self-care (01) | DRG 389 ==
LOC: M ED 07:41 → M ED INP 11:47 → ENRESERV 13:04 → M PCU 14:30
PROVIDERS: ADMIT Internal Medicine; ATTEND Internal Medicine
DX: K56.609 Unspecified intestinal obstruction, unspecified as to partial versus complete obstruction (principal); Z68.43 Body mass index [BMI] 50.0-59.9, adult; K51.90 Ulcerative colitis, unspecified, without complications; K94.19 Other complications of enterostomy; E66.01 Morbid (severe) obesity due to excess calories; I10 Essential (primary) hypertension; E11.40 Type 2 diabetes mellitus with diabetic neuropathy, unspecified; D72.829 Elevated white blood cell count, unspecified; Z85.038 Personal history of other malignant neoplasm of large intestine; Z79.899 Other long term (current) drug therapy; Z79.82 Long term (current) use of aspirin; Z79.4 Long term (current) use of insulin; F32.9 Major depressive disorder, single episode, unspecified; E78.00 Pure hypercholesterolemia, unspecified

== ENCOUNTER → 2020-02-24 | Outpatient (CLI) | payer MEDICARE | LOC: M LABSMTC 11:49 | PROVIDERS: ATTEND Anesthesiology | DX: Z20.828 Contact with and (suspected) exposure to other viral communicable diseases (principal) | CPT/HCPCS: C9803; U0003 ==

== ENCOUNTER → 2020-02-29 | Outpatient (CLI) | payer MEDICARE ==
[~2020-02-29] MED LIST changes: +BUPIVACAINE HCL 0.25% 10ML VIAL As Ordered ONE; +BUPIVACAINE HCL 0.25% 30ML VIAL As Ordered ONE; +TRIAMCINOLONE ACETONIDE SUSP 40 MG/ML VIAL (J3301) As Ordered ONE; +oxyCODONE 5MG TAB As Ordered ONE
--- NOTE | 2020-03-01 11:29 | ECWPNPC ---
PATIENT NAME: MIKEY SOLIZ : 1950 GENDER: MALE VISIT DATE: 02/29/2020 DISCHARGE DATE: 02/29/20 1330 VISIT LOCKED DATE TIME: PHYSICIAN: DONI DUMONT MD PHYSICIAN PAGER NO: ACTIVE RESOURCE: DONI DUMONT MD REASON FOR APPOINTMENT 1. GEOFF LOW BACK TPI HISTORY OF PRESENT ILLNESS PAIN CENTER INTAKE QUESTIONS: DO YOU HAVE A HISTORY OF MRSA? :NO DO YOU TAKE A BLOOD THINNERS? :NO DO YOU HAVE ANY BLEEDING DISORDERS? :NO ANY NEW NUMBNESS OR WEAKNESS IN YOUR LEGS OR ARMS? :YES BILAT LEG WEAKNESS IN PAST 2 MONTHS ANY PACEMAKER,DEFIBRILLATOR, OR DORSAL COLUMN STIMULATOR? :NO DO YOU HAVE ANY RASHES OR OPEN SORES? :YES SORES ALL OVER BODY STARTED WHILE HOSPITALIZED 01/2020 @ [facility], SORES ARE MOSTLY HEALED ALSO RASHES AROUND ELBOWS, PT SUSPECTS RELATED TO TAPE FROM IV'S WHILE HOSPITALIZED. ARE YOU ALLERGIC TO IV DYE? :NO ARE YOU DIABETIC? :YES INSULIN, METFORMIN, ANY NEW PROBLEMS WITH YOUR MEDICATIONS? :YES PT WAS TAKING HYDROCODONE AND WAS DIZZY AND FELL FREQUENTLY, MED WAS CHANGED TO PERCOSET AND S/S WERE RESOLVED. HAVE YOU RECEIVED A VACCINE IN THE PAST 30 DAYS? :NO DO YOU PLAN TO RECEIVE A VACCINE IN THE NEXT 21 DAYS? :NO DO YOU TAKE ANY IMMUNOSUPPRESSIVE MEDICATIONS? :NO ANY HISTORY OF SEIZURES? :NO ANY HISTORY OF CARDIAC ISSUES OR EVENTS? :NO DO YOU HAVE SLEEP APNEA? :NO ANY RECENT HEAD INJURY? :NO DO YOU HAVE ANY NEW INFECTIONS? :NO IS THERE A CHANCE YOU COULD BE ? :NO ARE YOU BREAST FEEDING? :NO WHEN DID YOU LAST EAT? : 02/28/20 MEATLOAF SANDWICH WHEN DID YOU LAST DRINK? : 02/29/20 0900 WHAT DID YOU LAST DRINK? : SIPS OF WATER NAME OF PERSON DRIVING YOU HOME? : -KISHOR LONG DO YOU HAVE ANY OTHER QUESTIONS OR CONCERNS? : NO GENERAL: -. FALL RISK SCREENING: SCREENING :TWO OR MORE FALLS WITHOUT INJURY IN THE PAST YEAR MOST RECENTLY 01/2020, PATIENT WAS INPATIENT AND "I JUST WENT DOWN." PAIN SCREENING: PATIENT HAS A COMPLAINT OF ACUTE OR CHRONIC PAIN :YES LOCATION OF PAIN: LOW BACK, MID BACK, UPPER BACK INTENSITY OF PAIN (SCALE OF 1 TO 10):8 WHAT DOES YOUR PAIN FEEL LIKE:ACHING, THROBBING DURATION:STEADY PAIN IS INCREASED BY:ACTIVITIES, PROLONGED STANDING PLAN/GOALS/TREATMENT/INTERVENTION/FOLLOW UP:SEE PLAN NURSING NOTE: DR. DUMONT AWARE OF RASH THAT PATIENT REPORTS STARTING DURING HOSPITALIZATION IN 02/05 FOR BOWEL OBSTRUCTION. PATIENT REPORTS RASH HAS GREATLY IMPROVED. PATIENT REPORTS USING ANTI-FUNGAL CREAM PERIODICALLY BUT HASN'T NEEDED IT RECENTLY. DR. DUMONT AGREES TO PROCEED WITH PROCEDURE AND WILL AVOID AREAS WHERE RASH IS STILL FOUND. CURRENT MEDICATIONS TAKING ALCOHOL SWABS 70 % PAD SWAB SKIN PRIOR TO FINGERSTICK BEFORE MEALS AND BEDTIME. DX: Z79.4, NOTES: 02/29/20429 TAKING ALLKARE ADHESIVE REMOVER WIPES . PACKET DX CODE 154.1 TOPICALLY USE DIRECTED TAKING ALLKARE PROTECT BARRIER WIPES . MISCELLANEOUS DX CODE 154.21 TOPICALLY USE DIRECTED TAKING ASPIRIN 81 MG TABLET CHEWABLE 1 TABLET ORALLY ONCE A DAY, NOTES: 02/28/20 1000 TAKING BLOOD GLUCOSE TEST ONETOUCH ULTRA BLUE STRIP USE DIRECTED TWO TIMES A DAY , NOTES: 02/29/20429 TAKING BUPROPION HCL ER (SR) 150 MG TABLET EXTENDED RELEASE 12 HOUR 1 TABLET IN THE MORNING ORALLY BID, NOTES: 02/28/201899 TAKING CICLOPIROX OLAMINE 0.77 % CREAM 1 APPLICATION EXTERNALLY TWICE A DAY TO AREAS ON BODY WITH RASH, NOTES: NOT RECENTLY TAKING DULOXETINE HCL 60 MG CAPSULE DELAYED RELEASE PARTICLES 1 CAPSULE ORALLY DAILY TAKING TEOFILO COHESIVE SEALS . MISCELLANEOUS DX CODE 154.1 TOPICALLY DIRECTED TAKING FUROSEMIDE 40 MG TABLET 1 TABLETS ORALLY 2 TABS IN AM, 1 TAB IN PM, NOTES: 02/28/201899 TAKING GABAPENTIN 600 MG TABLET 1 CAPSULE ORALLY THREE TIMES A DAY, NOTES: 02/28/201899 TAKING IRBESARTAN 300 MG TABLET 1 TABLET ORALLY ONCE A DAY, NOTES: 02/29/20429 TAKING KETOCONAZOLE 2 % CREAM 1 APPLICATION EXTERNALLY ONCE A DAY TO HEAD AND NECK, NOTES: NOT RECENTLY TAKING LANCETS FOR ONE TOUCH ULTRA MINI TAKE 1 STRIP TOP TWICE A DAY NEEDED DX E11.9, NOTES: 02/29/20429 TAKING LIPITOR 80 MG TABLET TAKE ONE TABLET BY MOUTH EVERY DAY ORALLY ONCE A DAY, NOTES: 02/28/20 1000 TAKING MAY HAVE . 1 CONVATEC POUCH REFER 192228/ DX CODE 154.1 CHANGE NEEDED TAKING MAY HAVE - - LIFT CHAIR TO AIDE IN MOBILITY SIT-STAND CHAIR DAILY NEEDED FOR IMPAIRED MOBILITY AND MORBID OBESITY. DX: E66.01, Z74.09 TAKING MAY USE . 1 [facility] REF NUM [id number] DX CODE 154.1 CHANGE DIRECTED TAKING METFORMIN HCL 1000 MG TAB TAKE ONE TABLET BY MOUTH TWICE A DAY WITH MEALS ORALLY TWICE A DAY, NOTES: 02/28/201899 TAKING METOPROLOL SUCCINATE ER 100 MG TABLET EXTENDED RELEASE 24 HOUR 1 TABLET ORALLY ONCE A DAY, NOTES: 02/28/202199 TAKING NOVOLIN 70/30 (70-30) 100 UNIT/ML SUSPENSION 40 UNITS IN THE AM, 50 UNITS IN THE PM SUBCUTANEOUS TWICE A DAY, NOTES: 02/28/201899 TAKING POTASSIUM CHLORIDE ER 10 MEQ TABLET EXTENDED RELEASE 2 TABLET WITH FOOD ORALLY TWICE A DAY, NOTES: 02/28/201899 TAKING REPAGLINIDE 0.5 MG TABLET 1 TABLET 15 TO 30 MINUTES BEFORE MEALS ORALLY THREE TIMES DAILY AT MEALS ONLY, NOTES: 02/28/201829 TAKING STOMAHESIVE PASTE . PASTE DX CODE 154.21 TOPICALLY DIRECTED TAKING TIZANIDINE HCL 4 MG TABLET 1 TABLET NEEDED ORALLY THREE TIMES A DAY, NOTES: 02/28/201899 TAKING PERCOCET 5-325 MG TABLET 1-2 TABLET NEEDED ORALLY EVERY 4 HOURS NEEDED, NOTES: 02/26/20 NOT-TAKING HYDROCODONE-ACETAMINOPHEN 5-325 MG TABLET 1 TABLET NEEDED ORALLY THREE TIMES DAILY NEEDED FOR SEVERE PAIN.MDD 3, NOTES: PRN NOT-TAKING BLOOD GLUCOSE TEST - STRIP DIRECTED IN VITRO 2 TIMES DAILY. Z79.4, NOTES: PRN NOT-TAKING KETOCONAZOLE 2 % CREAM 1 APPLICATION EXTERNALLY ONCE A DAY MEDICATION LIST REVIEWED AND RECONCILED WITH THE PATIENT PAST MEDICAL HISTORY TYPE 2 DM WITH PN ULCERATIVE COLITIS DEPRESSION CHRONIC LBP OBESITY DEGENERATIVE DISC DISEASE ERYTHEMA NODOSUM LE EDEMA MALIGNANT MELANOMA LEFT FOREARM 11/26-- SEES DERM Q [address] PRAAKSH CHRONIC VENOUS STASIS DERMATITIS AND ULCES OF RIGHT LE HIGH GRADE ADENOCARCINOMA SIGMOID/RECTAL 05/01; CEA 0.5 01/31, 05/02 HTN; NM STRESS TEST 03/2017 PERISTOMAL HERNIA ALLERGIES BEE STINGS/ YELLOW JACKET: HIVES/SWELLING - ALLERGY - ONSET DATE 12/01/2018 HYDROCODONE-ACETAMINOPHEN: DIZZINESS - SIDE EFFECTS - ONSET DATE 11/17/2019 SURGICAL HISTORY BROKEN NOSE REPAIR NO PERSONAL OR FHX OF SEVERE REACTION TO ANESTHESIA APPENDECTOMY BOWEL REPAIR D/T STRANGULATED HERNIA 09/2009 COLONOSCOPIES 2003,2007,2008 ROBOTIC-ASISTED TOTAL PROCTOCOLECTOMY WITH ILEOSTOMY FOR U/C AND HIGH GRADE ADENOCARCINOMA; FOCAL VASCULAR SPACE INVASION ON PATH BUT ALL LYMPH NODES (23 PERIRECTAL AND 53 COLONIC) NEG FOR TUMOR 06/2014 CATARACT REMOVED FROM RIGHT EYE 04/2016 CATARACT REMOVED LEFT EYE 05/03/16 LAPAROSCOPTIC AND OPEN REPAIR OF INCARCERATED PARASTOMAL HERNIA WITH SMALL BOWEL OBSTRUCTION 10/2017 LAPRASCOPTIC AND PARTIAL OPEN REPAIR OF INCRACERATED RECURRENT VENTRAL INCISIONAL HERNIA WITH MESH 10/2017 LESION REMOVED FROM LEFT FOREARM- MELANOMA 2009 FAMILY HISTORY FATHER: 84 YRS, LIVER FAILURE, MRSA MOTHER: 87 YRS, NIDDM, DIAGNOSED WITH DIABETES SIBLINGS: ALIVE 61 YRS, BROTHER DM, SISTER COLON CA AGE 61, DIABETES, OTHER MALIGNANT NEOPLASM OF UNSPECIFIED SITE 1 BROTHER(S) , 4 SISTER(S) . 1 SON(S) , 3 DAUGHTER(S) . BROTHER DIABETIC TYPE 2 AND COPD\\NSISTER DIABETIC AND CANCER- IN [place] FATHER HAD COLON CANCER AND CHRONIC LYMPHATIC LEUKEMIA SISTER PASSED DUE TO COLON CANCER DENIES FAMILY HX OF MELANOMA. SOCIAL HISTORY GENERAL: TOBACCO USE ARE YOU A:FORMER SMOKER HOW LONG HAS IT BEEN SINCE YOU LAST SMOKED?> 10 YEARS LATEX QUESTIONNAIRE LATEX ALLERGY : HAVE YOU EVER DEVELOPED ANY TYPE OF REACTION AFTER HANDLING LATEX PRODUCTS SUCH RUBBER GLOVES, CONDOMS, DIAPHRAGMS, BALLOONS, SOCKS, OR UNDERWEAR?NO LATEX ALLERGY : HAVE YOU EVER DEVELOPED ANY TYPE OF REACTION DURING OR AFTER DENTAL APPOINTMENT, VAGINAL/RECTAL EXAMINATION, SURGICAL PROCEDURE, OR ANY OTHER EXPOSURE?NO LATEX RISK : HAVE YOU EVER HAD ANY DIFFICULTY BREATHING OR HIVES AFTER EATING OR HANDLING ANY FRUITS, OR VEGETABLES; SUCH KIWI, BANANAS, STONE FRUITS, OR CHESTNUTSNO LATEX RISK : DO YOU HAVE A PREVIOUS PERSONAL HISTORY OF MORE THAN NINE SURGERIES, SPINA BIFIDA, OR REPEATED CATHERIZATIONS? NO LATEX RISK : ARE YOU FREQUENTLY EXPOSED TO LATEX PRODUCTS IN YOUR OCCUPATION?NO DATE ASKED : 07/02/2019 BMI CARE GOAL FOLLOW-UP ABOVE NORMAL BMI FOLLOW-UPLIFESTYLE EDUCATION REGARDING DIET ALCOHOL SCREENING DID YOU HAVE A DRINK CONTAINING ALCOHOL IN THE PAST YEAR?NO POINTS0 INTERPRETATIONNEGATIVE RECREATIONAL DRUG USE DRUG USE?NO CAFFEINE CAFFEINE USE? TEA >5 SEXUAL HX HAD SEX IN THE LAST 12 MONTHS (VAGINAL, ORAL, OR ANAL)?NO HAVE YOU EVER HAD AN STD?NO HIV / HEP-C SCREENING HIV TEST OFFERED TO PATIENT:YES DATE OFFERED:07/02/2016 TEST ACCEPTED:NO HEP-C TEST OFFERED TO PATIENT:YES DATE OFFERED:07/02/2016 REASON:PATIENT DECLINED TEST ACCEPTED:NO REASON:PATIENT DECLINED LATTER DAY [id number] NONE LANGUAGE LANGUAGES SPOKEN:ISRAELI EDUCATION LEVEL OF EDUCATION:COLLEGE LEARNING BARRIERS / SPECIAL NEEDS CHANGE FROM LAST VISIT?NO 12/04/18 BARRIERS TO LEARNING?NO HEARING IMPAIRED?NO VISION IMPAIRED?YES COGNITIVELY IMPAIRED?NO :CORRECTIVE LENSES READINESS TO LEARN?YES LEARNING PREFERENCES?NO LEARNING CAPABILITIES PRESENT?YES EMOTIONAL BARRIERS?NO SPECIAL DEVICES?YES :CANE ADVERTISING REP NEEDED?NO DOMESTIC VIOLENCE DO YOU FEEL SAFE IN YOUR ENVIRONMENT?YES OCCUPATION: DISABLED. DIET: REGULAR. EXERCISE: NO REGULAR EXERCISE. MARITAL STATUS: .. OTHERS AT HOME: CHILDREN, GRANDCHILDREN. PAIN CLINIC PFS, CLERGY, PUBLIC HEALTH REFERRALS PFS REFERRAL NEEDED?NO CLERGY REFERRAL NEEDED?NO PUBLIC HEALTH REFERRAL NEEDED?NO WAS THE PROVIDER NOTIFIED OF ANY PERTINENT INFO?YES HAS THE PATIENT BEEN EDUCATED REGARDING HIS/HER PLAN OF CARE?YES HAS THE PATIENT BEEN EDUCATED REGARDING PAIN, THE RISK FOR PAIN, THE IMPORTANCE OF EFFECTIVE PAIN MANAGEMENT, AND THE PAIN ASSESSMENT PROCESS?YES HOUSING: OWNS HOME. ADVANCE DIRECTIVE ADVANCE DIRECTIVE DISCUSSED WITH PATIENT:YES PATIENT STATES HE DOES NOT HAVE ANY ADVANCED DIRECTIVES, DECLINED INFORMATION OR ASSISTANCE AT THIS TIME 02/29/20 HOSPITALIZATION/MAJOR DIAGNOSTIC PROCEDURE SURGERY RELATED BOWEL OBSTRUCTION JULY 2015 BILATERAL LOWER LEG CELLULITIS 2013 BOWEL OBSTRUCTION 01/17/17 BOWEL OBSTRUCTION 10/2017 3 DAY STAY FOR BROKEN FINGER WHEN A CHILD BOWEL OBSTRUCTION 01/2020 BOWEL OBSTRUCTION 02/2020 VITAL SIGNS WT 367.4 LBS, HT 69 IN, BMI 54.25 INDEX, BP 140/64 MM HG, HR 90 /MIN, RR 18 /MIN, TEMP 96.6 F, OXYGEN SAT % 98%, BLOOD GLUCOSE LEVEL 111 THIS AM PER PT, SAFE IN ENV? (Y/N) YES, NA INITIALS AW 1108, REVIEWED BY: MT. EMANUEL MYALGIA, OTHER SITE - M79.18 (PRIMARY) TREATMENT MYALGIA, OTHER SITE MEDICATION: OXYCODONE HCL TAB 5MG ORALLY SOSA SÁNCHEZ RN 02/29/2020 11:40:32 AM > LOT [id number] EXP 06/2021 SOSA SÁNCHEZ RN 02/29/2020 11:41:29 AM > VERIFIED KALPESH PINEDA 02/29/2020 12:03:49 PM > ADMINISTERED AT THIS TIME. OTHERS CLINICAL NOTES: 02/25/20 @ 1420 FANNY WHELAN BUSINESS EXECUTIVE. PROCEDURES PAIN NURSING RECORD PRE-PROCEDURE IV SITE N/A, PRE-PROCEDURE ORAL MEDICATIONS OXYCODONE 5MG PROCEDURE IN ROOM 1100 UPON ARRIVAL, PHYSICIAN IN ROOM 1310 DELAY DUE TO ANOTHER PROCEDURE., START 1313, FINISH 1315, PHYSICIAN OUT OF ROOM 1317, OUT OF ROOM 1330, STEROID KENALOG, O2 N/A, ECG N/A, PATIENT SHIELDED NO, SAFETY STRAP NO, PREP ALCOHOL BY DR. DUMONT, IV INFUSED N/A, DRESSING TEGADERM BY Jose Alfredo PINEDA RN LOC: KALPESH PINEDA 02/29/2020 11:43:21 AM > , 1. ALERT, ORIENTED RESP: KALPESH PINEDA 02/29/2020 11:43:25 AM > , 1. REGULAR, NO DYSPNEA COLOR: KALPESH PINEDA 02/29/2020 11:43:29 AM > , 1. PINK SKIN: KALPESH PINEDA 02/29/2020 11:43:40 AM > , 1. WARM, DRY POSITION: KALPESH PINEDA 02/29/2020 11:43:44 AM > , 1. PRONE VITALS: KALPESH PINEDA 02/29/2020 13:22 PM > 171/92, 105, 16, 94% RA POST PROCEDURE. DISCHARGE: POST PAIN 09/25, DRESSING SITE DRY AND INTACT, IV N/A, GAIT OTHER 2 WHEEL WALKER AT BASELINE FOR "DISTANCES", TEACHING COMPLETED, PATIENT ACKNOWLEDGES UNDERSTANDING YES, PATIENT DISCHARGED AT 1330 PN TRIGGER POINT INJECTION WITH STEROIDS PRE PROCEDURE DIAGNOSIS 1. MYALGIA 2. PAIN AT BILATERAL LOWER BACK AREA POST PROCEDURE DIAGNOSIS 1. MYALGIA 2. PAIN AT BILATERAL LOWER BACK AREA PROCEDURE TRIGGER POINT INJECTION AT BILATERAL LOWER BACK AREA SURGEON DR. DONI DUMONT MAIL MESSENGER NONE ANESTHESIA LOCAL PRE PROCEDURE NOTE THE PATIENT HAS A HISTORY OF CHRONIC PAIN AT THE RIGHT AND LEFT LOWER BACK AREA. I EVALUATED THE PATIENT AND REVIEWED THE CHART. THE PATIENT HAS A RASH OVER HIS BACK. IT HAS BEEN GETTING BETTER WITH AN ANTI FUNGAL CREAM THAT HE HAS BEEN APPLYING TWICE A DAY. THE PATIENT WAS INFORMED TO FOLLOW UP WITH HIS PRIMARY CARE ABOUT THIS. THERE IS EVIDENCE OF BANDS OF TISSUE WITH RESTRICTION OF MOVEMENT AND PRESENCE OF TRIGGER POINT AT THE RIGHT AND LEFT LOWER BACK AREA. I WENT OVER THE RISKS, ALTERNATIVES, AND BENEFITS ASSOCIATED WITH THIS PROCEDURE. I DISCUSSED THAT THE USE OF STEROIDS MAY CONTRIBUTE TO IMMUNOSUPPRESSION OF THE PATIENT'S BODY AGAINST INFECTIONS SUCH COVID-19. THE PATIENT IS AWARE OF THE POTENTIAL COMPLICATIONS ASSOCIATED WITH THIS VIRUS, INCLUDING, BUT NOT LIMITED TO, . THE PATIENT WOULD LIKE TO PROCEED AND GIVE CONSENT TO PERFORMED THE PROCEDURE. THE PATIENT DENIES UNEXPLAINABLE WEIGHT LOSS, FEVER, CHILLS, OR NEW CHANGES IN URINARY OR BOWEL CONTROL. THE PATIENT IS COVID-19 NEGATIVE DESCRIPTION OF PROCEDURE THE PATIENT WAS BROUGHT TO THE PROCEDURE ROOM AND PLACED IN THE SITTING POSITION. THE AREA WAS CLEANED WITH ALCOHOL. THE PROCEDURE WAS DONE USING ASEPTIC STERILE TECHNIQUE. A TIMEOUT WAS PERFORMED WHERE LATERALITY AND THE SITE OF THE PROCEDURE WERE CHECKED AND CONFIRMED WITH EVERYONE IN THE ROOM. USING A 25-GAUGE NEEDLE, TRIGGER POINTS WERE INJECTED AT THE RIGHT AND LEFT LOWER BACK AREA WITH A TOTAL OF 40 ML OF BUPIVACAINE 0.25% AND KENALOG 40 MG. THE MEDICATIONS WERE VERIFIED WITH THE NURSE. THERE WAS NO EVIDENCE OF BLOOD OR PARESTHESIA DURING THE PROCEDURE. THE PATIENT WAS SENT TO THE RECOVERY ROOM. THE PATIENT WAS MOVING THE EXTREMITIES AND DOING WELL. THERE WERE NO COMPLICATIONS DURING THE PROCEDURE. ESTIMATED BLOOD LOSS WAS LESS THAN 5 ML POST PROCEDURE NOTE DEPENDING ON THE RESULTS, WE SHOULD CONSIDER WORKING WITH HIS FACETS. THE PROCEDURE DONE WAS DISCUSSED WITH THE PATIENT. THE PATIENT WILL BE SEEN IN A FOLLOW UP IN THE NEXT FEW WEEKS. I AM LOOKING FOR LONG LASTING PAIN RELIEF FOR THE PATIENT WITH THIS INTERVENTION. INSTRUCTIONS WERE GIVEN, QUESTIONS WERE ANSWERED, AND THE PATIENT EXPRESSED UNDERSTANDING AND AGREES WITH THE PLAN. I, JOSÉ العلي, DOCUMENTED THE ABOVE INFORMATION ACTING A SCRIBE FOR DR. DUMONT. I HAVE REVIEWED THE ABOVE DOCUMENT, WRITTEN BY JOSÉ العلي, APPLICATIONS CHEMIST, AND I VERIFY THAT IT IS ACCURATE PROCEDURE CODES 74730 INJ TRIGGER POINT 05/20 MUSCL DISPOSITION & COMMUNICATION FOLLOW UP FOLLOW UP WITH FAST FOOD ASSISTANT RESTAURANT MANAGER (REASON: POST TPI BILATERAL LOWER BACK) ELECTRONICALLY SIGNED BY DONI DUMONT MD, MD ON 03/01/2020 AT 10:14 AM EDT DISCLAIMER : THIS IS A VISIT SUMMARY EXTRACTED FROM THE [employer] CHART. IT IS NOT A COPY OF THE [employer] PROGRESS NOTE. CLAY
== END ==
LOC: M PAIN 11:00
PROVIDERS: ATTEND Anesthesiology
DX: M79.18 Myalgia, other site (principal); E11.40 Type 2 diabetes mellitus with diabetic neuropathy, unspecified; Z86.59 Personal history of other mental and behavioral disorders; Z87.891 Personal history of nicotine dependence; Z88.5 Allergy status to narcotic agent; Z91.030 Bee allergy status; E66.01 Morbid (severe) obesity due to excess calories; Z68.43 Body mass index [BMI] 50.0-59.9, adult; Z79.4 Long term (current) use of insulin; Z79.82 Long term (current) use of aspirin; Z79.899 Other long term (current) drug therapy
CPT/HCPCS: 20552; J3301

== ENCOUNTER → 2020-03-15 | Outpatient (CLI) | payer MEDICARE ==
[~2020-03-15] MED LIST changes: -BUPIVACAINE HCL 0.25% 10ML VIAL As Ordered ONE; -BUPIVACAINE HCL 0.25% 30ML VIAL As Ordered ONE; -TRIAMCINOLONE ACETONIDE SUSP 40 MG/ML VIAL (J3301) As Ordered ONE; -oxyCODONE 5MG TAB As Ordered ONE
--- NOTE | 2020-03-17 02:06 | ECWPNPC ---
PATIENT NAME: MIKEY SOLIZ : 1950 GENDER: MALE VISIT DATE: 03/15/2020 DISCHARGE DATE: 03/15/20 1204 VISIT LOCKED DATE TIME: PHYSICIAN: NOAH ELENA PHYSICIAN PAGER NO: ACTIVE RESOURCE: NOAH ELENA REASON FOR APPOINTMENT 1. GEOFF THORACIC /LOW BACK TPI HISTORY OF PRESENT ILLNESS PAIN CENTER INTAKE QUESTIONS: 69-YEAR-OLD MALE IN FOR POST TPI FOLLOW-UP. HE FEELS THE PROCEDURE WAS SUCCESSFUL OVERALL RATING HIS PAIN PREPROCEDURE AT AN 8 OUT OF 10 AND POSTPROCEDURE AT A 4-6 OUT OF 10. HE FURTHER STATES PROCEDURE CONTINUES TO HELP HIM TODAY. GENERAL: -. FALL RISK SCREENING: SCREENING :TWO OR MORE FALLS WITHOUT INJURY IN THE PAST YEAR PAIN SCREENING: PATIENT HAS A COMPLAINT OF ACUTE OR CHRONIC PAIN :YES LOCATION OF PAIN:LOW BACK WHAT DOES YOUR PAIN FEEL LIKE:INTERMITTENT, BURNING PAIN IS DECREASED BY:USE OF PAIN MEDICATIONS NURSING NOTE: -. CURRENT MEDICATIONS TAKING ALCOHOL SWABS 70 % PAD SWAB SKIN PRIOR TO FINGERSTICK BEFORE MEALS AND BEDTIME. DX: Z79.4 TAKING [employer] ADHESIVE REMOVER WIPES . PACKET DX CODE 154.1 TOPICALLY USE DIRECTED TAKING [employer] PROTECT BARRIER WIPES . MISCELLANEOUS DX CODE 154.21 TOPICALLY USE DIRECTED TAKING ASPIRIN 81 MG TABLET CHEWABLE 1 TABLET ORALLY ONCE A DAY TAKING BLOOD GLUCOSE TEST ONETOUCH ULTRA BLUE STRIP USE DIRECTED TWO TIMES A DAY TAKING BUPROPION HCL ER (SR) 150 MG TABLET EXTENDED RELEASE 12 HOUR 1 TABLET IN THE MORNING ORALLY BID TAKING DULOXETINE HCL 60 MG CAPSULE DELAYED RELEASE PARTICLES 1 CAPSULE ORALLY DAILY TAKING TEOFILO COHESIVE SEALS . MISCELLANEOUS DX CODE 154.1 TOPICALLY DIRECTED TAKING FUROSEMIDE 40 MG TABLET 1 TABLETS ORALLY 2 TABS IN AM, 1 TAB IN PM TAKING GABAPENTIN 600 MG TABLET 1 CAPSULE ORALLY THREE TIMES A DAY TAKING IRBESARTAN 300 MG TABLET 1 TABLET ORALLY ONCE A DAY TAKING KETOCONAZOLE 2 % CREAM 1 APPLICATION EXTERNALLY ONCE A DAY TO HEAD AND NECK, NOTES: NOT RECENTLY TAKING LANCETS FOR ONE TOUCH ULTRA MINI TAKE 1 STRIP TOP TWICE A DAY NEEDED DX E11.9, NOTES: 02/29/20 0430 TAKING MAY HAVE . 1 [facility] POUCH REFER [id number]/ DX CODE 154.1 CHANGE NEEDED TAKING MAY HAVE - - LIFT CHAIR TO AIDE IN MOBILITY SIT-STAND CHAIR DAILY NEEDED FOR IMPAIRED MOBILITY AND MORBID OBESITY. DX: E66.01, Z74.09 TAKING MAY USE . 1 [facility] REF NUM [id number] DX CODE 154.1 CHANGE DIRECTED TAKING METFORMIN HCL 1000 MG TAB TAKE ONE TABLET BY MOUTH TWICE A DAY WITH MEALS ORALLY TWICE A DAY, NOTES: 02/28/201899 TAKING METOPROLOL SUCCINATE ER 100 MG TABLET EXTENDED RELEASE 24 HOUR 1 TABLET ORALLY ONCE A DAY TAKING NOVOLIN 70/30 (70-30) 100 UNIT/ML SUSPENSION 40 UNITS IN THE AM, 50 UNITS IN THE PM SUBCUTANEOUS TWICE A DAY TAKING POTASSIUM CHLORIDE ER 10 MEQ TABLET EXTENDED RELEASE 2 TABLET WITH FOOD ORALLY TWICE A DAY TAKING REPAGLINIDE 0.5 MG TABLET 1 TABLET 15 TO 30 MINUTES BEFORE MEALS ORALLY THREE TIMES DAILY AT MEALS ONLY TAKING STOMAHESIVE PASTE . PASTE DX CODE 154.21 TOPICALLY DIRECTED TAKING TIZANIDINE HCL 4 MG TABLET 1 TABLET NEEDED ORALLY THREE TIMES A DAY, NOTES: 02/28/201899 TAKING PERCOCET 5-325 MG TABLET 1-2 TABLET NEEDED ORALLY EVERY 4 HOURS NEEDED TAKING CICLOPIROX OLAMINE 0.77 % CREAM 1 APPLICATION EXTERNALLY TWICE A DAY TO BACK TAKING LIPITOR 80 MG TABLET 1 TABLET ORALLY ONCE A DAY NOT-TAKING CICLOPIROX OLAMINE 0.77 % CREAM 1 APPLICATION EXTERNALLY TWICE A DAY TO AREAS ON BODY WITH RASH NOT-TAKING HYDROCODONE-ACETAMINOPHEN 5-325 MG TABLET 1 TABLET NEEDED ORALLY THREE TIMES DAILY NEEDED FOR SEVERE PAIN.MDD 3, NOTES: PRN NOT-TAKING BLOOD GLUCOSE TEST - STRIP DIRECTED IN VITRO 2 TIMES DAILY. Z79.4, NOTES: PRN NOT-TAKING KETOCONAZOLE 2 % CREAM 1 APPLICATION EXTERNALLY ONCE A DAY MEDICATION LIST REVIEWED AND RECONCILED WITH THE PATIENT PAST MEDICAL HISTORY TYPE 2 DM WITH PERIPHERAL NEUROPATHY HTN; NM STRESS TEST 03/2017 ULCERATIVE COLITIS HIGH GRADE ADENOCARCINOMA SIGMOID/RECTAL 05/01; CEA 0.5 01/31, 05/02 S/P COLECTOMY WITH COLOSTOMY PERISTOMAL HERNIA HX MALIGNANT MELANOMA LEFT FOREARM 11/26 - FOLLOWS WITH DERM ERYTHEMA NODOSUM DEPRESSION OBESITY DEGENERATIVE DISC DISEASE, CHRONIC LOW BACK PAIN CHRONIC VENOUS STASIS DERMATITIS ALLERGIES BEE STINGS/ YELLOW JACKET: HIVES/SWELLING - ALLERGY - ONSET DATE 12/01/2018 HYDROCODONE-ACETAMINOPHEN: DIZZINESS - SIDE EFFECTS - ONSET DATE 11/17/2019 SURGICAL HISTORY BROKEN NOSE REPAIR NO PERSONAL OR FHX OF SEVERE REACTION TO ANESTHESIA APPENDECTOMY BOWEL REPAIR D/T STRANGULATED HERNIA 09/2009 COLONOSCOPIES 2003,2007,2008 ROBOTIC-ASISTED TOTAL PROCTOCOLECTOMY WITH ILEOSTOMY FOR U/C AND HIGH GRADE ADENOCARCINOMA; FOCAL VASCULAR SPACE INVASION ON PATH BUT ALL LYMPH NODES (23 PERIRECTAL AND 53 COLONIC) NEG FOR TUMOR 06/2014 CATARACT REMOVED FROM RIGHT EYE 04/2016 CATARACT REMOVED LEFT EYE 05/03/16 LAPAROSCOPTIC AND OPEN REPAIR OF INCARCERATED PARASTOMAL HERNIA WITH SMALL BOWEL OBSTRUCTION 10/2017 LAPRASCOPTIC AND PARTIAL OPEN REPAIR OF INCRACERATED RECURRENT VENTRAL INCISIONAL HERNIA WITH MESH 10/2017 LESION REMOVED FROM LEFT FOREARM- MELANOMA 2009 FAMILY HISTORY FATHER: 84 YRS, LIVER FAILURE, MRSA MOTHER: 87 YRS, NIDDM, DIAGNOSED WITH DIABETES SIBLINGS: ALIVE 61 YRS, BROTHER DM, SISTER COLON CA AGE 61, DIABETES, OTHER MALIGNANT NEOPLASM OF UNSPECIFIED SITE 1 BROTHER(S) , 4 SISTER(S) . 1 SON(S) , 3 DAUGHTER(S) . BROTHER DIABETIC TYPE 2 AND COPD\NSISTER DIABETIC AND CANCER- IN MAY FATHER HAD COLON CANCER AND CHRONIC LYMPHATIC LEUKEMIA SISTER PASSED DUE TO COLON CANCER DENIES FAMILY HX OF MELANOMA. HOSPITALIZATION/MAJOR DIAGNOSTIC PROCEDURE SURGERY RELATED BOWEL OBSTRUCTION JULY 2015 BILATERAL LOWER LEG CELLULITIS 2013 BOWEL OBSTRUCTION 01/17/17 BOWEL OBSTRUCTION 10/2017 3 DAY STAY FOR BROKEN FINGER WHEN A CHILD BOWEL OBSTRUCTION 01/2020 BOWEL OBSTRUCTION 02/2020 REVIEW OF SYSTEMS CONSTITUTIONAL: ANY RECENT FEVER NO . CHILLS NO . WEIGHT CHANGE OF UNKNOWN REASONS NO . GASTROENTEROLOGY: NEW UNEXPLAINABLE CHANGES IN BOWEL CONTROL NO . CONSTIPATION NO . GENITOURINARY: ANY NEW CHANGE IN BLADDER CONTROL? NO . NEUROLOGY: NEW ONSET DIZZINESS OR NEUROLOGICAL CHANGES NOT MENTIONED NO . NEW NUMBNESS OR PAIN PATTERNS NOT MENTIONED AND PERTINENT TO TODAY'S VISIT NO . CARDIOLOGY: NEW CHEST PRESSURE NO . NEW CHEST PAIN NO . RESPIRATORY: UNEXPLAINABLE COUGH NO . NEW SHORTNESS OF BREATH NO . VITAL SIGNS WT 363 LBS, HT 69 IN, BMI 53.60 INDEX, BP 141/69 MM HG, HR 75 /MIN, RR 18 /MIN, TEMP 96.1 F, OXYGEN SAT % 97%, NA INITIALS SC 11:38. EXAMINATION GENERAL EXAMINATION: GENERALNO ACUTE DISTRESS, WELL NOURISHED AND HYDRATED. PSYCHAPPROPRIATE MOOD AND AFFECT . LUNGS:CLEAR TO AUSCULTATION BILATERALLY, NO WHEEZES, RHONCHI, RALES. HEART:NO MURMURS, REGULAR RATE AND RHYTHM. ASSESSMENTS OTHER CHRONIC PAIN - G89.29 (PRIMARY) MYALGIA, OTHER SITE - M79.18 TREATMENT OTHER CHRONIC PAIN PAIN PROCEDURE LOGDATE OF [id number]:TRIGGER POINT INJECTIONAMOUNT OF PRE SEDATEOXYCODONE 5 MGRESULT:PRE-12/26 POST--10/26 NOTES: 69-YEAR-OLD MALE IN FOR POST TPI FOLLOW-UP. GIVEN PRESENTING SYMPTOMS RECOMMEND FOLLOW-UP IN 2 MONTHS. PATIENT HAS EXPRESSED UNDERSTANDING OF AND WAS IN AGREEMENT WITH TREATMENT PLAN. GIVEN TIME TO ASK QUESTIONS AND EXPRESS CONCERNS. PROCEDURE CODES FA211 ESTABILISHED PATIENT [facility] FACILITY CHARGE DISPOSITION & COMMUNICATION FOLLOW UP 2 MONTHS (REASON: MYALGIA) ELECTRONICALLY SIGNED BY JACINTA KAPADIA ON 03/16/2020 AT 09:33 AM EDT DISCLAIMER : THIS IS A VISIT SUMMARY EXTRACTED FROM THE [employer] CHART. IT IS NOT A COPY OF THE [employer] PROGRESS NOTE. CLAY
== END ==
LOC: M PAIN 11:15
PROVIDERS: ATTEND Family Medicine
DX: G89.29 Other chronic pain (principal); M79.18 Myalgia, other site; E11.42 Type 2 diabetes mellitus with diabetic polyneuropathy; I10 Essential (primary) hypertension; F32.9 Major depressive disorder, single episode, unspecified; E66.9 Obesity, unspecified; I87.2 Venous insufficiency (chronic) (peripheral); Z68.43 Body mass index [BMI] 50.0-59.9, adult; Z85.038 Personal history of other malignant neoplasm of large intestine; Z90.49 Acquired absence of other specified parts of digestive tract; Z85.820 Personal history of malignant melanoma of skin; Z79.84 Long term (current) use of oral hypoglycemic drugs; Z79.891 Long term (current) use of opiate analgesic; Z88.5 Allergy status to narcotic agent; Z91.030 Bee allergy status

== ENCOUNTER → 2020-05-16 | Outpatient (CLI) | payer SELFPAY | LOC: M LABSMTC 14:06 | PROVIDERS: ATTEND Pediatrics | DX: Z20.828 Contact with and (suspected) exposure to other viral communicable diseases (principal) ==

== ENCOUNTER → 2020-05-31 | Outpatient (REF) | payer MEDICARE ==
[2020-05-31 14:01] LABS: BASO # 0.1 10^3/uL (0.0-0.2); BASO % 0.8 % (0.0-1.0); EOS # 0.3 10^3/uL (0.0-0.5); EOS % 1.9 % (0.0-3.0); HEMATOCRIT 43.7 % (42.0-52.0); HEMOGLOBIN 13.8 g/dl (13.5-17.5); LYMPH # 1.6 10^3/uL (1.5-5.0); LYMPH % 10.9 % (24.0-44.0); MEAN CORPUSCULAR HEMOGLOBIN 29.6 pg (27.0-33.0); MEAN CORPUSCULAR HGB CONC 31.6 g/dl (32.0-36.5); MEAN CORPUSCULAR VOLUME 93.6 fl (80.0-96.0); MONO # 1.1 10^3/uL (0.0-0.8); MONO % 7.2 % (0.0-5.0); NEUTROPHILS # 11.4 10^3/uL (1.5-8.5); NEUTROPHILS % 78.6 % (36.0-66.0); PLATELET COUNT, AUTOMATED 272 10^3/uL (150-450); RED BLOOD COUNT 4.67 10^6/uL (4.30-6.10); WHITE BLOOD COUNT 14.5 10^3/uL (4.0-10.0)
[2020-05-31 14:40] LABS: ALBUMIN 3.5 GM/DL (3.2-5.2); ALT/SGPT 31 U/L (12-78); BILIRUBIN,TOTAL 0.7 MG/DL (0.2-1.0); BLOOD UREA NITROGEN 12 MG/DL (7-18); CALCIUM LEVEL 9.2 MG/DL (8.8-10.2); CARBON DIOXIDE LEVEL 30 MEQ/L (21-32); CHLORIDE LEVEL 102 MEQ/L (98-107); CHOLESTEROL LEVEL 116 MG/DL (<200); CHOLESTEROL RISK RATIO 2.468 (<5); FERRITIN 175 NG/ML (26-388); GLOMERULAR FILTRATION RATE > 60.0 (>49); GLUCOSE, FASTING 51 MG/DL (70-100); HDL CHOLESTEROL 47 MG/DL (>40); LDL CHOLESTEROL 40 MG/DL (<100); NON-HDL-C 69 MG/DL; POTASSIUM SERUM 3.9 MEQ/L (3.5-5.1); SODIUM LEVEL 138 MEQ/L (136-145); TOTAL PROTEIN 7.9 GM/DL (6.4-8.2); TRIGLYCERIDES LEVEL 143 MG/DL (<150)
== END ==
LOC: M SFHCPLAZ 11:32
PROVIDERS: ATTEND Family Medicine
DX: E11.42 Type 2 diabetes mellitus with diabetic polyneuropathy (principal); I10 Essential (primary) hypertension; E78.2 Mixed hyperlipidemia; D50.9 Iron deficiency anemia, unspecified; Z85.038 Personal history of other malignant neoplasm of large intestine; Z12.5 Encounter for screening for malignant neoplasm of prostate
CPT/HCPCS: 36415; 80053; 80061; 82378; 82728; 83036; 85025; G0103; G0463

== ENCOUNTER → 2020-06-09 | Outpatient (CLI) | payer SELFPAY | LOC: M LABSMTC 12:04 | PROVIDERS: ATTEND Pediatrics | DX: Z20.822 Contact with and (suspected) exposure to COVID-19 (principal) ==

== ENCOUNTER → 2020-06-23 | Outpatient (REF) | payer MEDICARE ==
[2020-06-23 17:01] LABS: BASO % 0.3 % (0.0-1.0); EOS # 0.2 10^3/uL (0.0-0.5); EOS % 1.8 % (0.0-3.0); HEMATOCRIT 39.9 % (42.0-52.0); HEMOGLOBIN 12.9 g/dl (13.5-17.5); LYMPH # 1.5 10^3/uL (1.5-5.0); LYMPH % 12.5 % (24.0-44.0); MEAN CORPUSCULAR HEMOGLOBIN 29.7 pg (27.0-33.0); MEAN CORPUSCULAR HGB CONC 32.3 g/dl (32.0-36.5); MEAN CORPUSCULAR VOLUME 91.9 fl (80.0-96.0); MONO # 0.9 10^3/uL (0.0-0.8); MONO % 7.5 % (0.0-5.0); NEUTROPHILS # 9.2 10^3/uL (1.5-8.5); NEUTROPHILS % 77.6 % (36.0-66.0); PLATELET COUNT, AUTOMATED 243 10^3/uL (150-450); RED BLOOD COUNT 4.34 10^6/uL (4.30-6.10); WHITE BLOOD COUNT 11.8 10^3/uL (4.0-10.0)
[2020-06-23 18:26] LABS: MALB URINE SIEMENS 29.6 MG/L; MAU/CREAT RATIO 13.8 MCG/MG (0.0-30.0)
== END ==
LOC: M PLALAB 16:41
PROVIDERS: ATTEND Family Medicine
DX: D72.829 Elevated white blood cell count, unspecified (principal)

== ENCOUNTER → 2020-11-28 | Outpatient (CLI) | payer MEDICARE ==
[~2020-11-28] MED LIST changes: +ASPI-569 PO; -ASPI81TAEC PO; +LOPE1LIQ25 PO; -LOPE1SUS PO
--- NOTE | 2020-11-30 02:16 | ECWPNPC ---
PATIENT NAME: MIKEY SOLIZ : 1950 GENDER: MALE VISIT DATE: 11/28/2020 DISCHARGE DATE: 11/28/20 1515 VISIT LOCKED DATE TIME: PHYSICIAN: NOAH ELENA PHYSICIAN PAGER NO: ACTIVE RESOURCE: NOAH ELENA REASON FOR APPOINTMENT 1. MYALGIA HISTORY OF PRESENT ILLNESS GENERAL: HPI 70-YEAR-OLD MALE IN FOR CHRONIC PAIN FOLLOW-UP. HE RATES HIS PAIN CURRENTLY AT A 6 OUT OF 10 AND DESCRIBES IT ACHING AND CONTINUOUS. PATIENT HAS HAD TRIGGER POINT INJECTIONS IN THE PAST WITH GOOD RELIEF EVIDENCED BY DECREASED PAIN AND INCREASED FUNCTIONALITY. WE WILL DISCUSS REPEAT PROCEDURES TODAY.. -. FALL RISK SCREENING: SCREENING FEW FALLS REPORTED IN THE LAST YEAR WITHOUT INJURY.. PAIN SCREENING: PATIENT HAS A COMPLAINT OF ACUTE OR CHRONIC PAIN :YES LOCATION OF PAIN:LOW BACK INTENSITY OF PAIN (SCALE OF 1 TO 10):6 VARIES IN INTENSITY. WHAT DOES YOUR PAIN FEEL LIKE:ACHING, CONTINOUS DURATION:CONTINOUS, CONSTANT, AWAKENS FROM SLEEP PAIN IS INCREASED BY:ACTIVITIES, PROLONGED STANDING PAIN IS DECREASED BY:USE OF PAIN MEDICATIONS, SITTING NURSING NOTE: -. PAIN CENTER INTAKE QUESTIONS: DO YOU HAVE A HISTORY OF MRSA? :NO DO YOU TAKE A BLOOD THINNERS? :NO ASPIRIN DO YOU HAVE ANY BLEEDING DISORDERS? :NO ANY NEW NUMBNESS OR WEAKNESS IN YOUR LEGS OR ARMS? :NO ANY PACEMAKER,DEFIBRILLATOR, OR DORSAL COLUMN STIMULATOR? :NO DO YOU HAVE ANY RASHES OR OPEN SORES? :NO ARE YOU ALLERGIC TO IV DYE? :NO ARE YOU DIABETIC? :YES ANY NEW PROBLEMS WITH YOUR MEDICATIONS? :NO HAVE YOU RECEIVED A VACCINE IN THE PAST 30 DAYS? :NO SECOND COVID VACCINATION 08/18/2020 DO YOU PLAN TO RECEIVE A VACCINE IN THE NEXT 21 DAYS? :NO DO YOU NEED ANY PRESCRIPTION? :NO DO YOU TAKE ANY IMMUNOSUPPRESSIVE MEDICATIONS? :NO DO YOU HAVE ANY KIDNEY OR LIVER DISEASE? :NO IS THERE A CHANCE YOU COULD BE ? :NO ARE YOU BREAST FEEDING? :NO CURRENT MEDICATIONS TAKING ASPIRIN 81 MG TABLET CHEWABLE 1 TABLET ORALLY ONCE A DAY TAKING BUPROPION HCL ER (SR) 150 MG TABLET EXTENDED RELEASE 12 HOUR 1 TABLET IN THE MORNING ORALLY BID TAKING ALCOHOL SWABS 70 % PAD SWAB SKIN PRIOR TO FINGERSTICK BEFORE MEALS AND BEDTIME. DX: Z79.4 TAKING [employer] ADHESIVE REMOVER WIPES . PACKET DX CODE 154.1 TOPICALLY USE DIRECTED TAKING [employer] PROTECT BARRIER WIPES . MISCELLANEOUS DX CODE 154.21 TOPICALLY USE DIRECTED TAKING TEOFILO COHESIVE SEALS . MISCELLANEOUS DX CODE 154.1 TOPICALLY DIRECTED TAKING BLOOD GLUCOSE TEST ONETOUCH ULTRA BLUE STRIP USE DIRECTED TWO TIMES A DAY TAKING GABAPENTIN 600 MG TABLET 1 CAPSULE ORALLY THREE TIMES A DAY TAKING LANCETS FOR ONE TOUCH ULTRA MINI TAKE 1 STRIP TOP TWICE A DAY NEEDED DX E11.9, NOTES: 02/29/20 0430 TAKING METOPROLOL SUCCINATE ER 100 MG TABLET EXTENDED RELEASE 24 HOUR 1 TABLET ORALLY ONCE A DAY TAKING REPAGLINIDE 0.5 MG TABLET 1 TABLET 15 TO 30 MINUTES BEFORE MEALS ORALLY THREE TIMES DAILY AT MEALS ONLY TAKING STOMAHESIVE PASTE . PASTE DX CODE 154.21 TOPICALLY DIRECTED TAKING TIZANIDINE HCL 4 MG TABLET 1 TABLET NEEDED ORALLY THREE TIMES A DAY, NOTES: 02/28/20 1900 TAKING PERCOCET 5-325 MG TABLET 1-2 TABLET NEEDED ORALLY EVERY 4 HOURS NEEDED TAKING IRBESARTAN 300 MG TABLET 1 TABLET ORALLY ONCE A DAY TAKING FUROSEMIDE 40 MG TABLET 1 TABLETS ORALLY 2 TABS IN AM, 1 TAB IN PM TAKING METFORMIN HCL 1000 MG TAB TAKE ONE TABLET BY MOUTH TWICE A DAY WITH MEALS ORALLY TWICE A DAY TAKING BLOOD GLUCOSE TEST - STRIP DIRECTED IN VITRO 2 TIMES DAILY. Z79.4 TAKING MAY HAVE . 1 [facility] POUCH REFER [id number]/ DX CODE 154.1 CHANGE NEEDED TAKING MAY HAVE - - LIFT CHAIR TO AIDE IN MOBILITY SIT-STAND CHAIR DAILY NEEDED FOR IMPAIRED MOBILITY AND MORBID OBESITY. DX: E66.01, Z74.09 TAKING MAY USE . 1 [facility] [place] REF NUM [id number] DX CODE 154.1 CHANGE DIRECTED TAKING CICLOPIROX OLAMINE 0.77 % CREAM 1 APPLICATION EXTERNALLY TWICE A DAY TO BACK TAKING KETOCONAZOLE 2 % CREAM 1 APPLICATION EXTERNALLY ONCE A DAY TO HEAD AND NECK TAKING WELLBUTRIN SR 150 MG TABLET EXTENDED RELEASE 12 HOUR TAKE ONE TABLET BY MOUTH TWICE A DAY TAKING LIPITOR 80 MG TABLET TAKE ONE TABLET BY MOUTH EVERY DAY ORALLY ONCE A DAY TAKING NOVOLIN 70/30 (70-30) 100 UNIT/ML SUSPENSION INJECT 40 UNITS UNDER THE SKIN EVERY MORNING AND 50 UNITS EVERY EVENING TAKING POTASSIUM CHLORIDE ER 10 MEQ TABLET EXTENDED RELEASE 2 TABLET WITH FOOD ORALLY TWICE A DAY TAKING DULOXETINE HCL 60 MG CAPSULE DELAYED RELEASE PARTICLES 1 CAPSULE ORALLY DAILY TAKING TIZANIDINE HCL 4 MG TABLET 1 TABLET NEEDED ORALLY THREE TIMES A DAY TAKING METOPROLOL SUCCINATE 100 MG CAPSULE ER 24 HOUR SPRINKLE 1 CAPSULE ORALLY ONCE A DAY TAKING HYDROCODONE-ACETAMINOPHEN 5-325 MG TABLET 1 TABLET NEEDED ORALLY EVERY 6 HRS, NOTES: NEEDED TAKING ATORVASTATIN CALCIUM 80 MG TABLET 1 TABLET ORALLY ONCE A DAY TAKING POTASSIUM CHLORIDE DEVIN ER 10 MEQ TABLET EXTENDED RELEASE 1 TABLET WITH FOOD ORALLY TWICE A DAY NOT-TAKING CICLOPIROX OLAMINE 0.77 % CREAM 1 APPLICATION EXTERNALLY TWICE A DAY TO AREAS ON BODY WITH RASH, NOTES: 07/29/2019 NOT-TAKING HYDROCODONE-ACETAMINOPHEN 5-325 MG TABLET 1 TABLET NEEDED ORALLY THREE TIMES DAILY NEEDED FOR SEVERE PAIN.MDD 3, NOTES: PRN MEDICATION LIST REVIEWED AND RECONCILED WITH THE PATIENT PAST MEDICAL HISTORY TYPE 2 DM WITH PERIPHERAL NEUROPATHY HTN; NM STRESS TEST 03/2017 ULCERATIVE COLITIS HIGH GRADE ADENOCARCINOMA SIGMOID/RECTAL 05/01; CEA 0.5 01/31, 05/02 S/P COLECTOMY WITH COLOSTOMY PERISTOMAL HERNIA HX MALIGNANT MELANOMA LEFT FOREARM 11/26 - FOLLOWS WITH DERM DEPRESSION OBESITY DEGENERATIVE DISC DISEASE, CHRONIC LOW BACK PAIN CHRONIC VENOUS STASIS DERMATITIS EXCESSIVE DAYTIME FATIGUE; REFERRED TO PULM IN 04/2019, SEEN BUT REFUSED FURTHER WORK UP FOR JU HYPERLIPIDEMIA COVID-04/2020 ALLERGIES BEE STINGS/ YELLOW JACKET: HIVES/SWELLING - ALLERGY - ONSET DATE 12/01/2018 HYDROCODONE-ACETAMINOPHEN: DIZZINESS - SIDE EFFECTS - ONSET DATE 11/17/2019 SURGICAL HISTORY BROKEN NOSE REPAIR NO PERSONAL OR FHX OF SEVERE REACTION TO ANESTHESIA APPENDECTOMY BOWEL REPAIR D/T STRANGULATED HERNIA 09/2009 COLONOSCOPIES 2003,2007,2008 ROBOTIC-ASISTED TOTAL PROCTOCOLECTOMY WITH ILEOSTOMY FOR U/C AND HIGH GRADE ADENOCARCINOMA; FOCAL VASCULAR SPACE INVASION ON PATH BUT ALL LYMPH NODES (23 PERIRECTAL AND 53 COLONIC) NEG FOR TUMOR 06/2014 CATARACT REMOVED FROM RIGHT EYE 04/2016 CATARACT REMOVED LEFT EYE 05/03/16 LAPAROSCOPTIC AND OPEN REPAIR OF INCARCERATED PARASTOMAL HERNIA WITH SMALL BOWEL OBSTRUCTION 10/2017 LAPRASCOPTIC AND PARTIAL OPEN REPAIR OF INCRACERATED RECURRENT VENTRAL INCISIONAL HERNIA WITH MESH 10/2017 LESION REMOVED FROM LEFT FOREARM- MELANOMA 2009 SOCIAL HISTORY GENERAL: TOBACCO USE ARE YOU A:FORMER SMOKER HOW LONG HAS IT BEEN SINCE YOU LAST SMOKED?> 10 YEARS LATEX QUESTIONNAIRE LATEX ALLERGY : HAVE YOU EVER DEVELOPED ANY TYPE OF REACTION AFTER HANDLING LATEX PRODUCTS SUCH RUBBER GLOVES, CONDOMS, DIAPHRAGMS, BALLOONS, SOCKS, OR UNDERWEAR?NO LATEX ALLERGY : HAVE YOU EVER DEVELOPED ANY TYPE OF REACTION DURING OR AFTER DENTAL APPOINTMENT, VAGINAL/RECTAL EXAMINATION, SURGICAL PROCEDURE, OR ANY OTHER EXPOSURE?NO LATEX RISK : HAVE YOU EVER HAD ANY DIFFICULTY BREATHING OR HIVES AFTER EATING OR HANDLING ANY FRUITS, OR VEGETABLES; SUCH KIWI, BANANAS, STONE FRUITS, OR CHESTNUTSNO LATEX RISK : DO YOU HAVE A PREVIOUS PERSONAL HISTORY OF MORE THAN NINE SURGERIES, SPINA BIFIDA, OR REPEATED CATHERIZATIONS? NO LATEX RISK : ARE YOU FREQUENTLY EXPOSED TO LATEX PRODUCTS IN YOUR OCCUPATION?NO DATE ASKED : 11/28/2020 ALCOHOL USE: NO. BMI CARE GOAL FOLLOW-UP ABOVE NORMAL BMI FOLLOW-UPLIFESTYLE EDUCATION REGARDING DIET ALCOHOL SCREENING DID YOU HAVE A DRINK CONTAINING ALCOHOL IN THE PAST YEAR?NO POINTS0 INTERPRETATIONNEGATIVE RECREATIONAL DRUG USE DRUG USE?NO CAFFEINE CAFFEINE USE? TEA >5 SEXUAL HX HAD SEX IN THE LAST 12 MONTHS (VAGINAL, ORAL, OR ANAL)?NO HAVE YOU EVER HAD AN STD?NO HIV / HEP-C SCREENING HIV TEST OFFERED TO PATIENT:YES DATE OFFERED:07/02/2016 TEST ACCEPTED:NO HEP-C TEST OFFERED TO PATIENT:YES DATE OFFERED:07/02/2016 REASON:PATIENT DECLINED TEST ACCEPTED:NO REASON:PATIENT DECLINED LATTER DAY [id number] NONE LANGUAGE LANGUAGES SPOKEN:MALTESE EDUCATION LEVEL OF EDUCATION:COLLEGE LEARNING BARRIERS / SPECIAL NEEDS CHANGE FROM LAST VISIT?NO BARRIERS TO LEARNING?NO HEARING IMPAIRED?NO VISION IMPAIRED?YES :CORRECTIVE LENSES COGNITIVELY IMPAIRED?NO READINESS TO LEARN?YES LEARNING PREFERENCES?NO LEARNING CAPABILITIES PRESENT?YES EMOTIONAL BARRIERS?NO SPECIAL DEVICES?YES :CANE, WALKER CAR OILER NEEDED?NO DOMESTIC VIOLENCE DO YOU FEEL SAFE IN YOUR ENVIRONMENT?YES OCCUPATION: DISABLED. DIET: REGULAR. EXERCISE: NO REGULAR EXERCISE. MARITAL STATUS: .. OTHERS AT HOME: CHILDREN, GRANDCHILDREN. - PFS REFERRAL NEEDED?NO CLERGY REFERRAL NEEDED?NO PUBLIC HEALTH REFERRAL NEEDED?NO WAS THE PROVIDER NOTIFIED OF ANY PERTINENT INFO?YES HAS THE PATIENT BEEN EDUCATED REGARDING HIS/HER PLAN OF CARE?YES HAS THE PATIENT BEEN EDUCATED REGARDING PAIN, THE RISK FOR PAIN, THE IMPORTANCE OF EFFECTIVE PAIN MANAGEMENT, AND THE PAIN ASSESSMENT PROCESS?YES HOUSING: OWNS HOME. ADVANCE DIRECTIVE ADVANCE DIRECTIVE DISCUSSED WITH PATIENT:YES PATIENT STATES HE DOES NOT HAVE ANY ADVANCED DIRECTIVES, DECLINED INFORMATION OR ASSISTANCE AT THIS TIME 02/29/20 HOSPITALIZATION/MAJOR DIAGNOSTIC PROCEDURE SURGERY RELATED BOWEL OBSTRUCTION JULY 2015 BILATERAL LOWER LEG CELLULITIS 2013 BOWEL OBSTRUCTION 01/17/17 BOWEL OBSTRUCTION 10/2017 3 DAY STAY FOR BROKEN FINGER WHEN A CHILD BOWEL OBSTRUCTION 01/2020 BOWEL OBSTRUCTION 02/2020 REVIEW OF SYSTEMS CONSTITUTIONAL: ANY RECENT FEVER NO . CHILLS NO . WEIGHT CHANGE OF UNKNOWN REASONS NO . GASTROENTEROLOGY: NEW UNEXPLAINABLE CHANGES IN BOWEL CONTROL NO . CONSTIPATION NO . GENITOURINARY: ANY NEW CHANGE IN BLADDER CONTROL? NO . NEUROLOGY: NEW ONSET DIZZINESS OR NEUROLOGICAL CHANGES NOT MENTIONED NO . NEW NUMBNESS OR PAIN PATTERNS NOT MENTIONED AND PERTINENT TO TODAY'S VISIT NO . CARDIOLOGY: NEW CHEST PRESSURE NO . PATIENT DENIES NO . RESPIRATORY: UNEXPLAINABLE COUGH NO . NEW SHORTNESS OF BREATH NO . VITAL SIGNS WT 377.4 LBS, HT 69 IN, BMI 55.73 INDEX, BP 146/65 MM HG, HR 92 /MIN, RR 18 /MIN, TEMP 97.7 F, OXYGEN SAT % 95%, SAFE IN ENV? (Y/N) YES, REVIEWED BY: MARTHA JASSO MA. EXAMINATION GENERAL EXAMINATION: GENERALNO ACUTE DISTRESS, WELL NOURISHED AND HYDRATED. PSYCHAPPROPRIATE MOOD AND AFFECT . LUNGS:CLEAR TO AUSCULTATION BILATERALLY, NO WHEEZES, RHONCHI, RALES. HEART:NO MURMURS, REGULAR RATE AND RHYTHM. BACK:POINT TENDER BILATERAL THORACIC AND LOW BACK, BANDS OF RESTRICTIVE TISSUE NOTED OVER TRIGGER POINTS.. ASSESSMENTS MYALGIA, OTHER SITE - M79.18 (PRIMARY) TREATMENT MYALGIA, OTHER SITE MEDICATION: PAIN OXYCODONE HCL TAB 5MG ORALLY (ORDERED FOR 12/06/2020) NOTES: 70-YEAR-OLD MALE IN FOR CHRONIC PAIN FOLLOW-UP. GIVEN PRESENTING SYMPTOMS AND RESULTS OF PHYSICAL EXAMINATION RECOMMEND BILATERAL THORACIC AND LOW BACK TRIGGER POINT INJECTIONS WITH POSTPROCEDURAL FOLLOW-UP. PATIENT HAS EXPRESSED UNDERSTANDING OF AND WAS IN AGREEMENT WITH TREATMENT PLAN. GIVEN TIME TO ASK QUESTIONS AND EXPRESS CONCERNS. CLINICAL NOTES: PREPROCEDURE AND PROCEDURE INFORMATION PRINTED AND PROVIDED TO PATIENT. PATIENT VERBALIZED AN UNDERSTANDING. BLANCA JASSO MA. PROCEDURE CODES FA211 ESTABILISHED PATIENT [facility] FAC[facility] CHARGE DISPOSITION & COMMUNICATION FOLLOW UP POST PROCEDURE (REASON: BILATERAL THORACIC AND LOW BACK TRIGGER POINT INJECTIONS ) ELECTRONICALLY SIGNED BY JACINTA KAPADIA ON 11/29/2020 AT 10:12 AM EDT DISCLAIMER : THIS IS A VISIT SUMMARY EXTRACTED FROM THE [employer] CHART. IT IS NOT A COPY OF THE [employer] PROGRESS NOTE. CLAY
== END ==
LOC: M PAIN 14:45
PROVIDERS: ATTEND Family Medicine
DX: M79.18 Myalgia, other site (principal); E11.40 Type 2 diabetes mellitus with diabetic neuropathy, unspecified; Z86.59 Personal history of other mental and behavioral disorders; Z87.891 Personal history of nicotine dependence; Z88.5 Allergy status to narcotic agent; Z91.030 Bee allergy status; E66.01 Morbid (severe) obesity due to excess calories; Z68.43 Body mass index [BMI] 50.0-59.9, adult; Z79.4 Long term (current) use of insulin; Z79.82 Long term (current) use of aspirin; Z79.899 Other long term (current) drug therapy

== ENCOUNTER → 2020-12-07 | Outpatient (CLI) | payer MEDICARE | LOC: M LABSMTC 14:00 | PROVIDERS: ATTEND Anesthesiology | DX: Z20.822 Contact with and (suspected) exposure to COVID-19 (principal) ==

== ENCOUNTER → 2020-12-12 | Outpatient (CLI) | payer MEDICARE ==
[~2020-12-12] MED LIST changes: +BUPIVACAINE HCL 0.25% 10ML VIAL As Ordered ONE; +BUPIVACAINE HCL 0.25% 30ML VIAL As Ordered ONE; +CHOL4PW PO; +DIPH2.5T15 PO; +IRBE75TA4 PO; -KLOR20TA42 PO; +LOSA50TA28 PO; -LOSA50TA88 PO; +NEUR300C PO; +NYST10006 TOP; +POTA-141 PO; +POTA-149 PO; -POTA10TA16 PO; +RISATAB3 PO; +TIZA10TA; +TIZA10TA PO; -TIZA4TAB4; -TIZA4TAB4 PO; +TRIAMCINOLONE ACETONIDE SUSP 40 MG/ML VIAL (J3301) As Ordered ONE; +oxyCODONE 5MG TAB As Ordered ONE
== END ==
LOC: M PAIN 14:00
PROVIDERS: ATTEND Anesthesiology
DX: M79.18 Myalgia, other site (principal); E11.9 Type 2 diabetes mellitus without complications; Z86.59 Personal history of other mental and behavioral disorders; Z87.891 Personal history of nicotine dependence; Z88.5 Allergy status to narcotic agent; Z91.030 Bee allergy status; E66.01 Morbid (severe) obesity due to excess calories; Z68.43 Body mass index [BMI] 50.0-59.9, adult; Z79.4 Long term (current) use of insulin; Z79.82 Long term (current) use of aspirin; Z79.899 Other long term (current) drug therapy
CPT/HCPCS: 20552; J3301

== ENCOUNTER → 2021-01-19 | Outpatient (CLI) | payer MEDICARE ==
[~2021-01-19] MED LIST changes: -BUPIVACAINE HCL 0.25% 10ML VIAL As Ordered ONE; -BUPIVACAINE HCL 0.25% 30ML VIAL As Ordered ONE; -CHOL4PW PO; -DIPH2.5T15 PO; -IRBE75TA4 PO; -LOSA50TA28 PO; +LOSA50TA88 PO; -NEUR300C PO; -NYST10006 TOP; -POTA-149 PO; +POTA10TA16 PO; -RISATAB3 PO; -TIZA10TA; -TIZA10TA PO; +TIZA4TAB4; +TIZA4TAB4 PO; -TRIAMCINOLONE ACETONIDE SUSP 40 MG/ML VIAL (J3301) As Ordered ONE; -oxyCODONE 5MG TAB As Ordered ONE
[2021-01-19 17:48] LABS: HEMATOCRIT 45.2 % (42.0-52.0); HEMOGLOBIN 14.6 g/dl (13.5-17.5); MEAN CORPUSCULAR HEMOGLOBIN 29.5 pg (27.0-33.0); MEAN CORPUSCULAR HGB CONC 32.3 g/dl (32.0-36.5); MEAN CORPUSCULAR VOLUME 91.3 fl (80.0-96.0); PLATELET COUNT, AUTOMATED 266 10^3/uL (150-450); RED BLOOD COUNT 4.95 10^6/uL (4.30-6.10); WHITE BLOOD COUNT 10.6 10^3/uL (4.0-10.0)
[2021-01-19 18:13] LABS: HEMOGLOBIN A1c 7.8 %
[2021-01-19 18:20] LABS: BLOOD UREA NITROGEN 16 MG/DL (7-18); CALCIUM LEVEL 9.2 MG/DL (8.8-10.2); CARBON DIOXIDE LEVEL 29 MEQ/L (21-32); CHLORIDE LEVEL 104 MEQ/L (98-107); CREATININE FOR GFR 1.03 MG/DL (0.70-1.30); GLOMERULAR FILTRATION RATE > 60.0 (>42); GLUCOSE, FASTING 117 MG/DL (70-100); POTASSIUM SERUM 4.7 MEQ/L (3.5-5.1); SODIUM LEVEL 140 MEQ/L (136-145)
== END ==
LOC: M PLALAB 15:37
PROVIDERS: ATTEND Family Medicine
DX: E11.42 Type 2 diabetes mellitus with diabetic polyneuropathy (principal); I10 Essential (primary) hypertension; D50.9 Iron deficiency anemia, unspecified; Z85.038 Personal history of other malignant neoplasm of large intestine; Z12.5 Encounter for screening for malignant neoplasm of prostate; Z23 Encounter for immunization
CPT/HCPCS: 36415; 80048; 82378; 83036; 85027; 90471; 90714; G0103; G0463

== ENCOUNTER → 2021-01-31 | Outpatient (CLI) | payer MEDICARE ==
[~2021-01-31] MED LIST changes: +CHOL4PW PO; +DIPH2.5T15 PO; +IRBE75TA4 PO; +LOSA50TA28 PO; -LOSA50TA88 PO; +NEUR300C PO; +NYST10006 TOP; +POTA-149 PO; -POTA10TA16 PO; +RISATAB3 PO; +TIZA10TA; +TIZA10TA PO; -TIZA4TAB4; -TIZA4TAB4 PO
== END ==
LOC: M PAIN 14:30
PROVIDERS: ATTEND Anesthesiology
DX: M79.18 Myalgia, other site (principal); E11.40 Type 2 diabetes mellitus with diabetic neuropathy, unspecified; Z86.59 Personal history of other mental and behavioral disorders; Z87.891 Personal history of nicotine dependence; Z88.5 Allergy status to narcotic agent; Z91.030 Bee allergy status; E66.01 Morbid (severe) obesity due to excess calories; Z68.43 Body mass index [BMI] 50.0-59.9, adult; Z79.4 Long term (current) use of insulin; Z79.82 Long term (current) use of aspirin; Z79.899 Other long term (current) drug therapy

== ENCOUNTER → 2021-03-01 | Outpatient (CLI) | payer MEDICARE ==
[~2021-03-01] MED LIST changes: -CHOL4PW PO; -DIPH2.5T15 PO; -IRBE75TA4 PO; -LOSA50TA28 PO; +LOSA50TA88 PO; -NEUR300C PO; -NYST10006 TOP; -POTA-149 PO; +POTA10TA16 PO; -RISATAB3 PO; -TIZA10TA; -TIZA10TA PO; +TIZA4TAB4; +TIZA4TAB4 PO
== END ==
LOC: M LABSMTC 11:45
PROVIDERS: ATTEND Anesthesiology
DX: Z01.812 Encounter for preprocedural laboratory examination (principal); Z20.822 Contact with and (suspected) exposure to COVID-19

== ENCOUNTER → 2021-03-06 | Outpatient (CLI) | payer MEDICARE ==
[~2021-03-06] MED LIST changes: +BUPIVACAINE HCL 0.25% 10ML VIAL As Ordered ONE; +BUPIVACAINE HCL 0.25% 30ML VIAL As Ordered ONE; +TRIAMCINOLONE ACETONIDE SUSP 40 MG/ML VIAL (J3301) As Ordered ONE; +oxyCODONE 5MG TAB As Ordered ONE
== END ==
LOC: M PAIN 14:20
PROVIDERS: ATTEND Anesthesiology
DX: M79.18 Myalgia, other site (principal); E11.40 Type 2 diabetes mellitus with diabetic neuropathy, unspecified; Z86.59 Personal history of other mental and behavioral disorders; Z87.891 Personal history of nicotine dependence; Z88.5 Allergy status to narcotic agent; Z91.030 Bee allergy status; E66.01 Morbid (severe) obesity due to excess calories; Z68.43 Body mass index [BMI] 50.0-59.9, adult; Z79.4 Long term (current) use of insulin; Z79.82 Long term (current) use of aspirin; Z79.899 Other long term (current) drug therapy
CPT/HCPCS: 20552; J3301

== ENCOUNTER → 2021-03-27 | Outpatient (CLI) | payer MEDICARE ==
[~2021-03-27] MED LIST changes: -BUPIVACAINE HCL 0.25% 10ML VIAL As Ordered ONE; -BUPIVACAINE HCL 0.25% 30ML VIAL As Ordered ONE; -TRIAMCINOLONE ACETONIDE SUSP 40 MG/ML VIAL (J3301) As Ordered ONE; -oxyCODONE 5MG TAB As Ordered ONE
== END ==
LOC: M PAIN 14:30
PROVIDERS: ATTEND Nurse Practitioner Family
DX: M79.10 Myalgia, unspecified site (principal); E11.40 Type 2 diabetes mellitus with diabetic neuropathy, unspecified; Z86.59 Personal history of other mental and behavioral disorders; Z87.891 Personal history of nicotine dependence; Z88.5 Allergy status to narcotic agent; Z91.030 Bee allergy status; E66.01 Morbid (severe) obesity due to excess calories; Z68.43 Body mass index [BMI] 50.0-59.9, adult; Z79.4 Long term (current) use of insulin; Z79.82 Long term (current) use of aspirin; Z79.84 Long term (current) use of oral hypoglycemic drugs; Z79.899 Other long term (current) drug therapy

== ENCOUNTER 2021-04-24 02:45 | Inpatient (IN) | payer MEDICARE ==
[~2021-04-24] VITALS: Ht 172.7 cm; Wt 165.9 kg
[~2021-04-24 02:45] MED LIST changes: +LOSA50TA28 PO; -LOSA50TA88 PO; +POTA-149 PO; -POTA10TA16 PO; +TIZA10TA; +TIZA10TA PO; -TIZA4TAB4; -TIZA4TAB4 PO
[2021-04-24] MEDS ORDERED: NS 1,000 ML IV ONE (06:55)
[2021-04-24] MEDS ORDERED: KETOROLAC 30 MG/ML 1ML VIAL IV ONE (07:00)
[2021-04-24 07:05] LABS: BASO # 0.1 10^3/uL (0.0-0.2); BASO % 0.2 % (0.0-1.0); HEMATOCRIT 40.4 % (42.0-52.0); LYMPH # 1.4 10^3/uL (1.5-5.0); LYMPH % 4.5 % (24.0-44.0); MEAN CORPUSCULAR HEMOGLOBIN 30.4 pg (27.0-33.0); MEAN CORPUSCULAR HGB CONC 34.7 g/dl (32.0-36.5); MEAN CORPUSCULAR VOLUME 87.6 fl (80.0-96.0); MONO # 1.7 10^3/uL (0.0-0.8); MONO % 5.5 % (2.0-8.0); NEUTROPHILS # 26.8 10^3/uL (1.5-8.5); NEUTROPHILS % 88.1 % (36.0-66.0); PLATELET COUNT, AUTOMATED 238 10^3/uL (150-450); RED BLOOD COUNT 4.61 10^6/uL (4.30-6.10)
[2021-04-24] MEDS ORDERED: MORPHINE 2 MG/ML 1ML VIAL (J2270) IV ONE (07:10)
[2021-04-24 07:26] LABS: CK-MB VALUE MASS 2.3 NG/ML (<3.6); MB/CK RELATIVE INDEX 1.53 (< OR =4)
[2021-04-24 07:29] LABS: WHITE BLOOD COUNT 30.5 10^3/uL (4.0-10.0)
[2021-04-24 07:30] LABS: ALBUMIN 3.4 GM/DL (3.2-5.2); BILIRUBIN,DIRECT 0.5 MG/DL (0.0-0.2); BILIRUBIN,TOTAL 1.5 MG/DL (0.2-1.0); TOTAL PROTEIN 7.6 GM/DL (6.4-8.2)
[2021-04-24] MEDS ORDERED: ISOVUE-370 76% 100ML VIAL As Ordered ONE (07:47)
[2021-04-24] MEDS ORDERED: HumuLIN (NovoLIN)70/30 INSULIN INJ PER UNIT SC SCH ×2 (09:00→21:00)
[2021-04-24] MEDS ORDERED: cefTRIAXone SOD 1 GM in D5W MINI-BAG PLUS 50 ML IV ONE (09:20)
[2021-04-24] MEDS ORDERED: LR 1,000 ML IV ONE (10:10)
[2021-04-24] MEDS ORDERED: FUROSEMIDE 40MG/4ML VIAL (J1940) IV ONE (10:20)
[2021-04-24] MEDS ORDERED: HumuLIN (NovoLIN)70/30 INSULIN INJ PER UNIT SC ONE (10:20)
[2021-04-24] MEDS ORDERED: MORPHINE 4 MG/ML 1ML VIAL/SYRINGE (J2270) IV ONE (10:20)
[2021-04-24] MEDS ORDERED: METOPROLOL 5 MG/5 ML VIAL IV STA (10:23)
[2021-04-24] MEDS ORDERED: HOME MED LIST COMPLETE! XX SCH (10:50)
[2021-04-24] MEDS ORDERED: DEXTROSE 50% 50 ML SYRINGE IV PRN (11:40)
[2021-04-24] MEDS ORDERED: GLUCOSE 4GM CHEW TABLET PO PRN (11:40)
[2021-04-24] MEDS ORDERED: GLUCAGON INJ 1MG VIAL SC PRN (11:40)
[2021-04-24] MEDS: HumaLOG INSULIN (NovoLOG) PER UNIT SC SCH ×2 (12:00→21:45)
[2021-04-24] MEDS: NS 1,000 ML IV SCH ×2 (12:34→21:46)
[2021-04-24] MEDS: AMPICILLIN SOD/SULBACTAM SOD 3 GM in D5W MINI-BAG PLUS 100 ML IV SCH ×2 (15:00→21:45)
[2021-04-24] MEDS: KETOROLAC 30 MG/ML 1ML VIAL IV PRN ×2 (17:11→22:11)
[2021-04-24 20:00] VITALS: BP 145/72
[2021-04-24] MEDS: HumuLIN (NovoLIN)70/30 INSULIN INJ PER UNIT SC SCH (21:45)
[2021-04-24 23:15] VITALS: BP 147/82
[2021-04-25] MEDS: HumaLOG INSULIN (NovoLOG) PER UNIT SC SCH ×3 (00:14→14:06)
[2021-04-25] MEDS: AMPICILLIN SOD/SULBACTAM SOD 3 GM in D5W MINI-BAG PLUS 100 ML IV SCH ×4 (02:13→21:23)
[2021-04-25] MEDS: KETOROLAC 30 MG/ML 1ML VIAL IV PRN ×2 (05:17→18:48)
[2021-04-25 06:00] VITALS: BP 145/96
[2021-04-25 08:40] LABS: ALBUMIN 2.8 GM/DL (3.2-5.2); BILIRUBIN,DIRECT 0.5 MG/DL (0.0-0.2); BILIRUBIN,TOTAL 1.4 MG/DL (0.2-1.0)
[2021-04-25 08:41] LABS: ALBUMIN 2.9 GM/DL (3.2-5.2); ALT/SGPT 26 U/L (12-78); BILIRUBIN,TOTAL 1.4 MG/DL (0.2-1.0); BLOOD UREA NITROGEN 17 MG/DL (7-18); CALCIUM LEVEL 8.7 MG/DL (8.8-10.2); CARBON DIOXIDE LEVEL 27 MEQ/L (21-32); CHLORIDE LEVEL 97 MEQ/L (98-107); CREATININE FOR GFR 1.19 MG/DL (0.70-1.30); GLOMERULAR FILTRATION RATE > 60.0 (>42); GLUCOSE, FASTING 262 MG/DL (70-100); SODIUM LEVEL 135 MEQ/L (136-145); TOTAL PROTEIN 7.4 GM/DL (6.4-8.2)
[2021-04-25] MEDS ORDERED: KETOROLAC 30 MG/ML 1ML VIAL IV PRN (08:45)
[2021-04-25] MEDS ORDERED: MAGIC MOUTHWASH SUSPENSION BTL SS PRN (08:45)
[2021-04-25] MEDS: ENOXAPARIN 40MG/0.4ML SYRINGE (J1650 PER 10MG) SC SCH (08:57)
[2021-04-25] MEDS ORDERED: HumuLIN (NovoLIN)70/30 INSULIN INJ PER UNIT SC SCH (09:00)
[2021-04-25] MEDS: IRBESARTAN 150MG TAB PO SCH (09:00)
[2021-04-25 09:41] LABS: BASO % 0.2 % (0.0-1.0); HEMATOCRIT 40.4 % (42.0-52.0); HEMOGLOBIN 13.7 g/dl (13.5-17.5); LYMPH # 0.4 10^3/uL (1.5-5.0); LYMPH % 3.4 % (24.0-44.0); MEAN CORPUSCULAR HEMOGLOBIN 30.6 pg (27.0-33.0); MEAN CORPUSCULAR HGB CONC 33.9 g/dl (32.0-36.5); MEAN CORPUSCULAR VOLUME 90.4 fl (80.0-96.0); MONO # 0.7 10^3/uL (0.0-0.8); MONO % 5.6 % (2.0-8.0); NEUTROPHILS # 11.5 10^3/uL (1.5-8.5); NEUTROPHILS % 90.2 % (36.0-66.0); PLATELET COUNT, AUTOMATED 226 10^3/uL (150-450); RED BLOOD COUNT 4.47 10^6/uL (4.30-6.10); WHITE BLOOD COUNT 12.7 10^3/uL (4.0-10.0)
[2021-04-25 14:00] VITALS: BP 146/68
[2021-04-25] MEDS: tiZANidine 4 MG TAB PO PRN (18:46)
[2021-04-25] MEDS: ASPIRIN 81MG ENTERIC TABLET PO SCH (18:46)
[2021-04-25] MEDS: ATORVASTATIN 20 MG TAB PO SCH (18:47)
[2021-04-25] MEDS: DULoxetine 30MG CAPSULE (CYMBALTA) PO SCH (18:47)
[2021-04-25] MEDS: METOPROLOL SUCC (TopROL XL) 100MG *XL* TAB PO SCH (18:47)
[2021-04-25 20:50] VITALS: BP 126/60
[2021-04-25] MEDS ORDERED: HumaLOG INSULIN (NovoLOG) PER UNIT SC SCH (21:00)
[2021-04-25] MEDS: HumuLIN (NovoLIN)70/30 INSULIN INJ PER UNIT SC SCH (21:27)
[2021-04-25] MEDS: buPROPion **SR TABLET** (ZYBAN) 150MG PO SCH (21:28)
[2021-04-25] MEDS: POTASSIUM CHLORIDE 10MEQ SR TABLET PO SCH (21:28)
[2021-04-25] MEDS: GABAPENTIN 300 MG CAP PO SCH (21:28)
[2021-04-25 22:00] VITALS: BP 125/62
[2021-04-26] MEDS: AMPICILLIN SOD/SULBACTAM SOD 3 GM in D5W MINI-BAG PLUS 100 ML IV SCH ×4 (02:48→20:57)
[2021-04-26] MEDS: ONDANSETRON 4MG/2ML VIAL IV PRN ×2 (05:47→09:00)
[2021-04-26 06:00] VITALS: BP 147/58
[2021-04-26 08:22] LABS: HEMATOCRIT 36.8 % (42.0-52.0); HEMOGLOBIN 12.7 g/dl (13.5-17.5); MEAN CORPUSCULAR HEMOGLOBIN 30.4 pg (27.0-33.0); MEAN CORPUSCULAR HGB CONC 34.5 g/dl (32.0-36.5); PLATELET COUNT, AUTOMATED 231 10^3/uL (150-450); RED BLOOD COUNT 4.18 10^6/uL (4.30-6.10); WHITE BLOOD COUNT 7.3 10^3/uL (4.0-10.0)
[2021-04-26 08:52] LABS: BLOOD UREA NITROGEN 25 MG/DL (7-18); CALCIUM LEVEL 8.1 MG/DL (8.8-10.2); CARBON DIOXIDE LEVEL 28 MEQ/L (21-32); CHLORIDE LEVEL 91 MEQ/L (98-107); CREATININE FOR GFR 1.25 MG/DL (0.70-1.30); GLOMERULAR FILTRATION RATE > 60.0 (>42); GLUCOSE, FASTING 288 MG/DL (70-100); POTASSIUM SERUM 3.9 MEQ/L (3.5-5.1); SODIUM LEVEL 126 MEQ/L (136-145)
[2021-04-26] MEDS ORDERED: METOPROLOL SUCC (TopROL XL) 100MG *XL* TAB PO SCH (09:00)
[2021-04-26] MEDS: GABAPENTIN 300 MG CAP PO SCH ×3 (09:00→20:57)
[2021-04-26 09:30] LABS: BASOPHILS 1 % (0-1); LYMPHOCYTES 9 % (16-44); METAMYELOCYTES 1 % (0-0); MONOCYTES 13 % (0-5); NEUTROPHILS 73 % (28-66); PLATELET ESTIMATE NORMAL (NORMAL)
[2021-04-26 09:47] VITALS: BP 136/66
[2021-04-26] MEDS: ENOXAPARIN 40MG/0.4ML SYRINGE (J1650 PER 10MG) SC SCH (10:18)
[2021-04-26 10:47] LABS: CALCIUM LEVEL 8.1 MG/DL (8.8-10.2); CREATININE FOR GFR 1.31 MG/DL (0.70-1.30); GLOMERULAR FILTRATION RATE 57.6 (>42); POTASSIUM SERUM 3.9 MEQ/L (3.5-5.1)
[2021-04-26] MEDS ORDERED: GLUCOSE 4GM CHEW TABLET PO PRN (11:25)
[2021-04-26] MEDS ORDERED: GLUCAGON INJ 1MG VIAL SC PRN (11:25)
[2021-04-26] MEDS ORDERED: DEXTROSE 50% 50 ML SYRINGE IV PRN (11:25)
[2021-04-26] MEDS: NS 1,000 ML IV SCH ×2 (12:11→23:07)
[2021-04-26] MEDS: HumaLOG INSULIN (NovoLOG) PER UNIT SC SCH ×3 (12:33→20:17)
[2021-04-26 13:00] VITALS: BP 140/72
[2021-04-26] MEDS: ASPIRIN 81MG ENTERIC TABLET PO SCH (13:44)
[2021-04-26] MEDS: POTASSIUM CHLORIDE 10MEQ SR TABLET PO SCH ×2 (13:44→20:58)
[2021-04-26] MEDS: buPROPion **SR TABLET** (ZYBAN) 150MG PO SCH ×2 (13:44→20:57)
[2021-04-26] MEDS: ATORVASTATIN 20 MG TAB PO SCH (13:45)
[2021-04-26] MEDS: DULoxetine 30MG CAPSULE (CYMBALTA) PO SCH (13:47)
[2021-04-26] MEDS: IRBESARTAN 150MG TAB PO SCH (13:49)
[2021-04-26] MEDS: METOPROLOL SUCC (TopROL XL) 100MG *XL* TAB PO SCH (13:52)
[2021-04-26 14:00] VITALS: BP 132/66
[2021-04-26] MEDS: KETOROLAC 30 MG/ML 1ML VIAL IV PRN (14:10)
[2021-04-26] MEDS ORDERED: PROMETHAZINE INJ 25 MG/ML VIAL (J2550) IV PRN (16:50)
[2021-04-26] MEDS: tiZANidine 4 MG TAB PO PRN ×2 (16:55→23:06)
[2021-04-26] MEDS ORDERED: HumaLOG INSULIN (NovoLOG) PER UNIT SC SCH (17:30)
[2021-04-26 17:42] LABS: CALCIUM LEVEL 8.3 MG/DL (8.8-10.2); CREATININE FOR GFR 1.38 MG/DL (0.70-1.30); GLOMERULAR FILTRATION RATE 54.2 (>42); POTASSIUM SERUM 3.6 MEQ/L (3.5-5.1)
[2021-04-26 22:00] VITALS: BP 130/66
[2021-04-26 23:14] LABS: CREATININE FOR GFR 1.74 MG/DL (0.70-1.30); GLOMERULAR FILTRATION RATE 41.5 (>42); POTASSIUM SERUM 3.7 MEQ/L (3.5-5.1)
[2021-04-27] MEDS: HumaLOG INSULIN (NovoLOG) PER UNIT SC SCH ×5 (00:19→17:38)
[2021-04-27] MEDS: AMPICILLIN SOD/SULBACTAM SOD 3 GM in D5W MINI-BAG PLUS 100 ML IV SCH ×4 (02:39→20:02)
[2021-04-27 06:00] VITALS: BP 148/70
[2021-04-27 06:45] LABS: APPEARANCE, URINE CLOUDY (CLEAR); BACTERIA, URINE AUTO NEGATIVE (NEGATIVE); BILIRUBIN, URINE AUTO NEGATIVE (NEGATIVE); BLOOD, URINE BLOOD 1+ (NEGATIVE); COLOR, URINE AMBER (YELLOW); GLUCOSE, URINE (UA) AUTO 1+ mg/dL (NEGATIVE); KETONE, URINE AUTO TRACE mg/dL (NEGATIVE); LEUKOCYTE ESTERASE, URINE AUTO NEGATIVE (NEGATIVE); NITRITE, URINE AUTO NEGATIVE (NEGATIVE); PROTEIN, URINE AUTO 2+ mg/dL (NEGATIVE); RBC, URINE AUTO 1 /HPF (0-3); SPECIFIC GRAVITY URINE AUTO 1.024 (1.002-1.035); SQUAMOUS EPITHELIAL CELL UR AU 1 /HPF (0-6); UROBILINOGEN, URINE AUTO 0.2 mg/dL (0.0-2.0); WBC, URINE AUTO 4 /HPF (0-3)
[2021-04-27 08:04] LABS: BASO # 0.1 10^3/uL (0.0-0.2); BASO % 0.7 % (0.0-1.0); EOS # 0.1 10^3/uL (0.0-0.5); EOS % 0.5 % (0.0-3.0); HEMATOCRIT 37.3 % (42.0-52.0); HEMOGLOBIN 12.7 g/dl (13.5-17.5); LYMPH # 0.8 10^3/uL (1.5-5.0); LYMPH % 8.6 % (24.0-44.0); MEAN CORPUSCULAR HEMOGLOBIN 30.5 pg (27.0-33.0); MEAN CORPUSCULAR VOLUME 89.4 fl (80.0-96.0); MONO # 1.1 10^3/uL (0.0-0.8); MONO % 12.4 % (2.0-8.0); NEUTROPHILS % 76.9 % (36.0-66.0); RED BLOOD COUNT 4.17 10^6/uL (4.30-6.10); WHITE BLOOD COUNT 9.1 10^3/uL (4.0-10.0)
[2021-04-27 08:25] LABS: CREATININE FOR GFR 1.69 MG/DL (0.70-1.30); GLOMERULAR FILTRATION RATE 42.9 (>42); POTASSIUM SERUM 3.8 MEQ/L (3.5-5.1)
[2021-04-27] MEDS: ASPIRIN 81MG ENTERIC TABLET PO SCH (09:39)
[2021-04-27] MEDS: ATORVASTATIN 20 MG TAB PO SCH (09:39)
[2021-04-27] MEDS: buPROPion **SR TABLET** (ZYBAN) 150MG PO SCH ×2 (09:39→20:03)
[2021-04-27] MEDS: DULoxetine 30MG CAPSULE (CYMBALTA) PO SCH (09:39)
[2021-04-27] MEDS: GABAPENTIN 300 MG CAP PO SCH ×3 (09:40→20:03)
[2021-04-27] MEDS: POTASSIUM CHLORIDE 10MEQ SR TABLET PO SCH ×2 (09:40→20:02)
[2021-04-27] MEDS: METOPROLOL SUCC (TopROL XL) 100MG *XL* TAB PO SCH (09:40)
[2021-04-27] MEDS: ENOXAPARIN 40MG/0.4ML SYRINGE (J1650 PER 10MG) SC SCH (09:41)
[2021-04-27 09:49] LABS: ABG BASE EXCESS 3.6 (-2.0-2.0); ABG HCO3 28.7 MEQ/L (22.0-26.0); ABG O2 SATURATION 97.3 % (95.0-99.0); ABG PARTIAL PRESSURE CO2 45.4 mmHg (35.0-45.0); ABG PARTIAL PRESSURE O2 97.6 mmHg (75.0-100.0); ABG STANDARD HCO3 27.7 MEQ/L (22.0-26.0); ABG TOTAL CO2 30.1 MEQ/L (23.0-31.0); ABG pH (ARTERIAL) 7.419 UNITS (7.350-7.450)
[2021-04-27 09:55] LABS: OSMOLALITY URINE 561 MOSM/KG (50-1400)
[2021-04-27 10:06] LABS: SODIUM,RANDOM URINE < 10 MEQ/L
[2021-04-27] MEDS: NS 1,000 ML IV SCH ×2 (12:05→20:33)
[2021-04-27 12:20] LABS: CALCIUM LEVEL 7.6 MG/DL (8.8-10.2); CREATININE FOR GFR 1.41 MG/DL (0.70-1.30); GLOMERULAR FILTRATION RATE 52.9 (>42); POTASSIUM SERUM 3.8 MEQ/L (3.5-5.1)
[2021-04-27 14:00] VITALS: BP 130/63
[2021-04-27 14:18] LABS: ALBUMIN 2.4 GM/DL (3.2-5.2)
[2021-04-27] MEDS ORDERED: HumuLIN (NovoLIN)70/30 INSULIN INJ PER UNIT SC SCH (17:30)
[2021-04-27 17:40] LABS: CALCIUM LEVEL 7.6 MG/DL (8.8-10.2); CREATININE FOR GFR 1.3 MG/DL (0.70-1.30); GLOMERULAR FILTRATION RATE 58.1 (>42); POTASSIUM SERUM 3.7 MEQ/L (3.5-5.1)
[2021-04-27] MEDS ORDERED: LEVEMIR (INSULIN DETEMIR) 1 UNITS/0.01ML SC ONE (17:40)
[2021-04-27 22:00] VITALS: BP 129/64
[2021-04-27 23:23] LABS: BLOOD UREA NITROGEN 24 MG/DL (7-18); CALCIUM LEVEL 7.6 MG/DL (8.8-10.2); CARBON DIOXIDE LEVEL 29 MEQ/L (21-32); CHLORIDE LEVEL 97 MEQ/L (98-107); GLOMERULAR FILTRATION RATE > 60.0 (>42); GLUCOSE, FASTING 195 MG/DL (70-100); POTASSIUM SERUM 3.9 MEQ/L (3.5-5.1); SODIUM LEVEL 133 MEQ/L (136-145)
[2021-04-28] MEDS: HumaLOG INSULIN (NovoLOG) PER UNIT SC SCH ×4 (00:02→17:30)
[2021-04-28] MEDS: AMPICILLIN SOD/SULBACTAM SOD 3 GM in D5W MINI-BAG PLUS 100 ML IV SCH ×4 (02:23→19:48)
[2021-04-28 05:41] LABS: HEMATOCRIT 36.5 % (42.0-52.0); HEMOGLOBIN 12.1 g/dl (13.5-17.5); MEAN CORPUSCULAR HEMOGLOBIN 29.9 pg (27.0-33.0); MEAN CORPUSCULAR HGB CONC 33.2 g/dl (32.0-36.5); MEAN CORPUSCULAR VOLUME 90.1 fl (80.0-96.0); PLATELET COUNT, AUTOMATED 229 10^3/uL (150-450); RED BLOOD COUNT 4.05 10^6/uL (4.30-6.10); WHITE BLOOD COUNT 11.7 10^3/uL (4.0-10.0)
[2021-04-28 06:00] VITALS: BP 123/66
[2021-04-28 06:03] LABS: BLOOD UREA NITROGEN 21 MG/DL (7-18); CALCIUM LEVEL 8.1 MG/DL (8.8-10.2); CARBON DIOXIDE LEVEL 28 MEQ/L (21-32); CHLORIDE LEVEL 97 MEQ/L (98-107); GLOMERULAR FILTRATION RATE > 60.0 (>42); GLUCOSE, FASTING 203 MG/DL (70-100); POTASSIUM SERUM 3.7 MEQ/L (3.5-5.1); SODIUM LEVEL 131 MEQ/L (136-145)
[2021-04-28 06:33] LABS: ATYPICAL LYMPH 1 % (0-5); LYMPHOCYTES 10 % (16-44); MONOCYTES 6 % (0-5); NEUTROPHILS 77 % (28-66); PLATELET ESTIMATE NORMAL (NORMAL)
[2021-04-28 06:34] LABS: ANISOCYTOSIS 1+
[2021-04-28] MEDS: ATORVASTATIN 20 MG TAB PO SCH (08:42)
[2021-04-28] MEDS: ENOXAPARIN 40MG/0.4ML SYRINGE (J1650 PER 10MG) SC SCH (08:42)
[2021-04-28] MEDS: GABAPENTIN 300 MG CAP PO SCH ×3 (08:43→19:48)
[2021-04-28] MEDS: DULoxetine 30MG CAPSULE (CYMBALTA) PO SCH (08:43)
[2021-04-28] MEDS: ASPIRIN 81MG ENTERIC TABLET PO SCH (08:43)
[2021-04-28] MEDS: POTASSIUM CHLORIDE 10MEQ SR TABLET PO SCH ×2 (08:43→19:48)
[2021-04-28] MEDS: METOPROLOL SUCC (TopROL XL) 100MG *XL* TAB PO SCH (08:43)
[2021-04-28] MEDS: NS 1,000 ML IV SCH ×2 (08:44→15:57)
[2021-04-28] MEDS: buPROPion **SR TABLET** (ZYBAN) 150MG PO SCH ×2 (08:44→19:48)
[2021-04-28 12:35] LABS: BLOOD UREA NITROGEN 18 MG/DL (7-18); CALCIUM LEVEL 7.9 MG/DL (8.8-10.2); CARBON DIOXIDE LEVEL 27 MEQ/L (21-32); CHLORIDE LEVEL 98 MEQ/L (98-107); CREATININE FOR GFR 1.08 MG/DL (0.70-1.30); GLOMERULAR FILTRATION RATE > 60.0 (>42); GLUCOSE, FASTING 186 MG/DL (70-100); SODIUM LEVEL 132 MEQ/L (136-145)
[2021-04-28] MEDS: BETAMETHASONE DIP 0.05% OINT 15 GM TOP SCH (13:13)
[2021-04-28] MEDS: LEVEMIR (INSULIN DETEMIR) 1 UNITS/0.01ML SC SCH ×2 (13:14→19:49)
[2021-04-28 14:00] VITALS: BP 132/71
[2021-04-28 16:45] VITALS: BP 167/62
[2021-04-28] MEDS: IRBESARTAN 150MG TAB PO SCH (17:30)
[2021-04-28] MEDS: ACETAMINOPHEN TAB 650MG DOSE (2X325MG) PO PRN (20:54)
[2021-04-28 21:09] VITALS: BP 156/76
[2021-04-28 22:00] VITALS: BP 162/80
[2021-04-29] MEDS: NS 1,000 ML IV SCH ×3 (01:35→11:03)
[2021-04-29] MEDS: AMPICILLIN SOD/SULBACTAM SOD 3 GM in D5W MINI-BAG PLUS 100 ML IV SCH ×2 (01:35→08:49)
[2021-04-29] MEDS: HumaLOG INSULIN (NovoLOG) PER UNIT SC SCH ×4 (01:36→18:00)
[2021-04-29 06:00] VITALS: BP 132/67
[2021-04-29 06:25] LABS: HEMATOCRIT 37.4 % (42.0-52.0); HEMOGLOBIN 12.5 g/dl (13.5-17.5); MEAN CORPUSCULAR HEMOGLOBIN 30.2 pg (27.0-33.0); MEAN CORPUSCULAR HGB CONC 33.4 g/dl (32.0-36.5); MEAN CORPUSCULAR VOLUME 90.3 fl (80.0-96.0); PLATELET COUNT, AUTOMATED 217 10^3/uL (150-450); RED BLOOD COUNT 4.14 10^6/uL (4.30-6.10); WHITE BLOOD COUNT 19.7 10^3/uL (4.0-10.0)
[2021-04-29 06:52] LABS: BLOOD UREA NITROGEN 15 MG/DL (7-18); CALCIUM LEVEL 7.8 MG/DL (8.8-10.2); CARBON DIOXIDE LEVEL 28 MEQ/L (21-32); CHLORIDE LEVEL 101 MEQ/L (98-107); CREATININE FOR GFR 1.11 MG/DL (0.70-1.30); GLOMERULAR FILTRATION RATE > 60.0 (>42); GLUCOSE, FASTING 185 MG/DL (70-100); POTASSIUM SERUM 3.8 MEQ/L (3.5-5.1); SODIUM LEVEL 136 MEQ/L (136-145)
[2021-04-29 07:38] LABS: LYMPHOCYTES 8 % (16-44); MONOCYTES 3 % (0-5); NEUTROPHILS 83 % (28-66); PLATELET ESTIMATE NORMAL (NORMAL)
[2021-04-29 07:39] LABS: ANISOCYTOSIS 1+
[2021-04-29] MEDS: LEVEMIR (INSULIN DETEMIR) 1 UNITS/0.01ML SC SCH ×2 (08:57→22:08)
[2021-04-29] MEDS: ENOXAPARIN 40MG/0.4ML SYRINGE (J1650 PER 10MG) SC SCH (08:58)
[2021-04-29 09:00] VITALS: BP 121/69
[2021-04-29] MEDS: DULoxetine 30MG CAPSULE (CYMBALTA) PO SCH (09:00)
[2021-04-29] MEDS: ASPIRIN 81MG ENTERIC TABLET PO SCH (09:00)
[2021-04-29] MEDS: ATORVASTATIN 20 MG TAB PO SCH (09:00)
[2021-04-29] MEDS: GABAPENTIN 300 MG CAP PO SCH ×3 (09:00→21:00)
[2021-04-29] MEDS: METOPROLOL SUCC (TopROL XL) 100MG *XL* TAB PO SCH (09:01)
[2021-04-29] MEDS: POTASSIUM CHLORIDE 10MEQ SR TABLET PO SCH ×2 (09:01→22:08)
[2021-04-29] MEDS: buPROPion **SR TABLET** (ZYBAN) 150MG PO SCH (09:01)
[2021-04-29] MEDS: BETAMETHASONE DIP 0.05% OINT 15 GM TOP SCH (09:02)
[2021-04-29] MEDS: IRBESARTAN 150MG TAB PO SCH (09:02)
[2021-04-29 10:31] LABS: ALBUMIN 1.9 GM/DL (3.2-5.2); BILIRUBIN,DIRECT 0.6 MG/DL (0.0-0.2); TOTAL PROTEIN 5.9 GM/DL (6.4-8.2)
[2021-04-29] MEDS: GASTROGRAFIN SOLUTION 30ML PO SCH ×2 (11:06→11:38)
[2021-04-29] MEDS ORDERED: ISOVUE-370 76% 100ML VIAL As Ordered ONE (12:49)
[2021-04-29] MEDS: PIPERACILLIN/TAZOBACTAM SOD 4.5 GM in D5W MINI-BAG PLUS 50 ML IV SCH ×2 (13:23→18:00)
[2021-04-29 14:45] VITALS: BP 142/63
[2021-04-29] MEDS ORDERED: dexameTHASONE 4 MG/ML 1ML VIAL (J1100 PER 1MG) As Ordered ONE (15:46)
[2021-04-29] MEDS ORDERED: ONDANSETRON 4MG/2ML VIAL As Ordered ONE (15:46)
[2021-04-29] MEDS ORDERED: LIDOCAINE 2% 100MG/5ML SDV (FOR ANES.) As Ordered ONE (15:46)
[2021-04-29] MEDS ORDERED: ROCURONIUM BROMIDE 50 MG/5 ML VIAL As Ordered ONE ×2 (15:46→18:15)
[2021-04-29] MEDS ORDERED: fentaNYL 250 MCG/5 ML INJECTION (J3010) As Ordered ONE (15:46)
[2021-04-29] MEDS ORDERED: propofoL 200 MG/20 ML VIAL As Ordered ONE (15:46)
[2021-04-29] MEDS ORDERED: VASOPRESSIN INJ 20 UNITS/ML VIAL As Ordered ONE (15:46)
[2021-04-29] MEDS ORDERED: MIDAZOLAM INJ 2MG/2ML VIAL (J2250 PER 1MG) As Ordered ONE (15:46)
[2021-04-29] MEDS ORDERED: PHENYLephrine 500MCG 5ML (100MCG/ML) SYRINGE As Ordered ONE (15:46)
[2021-04-29] MEDS ORDERED: ACETAMINOPHEN 1000MG 100ML IV BTL (OFIRMEV) (J0131 PER 10MG) As Ordered ONE (16:49)
[2021-04-29] MEDS ORDERED: SUGAMMADEX SODIUM 500 MG/5 ML VIAL (BRIDION) As Ordered ONE (18:31)
[2021-04-29] MEDS ORDERED: HYDROmorphone HCL 2MG/ML 1ML VIAL As Ordered ONE (18:36)
[2021-04-29] MEDS ORDERED: diphenhydrAMINE 50MG/ML VIAL (J1200) IV PRN (20:55)
[2021-04-29] MEDS ORDERED: NS 1,000 ML IV SCH (20:55)
[2021-04-29] MEDS ORDERED: NALOXONE INJ 0.4MG/1ML VIAL (J2310 PER 1MG) IV PRN (20:55)
[2021-04-29] MEDS ORDERED: MORPHINE 1MG/ML IN 0.9% NACL 100ML IV BAG IV PRN (20:55)
[2021-04-29] MEDS ORDERED: KETOROLAC 30 MG/ML 1ML VIAL IV PRN (20:55)
[2021-04-29] MEDS ORDERED: EPIDURAL/PCA KEYS XX PRN (20:55)
[2021-04-29 22:00] VITALS: BP 111/54
[2021-04-29] MEDS: LR 1,000 ML IV SCH (22:07)
[2021-04-29 22:30] VITALS: BP 91/50
[2021-04-29 23:00] VITALS: BP 102/57
[2021-04-29] MEDS ORDERED: ONDANSETRON 4MG/2ML VIAL IV PRN (23:30)
[2021-04-29] MEDS ORDERED: METOCLOPRAMIDE INJ 10MG/2ML VIAL (J2765 PER 1) IV PRN (23:30)
[2021-04-29] MEDS ORDERED: fentaNYL 100 MCG/2 ML INJECTION (J3010) IV PRN (23:30)
[2021-04-29] MEDS ORDERED: HYDROMORPHONE HCL 0.5 MG/ 0.5 ML SYRINGE (J1170 PER 1) IV PRN (23:30)
[2021-04-29] MEDS ORDERED: LR 1,000 ML IV SCH (23:30)
[2021-04-30] VITALS (16 sets, daily range): BP systolic 100–156; BP diastolic 49–65
[2021-04-30] MEDS: PIPERACILLIN/TAZOBACTAM SOD 4.5 GM in D5W MINI-BAG PLUS 50 ML IV SCH ×5 (00:39→23:09)
[2021-04-30] MEDS: LR 1,000 ML IV SCH ×4 (00:48→22:04)
[2021-04-30] MEDS: HumaLOG INSULIN (NovoLOG) PER UNIT SC SCH ×6 (00:48→23:09)
[2021-04-30 04:00] LABS: HEMATOCRIT 35.9 % (42.0-52.0); HEMOGLOBIN 11.9 g/dl (13.5-17.5); MEAN CORPUSCULAR HEMOGLOBIN 30.2 pg (27.0-33.0); MEAN CORPUSCULAR HGB CONC 33.1 g/dl (32.0-36.5); MEAN CORPUSCULAR VOLUME 91.1 fl (80.0-96.0); PLATELET COUNT, AUTOMATED 231 10^3/uL (150-450); RED BLOOD COUNT 3.94 10^6/uL (4.30-6.10)
[2021-04-30 04:13] LABS: WHITE BLOOD COUNT 30.5 10^3/uL (4.0-10.0)
[2021-04-30 04:21] LABS: CALCIUM LEVEL 7.5 MG/DL (8.8-10.2); CREATININE FOR GFR 1.56 MG/DL (0.70-1.30); GLOMERULAR FILTRATION RATE 47.1 (>42); POTASSIUM SERUM 4.5 MEQ/L (3.5-5.1)
[2021-04-30 05:00] LABS: LYMPHOCYTES 3 % (16-44); MONOCYTES 4 % (0-5); NEUTROPHILS 89 % (28-66)
[2021-04-30 05:01] LABS: PLATELET ESTIMATE NORMAL (NORMAL)
[2021-04-30 08:13] LABS: C REACTIVE PROTEIN QUANTITATIV 26.3 MG/DL (0.00-0.30)
[2021-04-30] MEDS: METOPROLOL SUCC (TopROL XL) 100MG *XL* TAB PO SCH (09:00)
[2021-04-30] MEDS: BETAMETHASONE DIP 0.05% OINT 15 GM TOP SCH (09:00)
[2021-04-30] MEDS: POTASSIUM CHLORIDE 10MEQ SR TABLET PO SCH (09:00)
[2021-04-30] MEDS: ENOXAPARIN 40MG/0.4ML SYRINGE (J1650 PER 10MG) SC SCH (10:46)
[2021-04-30] MEDS: ATORVASTATIN 20 MG TAB PO SCH (10:47)
[2021-04-30] MEDS: GABAPENTIN 300 MG CAP PO SCH ×3 (10:47→20:20)
[2021-04-30] MEDS: DULoxetine 30MG CAPSULE (CYMBALTA) PO SCH (10:49)
[2021-04-30] MEDS: LEVEMIR (INSULIN DETEMIR) 1 UNITS/0.01ML SC SCH ×2 (10:56→20:21)
[2021-04-30] MEDS: POTASSIUM CHLORIDE 10% LIQ 20 MEQ/15 ML UDC GT SCH ×2 (12:50→20:20)
[2021-04-30] MEDS: METOPROLOL TART 50 MG TAB GT SCH ×2 (12:51→20:21)
[2021-05-01] VITALS (16 sets, daily range): BP systolic 98–138; BP diastolic 52–78
[2021-05-01] MEDS: PIPERACILLIN/TAZOBACTAM SOD 4.5 GM in D5W MINI-BAG PLUS 50 ML IV SCH (05:12)
[2021-05-01] MEDS: HumaLOG INSULIN (NovoLOG) PER UNIT SC SCH ×4 (05:12→23:41)
[2021-05-01] MEDS: LR 1,000 ML IV SCH (05:13)
[2021-05-01 06:28] LABS: BASO # 0.1 10^3/uL (0.0-0.2); BASO % 0.2 % (0.0-1.0); LYMPH # 0.9 10^3/uL (1.5-5.0); LYMPH % 3.3 % (24.0-44.0); MEAN CORPUSCULAR HEMOGLOBIN 30.2 pg (27.0-33.0); MEAN CORPUSCULAR HGB CONC 32.3 g/dl (32.0-36.5); MEAN CORPUSCULAR VOLUME 93.5 fl (80.0-96.0); MONO # 1.5 10^3/uL (0.0-0.8); MONO % 5.5 % (2.0-8.0); NEUTROPHILS # 23.3 10^3/uL (1.5-8.5); NEUTROPHILS % 86.7 % (36.0-66.0); PLATELET COUNT, AUTOMATED 236 10^3/uL (150-450); RED BLOOD COUNT 3.21 10^6/uL (4.30-6.10); WHITE BLOOD COUNT 26.9 10^3/uL (4.0-10.0)
[2021-05-01 06:33] LABS: HEMOGLOBIN 9.7 g/dl (13.5-17.5)
[2021-05-01 06:52] LABS: CALCIUM LEVEL 7.6 MG/DL (8.8-10.2); CREATININE FOR GFR 1.67 MG/DL (0.70-1.30); GLOMERULAR FILTRATION RATE 43.5 (>42); POTASSIUM SERUM 4.4 MEQ/L (3.5-5.1)
[2021-05-01] MEDS: NS 1,000 ML IV SCH ×3 (08:15→21:11)
[2021-05-01 08:21] LABS: C REACTIVE PROTEIN QUANTITATIV 28.5 MG/DL (0.00-0.30)
[2021-05-01 08:27] LABS: ABG BASE EXCESS 1.6 (-2.0-2.0); ABG O2 SATURATION 96.3 % (95.0-99.0); ABG PARTIAL PRESSURE CO2 46.2 mmHg (35.0-45.0); ABG PARTIAL PRESSURE O2 89.4 mmHg (75.0-100.0); ABG STANDARD HCO3 25.9 MEQ/L (22.0-26.0); ABG TOTAL CO2 28.4 MEQ/L (23.0-31.0); ABG pH (ARTERIAL) 7.385 UNITS (7.350-7.450)
[2021-05-01] MEDS: BETAMETHASONE DIP 0.05% OINT 15 GM TOP SCH (09:00)
[2021-05-01] MEDS: METOPROLOL TART 50 MG TAB GT SCH ×2 (09:00→21:06)
[2021-05-01] MEDS: ATORVASTATIN 20 MG TAB PO SCH (09:26)
[2021-05-01] MEDS: POTASSIUM CHLORIDE 10% LIQ 20 MEQ/15 ML UDC GT SCH ×2 (09:26→21:04)
[2021-05-01] MEDS: LEVEMIR (INSULIN DETEMIR) 1 UNITS/0.01ML SC SCH ×2 (09:27→21:04)
[2021-05-01] MEDS: ENOXAPARIN 40MG/0.4ML SYRINGE (J1650 PER 10MG) SC SCH (09:27)
[2021-05-01] MEDS: DULoxetine 30MG CAPSULE (CYMBALTA) PO SCH (09:27)
[2021-05-01] MEDS: MEROPENEM INJ 1 GM in IV 1 EA IV SCH ×2 (09:45→17:59)
[2021-05-01] MEDS ORDERED: VANCOMYCIN HCL 1,000 MG, VIAL MATE ADAPTER 1 EACH in NS 250 ML IV ONE ×2 (10:00→11:00)
[2021-05-01] MEDS: MORPHINE 2 MG/ML 1ML VIAL (J2270) IV PRN (18:11)
[2021-05-01] MEDS ORDERED: VANCOMYCIN HCL 1,000 MG, VIAL MATE ADAPTER 1 EACH in NS 250 ML IV SCH (22:00)
[2021-05-02] VITALS (11 sets, daily range): BP systolic 116–162; BP diastolic 56–97
[2021-05-02] MEDS: MEROPENEM INJ 1 GM in IV 1 EA IV SCH ×3 (00:23→16:17)
[2021-05-02] MEDS: MORPHINE 2 MG/ML 1ML VIAL (J2270) IV PRN ×3 (02:57→17:52)
[2021-05-02] MEDS: NS 1,000 ML IV SCH (04:06)
[2021-05-02] MEDS: HumaLOG INSULIN (NovoLOG) PER UNIT SC SCH ×3 (05:43→18:00)
[2021-05-02 05:52] LABS: BASO # 0.1 10^3/uL (0.0-0.2); BASO % 0.2 % (0.0-1.0); EOS # 0.1 10^3/uL (0.0-0.5); EOS % 0.4 % (0.0-3.0); HEMATOCRIT 28.1 % (42.0-52.0); LYMPH # 0.9 10^3/uL (1.5-5.0); LYMPH % 4.1 % (24.0-44.0); MEAN CORPUSCULAR HEMOGLOBIN 30.3 pg (27.0-33.0); MEAN CORPUSCULAR VOLUME 94.6 fl (80.0-96.0); MONO # 1.2 10^3/uL (0.0-0.8); MONO % 5.2 % (2.0-8.0); NEUTROPHILS # 19.6 10^3/uL (1.5-8.5); PLATELET COUNT, AUTOMATED 245 10^3/uL (150-450); RED BLOOD COUNT 2.97 10^6/uL (4.30-6.10); WHITE BLOOD COUNT 22.5 10^3/uL (4.0-10.0)
[2021-05-02 06:14] LABS: VANCOMYCIN LEVEL TROUGH 13.7 UG/ML (10.0-20.0)
[2021-05-02] MEDS ORDERED: VANCOMYCIN HCL 1,000 MG, VIAL MATE ADAPTER 1 EACH in NS 250 ML IV ONE (06:35)
[2021-05-02 06:43] LABS: ALBUMIN 1.2 GM/DL (3.2-5.2); ALT/SGPT 67 U/L (12-78); BILIRUBIN,TOTAL 1.3 MG/DL (0.2-1.0); BLOOD UREA NITROGEN 20 MG/DL (7-18); CALCIUM LEVEL 7.4 MG/DL (8.8-10.2); CARBON DIOXIDE LEVEL 29 MEQ/L (21-32); CHLORIDE LEVEL 109 MEQ/L (98-107); CREATININE FOR GFR 1.04 MG/DL (0.70-1.30); GLOMERULAR FILTRATION RATE > 60.0 (>42); GLUCOSE, FASTING 165 MG/DL (70-100); MAGNESIUM LEVEL 2.5 MG/DL (1.8-2.4); POTASSIUM SERUM 4.4 MEQ/L (3.5-5.1); SODIUM LEVEL 143 MEQ/L (136-145); TOTAL PROTEIN 4.7 GM/DL (6.4-8.2)
[2021-05-02] MEDS: LEVEMIR (INSULIN DETEMIR) 1 UNITS/0.01ML SC SCH ×2 (08:22→20:59)
[2021-05-02] MEDS: ENOXAPARIN 40MG/0.4ML SYRINGE (J1650 PER 10MG) SC SCH (08:22)
[2021-05-02] MEDS: ATORVASTATIN 20 MG TAB PO SCH (08:23)
[2021-05-02] MEDS: METOPROLOL TART 50 MG TAB GT SCH ×2 (08:24→20:58)
[2021-05-02] MEDS: POTASSIUM CHLORIDE 10% LIQ 20 MEQ/15 ML UDC GT SCH ×2 (08:24→20:58)
[2021-05-02] MEDS: DULoxetine 30MG CAPSULE (CYMBALTA) PO SCH (08:24)
[2021-05-02] MEDS: BETAMETHASONE DIP 0.05% OINT 15 GM TOP SCH (08:31)
[2021-05-02] MEDS: VANCOMYCIN HCL 1,000 MG, VIAL MATE ADAPTER 1 EACH in NS 250 ML IV SCH ×2 (10:15→17:19)
[2021-05-02] MEDS ORDERED: LIDOCAINE 1% MDV 20ML VIAL As Ordered ONE (15:01)
[2021-05-02] MEDS: SODIUM CHLORIDE 0.9% INJ 10 ML SYR IV SCH (18:00)
[2021-05-02] MEDS: ALVIMOPAN 12 MG CAPSULE (ENTEREG) PO SCH (20:58)
[2021-05-03] VITALS: BP 147/66
[2021-05-03] MEDS: HumaLOG INSULIN (NovoLOG) PER UNIT SC SCH ×4 (00:40→18:14)
[2021-05-03] MEDS: MEROPENEM INJ 1 GM in IV 1 EA IV SCH ×3 (00:40→18:13)
[2021-05-03] MEDS: MORPHINE 2 MG/ML 1ML VIAL (J2270) IV PRN (03:56)
[2021-05-03 04:00] VITALS: BP_SYST 120; BP_SYST 147; BP_DIAS 64
[2021-05-03 05:23] LABS: BASO # 0.1 10^3/uL (0.0-0.2); BASO % 0.3 % (0.0-1.0); EOS # 0.1 10^3/uL (0.0-0.5); EOS % 0.5 % (0.0-3.0); HEMATOCRIT 29.2 % (42.0-52.0); HEMOGLOBIN 9.5 g/dl (13.5-17.5); LYMPH # 0.9 10^3/uL (1.5-5.0); LYMPH % 4.9 % (24.0-44.0); MEAN CORPUSCULAR HEMOGLOBIN 30.6 pg (27.0-33.0); MEAN CORPUSCULAR HGB CONC 32.5 g/dl (32.0-36.5); MEAN CORPUSCULAR VOLUME 94.2 fl (80.0-96.0); MONO % 5.3 % (2.0-8.0); NEUTROPHILS # 15.5 10^3/uL (1.5-8.5); NEUTROPHILS % 86.2 % (36.0-66.0); PLATELET COUNT, AUTOMATED 273 10^3/uL (150-450)
[2021-05-03 05:46] LABS: ALBUMIN 1.2 GM/DL (3.2-5.2); ALT/SGPT 55 U/L (12-78); BILIRUBIN,TOTAL 1.3 MG/DL (0.2-1.0); BLOOD UREA NITROGEN 17 MG/DL (7-18); CALCIUM LEVEL 7.4 MG/DL (8.8-10.2); CARBON DIOXIDE LEVEL 26 MEQ/L (21-32); CHLORIDE LEVEL 112 MEQ/L (98-107); CREATININE FOR GFR 0.85 MG/DL (0.70-1.30); GLOMERULAR FILTRATION RATE > 60.0 (>42); GLUCOSE, FASTING 163 MG/DL (70-100); MAGNESIUM LEVEL 2.4 MG/DL (1.8-2.4); POTASSIUM SERUM 4.1 MEQ/L (3.5-5.1); SODIUM LEVEL 145 MEQ/L (136-145)
[2021-05-03] MEDS: SODIUM CHLORIDE 0.9% INJ 10 ML SYR IV SCH ×2 (06:15→19:11)
[2021-05-03 08:00] VITALS: BP 166/74
[2021-05-03] MEDS: POTASSIUM CHLORIDE 10% LIQ 20 MEQ/15 ML UDC GT SCH ×2 (09:34→21:55)
[2021-05-03] MEDS: DULoxetine 30MG CAPSULE (CYMBALTA) PO SCH (09:37)
[2021-05-03] MEDS: ATORVASTATIN 20 MG TAB PO SCH (09:37)
[2021-05-03] MEDS: METOPROLOL TART 50 MG TAB GT SCH ×2 (09:39→21:56)
[2021-05-03] MEDS: ALVIMOPAN 12 MG CAPSULE (ENTEREG) PO SCH ×2 (09:39→21:55)
[2021-05-03] MEDS: ENOXAPARIN 40MG/0.4ML SYRINGE (J1650 PER 10MG) SC SCH (09:40)
[2021-05-03] MEDS: LEVEMIR (INSULIN DETEMIR) 1 UNITS/0.01ML SC SCH ×2 (09:41→21:56)
[2021-05-03 12:00] VITALS: BP 176/83
[2021-05-03 15:15] VITALS: BP 165/67
[2021-05-03 22:00] VITALS: BP 160/68
[2021-05-04] MEDS: HumaLOG INSULIN (NovoLOG) PER UNIT SC SCH ×4 (00:45→17:56)
[2021-05-04] MEDS: MEROPENEM INJ 1 GM in IV 1 EA IV SCH ×3 (00:55→17:56)
[2021-05-04] MEDS: SODIUM CHLORIDE 0.9% INJ 10 ML SYR IV PRN ×2 (01:50→19:36)
[2021-05-04] MEDS: NORCO, ANEXSIA 5/325MG TABLET (HYDROcodone/ACETAMINOPHEN) PO PRN (03:34)
[2021-05-04 04:00] VITALS: BP 148/68
[2021-05-04 05:52] LABS: BASO % 0.2 % (0.0-1.0); EOS # 0.2 10^3/uL (0.0-0.5); EOS % 1.1 % (0.0-3.0); HEMATOCRIT 28.2 % (42.0-52.0); HEMOGLOBIN 9.3 g/dl (13.5-17.5); LYMPH # 0.8 10^3/uL (1.5-5.0); LYMPH % 5.4 % (24.0-44.0); MEAN CORPUSCULAR HEMOGLOBIN 30.5 pg (27.0-33.0); MEAN CORPUSCULAR VOLUME 92.5 fl (80.0-96.0); MONO # 0.8 10^3/uL (0.0-0.8); MONO % 5.7 % (2.0-8.0); NEUTROPHILS # 12.6 10^3/uL (1.5-8.5); NEUTROPHILS % 85.4 % (36.0-66.0); PLATELET COUNT, AUTOMATED 290 10^3/uL (150-450); RED BLOOD COUNT 3.05 10^6/uL (4.30-6.10); WHITE BLOOD COUNT 14.7 10^3/uL (4.0-10.0)
[2021-05-04] MEDS: SODIUM CHLORIDE 0.9% INJ 10 ML SYR IV SCH ×2 (06:21→17:56)
[2021-05-04 06:23] LABS: ALBUMIN 1.2 GM/DL (3.2-5.2); ALT/SGPT 44 U/L (12-78); BILIRUBIN,TOTAL 1.2 MG/DL (0.2-1.0); BLOOD UREA NITROGEN 14 MG/DL (7-18); CALCIUM LEVEL 7.5 MG/DL (8.8-10.2); CARBON DIOXIDE LEVEL 27 MEQ/L (21-32); CHLORIDE LEVEL 106 MEQ/L (98-107); CREATININE FOR GFR 0.74 MG/DL (0.70-1.30); GLOMERULAR FILTRATION RATE > 60.0 (>42); GLUCOSE, FASTING 191 MG/DL (70-100); MAGNESIUM LEVEL 2.3 MG/DL (1.8-2.4); SODIUM LEVEL 138 MEQ/L (136-145); TOTAL PROTEIN 5.1 GM/DL (6.4-8.2)
[2021-05-04] MEDS ORDERED: AUGMENTIN 875 MG TAB PO SCH (09:00)
[2021-05-04] MEDS: LEVEMIR (INSULIN DETEMIR) 1 UNITS/0.01ML SC SCH ×2 (09:30→20:30)
[2021-05-04] MEDS: ATORVASTATIN 20 MG TAB PO SCH (09:31)
[2021-05-04] MEDS: METOPROLOL TART 50 MG TAB GT SCH ×2 (09:31→20:29)
[2021-05-04] MEDS: DULoxetine 30MG CAPSULE (CYMBALTA) PO SCH (09:31)
[2021-05-04] MEDS: ENOXAPARIN 40MG/0.4ML SYRINGE (J1650 PER 10MG) SC SCH (09:31)
[2021-05-04] MEDS: POTASSIUM CHLORIDE 10% LIQ 20 MEQ/15 ML UDC GT SCH ×2 (09:32→20:29)
[2021-05-04 14:00] VITALS: BP 162/58
[2021-05-04 22:00] VITALS: BP 164/68
[2021-05-05] MEDS: HumaLOG INSULIN (NovoLOG) PER UNIT SC SCH ×5 (00:31→21:00)
[2021-05-05] MEDS: MEROPENEM INJ 1 GM in IV 1 EA IV SCH ×3 (00:31→17:29)
[2021-05-05 05:51] LABS: BASO % 0.3 % (0.0-1.0); EOS # 0.2 10^3/uL (0.0-0.5); EOS % 1.3 % (0.0-3.0); HEMATOCRIT 28.5 % (42.0-52.0); HEMOGLOBIN 9.3 g/dl (13.5-17.5); LYMPH % 7.4 % (24.0-44.0); MEAN CORPUSCULAR HEMOGLOBIN 30.9 pg (27.0-33.0); MEAN CORPUSCULAR HGB CONC 32.6 g/dl (32.0-36.5); MEAN CORPUSCULAR VOLUME 94.7 fl (80.0-96.0); MONO # 0.9 10^3/uL (0.0-0.8); NEUTROPHILS # 10.8 10^3/uL (1.5-8.5); NEUTROPHILS % 81.2 % (36.0-66.0); PLATELET COUNT, AUTOMATED 336 10^3/uL (150-450); RED BLOOD COUNT 3.01 10^6/uL (4.30-6.10); WHITE BLOOD COUNT 13.3 10^3/uL (4.0-10.0)
[2021-05-05 06:00] VITALS: BP 161/69
[2021-05-05 06:26] LABS: ALBUMIN 1.5 GM/DL (3.2-5.2); ALT/SGPT 37 U/L (12-78); BILIRUBIN,TOTAL 0.8 MG/DL (0.2-1.0); BLOOD UREA NITROGEN 10 MG/DL (7-18); CALCIUM LEVEL 7.7 MG/DL (8.8-10.2); CARBON DIOXIDE LEVEL 31 MEQ/L (21-32); CHLORIDE LEVEL 104 MEQ/L (98-107); CREATININE FOR GFR 0.87 MG/DL (0.70-1.30); GLOMERULAR FILTRATION RATE > 60.0 (>42); GLUCOSE, FASTING 140 MG/DL (70-100); POTASSIUM SERUM 3.8 MEQ/L (3.5-5.1); SODIUM LEVEL 138 MEQ/L (136-145); TOTAL PROTEIN 6.1 GM/DL (6.4-8.2)
[2021-05-05] MEDS: SODIUM CHLORIDE 0.9% INJ 10 ML SYR IV SCH ×2 (06:30→17:29)
[2021-05-05] MEDS: ENOXAPARIN 40MG/0.4ML SYRINGE (J1650 PER 10MG) SC SCH (09:35)
[2021-05-05] MEDS ORDERED: diphenhydrAMINE CREAM 30GM TOP PRN (09:35)
[2021-05-05] MEDS: LEVEMIR (INSULIN DETEMIR) 1 UNITS/0.01ML SC SCH ×2 (09:35→21:17)
[2021-05-05] MEDS ORDERED: NYSTATIN 100,000 UNITS/GM TOPICAL PWD 15 GM TOP PRN (09:35)
[2021-05-05] MEDS: DULoxetine 30MG CAPSULE (CYMBALTA) PO SCH (09:36)
[2021-05-05] MEDS: ATORVASTATIN 20 MG TAB PO SCH (09:36)
[2021-05-05] MEDS: POTASSIUM CHLORIDE 10% LIQ 20 MEQ/15 ML UDC GT SCH (09:37)
[2021-05-05] MEDS: METOPROLOL TART 50 MG TAB GT SCH (09:43)
[2021-05-05] MEDS: LOMOTIL 2.5MG/0.025MG TABLET PO SCH ×3 (12:40→21:18)
[2021-05-05] MEDS: LACTOBACILLUS ACIDOPHILUS CAP (BACID) PO SCH ×2 (12:43→17:30)
[2021-05-05 14:00] VITALS: BP 152/68
[2021-05-05] MEDS: NORCO, ANEXSIA 5/325MG TABLET (HYDROcodone/ACETAMINOPHEN) PO PRN (17:48)
[2021-05-05] MEDS ORDERED: GLUCOSE 4GM CHEW TABLET PO PRN (17:50)
[2021-05-05] MEDS ORDERED: GLUCAGON INJ 1MG VIAL SC PRN (17:50)
[2021-05-05] MEDS ORDERED: DEXTROSE 50% 50 ML SYRINGE IV PRN (17:50)
[2021-05-05] MEDS: diphenhydrAMINE CREAM 30GM TOP SCH (21:17)
[2021-05-05] MEDS: NYSTATIN 100,000 UNITS/GM TOPICAL PWD 15 GM TOP SCH (21:17)
[2021-05-05] MEDS: METOPROLOL TART 50 MG TAB PO SCH (21:18)
[2021-05-05] MEDS: POTASSIUM CHLORIDE 10% LIQ 20 MEQ/15 ML UDC PO SCH (21:19)
[2021-05-05 22:00] VITALS: BP 166/73
[2021-05-06] MEDS: MEROPENEM INJ 1 GM in IV 1 EA IV SCH ×3 (01:10→16:51)
[2021-05-06 06:00] VITALS: BP 152/66
[2021-05-06 06:20] LABS: BASO % 0.3 % (0.0-1.0); EOS # 0.2 10^3/uL (0.0-0.5); EOS % 2.1 % (0.0-3.0); HEMATOCRIT 26.4 % (42.0-52.0); HEMOGLOBIN 8.4 g/dl (13.5-17.5); LYMPH % 9.6 % (24.0-44.0); MEAN CORPUSCULAR HEMOGLOBIN 30.2 pg (27.0-33.0); MEAN CORPUSCULAR HGB CONC 31.8 g/dl (32.0-36.5); MONO % 9.2 % (2.0-8.0); NEUTROPHILS # 7.8 10^3/uL (1.5-8.5); NEUTROPHILS % 76.1 % (36.0-66.0); PLATELET COUNT, AUTOMATED 345 10^3/uL (150-450); RED BLOOD COUNT 2.78 10^6/uL (4.30-6.10); WHITE BLOOD COUNT 10.3 10^3/uL (4.0-10.0)
[2021-05-06 06:42] LABS: ALBUMIN 1.3 GM/DL (3.2-5.2); ALT/SGPT 31 U/L (12-78); BILIRUBIN,TOTAL 0.6 MG/DL (0.2-1.0); BLOOD UREA NITROGEN 9 MG/DL (7-18); CALCIUM LEVEL 7.4 MG/DL (8.8-10.2); CARBON DIOXIDE LEVEL 30 MEQ/L (21-32); CHLORIDE LEVEL 104 MEQ/L (98-107); CREATININE FOR GFR 0.85 MG/DL (0.70-1.30); GLOMERULAR FILTRATION RATE > 60.0 (>42); GLUCOSE, FASTING 213 MG/DL (70-100); MAGNESIUM LEVEL 1.9 MG/DL (1.8-2.4); SODIUM LEVEL 136 MEQ/L (136-145); TOTAL PROTEIN 5.8 GM/DL (6.4-8.2)
[2021-05-06] MEDS: SODIUM CHLORIDE 0.9% INJ 10 ML SYR IV SCH ×2 (06:42→16:52)
[2021-05-06] MEDS: HumaLOG INSULIN (NovoLOG) PER UNIT SC SCH ×4 (09:23→20:20)
[2021-05-06] MEDS: LACTOBACILLUS ACIDOPHILUS CAP (BACID) PO SCH ×3 (09:24→16:49)
[2021-05-06] MEDS: DULoxetine 30MG CAPSULE (CYMBALTA) PO SCH (09:24)
[2021-05-06] MEDS: ATORVASTATIN 20 MG TAB PO SCH (09:24)
[2021-05-06] MEDS: POTASSIUM CHLORIDE 10% LIQ 20 MEQ/15 ML UDC PO SCH ×2 (09:25→20:42)
[2021-05-06] MEDS: METOPROLOL TART 50 MG TAB PO SCH ×2 (09:27→20:43)
[2021-05-06] MEDS: ENOXAPARIN 40MG/0.4ML SYRINGE (J1650 PER 10MG) SC SCH (09:28)
[2021-05-06] MEDS: LEVEMIR (INSULIN DETEMIR) 1 UNITS/0.01ML SC SCH ×2 (09:28→20:44)
[2021-05-06] MEDS: NYSTATIN 100,000 UNITS/GM TOPICAL PWD 15 GM TOP SCH ×2 (09:29→20:44)
[2021-05-06] MEDS: diphenhydrAMINE CREAM 30GM TOP SCH ×2 (09:29→20:43)
[2021-05-06] MEDS: FUROSEMIDE 40 MG TAB PO SCH ×2 (09:32→16:42)
[2021-05-06] MEDS: GABAPENTIN 100 MG CAP PO SCH ×3 (09:32→20:42)
[2021-05-06] MEDS: LOMOTIL 2.5MG/0.025MG TABLET PO SCH ×4 (09:39→20:42)
[2021-05-06] MEDS: SODIUM CHLORIDE 0.9% INJ 10 ML SYR IV PRN (11:09)
[2021-05-06 14:00] VITALS: BP 162/66
[2021-05-06 22:00] VITALS: BP 146/56
[2021-05-07] MEDS: MEROPENEM INJ 1 GM in IV 1 EA IV SCH ×2 (00:08→08:29)
[2021-05-07] MEDS: SODIUM CHLORIDE 0.9% INJ 10 ML SYR IV PRN (01:15)
[2021-05-07] MEDS: SODIUM CHLORIDE 0.9% INJ 10 ML SYR IV SCH ×2 (05:02→17:56)
[2021-05-07 05:20] LABS: BASO % 0.3 % (0.0-1.0); EOS # 0.2 10^3/uL (0.0-0.5); EOS % 2.1 % (0.0-3.0); HEMATOCRIT 25.4 % (42.0-52.0); HEMOGLOBIN 8.1 g/dl (13.5-17.5); LYMPH # 1.1 10^3/uL (1.5-5.0); MEAN CORPUSCULAR HEMOGLOBIN 30.2 pg (27.0-33.0); MEAN CORPUSCULAR HGB CONC 31.9 g/dl (32.0-36.5); MEAN CORPUSCULAR VOLUME 94.8 fl (80.0-96.0); NEUTROPHILS # 6.9 10^3/uL (1.5-8.5); PLATELET COUNT, AUTOMATED 364 10^3/uL (150-450); RED BLOOD COUNT 2.68 10^6/uL (4.30-6.10); WHITE BLOOD COUNT 9.5 10^3/uL (4.0-10.0)
[2021-05-07 06:00] VITALS: BP 150/68
[2021-05-07 06:01] LABS: ALBUMIN 1.3 GM/DL (3.2-5.2); ALT/SGPT 25 U/L (12-78); BILIRUBIN,TOTAL 0.5 MG/DL (0.2-1.0); BLOOD UREA NITROGEN 8 MG/DL (7-18); CALCIUM LEVEL 7.3 MG/DL (8.8-10.2); CARBON DIOXIDE LEVEL 31 MEQ/L (21-32); CHLORIDE LEVEL 104 MEQ/L (98-107); CREATININE FOR GFR 0.68 MG/DL (0.70-1.30); GLOMERULAR FILTRATION RATE > 60.0 (>42); GLUCOSE, FASTING 210 MG/DL (70-100); MAGNESIUM LEVEL 1.9 MG/DL (1.8-2.4); POTASSIUM SERUM 4.3 MEQ/L (3.5-5.1); SODIUM LEVEL 137 MEQ/L (136-145); TOTAL PROTEIN 5.3 GM/DL (6.4-8.2)
[2021-05-07] MEDS: LOMOTIL 2.5MG/0.025MG TABLET PO SCH ×4 (08:26→21:46)
[2021-05-07] MEDS: ENOXAPARIN 40MG/0.4ML SYRINGE (J1650 PER 10MG) SC SCH (08:26)
[2021-05-07] MEDS: HumaLOG INSULIN (NovoLOG) PER UNIT SC SCH ×4 (08:27→20:17)
[2021-05-07] MEDS: LEVEMIR (INSULIN DETEMIR) 1 UNITS/0.01ML SC SCH ×2 (08:27→20:17)
[2021-05-07] MEDS: ATORVASTATIN 20 MG TAB PO SCH (08:27)
[2021-05-07] MEDS: LACTOBACILLUS ACIDOPHILUS CAP (BACID) PO SCH ×3 (08:28→17:56)
[2021-05-07] MEDS: FUROSEMIDE 40 MG TAB PO SCH (08:28)
[2021-05-07] MEDS: GABAPENTIN 100 MG CAP PO SCH ×3 (08:28→20:16)
[2021-05-07] MEDS: METOPROLOL TART 50 MG TAB PO SCH ×2 (08:28→20:16)
[2021-05-07] MEDS: DULoxetine 30MG CAPSULE (CYMBALTA) PO SCH (08:28)
[2021-05-07] MEDS: POTASSIUM CHLORIDE 10% LIQ 20 MEQ/15 ML UDC PO SCH ×2 (08:28→20:15)
[2021-05-07] MEDS: diphenhydrAMINE CREAM 30GM TOP SCH ×2 (08:29→20:17)
[2021-05-07] MEDS: NYSTATIN 100,000 UNITS/GM TOPICAL PWD 15 GM TOP SCH ×2 (08:29→20:18)
[2021-05-07 14:00] VITALS: BP 158/65
[2021-05-07] MEDS: CHOLESTYRAMINE 4 GM PWD PKT PO SCH ×2 (16:28→21:46)
[2021-05-07] MEDS ORDERED: FUROSEMIDE 40MG/4ML VIAL (J1940) IV ONE (17:00)
[2021-05-07] MEDS: AUGMENTIN 875 MG TAB PO SCH (20:16)
[2021-05-07 22:00] VITALS: BP 175/65
[2021-05-08 06:00] VITALS: BP 160/80
[2021-05-08] MEDS: SODIUM CHLORIDE 0.9% INJ 10 ML SYR IV SCH ×2 (06:09→17:05)
[2021-05-08 06:18] LABS: BASO % 0.4 % (0.0-1.0); EOS # 0.2 10^3/uL (0.0-0.5); EOS % 1.8 % (0.0-3.0); HEMATOCRIT 28.2 % (42.0-52.0); HEMOGLOBIN 9.2 g/dl (13.5-17.5); LYMPH # 1.7 10^3/uL (1.5-5.0); LYMPH % 15.3 % (24.0-44.0); MEAN CORPUSCULAR HEMOGLOBIN 30.8 pg (27.0-33.0); MEAN CORPUSCULAR HGB CONC 32.6 g/dl (32.0-36.5); MEAN CORPUSCULAR VOLUME 94.3 fl (80.0-96.0); MONO # 1.2 10^3/uL (0.0-0.8); MONO % 10.9 % (2.0-8.0); NEUTROPHILS # 7.9 10^3/uL (1.5-8.5); NEUTROPHILS % 69.3 % (36.0-66.0); PLATELET COUNT, AUTOMATED 463 10^3/uL (150-450); RED BLOOD COUNT 2.99 10^6/uL (4.30-6.10); WHITE BLOOD COUNT 11.4 10^3/uL (4.0-10.0)
[2021-05-08 06:56] LABS: ALBUMIN 1.7 GM/DL (3.2-5.2); ALT/SGPT 26 U/L (12-78); BILIRUBIN,TOTAL 0.9 MG/DL (0.2-1.0); BLOOD UREA NITROGEN 7 MG/DL (7-18); CALCIUM LEVEL 7.9 MG/DL (8.8-10.2); CARBON DIOXIDE LEVEL 29 MEQ/L (21-32); CHLORIDE LEVEL 100 MEQ/L (98-107); CREATININE FOR GFR 0.82 MG/DL (0.70-1.30); GLOMERULAR FILTRATION RATE > 60.0 (>42); GLUCOSE, FASTING 190 MG/DL (70-100); MAGNESIUM LEVEL 1.8 MG/DL (1.8-2.4); POTASSIUM SERUM 4.3 MEQ/L (3.5-5.1); SODIUM LEVEL 134 MEQ/L (136-145); TOTAL PROTEIN 6.1 GM/DL (6.4-8.2)
[2021-05-08] MEDS: ENOXAPARIN 40MG/0.4ML SYRINGE (J1650 PER 10MG) SC SCH (08:54)
[2021-05-08] MEDS: LEVEMIR (INSULIN DETEMIR) 1 UNITS/0.01ML SC SCH ×2 (08:55→20:37)
[2021-05-08] MEDS: POTASSIUM CHLORIDE 10% LIQ 20 MEQ/15 ML UDC PO SCH (08:55)
[2021-05-08] MEDS: CHOLESTYRAMINE 4 GM PWD PKT PO SCH ×3 (08:55→20:36)
[2021-05-08] MEDS: diphenhydrAMINE CREAM 30GM TOP SCH ×2 (08:56→20:39)
[2021-05-08] MEDS: HumaLOG INSULIN (NovoLOG) PER UNIT SC SCH ×4 (08:56→20:38)
[2021-05-08] MEDS: NYSTATIN 100,000 UNITS/GM TOPICAL PWD 15 GM TOP SCH ×2 (08:56→20:39)
[2021-05-08] MEDS: DULoxetine 30MG CAPSULE (CYMBALTA) PO SCH (08:57)
[2021-05-08] MEDS: ATORVASTATIN 20 MG TAB PO SCH (08:57)
[2021-05-08] MEDS: GABAPENTIN 100 MG CAP PO SCH ×3 (08:57→20:37)
[2021-05-08] MEDS: LOMOTIL 2.5MG/0.025MG TABLET PO SCH ×4 (08:57→20:37)
[2021-05-08] MEDS: AUGMENTIN 875 MG TAB PO SCH ×2 (08:57→20:37)
[2021-05-08] MEDS: LACTOBACILLUS ACIDOPHILUS CAP (BACID) PO SCH ×3 (08:57→17:06)
[2021-05-08] MEDS: METOPROLOL TART 50 MG TAB PO SCH ×2 (09:00→20:38)
[2021-05-08] MEDS: FUROSEMIDE 40 MG TAB PO SCH ×2 (09:03→17:06)
[2021-05-08 14:00] VITALS: BP 150/64
[2021-05-08] MEDS: POTASSIUM CHLORIDE 10MEQ SR TABLET PO SCH (20:37)
[2021-05-09 06:19] LABS: ALBUMIN 1.7 GM/DL (3.2-5.2); ALT/SGPT 23 U/L (12-78); BILIRUBIN,TOTAL 0.5 MG/DL (0.2-1.0); BLOOD UREA NITROGEN 7 MG/DL (7-18); CALCIUM LEVEL 7.7 MG/DL (8.8-10.2); CARBON DIOXIDE LEVEL 28 MEQ/L (21-32); CHLORIDE LEVEL 103 MEQ/L (98-107); CREATININE FOR GFR 0.86 MG/DL (0.70-1.30); GLOMERULAR FILTRATION RATE > 60.0 (>42); GLUCOSE, FASTING 216 MG/DL (70-100); POTASSIUM SERUM 4.4 MEQ/L (3.5-5.1); SODIUM LEVEL 137 MEQ/L (136-145); TOTAL PROTEIN 6.2 GM/DL (6.4-8.2)
[2021-05-09 08:16] LABS: BASO % 0.3 % (0.0-1.0); EOS # 0.2 10^3/uL (0.0-0.5); EOS % 1.9 % (0.0-3.0); HEMATOCRIT 25.2 % (42.0-52.0); HEMOGLOBIN 8.1 g/dl (13.5-17.5); LYMPH # 1.1 10^3/uL (1.5-5.0); LYMPH % 11.6 % (24.0-44.0); MEAN CORPUSCULAR HEMOGLOBIN 30.5 pg (27.0-33.0); MEAN CORPUSCULAR HGB CONC 32.1 g/dl (32.0-36.5); MEAN CORPUSCULAR VOLUME 94.7 fl (80.0-96.0); MONO # 1.2 10^3/uL (0.0-0.8); MONO % 12.7 % (2.0-8.0); NEUTROPHILS # 6.7 10^3/uL (1.5-8.5); NEUTROPHILS % 71.7 % (36.0-66.0); PLATELET COUNT, AUTOMATED 441 10^3/uL (150-450); RED BLOOD COUNT 2.66 10^6/uL (4.30-6.10); WHITE BLOOD COUNT 9.4 10^3/uL (4.0-10.0)
[2021-05-09] MEDS: CHOLESTYRAMINE 4 GM PWD PKT PO SCH ×3 (09:39→21:01)
[2021-05-09] MEDS: ENOXAPARIN 40MG/0.4ML SYRINGE (J1650 PER 10MG) SC SCH (09:39)
[2021-05-09] MEDS: LEVEMIR (INSULIN DETEMIR) 1 UNITS/0.01ML SC SCH ×2 (09:39→21:02)
[2021-05-09] MEDS: HumaLOG INSULIN (NovoLOG) PER UNIT SC SCH ×4 (09:40→21:00)
[2021-05-09] MEDS: FUROSEMIDE 40 MG TAB PO SCH ×2 (09:40→17:04)
[2021-05-09] MEDS: DULoxetine 30MG CAPSULE (CYMBALTA) PO SCH (09:40)
[2021-05-09] MEDS: LACTOBACILLUS ACIDOPHILUS CAP (BACID) PO SCH ×3 (09:40→17:04)
[2021-05-09] MEDS: AUGMENTIN 875 MG TAB PO SCH ×2 (09:41→21:03)
[2021-05-09] MEDS: POTASSIUM CHLORIDE 10MEQ SR TABLET PO SCH ×2 (09:41→21:04)
[2021-05-09] MEDS: ATORVASTATIN 20 MG TAB PO SCH (09:41)
[2021-05-09] MEDS: LOMOTIL 2.5MG/0.025MG TABLET PO SCH ×4 (09:41→21:03)
[2021-05-09] MEDS: GABAPENTIN 100 MG CAP PO SCH ×3 (09:41→21:04)
[2021-05-09 09:44] VITALS: BP 175/68
[2021-05-09] MEDS: METOPROLOL TART 50 MG TAB PO SCH ×2 (09:44→21:07)
[2021-05-09] MEDS: NYSTATIN 100,000 UNITS/GM TOPICAL PWD 15 GM TOP SCH ×2 (09:45→21:07)
[2021-05-09] MEDS: diphenhydrAMINE CREAM 30GM TOP SCH ×2 (09:45→21:07)
[2021-05-09] MEDS: SODIUM CHLORIDE 0.9% INJ 10 ML SYR IV SCH ×2 (09:47→17:04)
[2021-05-09 10:21] VITALS: BP 173/63
[2021-05-09 12:10] VITALS: BP 144/78
[2021-05-09 14:00] VITALS: BP 140/63
[2021-05-09 21:07] VITALS: BP 151/61
[2021-05-10] MEDS: SODIUM CHLORIDE 0.9% INJ 10 ML SYR IV SCH ×2 (05:49→17:32)
[2021-05-10 06:00] VITALS: BP 154/72
[2021-05-10] MEDS: LEVEMIR (INSULIN DETEMIR) 1 UNITS/0.01ML SC SCH ×2 (08:30→22:20)
[2021-05-10] MEDS: AUGMENTIN 875 MG TAB PO SCH (08:30)
[2021-05-10] MEDS: HumaLOG INSULIN (NovoLOG) PER UNIT SC SCH ×4 (08:30→22:18)
[2021-05-10 08:31] LABS: HEMATOCRIT 23.2 % (42.0-52.0); HEMOGLOBIN 7.6 g/dl (13.5-17.5); MEAN CORPUSCULAR HEMOGLOBIN 30.5 pg (27.0-33.0); MEAN CORPUSCULAR HGB CONC 32.8 g/dl (32.0-36.5); MEAN CORPUSCULAR VOLUME 93.2 fl (80.0-96.0); PLATELET COUNT, AUTOMATED 417 10^3/uL (150-450); RED BLOOD COUNT 2.49 10^6/uL (4.30-6.10); WHITE BLOOD COUNT 8.7 10^3/uL (4.0-10.0)
[2021-05-10] MEDS: DULoxetine 30MG CAPSULE (CYMBALTA) PO SCH (08:31)
[2021-05-10] MEDS: LOMOTIL 2.5MG/0.025MG TABLET PO SCH ×4 (08:31→22:24)
[2021-05-10] MEDS: GABAPENTIN 100 MG CAP PO SCH ×3 (08:32→22:29)
[2021-05-10] MEDS: ATORVASTATIN 20 MG TAB PO SCH (08:32)
[2021-05-10] MEDS: LACTOBACILLUS ACIDOPHILUS CAP (BACID) PO SCH ×3 (08:32→17:31)
[2021-05-10] MEDS: POTASSIUM CHLORIDE 10MEQ SR TABLET PO SCH ×2 (08:32→22:25)
[2021-05-10] MEDS: FUROSEMIDE 40 MG TAB PO SCH ×2 (08:33→17:32)
[2021-05-10] MEDS: diphenhydrAMINE CREAM 30GM TOP SCH ×2 (08:33→22:34)
[2021-05-10] MEDS: METOPROLOL TART 50 MG TAB PO SCH ×2 (08:33→22:31)
[2021-05-10] MEDS: ENOXAPARIN 40MG/0.4ML SYRINGE (J1650 PER 10MG) SC SCH (08:33)
[2021-05-10] MEDS: NYSTATIN 100,000 UNITS/GM TOPICAL PWD 15 GM TOP SCH ×2 (08:33→22:40)
[2021-05-10 09:02] LABS: ALBUMIN 1.5 GM/DL (3.2-5.2); ALT/SGPT 18 U/L (12-78); BILIRUBIN,TOTAL 0.5 MG/DL (0.2-1.0); BLOOD UREA NITROGEN 7 MG/DL (7-18); CALCIUM LEVEL 7.6 MG/DL (8.8-10.2); CARBON DIOXIDE LEVEL 27 MEQ/L (21-32); CHLORIDE LEVEL 105 MEQ/L (98-107); GLOMERULAR FILTRATION RATE > 60.0 (>42); GLUCOSE, FASTING 210 MG/DL (70-100); POTASSIUM SERUM 4.3 MEQ/L (3.5-5.1); SODIUM LEVEL 137 MEQ/L (136-145); TOTAL PROTEIN 5.5 GM/DL (6.4-8.2)
[2021-05-10] MEDS: OCTREOTIDE ACETATE 100MCG/ML VIAL **SC ADMINISTRATION ONLY SC SCH ×3 (09:37→22:26)
[2021-05-10] MEDS: PANTOPRAZOLE 40MG TAB (PROTONIX) PO SCH (09:37)
[2021-05-10] MEDS ORDERED: ISOVUE-370 76% 100ML VIAL As Ordered ONE (10:11)
[2021-05-10] MEDS: CHOLESTYRAMINE 4 GM PWD PKT PO SCH ×4 (10:53→22:23)
[2021-05-10 13:00] VITALS: BP 151/52
[2021-05-10 14:00] VITALS: BP 155/57
[2021-05-10] MEDS: SODIUM CHLORIDE 0.9% INJ 10 ML SYR IV PRN (14:32)
[2021-05-10 14:50] LABS: HEMOGLOBIN 7.8 g/dl (13.5-17.5)
[2021-05-11 06:00] VITALS: BP 134/49
[2021-05-11] MEDS: OCTREOTIDE ACETATE 100MCG/ML VIAL **SC ADMINISTRATION ONLY SC SCH ×3 (06:18→21:45)
[2021-05-11] MEDS: SODIUM CHLORIDE 0.9% INJ 10 ML SYR IV SCH ×2 (06:25→17:55)
[2021-05-11] MEDS: LACTOBACILLUS ACIDOPHILUS CAP (BACID) PO SCH ×3 (08:42→17:53)
[2021-05-11] MEDS: DULoxetine 30MG CAPSULE (CYMBALTA) PO SCH (08:42)
[2021-05-11] MEDS: LEVEMIR (INSULIN DETEMIR) 1 UNITS/0.01ML SC SCH ×2 (08:42→21:46)
[2021-05-11] MEDS: LOMOTIL 2.5MG/0.025MG TABLET PO SCH ×4 (08:42→21:44)
[2021-05-11] MEDS: FUROSEMIDE 40 MG TAB PO SCH ×2 (08:42→17:54)
[2021-05-11] MEDS: ATORVASTATIN 20 MG TAB PO SCH (08:42)
[2021-05-11] MEDS: HumaLOG INSULIN (NovoLOG) PER UNIT SC SCH ×4 (08:43→21:00)
[2021-05-11] MEDS: PANTOPRAZOLE 40MG TAB (PROTONIX) PO SCH (08:43)
[2021-05-11] MEDS: POTASSIUM CHLORIDE 10MEQ SR TABLET PO SCH ×2 (08:43→21:45)
[2021-05-11] MEDS: GABAPENTIN 100 MG CAP PO SCH ×3 (08:43→21:44)
[2021-05-11] MEDS: METOPROLOL TART 50 MG TAB PO SCH ×2 (08:44→21:45)
[2021-05-11] MEDS: NYSTATIN 100,000 UNITS/GM TOPICAL PWD 15 GM TOP SCH ×2 (08:44→21:46)
[2021-05-11] MEDS: diphenhydrAMINE CREAM 30GM TOP SCH ×2 (08:44→21:46)
[2021-05-11] MEDS: ENOXAPARIN 40MG/0.4ML SYRINGE (J1650 PER 10MG) SC SCH (10:51)
[2021-05-11] MEDS: CHOLESTYRAMINE 4 GM PWD PKT PO SCH ×5 (10:51→22:52)
[2021-05-11 14:00] VITALS: BP 153/63
[2021-05-11 22:00] VITALS: BP 157/72
[2021-05-12] MEDS: OCTREOTIDE ACETATE 100MCG/ML VIAL **SC ADMINISTRATION ONLY SC SCH (05:05)
[2021-05-12] MEDS: SODIUM CHLORIDE 0.9% INJ 10 ML SYR IV SCH ×2 (05:05→17:22)
[2021-05-12 06:00] VITALS: BP 140/57
[2021-05-12] MEDS: HumaLOG INSULIN (NovoLOG) PER UNIT SC SCH ×4 (08:10→20:05)
[2021-05-12] MEDS: LEVEMIR (INSULIN DETEMIR) 1 UNITS/0.01ML SC SCH ×2 (08:10→22:08)
[2021-05-12] MEDS: ATORVASTATIN 20 MG TAB PO SCH (08:11)
[2021-05-12] MEDS: FUROSEMIDE 40 MG TAB PO SCH ×2 (08:11→17:21)
[2021-05-12] MEDS: LOMOTIL 2.5MG/0.025MG TABLET PO SCH ×4 (08:11→22:07)
[2021-05-12] MEDS: CHOLESTYRAMINE 4 GM PWD PKT PO SCH ×5 (08:11→23:32)
[2021-05-12] MEDS: LACTOBACILLUS ACIDOPHILUS CAP (BACID) PO SCH ×3 (08:11→17:21)
[2021-05-12] MEDS: ENOXAPARIN 40MG/0.4ML SYRINGE (J1650 PER 10MG) SC SCH (08:11)
[2021-05-12] MEDS: PANTOPRAZOLE 40MG TAB (PROTONIX) PO SCH (08:12)
[2021-05-12] MEDS: POTASSIUM CHLORIDE 10MEQ SR TABLET PO SCH ×2 (08:12→22:08)
[2021-05-12] MEDS: DULoxetine 30MG CAPSULE (CYMBALTA) PO SCH (08:12)
[2021-05-12] MEDS: GABAPENTIN 100 MG CAP PO SCH ×3 (08:12→22:07)
[2021-05-12] MEDS: diphenhydrAMINE CREAM 30GM TOP SCH ×2 (08:15→22:08)
[2021-05-12] MEDS: METOPROLOL TART 50 MG TAB PO SCH ×2 (08:15→22:09)
[2021-05-12] MEDS: NYSTATIN 100,000 UNITS/GM TOPICAL PWD 15 GM TOP SCH ×2 (08:15→22:09)
[2021-05-12 19:07] LABS: BASO # 0.1 10^3/uL (0.0-0.2); BASO % 0.6 % (0.0-1.0); EOS # 0.2 10^3/uL (0.0-0.5); EOS % 1.7 % (0.0-3.0); HEMATOCRIT 26.8 % (42.0-52.0); HEMOGLOBIN 8.5 g/dl (13.5-17.5); LYMPH # 1.5 10^3/uL (1.5-5.0); LYMPH % 15.6 % (24.0-44.0); MEAN CORPUSCULAR HGB CONC 31.7 g/dl (32.0-36.5); MEAN CORPUSCULAR VOLUME 94.7 fl (80.0-96.0); MONO % 9.7 % (2.0-8.0); NEUTROPHILS % 71.5 % (36.0-66.0); PLATELET COUNT, AUTOMATED 518 10^3/uL (150-450); RED BLOOD COUNT 2.83 10^6/uL (4.30-6.10); WHITE BLOOD COUNT 9.8 10^3/uL (4.0-10.0)
[2021-05-12 19:18] LABS: BLOOD UREA NITROGEN 4 MG/DL (7-18); CALCIUM LEVEL 7.6 MG/DL (8.8-10.2); CARBON DIOXIDE LEVEL 27 MEQ/L (21-32); CHLORIDE LEVEL 104 MEQ/L (98-107); CREATININE FOR GFR 1.04 MG/DL (0.70-1.30); GLOMERULAR FILTRATION RATE > 60.0 (>42); GLUCOSE, FASTING 169 MG/DL (70-100); POTASSIUM SERUM 4.8 MEQ/L (3.5-5.1); SODIUM LEVEL 136 MEQ/L (136-145)
[2021-05-12 22:00] VITALS: BP 151/64
[2021-05-13] MEDS: SODIUM CHLORIDE 0.9% INJ 10 ML SYR IV SCH ×2 (05:43→16:48)
[2021-05-13 06:00] VITALS: BP 151/67
[2021-05-13] MEDS: diphenhydrAMINE CREAM 30GM TOP SCH ×2 (08:05→23:26)
[2021-05-13] MEDS: CHOLESTYRAMINE 4 GM PWD PKT PO SCH ×4 (08:05→23:27)
[2021-05-13] MEDS: LOMOTIL 2.5MG/0.025MG TABLET PO SCH ×4 (08:05→23:25)
[2021-05-13] MEDS: LACTOBACILLUS ACIDOPHILUS CAP (BACID) PO SCH ×3 (08:06→16:46)
[2021-05-13] MEDS: ENOXAPARIN 40MG/0.4ML SYRINGE (J1650 PER 10MG) SC SCH (08:06)
[2021-05-13] MEDS: GABAPENTIN 100 MG CAP PO SCH ×3 (08:06→23:26)
[2021-05-13] MEDS: PANTOPRAZOLE 40MG TAB (PROTONIX) PO SCH (08:07)
[2021-05-13] MEDS: POTASSIUM CHLORIDE 10MEQ SR TABLET PO SCH ×2 (08:07→23:26)
[2021-05-13] MEDS: ATORVASTATIN 20 MG TAB PO SCH (08:07)
[2021-05-13] MEDS: FUROSEMIDE 40 MG TAB PO SCH ×2 (08:08→16:47)
[2021-05-13] MEDS: DULoxetine 30MG CAPSULE (CYMBALTA) PO SCH (08:08)
[2021-05-13] MEDS: METOPROLOL TART 50 MG TAB PO SCH ×2 (08:08→23:31)
[2021-05-13] MEDS: NYSTATIN 100,000 UNITS/GM TOPICAL PWD 15 GM TOP SCH ×2 (08:09→23:26)
[2021-05-13] MEDS: LEVEMIR (INSULIN DETEMIR) 1 UNITS/0.01ML SC SCH ×2 (08:13→21:00)
[2021-05-13] MEDS: HumaLOG INSULIN (NovoLOG) PER UNIT SC SCH ×4 (08:14→21:00)
[2021-05-13] MEDS: ACETAMINOPHEN TAB 650MG DOSE (2X325MG) PO PRN (23:27)
[2021-05-14 06:00] VITALS: BP 155/57
[2021-05-14] MEDS: SODIUM CHLORIDE 0.9% INJ 10 ML SYR IV SCH ×2 (06:05→17:58)
[2021-05-14] MEDS: PANTOPRAZOLE 40MG TAB (PROTONIX) PO SCH (08:29)
[2021-05-14] MEDS: DULoxetine 30MG CAPSULE (CYMBALTA) PO SCH (08:29)
[2021-05-14] MEDS: FUROSEMIDE 40 MG TAB PO SCH ×2 (08:29→17:55)
[2021-05-14] MEDS: POTASSIUM CHLORIDE 10MEQ SR TABLET PO SCH ×2 (08:29→21:46)
[2021-05-14] MEDS: LACTOBACILLUS ACIDOPHILUS CAP (BACID) PO SCH ×3 (08:29→17:55)
[2021-05-14] MEDS: METOPROLOL TART 50 MG TAB PO SCH ×2 (08:30→21:46)
[2021-05-14] MEDS: GABAPENTIN 100 MG CAP PO SCH ×3 (08:30→21:46)
[2021-05-14] MEDS: ATORVASTATIN 20 MG TAB PO SCH (08:30)
[2021-05-14] MEDS: LEVEMIR (INSULIN DETEMIR) 1 UNITS/0.01ML SC SCH ×2 (08:31→21:45)
[2021-05-14] MEDS: HumaLOG INSULIN (NovoLOG) PER UNIT SC SCH ×4 (08:32→21:00)
[2021-05-14] MEDS: ENOXAPARIN 40MG/0.4ML SYRINGE (J1650 PER 10MG) SC SCH (08:32)
[2021-05-14] MEDS: diphenhydrAMINE CREAM 30GM TOP SCH ×2 (08:33→21:47)
[2021-05-14] MEDS: NYSTATIN 100,000 UNITS/GM TOPICAL PWD 15 GM TOP SCH ×2 (08:33→21:47)
[2021-05-14] MEDS: LOMOTIL 2.5MG/0.025MG TABLET PO SCH ×4 (08:43→21:46)
[2021-05-14] MEDS: CHOLESTYRAMINE 4 GM PWD PKT PO SCH ×4 (11:00→21:47)
[2021-05-14 11:23] LABS: HEMATOCRIT 24.8 % (42.0-52.0); HEMOGLOBIN 8.1 g/dl (13.5-17.5); MEAN CORPUSCULAR HEMOGLOBIN 30.2 pg (27.0-33.0); MEAN CORPUSCULAR HGB CONC 32.7 g/dl (32.0-36.5); MEAN CORPUSCULAR VOLUME 92.5 fl (80.0-96.0); PLATELET COUNT, AUTOMATED 414 10^3/uL (150-450); RED BLOOD COUNT 2.68 10^6/uL (4.30-6.10); WHITE BLOOD COUNT 7.8 10^3/uL (4.0-10.0)
[2021-05-14 12:02] LABS: BLOOD UREA NITROGEN 5 MG/DL (7-18); CALCIUM LEVEL 7.7 MG/DL (8.8-10.2); CARBON DIOXIDE LEVEL 28 MEQ/L (21-32); CHLORIDE LEVEL 103 MEQ/L (98-107); GLOMERULAR FILTRATION RATE > 60.0 (>42); GLUCOSE, FASTING 199 MG/DL (70-100); MAGNESIUM LEVEL 1.7 MG/DL (1.8-2.4); POTASSIUM SERUM 4.1 MEQ/L (3.5-5.1); SODIUM LEVEL 136 MEQ/L (136-145)
[2021-05-14 18:04] VITALS: BP 146/45
[2021-05-15] MEDS: SODIUM CHLORIDE 0.9% INJ 10 ML SYR IV SCH ×2 (05:24→18:03)
[2021-05-15 06:00] VITALS: BP 148/65
[2021-05-15] MEDS: CHOLESTYRAMINE 4 GM PWD PKT PO SCH ×4 (09:35→21:54)
[2021-05-15] MEDS: ENOXAPARIN 40MG/0.4ML SYRINGE (J1650 PER 10MG) SC SCH (09:36)
[2021-05-15] MEDS: HumaLOG INSULIN (NovoLOG) PER UNIT SC SCH ×4 (09:36→20:11)
[2021-05-15] MEDS: PANTOPRAZOLE 40MG TAB (PROTONIX) PO SCH (09:37)
[2021-05-15] MEDS: LEVEMIR (INSULIN DETEMIR) 1 UNITS/0.01ML SC SCH ×2 (09:37→21:55)
[2021-05-15] MEDS: DULoxetine 30MG CAPSULE (CYMBALTA) PO SCH (09:37)
[2021-05-15] MEDS: FUROSEMIDE 40 MG TAB PO SCH ×2 (09:37→18:01)
[2021-05-15] MEDS: METOPROLOL TART 50 MG TAB PO SCH ×2 (09:37→21:55)
[2021-05-15] MEDS: GABAPENTIN 100 MG CAP PO SCH ×3 (09:38→21:54)
[2021-05-15] MEDS: LACTOBACILLUS ACIDOPHILUS CAP (BACID) PO SCH ×3 (09:38→18:00)
[2021-05-15] MEDS: NYSTATIN 100,000 UNITS/GM TOPICAL PWD 15 GM TOP SCH ×2 (09:38→21:56)
[2021-05-15] MEDS: LOMOTIL 2.5MG/0.025MG TABLET PO SCH ×4 (09:38→21:54)
[2021-05-15] MEDS: ATORVASTATIN 20 MG TAB PO SCH (09:38)
[2021-05-15] MEDS: POTASSIUM CHLORIDE 10MEQ SR TABLET PO SCH ×2 (09:38→21:54)
[2021-05-15] MEDS: diphenhydrAMINE CREAM 30GM TOP SCH ×2 (09:39→21:56)
[2021-05-16] MEDS: SODIUM CHLORIDE 0.9% INJ 10 ML SYR IV SCH ×2 (05:05→17:52)
[2021-05-16 05:41] LABS: HEMATOCRIT 24.9 % (42.0-52.0); MEAN CORPUSCULAR HEMOGLOBIN 29.4 pg (27.0-33.0); MEAN CORPUSCULAR HGB CONC 32.1 g/dl (32.0-36.5); MEAN CORPUSCULAR VOLUME 91.5 fl (80.0-96.0); PLATELET COUNT, AUTOMATED 394 10^3/uL (150-450); RED BLOOD COUNT 2.72 10^6/uL (4.30-6.10); WHITE BLOOD COUNT 7.6 10^3/uL (4.0-10.0)
[2021-05-16 06:00] VITALS: BP 151/62
[2021-05-16 06:03] LABS: BLOOD UREA NITROGEN 5 MG/DL (7-18); CARBON DIOXIDE LEVEL 30 MEQ/L (21-32); CHLORIDE LEVEL 101 MEQ/L (98-107); CREATININE FOR GFR 0.84 MG/DL (0.70-1.30); GLOMERULAR FILTRATION RATE > 60.0 (>42); GLUCOSE, FASTING 141 MG/DL (70-100); MAGNESIUM LEVEL 1.8 MG/DL (1.8-2.4); POTASSIUM SERUM 3.8 MEQ/L (3.5-5.1); SODIUM LEVEL 134 MEQ/L (136-145)
[2021-05-16] MEDS: NYSTATIN 100,000 UNITS/GM TOPICAL PWD 15 GM TOP SCH ×2 (07:54→20:26)
[2021-05-16] MEDS: diphenhydrAMINE CREAM 30GM TOP SCH ×2 (07:54→20:31)
[2021-05-16] MEDS: LEVEMIR (INSULIN DETEMIR) 1 UNITS/0.01ML SC SCH ×2 (07:55→20:28)
[2021-05-16] MEDS: HumaLOG INSULIN (NovoLOG) PER UNIT SC SCH ×4 (07:55→19:58)
[2021-05-16] MEDS: ENOXAPARIN 40MG/0.4ML SYRINGE (J1650 PER 10MG) SC SCH (07:55)
[2021-05-16] MEDS: GABAPENTIN 100 MG CAP PO SCH ×3 (07:56→20:26)
[2021-05-16] MEDS: LOMOTIL 2.5MG/0.025MG TABLET PO SCH ×4 (07:56→20:27)
[2021-05-16] MEDS: LACTOBACILLUS ACIDOPHILUS CAP (BACID) PO SCH ×3 (07:56→17:51)
[2021-05-16] MEDS: FUROSEMIDE 40 MG TAB PO SCH ×2 (07:56→17:51)
[2021-05-16] MEDS: DULoxetine 30MG CAPSULE (CYMBALTA) PO SCH (07:56)
[2021-05-16] MEDS: ATORVASTATIN 20 MG TAB PO SCH (07:56)
[2021-05-16] MEDS: POTASSIUM CHLORIDE 10MEQ SR TABLET PO SCH ×2 (07:57→20:28)
[2021-05-16] MEDS: METOPROLOL TART 50 MG TAB PO SCH ×2 (07:57→20:30)
[2021-05-16] MEDS: PANTOPRAZOLE 40MG TAB (PROTONIX) PO SCH (07:57)
[2021-05-16] MEDS: CHOLESTYRAMINE 4 GM PWD PKT PO SCH ×4 (11:09→22:22)
[2021-05-16] MEDS: ACETAMINOPHEN TAB 650MG DOSE (2X325MG) PO PRN (20:28)
[2021-05-17] MEDS: ACETAMINOPHEN TAB 650MG DOSE (2X325MG) PO PRN ×4 (02:35→21:36)
[2021-05-17] MEDS: SODIUM CHLORIDE 0.9% INJ 10 ML SYR IV SCH ×2 (05:16→17:37)
[2021-05-17] MEDS: SODIUM CHLORIDE 0.9% INJ 10 ML SYR IV PRN (05:17)
[2021-05-17 06:00] VITALS: BP 154/60
[2021-05-17] MEDS: ENOXAPARIN 40MG/0.4ML SYRINGE (J1650 PER 10MG) SC SCH (08:09)
[2021-05-17] MEDS: GABAPENTIN 100 MG CAP PO SCH ×3 (08:09→21:37)
[2021-05-17] MEDS: LOMOTIL 2.5MG/0.025MG TABLET PO SCH ×4 (08:09→21:41)
[2021-05-17] MEDS: ATORVASTATIN 20 MG TAB PO SCH (08:10)
[2021-05-17] MEDS: PANTOPRAZOLE 40MG TAB (PROTONIX) PO SCH (08:10)
[2021-05-17] MEDS: FUROSEMIDE 40 MG TAB PO SCH ×2 (08:10→16:45)
[2021-05-17] MEDS: POTASSIUM CHLORIDE 10MEQ SR TABLET PO SCH ×2 (08:10→21:37)
[2021-05-17] MEDS: LACTOBACILLUS ACIDOPHILUS CAP (BACID) PO SCH ×3 (08:10→17:37)
[2021-05-17] MEDS: METOPROLOL TART 50 MG TAB PO SCH ×2 (08:10→21:42)
[2021-05-17] MEDS: LEVEMIR (INSULIN DETEMIR) 1 UNITS/0.01ML SC SCH ×2 (08:11→21:39)
[2021-05-17] MEDS: DULoxetine 30MG CAPSULE (CYMBALTA) PO SCH (08:11)
[2021-05-17] MEDS: HumaLOG INSULIN (NovoLOG) PER UNIT SC SCH ×4 (08:11→21:00)
[2021-05-17] MEDS: diphenhydrAMINE CREAM 30GM TOP SCH ×2 (08:12→21:36)
[2021-05-17] MEDS: NYSTATIN 100,000 UNITS/GM TOPICAL PWD 15 GM TOP SCH ×2 (08:12→21:00)
[2021-05-17] MEDS: CHOLESTYRAMINE 4 GM PWD PKT PO SCH ×4 (10:44→22:42)
[2021-05-18] MEDS: ACETAMINOPHEN TAB 650MG DOSE (2X325MG) PO PRN (02:58)
[2021-05-18] MEDS: SODIUM CHLORIDE 0.9% INJ 10 ML SYR IV SCH ×2 (05:07→17:53)
[2021-05-18] MEDS: SODIUM CHLORIDE 0.9% INJ 10 ML SYR IV PRN ×4 (05:07→22:55)
[2021-05-18 05:34] LABS: MEAN CORPUSCULAR HEMOGLOBIN 29.5 pg (27.0-33.0); MEAN CORPUSCULAR VOLUME 92.3 fl (80.0-96.0); PLATELET COUNT, AUTOMATED 349 10^3/uL (150-450); RED BLOOD COUNT 2.71 10^6/uL (4.30-6.10); WHITE BLOOD COUNT 7.7 10^3/uL (4.0-10.0)
[2021-05-18 06:00] VITALS: BP 149/59
[2021-05-18 06:27] LABS: BLOOD UREA NITROGEN 6 MG/DL (7-18); CALCIUM LEVEL 7.7 MG/DL (8.8-10.2); CARBON DIOXIDE LEVEL 26 MEQ/L (21-32); CHLORIDE LEVEL 109 MEQ/L (98-107); CREATININE FOR GFR 0.95 MG/DL (0.70-1.30); GLOMERULAR FILTRATION RATE > 60.0 (>42); GLUCOSE, FASTING 146 MG/DL (70-100); MAGNESIUM LEVEL 1.7 MG/DL (1.8-2.4); POTASSIUM SERUM 4.1 MEQ/L (3.5-5.1); SODIUM LEVEL 140 MEQ/L (136-145)
[2021-05-18] MEDS: HumaLOG INSULIN (NovoLOG) PER UNIT SC SCH ×4 (07:48→21:00)
[2021-05-18] MEDS: POTASSIUM CHLORIDE 10MEQ SR TABLET PO SCH ×2 (07:49→22:16)
[2021-05-18] MEDS: LEVEMIR (INSULIN DETEMIR) 1 UNITS/0.01ML SC SCH ×2 (07:49→22:15)
[2021-05-18] MEDS: ENOXAPARIN 40MG/0.4ML SYRINGE (J1650 PER 10MG) SC SCH (07:49)
[2021-05-18] MEDS: PANTOPRAZOLE 40MG TAB (PROTONIX) PO SCH (07:49)
[2021-05-18] MEDS: GABAPENTIN 100 MG CAP PO SCH ×3 (07:49→22:14)
[2021-05-18] MEDS: LOMOTIL 2.5MG/0.025MG TABLET PO SCH ×4 (07:50→22:20)
[2021-05-18] MEDS: FUROSEMIDE 40 MG TAB PO SCH ×2 (07:50→17:47)
[2021-05-18] MEDS: DULoxetine 30MG CAPSULE (CYMBALTA) PO SCH (07:50)
[2021-05-18] MEDS: LACTOBACILLUS ACIDOPHILUS CAP (BACID) PO SCH ×3 (07:50→17:46)
[2021-05-18] MEDS: ATORVASTATIN 20 MG TAB PO SCH (07:50)
[2021-05-18] MEDS: NYSTATIN 100,000 UNITS/GM TOPICAL PWD 15 GM TOP SCH ×3 (07:51→22:17)
[2021-05-18] MEDS: diphenhydrAMINE CREAM 30GM TOP SCH ×2 (07:51→22:17)
[2021-05-18] MEDS: METOPROLOL TART 50 MG TAB PO SCH ×2 (07:51→22:17)
[2021-05-18] MEDS: CHOLESTYRAMINE 4 GM PWD PKT PO SCH (10:32)
[2021-05-19 06:00] VITALS: BP 146/60
[2021-05-19] MEDS: SODIUM CHLORIDE 0.9% INJ 10 ML SYR IV SCH ×2 (06:54→17:48)
[2021-05-19] MEDS: HumaLOG INSULIN (NovoLOG) PER UNIT SC SCH ×4 (08:27→21:00)
[2021-05-19] MEDS: LACTOBACILLUS ACIDOPHILUS CAP (BACID) PO SCH ×3 (08:28→17:46)
[2021-05-19] MEDS: NYSTATIN 100,000 UNITS/GM TOPICAL PWD 15 GM TOP SCH ×2 (09:00→21:00)
[2021-05-19] MEDS: diphenhydrAMINE CREAM 30GM TOP SCH ×3 (09:00→21:00)
[2021-05-19] MEDS: ENOXAPARIN 40MG/0.4ML SYRINGE (J1650 PER 10MG) SC SCH (09:04)
[2021-05-19] MEDS: GABAPENTIN 100 MG CAP PO SCH ×3 (09:04→22:05)
[2021-05-19] MEDS: ATORVASTATIN 20 MG TAB PO SCH (09:05)
[2021-05-19] MEDS: DULoxetine 30MG CAPSULE (CYMBALTA) PO SCH (09:08)
[2021-05-19] MEDS: LOMOTIL 2.5MG/0.025MG TABLET PO SCH ×4 (09:08→22:05)
[2021-05-19] MEDS: POTASSIUM CHLORIDE 10MEQ SR TABLET PO SCH ×2 (09:08→22:05)
[2021-05-19] MEDS: METOPROLOL TART 50 MG TAB PO SCH ×2 (09:08→22:13)
[2021-05-19] MEDS: FUROSEMIDE 40 MG TAB PO SCH ×2 (09:09→16:43)
[2021-05-19] MEDS: LEVEMIR (INSULIN DETEMIR) 1 UNITS/0.01ML SC SCH ×2 (09:10→22:14)
[2021-05-19] MEDS: CHOLESTYRAMINE 4 GM PWD PKT PO SCH ×2 (14:55→23:08)
[2021-05-19 16:40] VITALS: BP 147/60
[2021-05-20 05:54] VITALS: BP 150/59
[2021-05-20] MEDS: SODIUM CHLORIDE 0.9% INJ 10 ML SYR IV SCH ×2 (06:35→17:39)
[2021-05-20 06:47] LABS: HEMOGLOBIN 8.4 g/dl (13.5-17.5); MEAN CORPUSCULAR HEMOGLOBIN 29.6 pg (27.0-33.0); MEAN CORPUSCULAR HGB CONC 32.3 g/dl (32.0-36.5); MEAN CORPUSCULAR VOLUME 91.5 fl (80.0-96.0); PLATELET COUNT, AUTOMATED 339 10^3/uL (150-450); RED BLOOD COUNT 2.84 10^6/uL (4.30-6.10)
[2021-05-20 07:12] LABS: BLOOD UREA NITROGEN 4 MG/DL (7-18); CALCIUM LEVEL 7.8 MG/DL (8.8-10.2); CARBON DIOXIDE LEVEL 29 MEQ/L (21-32); CHLORIDE LEVEL 102 MEQ/L (98-107); GLOMERULAR FILTRATION RATE > 60.0 (>42); GLUCOSE, FASTING 147 MG/DL (70-100); MAGNESIUM LEVEL 1.7 MG/DL (1.8-2.4); SODIUM LEVEL 135 MEQ/L (136-145)
[2021-05-20] MEDS: LACTOBACILLUS ACIDOPHILUS CAP (BACID) PO SCH ×4 (08:00→17:37)
[2021-05-20] MEDS: NYSTATIN 100,000 UNITS/GM TOPICAL PWD 15 GM TOP SCH ×2 (09:00→20:30)
[2021-05-20] MEDS: diphenhydrAMINE CREAM 30GM TOP SCH ×2 (09:00→20:30)
[2021-05-20] MEDS: HumaLOG INSULIN (NovoLOG) PER UNIT SC SCH ×4 (10:20→20:29)
[2021-05-20] MEDS: ENOXAPARIN 40MG/0.4ML SYRINGE (J1650 PER 10MG) SC SCH (10:21)
[2021-05-20] MEDS: LEVEMIR (INSULIN DETEMIR) 1 UNITS/0.01ML SC SCH ×2 (10:21→20:33)
[2021-05-20] MEDS: GABAPENTIN 100 MG CAP PO SCH ×3 (10:22→20:33)
[2021-05-20] MEDS: POTASSIUM CHLORIDE 10MEQ SR TABLET PO SCH ×2 (10:22→20:33)
[2021-05-20] MEDS: LOMOTIL 2.5MG/0.025MG TABLET PO SCH ×5 (10:22→20:33)
[2021-05-20] MEDS: ATORVASTATIN 20 MG TAB PO SCH (10:22)
[2021-05-20] MEDS: DULoxetine 30MG CAPSULE (CYMBALTA) PO SCH (10:23)
[2021-05-20] MEDS: ACETAMINOPHEN TAB 650MG DOSE (2X325MG) PO PRN (10:23)
[2021-05-20] MEDS: METOPROLOL TART 50 MG TAB PO SCH ×2 (10:24→20:34)
[2021-05-20] MEDS: FUROSEMIDE 40 MG TAB PO SCH ×2 (10:24→17:38)
[2021-05-20] MEDS: CHOLESTYRAMINE 4 GM PWD PKT PO SCH ×2 (15:07→21:50)
[2021-05-21] MEDS: SODIUM CHLORIDE 0.9% INJ 10 ML SYR IV SCH ×2 (05:19→17:45)
[2021-05-21 06:00] VITALS: BP 146/82
[2021-05-21] MEDS: LEVEMIR (INSULIN DETEMIR) 1 UNITS/0.01ML SC SCH ×2 (08:55→21:17)
[2021-05-21] MEDS: ENOXAPARIN 40MG/0.4ML SYRINGE (J1650 PER 10MG) SC SCH (08:55)
[2021-05-21] MEDS: HumaLOG INSULIN (NovoLOG) PER UNIT SC SCH ×4 (08:56→19:58)
[2021-05-21] MEDS: CHOLESTYRAMINE 4 GM PWD PKT PO SCH ×3 (08:57→19:55)
[2021-05-21] MEDS: NYSTATIN 100,000 UNITS/GM TOPICAL PWD 15 GM TOP SCH ×2 (09:00→21:16)
[2021-05-21] MEDS: diphenhydrAMINE CREAM 30GM TOP SCH ×2 (09:00→21:17)
[2021-05-21] MEDS: LACTOBACILLUS ACIDOPHILUS CAP (BACID) PO SCH ×3 (09:01→17:43)
[2021-05-21] MEDS: LOMOTIL 2.5MG/0.025MG TABLET PO SCH ×4 (09:01→21:16)
[2021-05-21] MEDS: GABAPENTIN 100 MG CAP PO SCH ×3 (09:02→21:16)
[2021-05-21] MEDS: DULoxetine 30MG CAPSULE (CYMBALTA) PO SCH (09:02)
[2021-05-21] MEDS: FUROSEMIDE 40 MG TAB PO SCH ×2 (09:03→17:43)
[2021-05-21] MEDS: POTASSIUM CHLORIDE 10MEQ SR TABLET PO SCH ×2 (09:03→21:16)
[2021-05-21] MEDS: ATORVASTATIN 20 MG TAB PO SCH (09:04)
[2021-05-21] MEDS: METOPROLOL TART 50 MG TAB PO SCH ×2 (09:05→21:18)
[2021-05-21 22:00] VITALS: BP 143/80
[2021-05-22] MEDS: SODIUM CHLORIDE 0.9% INJ 10 ML SYR IV SCH ×2 (05:36→18:02)
[2021-05-22 05:53] LABS: HEMATOCRIT 26.8 % (42.0-52.0); HEMOGLOBIN 8.5 g/dl (13.5-17.5); MEAN CORPUSCULAR HEMOGLOBIN 29.1 pg (27.0-33.0); MEAN CORPUSCULAR HGB CONC 31.7 g/dl (32.0-36.5); MEAN CORPUSCULAR VOLUME 91.8 fl (80.0-96.0); PLATELET COUNT, AUTOMATED 326 10^3/uL (150-450); RED BLOOD COUNT 2.92 10^6/uL (4.30-6.10)
[2021-05-22 06:00] VITALS: BP 140/82
[2021-05-22 06:19] LABS: BLOOD UREA NITROGEN 5 MG/DL (7-18); CALCIUM LEVEL 8.2 MG/DL (8.8-10.2); CARBON DIOXIDE LEVEL 26 MEQ/L (21-32); CHLORIDE LEVEL 103 MEQ/L (98-107); CREATININE FOR GFR 0.89 MG/DL (0.70-1.30); GLOMERULAR FILTRATION RATE > 60.0 (>42); GLUCOSE, FASTING 154 MG/DL (70-100); MAGNESIUM LEVEL 1.6 MG/DL (1.8-2.4); POTASSIUM SERUM 3.9 MEQ/L (3.5-5.1); SODIUM LEVEL 137 MEQ/L (136-145)
[2021-05-22] MEDS: CHOLESTYRAMINE 4 GM PWD PKT PO SCH ×3 (08:53→21:37)
[2021-05-22] MEDS: LACTOBACILLUS ACIDOPHILUS CAP (BACID) PO SCH ×3 (08:54→18:00)
[2021-05-22] MEDS: DULoxetine 30MG CAPSULE (CYMBALTA) PO SCH (08:54)
[2021-05-22] MEDS: METOPROLOL TART 50 MG TAB PO SCH ×2 (08:54→20:41)
[2021-05-22] MEDS: LOMOTIL 2.5MG/0.025MG TABLET PO SCH ×4 (08:54→20:38)
[2021-05-22] MEDS: ATORVASTATIN 20 MG TAB PO SCH (08:54)
[2021-05-22] MEDS: FUROSEMIDE 40 MG TAB PO SCH ×2 (08:55→18:00)
[2021-05-22] MEDS: POTASSIUM CHLORIDE 10MEQ SR TABLET PO SCH ×2 (08:55→20:38)
[2021-05-22] MEDS: GABAPENTIN 100 MG CAP PO SCH ×3 (08:55→20:38)
[2021-05-22] MEDS: HumaLOG INSULIN (NovoLOG) PER UNIT SC SCH ×4 (08:56→20:33)
[2021-05-22] MEDS: ENOXAPARIN 40MG/0.4ML SYRINGE (J1650 PER 10MG) SC SCH (08:56)
[2021-05-22] MEDS: LEVEMIR (INSULIN DETEMIR) 1 UNITS/0.01ML SC SCH ×2 (08:57→20:39)
[2021-05-22] MEDS: NYSTATIN 100,000 UNITS/GM TOPICAL PWD 15 GM TOP SCH ×2 (09:00→20:39)
[2021-05-22] MEDS: diphenhydrAMINE CREAM 30GM TOP SCH ×2 (09:00→20:39)
[2021-05-22] MEDS: ACETAMINOPHEN TAB 650MG DOSE (2X325MG) PO PRN (09:44)
[2021-05-22] MEDS ORDERED: LIDOCAINE W/EPINEPHRINE 1% 20ML VIAL SC ONE (14:00)
[2021-05-23] MEDS: SODIUM CHLORIDE 0.9% INJ 10 ML SYR IV SCH ×2 (05:23→17:49)
[2021-05-23 06:00] VITALS: BP 143/52
[2021-05-23] MEDS: CHOLESTYRAMINE 4 GM PWD PKT PO SCH ×3 (07:38→22:33)
[2021-05-23] MEDS: LOMOTIL 2.5MG/0.025MG TABLET PO SCH ×4 (07:39→21:15)
[2021-05-23] MEDS: HumaLOG INSULIN (NovoLOG) PER UNIT SC SCH ×4 (07:39→21:00)
[2021-05-23] MEDS: LACTOBACILLUS ACIDOPHILUS CAP (BACID) PO SCH ×3 (07:39→17:48)
[2021-05-23] MEDS: diphenhydrAMINE CREAM 30GM TOP SCH ×2 (07:44→21:16)
[2021-05-23] MEDS: ENOXAPARIN 40MG/0.4ML SYRINGE (J1650 PER 10MG) SC SCH (10:05)
[2021-05-23] MEDS: GABAPENTIN 100 MG CAP PO SCH ×3 (10:06→21:16)
[2021-05-23] MEDS: POTASSIUM CHLORIDE 10MEQ SR TABLET PO SCH ×2 (10:06→21:15)
[2021-05-23] MEDS: ATORVASTATIN 20 MG TAB PO SCH (10:06)
[2021-05-23] MEDS: FUROSEMIDE 40 MG TAB PO SCH ×2 (10:07→17:48)
[2021-05-23] MEDS: DULoxetine 30MG CAPSULE (CYMBALTA) PO SCH (10:07)
[2021-05-23] MEDS: METOPROLOL TART 50 MG TAB PO SCH ×2 (10:07→21:30)
[2021-05-23] MEDS: LEVEMIR (INSULIN DETEMIR) 1 UNITS/0.01ML SC SCH ×2 (10:09→21:15)
[2021-05-23] MEDS: NYSTATIN 100,000 UNITS/GM TOPICAL PWD 15 GM TOP SCH ×2 (10:11→21:00)
[2021-05-24] MEDS: ACETAMINOPHEN TAB 650MG DOSE (2X325MG) PO PRN ×2 (01:19→20:40)
[2021-05-24] MEDS: SODIUM CHLORIDE 0.9% INJ 10 ML SYR IV SCH (05:48)
[2021-05-24 06:00] VITALS: BP 130/64
[2021-05-24] MEDS: diphenhydrAMINE CREAM 30GM TOP SCH ×2 (09:00→20:42)
[2021-05-24] MEDS: NYSTATIN 100,000 UNITS/GM TOPICAL PWD 15 GM TOP SCH ×2 (09:00→20:41)
[2021-05-24] MEDS: CHOLESTYRAMINE 4 GM PWD PKT PO SCH ×3 (09:21→21:48)
[2021-05-24] MEDS: LEVEMIR (INSULIN DETEMIR) 1 UNITS/0.01ML SC SCH ×2 (09:23→20:41)
[2021-05-24] MEDS: ENOXAPARIN 40MG/0.4ML SYRINGE (J1650 PER 10MG) SC SCH (09:24)
[2021-05-24] MEDS: HumaLOG INSULIN (NovoLOG) PER UNIT SC SCH ×4 (09:24→20:41)
[2021-05-24] MEDS: DULoxetine 30MG CAPSULE (CYMBALTA) PO SCH (09:25)
[2021-05-24] MEDS: LACTOBACILLUS ACIDOPHILUS CAP (BACID) PO SCH ×3 (09:25→17:09)
[2021-05-24] MEDS: POTASSIUM CHLORIDE 10MEQ SR TABLET PO SCH ×2 (09:25→20:40)
[2021-05-24] MEDS: LOMOTIL 2.5MG/0.025MG TABLET PO SCH ×4 (09:25→20:44)
[2021-05-24] MEDS: ATORVASTATIN 20 MG TAB PO SCH (09:25)
[2021-05-24] MEDS: GABAPENTIN 100 MG CAP PO SCH ×3 (09:25→20:41)
[2021-05-24] MEDS: FUROSEMIDE 40 MG TAB PO SCH ×2 (09:26→17:09)
[2021-05-24] MEDS: METOPROLOL TART 50 MG TAB PO SCH ×2 (09:26→20:40)
[2021-05-25 06:00] VITALS: BP 140/54
[2021-05-25] MEDS: LEVEMIR (INSULIN DETEMIR) 1 UNITS/0.01ML SC SCH ×2 (07:53→20:34)
[2021-05-25] MEDS: HumaLOG INSULIN (NovoLOG) PER UNIT SC SCH ×4 (07:53→19:42)
[2021-05-25] MEDS: CHOLESTYRAMINE 4 GM PWD PKT PO SCH ×3 (07:53→21:52)
[2021-05-25] MEDS: diphenhydrAMINE CREAM 30GM TOP SCH ×2 (07:54→20:34)
[2021-05-25] MEDS: LOMOTIL 2.5MG/0.025MG TABLET PO SCH ×4 (08:58→20:33)
[2021-05-25] MEDS: ATORVASTATIN 20 MG TAB PO SCH (08:58)
[2021-05-25] MEDS: POTASSIUM CHLORIDE 10MEQ SR TABLET PO SCH ×2 (08:59→20:33)
[2021-05-25] MEDS: DULoxetine 30MG CAPSULE (CYMBALTA) PO SCH (08:59)
[2021-05-25] MEDS: LACTOBACILLUS ACIDOPHILUS CAP (BACID) PO SCH ×3 (08:59→17:04)
[2021-05-25] MEDS: GABAPENTIN 100 MG CAP PO SCH ×3 (08:59→20:33)
[2021-05-25] MEDS: ENOXAPARIN 40MG/0.4ML SYRINGE (J1650 PER 10MG) SC SCH (08:59)
[2021-05-25] MEDS: NYSTATIN 100,000 UNITS/GM TOPICAL PWD 15 GM TOP SCH ×2 (09:00→20:34)
[2021-05-25] MEDS: FUROSEMIDE 40 MG TAB PO SCH ×2 (09:00→17:05)
[2021-05-25] MEDS: METOPROLOL TART 50 MG TAB PO SCH ×2 (09:00→20:36)
[2021-05-26 05:00] VITALS: BP 146/64
[2021-05-26] MEDS: HumaLOG INSULIN (NovoLOG) PER UNIT SC SCH ×4 (07:59→19:47)
[2021-05-26] MEDS: CHOLESTYRAMINE 4 GM PWD PKT PO SCH ×4 (08:00→21:52)
[2021-05-26] MEDS: LOMOTIL 2.5MG/0.025MG TABLET PO SCH ×4 (08:00→20:18)
[2021-05-26] MEDS: LEVEMIR (INSULIN DETEMIR) 1 UNITS/0.01ML SC SCH ×2 (08:00→20:18)
[2021-05-26] MEDS: DULoxetine 30MG CAPSULE (CYMBALTA) PO SCH (08:01)
[2021-05-26] MEDS: ENOXAPARIN 40MG/0.4ML SYRINGE (J1650 PER 10MG) SC SCH (08:01)
[2021-05-26] MEDS: LACTOBACILLUS ACIDOPHILUS CAP (BACID) PO SCH ×3 (08:01→17:41)
[2021-05-26] MEDS: ATORVASTATIN 20 MG TAB PO SCH (08:01)
[2021-05-26] MEDS: FUROSEMIDE 40 MG TAB PO SCH ×2 (08:02→17:39)
[2021-05-26] MEDS: POTASSIUM CHLORIDE 10MEQ SR TABLET PO SCH ×2 (08:02→20:18)
[2021-05-26] MEDS: GABAPENTIN 100 MG CAP PO SCH ×3 (08:02→20:18)
[2021-05-26] MEDS: METOPROLOL TART 50 MG TAB PO SCH ×2 (08:03→20:20)
[2021-05-26] MEDS: NYSTATIN 100,000 UNITS/GM TOPICAL PWD 15 GM TOP SCH ×2 (08:03→20:21)
[2021-05-26] MEDS: diphenhydrAMINE CREAM 30GM TOP SCH ×2 (08:03→20:21)
[2021-05-27 06:00] VITALS: BP 140/61
[2021-05-27] MEDS: CHOLESTYRAMINE 4 GM PWD PKT PO SCH ×4 (08:08→21:32)
[2021-05-27] MEDS: LEVEMIR (INSULIN DETEMIR) 1 UNITS/0.01ML SC SCH ×2 (08:10→20:18)
[2021-05-27] MEDS: HumaLOG INSULIN (NovoLOG) PER UNIT SC SCH ×4 (08:11→19:38)
[2021-05-27] MEDS: LOMOTIL 2.5MG/0.025MG TABLET PO SCH ×4 (08:11→20:18)
[2021-05-27] MEDS: ATORVASTATIN 20 MG TAB PO SCH (08:12)
[2021-05-27] MEDS: METOPROLOL TART 50 MG TAB PO SCH ×2 (08:12→20:22)
[2021-05-27] MEDS: POTASSIUM CHLORIDE 10MEQ SR TABLET PO SCH ×2 (08:13→20:18)
[2021-05-27] MEDS: LACTOBACILLUS ACIDOPHILUS CAP (BACID) PO SCH ×3 (08:13→17:10)
[2021-05-27] MEDS: FUROSEMIDE 40 MG TAB PO SCH ×2 (08:14→17:10)
[2021-05-27] MEDS: GABAPENTIN 100 MG CAP PO SCH ×3 (08:14→20:18)
[2021-05-27] MEDS: DULoxetine 30MG CAPSULE (CYMBALTA) PO SCH (08:14)
[2021-05-27] MEDS: ENOXAPARIN 40MG/0.4ML SYRINGE (J1650 PER 10MG) SC SCH (08:17)
[2021-05-27] MEDS: NYSTATIN 100,000 UNITS/GM TOPICAL PWD 15 GM TOP SCH ×2 (08:18→20:23)
[2021-05-27] MEDS: diphenhydrAMINE CREAM 30GM TOP SCH ×2 (08:18→20:23)
[2021-05-28 06:00] VITALS: BP 159/56
[2021-05-28] MEDS: CHOLESTYRAMINE 4 GM PWD PKT PO SCH ×4 (07:30→20:08)
[2021-05-28] MEDS ORDERED: LIDOCAINE W/EPINEPHRINE 1% 20ML VIAL SC ONE (09:05)
[2021-05-28] MEDS ORDERED: LIDOCAINE 1% MDV 20ML VIAL IM ONE ×2 (09:10→10:15)
[2021-05-28] MEDS ORDERED: LIDOCAINE 1% MDV 20ML VIAL As Ordered ONE (09:12)
[2021-05-28] MEDS: ENOXAPARIN 40MG/0.4ML SYRINGE (J1650 PER 10MG) SC SCH (09:48)
[2021-05-28] MEDS: LOMOTIL 2.5MG/0.025MG TABLET PO SCH ×4 (09:48→22:12)
[2021-05-28] MEDS: diphenhydrAMINE CREAM 30GM TOP SCH ×2 (09:49→22:17)
[2021-05-28] MEDS: NYSTATIN 100,000 UNITS/GM TOPICAL PWD 15 GM TOP SCH ×2 (09:49→22:17)
[2021-05-28] MEDS: HumaLOG INSULIN (NovoLOG) PER UNIT SC SCH ×4 (09:50→20:13)
[2021-05-28] MEDS: DULoxetine 30MG CAPSULE (CYMBALTA) PO SCH (09:50)
[2021-05-28] MEDS: GABAPENTIN 100 MG CAP PO SCH ×3 (09:50→22:12)
[2021-05-28] MEDS: ATORVASTATIN 20 MG TAB PO SCH (09:50)
[2021-05-28] MEDS: LACTOBACILLUS ACIDOPHILUS CAP (BACID) PO SCH ×3 (09:50→17:34)
[2021-05-28] MEDS: POTASSIUM CHLORIDE 10MEQ SR TABLET PO SCH ×2 (09:50→22:13)
[2021-05-28] MEDS: FUROSEMIDE 40 MG TAB PO SCH ×2 (09:51→16:15)
[2021-05-28] MEDS: METOPROLOL TART 50 MG TAB PO SCH ×2 (09:52→22:16)
[2021-05-28] MEDS: ACETAMINOPHEN TAB 650MG DOSE (2X325MG) PO PRN (09:57)
[2021-05-28] MEDS: LEVEMIR (INSULIN DETEMIR) 1 UNITS/0.01ML SC SCH ×2 (09:57→22:17)
[2021-05-29 06:00] VITALS: BP 144/91
[2021-05-29] MEDS: CHOLESTYRAMINE 4 GM PWD PKT PO SCH ×4 (08:21→20:36)
[2021-05-29] MEDS: HumaLOG INSULIN (NovoLOG) PER UNIT SC SCH ×4 (08:22→20:53)
[2021-05-29] MEDS: LACTOBACILLUS ACIDOPHILUS CAP (BACID) PO SCH ×3 (09:37→18:08)
[2021-05-29] MEDS: GABAPENTIN 100 MG CAP PO SCH ×3 (09:37→22:51)
[2021-05-29] MEDS: DULoxetine 30MG CAPSULE (CYMBALTA) PO SCH (09:38)
[2021-05-29] MEDS: METOPROLOL TART 50 MG TAB PO SCH ×2 (09:38→22:55)
[2021-05-29] MEDS: POTASSIUM CHLORIDE 10MEQ SR TABLET PO SCH ×2 (09:39→22:52)
[2021-05-29] MEDS: ENOXAPARIN 40MG/0.4ML SYRINGE (J1650 PER 10MG) SC SCH (09:40)
[2021-05-29] MEDS: LOMOTIL 2.5MG/0.025MG TABLET PO SCH ×4 (09:40→22:51)
[2021-05-29] MEDS: ATORVASTATIN 20 MG TAB PO SCH (09:40)
[2021-05-29] MEDS: FUROSEMIDE 40 MG TAB PO SCH ×2 (09:40→17:12)
[2021-05-29] MEDS: diphenhydrAMINE CREAM 30GM TOP SCH ×2 (09:41→22:52)
[2021-05-29] MEDS: NYSTATIN 100,000 UNITS/GM TOPICAL PWD 15 GM TOP SCH ×2 (09:41→22:52)
[2021-05-29] MEDS: LEVEMIR (INSULIN DETEMIR) 1 UNITS/0.01ML SC SCH ×2 (09:46→22:56)
[2021-05-30 06:00] VITALS: BP 134/66
[2021-05-30] MEDS: NYSTATIN 100,000 UNITS/GM TOPICAL PWD 15 GM TOP SCH (09:00)
[2021-05-30] MEDS: LOMOTIL 2.5MG/0.025MG TABLET PO SCH ×2 (09:54→12:22)
[2021-05-30] MEDS: CHOLESTYRAMINE 4 GM PWD PKT PO SCH ×2 (09:54→12:22)
[2021-05-30] MEDS: LEVEMIR (INSULIN DETEMIR) 1 UNITS/0.01ML SC SCH (09:55)
[2021-05-30] MEDS: HumaLOG INSULIN (NovoLOG) PER UNIT SC SCH ×2 (09:55→12:22)
[2021-05-30] MEDS: DULoxetine 30MG CAPSULE (CYMBALTA) PO SCH (09:56)
[2021-05-30] MEDS: ATORVASTATIN 20 MG TAB PO SCH (09:56)
[2021-05-30] MEDS: GABAPENTIN 100 MG CAP PO SCH ×2 (09:56→16:00)
[2021-05-30] MEDS: FUROSEMIDE 40 MG TAB PO SCH (09:56)
[2021-05-30] MEDS: LACTOBACILLUS ACIDOPHILUS CAP (BACID) PO SCH ×2 (09:56→12:22)
[2021-05-30] MEDS: POTASSIUM CHLORIDE 10MEQ SR TABLET PO SCH (09:56)
[2021-05-30 09:57] VITALS: BP 155/69
[2021-05-30] MEDS: ENOXAPARIN 40MG/0.4ML SYRINGE (J1650 PER 10MG) SC SCH (09:57)
[2021-05-30] MEDS: METOPROLOL TART 50 MG TAB PO SCH (09:57)
[2021-05-30] MEDS: diphenhydrAMINE CREAM 30GM TOP SCH (09:58)
[2021-05-30] MEDS ORDERED: DIPH2.5T15 PO (10:24)
[2021-05-30] MEDS ORDERED: CHOL4PW PO (10:24)
[2021-05-30] MEDS ORDERED: NYST10006 TOP (10:24)
[2021-05-30] MEDS ORDERED: IRBE75TA4 PO (10:24)
[2021-05-30] MEDS ORDERED: FURO40TA2 PO (10:24)
[2021-05-30] MEDS ORDERED: RISATAB3 PO (10:24)
[2021-05-30] MEDS ORDERED: NOVO1INJ4 SC ×2 (10:24)
[2021-05-30] MEDS ORDERED: NEUR300C PO (10:27)
== END 2021-05-30 16:48 | disposition home health service (06) | DRG 329 ==
LOC: M ED 02:45 → M MSPAV 11:32 → M ED INP 11:32 → M MSPAV 22:52 → M PCU 04-29 14:54 → M MSPAV 05-03 15:12
PROVIDERS: ADMIT Internal Medicine; ATTEND Internal Medicine Nephrology
PROC: 30233N1 Transfusion of Nonautologous Red Blood Cells into Peripheral Vein, Percutaneous Approach (ICD-10-PCS; 2021-04-29)
PROC: 0DT80ZZ Resection of Small Intestine, Open Approach (ICD-10-PCS; principal; 2021-04-29 14:00)
PROC: 0WBF0ZZ Excision of Abdominal Wall, Open Approach (ICD-10-PCS; 2021-05-02)
PROC: 0WQF0ZZ Repair Abdominal Wall, Open Approach (ICD-10-PCS; 2021-05-02)
PROC: 02HV33Z Insertion of Infusion Device into Superior Vena Cava, Percutaneous Approach (ICD-10-PCS; 2021-05-02)
DX: K43.4 Parastomal hernia with gangrene (principal); K63.1 Perforation of intestine (nontraumatic); G92.8 Other toxic encephalopathy; L03.311 Cellulitis of abdominal wall; I24.8 Other forms of acute ischemic heart disease; Z68.43 Body mass index [BMI] 50.0-59.9, adult; N17.9 Acute kidney failure, unspecified; E87.1 Hypo-osmolality and hyponatremia; K94.19 Other complications of enterostomy; E46 Unspecified protein-calorie malnutrition; I87.2 Venous insufficiency (chronic) (peripheral); E11.40 Type 2 diabetes mellitus with diabetic neuropathy, unspecified; E66.01 Morbid (severe) obesity due to excess calories; M79.3 Panniculitis, unspecified; E78.5 Hyperlipidemia, unspecified; F32.A Depression, unspecified; I10 Essential (primary) hypertension; Z85.820 Personal history of malignant melanoma of skin; Z85.038 Personal history of other malignant neoplasm of large intestine; Z79.4 Long term (current) use of insulin; Z79.82 Long term (current) use of aspirin; Z79.899 Other long term (current) drug therapy; Z91.030 Bee allergy status; L73.9 Follicular disorder, unspecified; L29.9 Pruritus, unspecified; D64.9 Anemia, unspecified

== ENCOUNTER → 2021-07-12 | Outpatient (CLI) | payer MEDICARE ==
[~2021-07-12] MED LIST changes: +CHOL4PW PO; +DIPH2.5T15 PO; +IRBE75TA4 PO; +NEUR300C PO; +NYST10006 TOP; +RISATAB3 PO
== END ==
LOC: M PAIN 14:30
PROVIDERS: ATTEND Anesthesiology
DX: M79.18 Myalgia, other site (principal); E11.40 Type 2 diabetes mellitus with diabetic neuropathy, unspecified; Z86.59 Personal history of other mental and behavioral disorders; Z87.891 Personal history of nicotine dependence; Z88.5 Allergy status to narcotic agent; Z91.030 Bee allergy status; E66.01 Morbid (severe) obesity due to excess calories; Z68.43 Body mass index [BMI] 50.0-59.9, adult; Z79.4 Long term (current) use of insulin; Z79.82 Long term (current) use of aspirin; Z79.899 Other long term (current) drug therapy

== ENCOUNTER → 2021-07-17 | Outpatient (CLI) | payer MEDICARE ==
[2021-07-17 17:07] LABS: HEMATOCRIT 33.4 % (42.0-52.0); HEMOGLOBIN 10.6 g/dl (13.5-17.5); MEAN CORPUSCULAR HEMOGLOBIN 28.1 pg (27.0-33.0); MEAN CORPUSCULAR HGB CONC 31.7 g/dl (32.0-36.5); MEAN CORPUSCULAR VOLUME 88.6 fl (80.0-96.0); PLATELET COUNT, AUTOMATED 274 10^3/uL (150-450); RED BLOOD COUNT 3.77 10^6/uL (4.30-6.10)
[2021-07-17 17:54] LABS: ALT/SGPT 42 U/L (12-78); BILIRUBIN,TOTAL 0.2 MG/DL (0.2-1.0); BLOOD UREA NITROGEN 17 MG/DL (7-18); C REACTIVE PROTEIN QUANTITATIV 4.14 MG/DL (0.00-0.30); CALCIUM LEVEL 8.5 MG/DL (8.8-10.2); CARBON DIOXIDE LEVEL 22 MEQ/L (21-32); CHLORIDE LEVEL 107 MEQ/L (98-107); CREATININE FOR GFR 0.88 MG/DL (0.70-1.30); GLOMERULAR FILTRATION RATE > 60.0 (>42); GLUCOSE, FASTING 186 MG/DL (70-100); POTASSIUM SERUM 3.9 MEQ/L (3.5-5.1); PREALBUMIN 14.7 MG/DL (20.0-40.0); SODIUM LEVEL 136 MEQ/L (136-145); TOTAL PROTEIN 7.2 GM/DL (6.4-8.2)
== END ==
LOC: M PLALAB 15:13
PROVIDERS: ATTEND Surgery
DX: K43.0 Incisional hernia with obstruction, without gangrene (principal); E66.01 Morbid (severe) obesity due to excess calories; S31.109D Unspecified open wound of abdominal wall, unspecified quadrant without penetration into peritoneal cavity, subsequent encounter

== ENCOUNTER → 2021-07-25 | Outpatient (CLI) | payer MEDICARE ==
[2021-07-25 20:29] LABS: HEMOGLOBIN A1c 7.9 %
== END ==
LOC: M PLALAB 15:07
PROVIDERS: ATTEND Family Medicine
DX: E11.42 Type 2 diabetes mellitus with diabetic polyneuropathy (principal)

== ENCOUNTER → 2021-09-12 | Outpatient (REF) | payer MEDICARE ==
[~2021-09-12] MED LIST changes: +BUPR-71; -BUPR150T5
== END ==
LOC: M SFHCWAGY 17:04 → M SFHCPLAZ 17:04
PROVIDERS: ATTEND Physician Assistant
DX: R05.9 Cough, unspecified (principal)

== ENCOUNTER → 2021-11-07 | Outpatient (REF) | payer MEDICARE ==
[2021-11-07 16:05] LABS: HEMATOCRIT 39.9 % (42.0-52.0); HEMOGLOBIN 12.5 g/dl (13.5-17.5); MEAN CORPUSCULAR HEMOGLOBIN 27.2 pg (27.0-33.0); MEAN CORPUSCULAR HGB CONC 31.3 g/dl (32.0-36.5); MEAN CORPUSCULAR VOLUME 86.7 fl (80.0-96.0); PLATELET COUNT, AUTOMATED 244 10^3/uL (150-450); WHITE BLOOD COUNT 11.5 10^3/uL (4.0-10.0)
[2021-11-07 16:25] LABS: ALBUMIN 3.3 GM/DL (3.2-5.2); ALT/SGPT 69 U/L (12-78); BILIRUBIN,TOTAL 0.3 MG/DL (0.2-1.0); BLOOD UREA NITROGEN 28 MG/DL (7-18); C REACTIVE PROTEIN QUANTITATIV 0.64 MG/DL (0.00-0.30); CARBON DIOXIDE LEVEL 15 MEQ/L (21-32); CHLORIDE LEVEL 111 MEQ/L (98-107); CHOLESTEROL LEVEL 88 MG/DL (<200); CHOLESTEROL RISK RATIO 1.913 (<5); CREATININE FOR GFR 0.93 MG/DL (0.70-1.30); FREE T4 0.89 NG/DL (0.76-1.46); GLOMERULAR FILTRATION RATE > 60.0 (>42); GLUCOSE, FASTING 66 MG/DL (70-100); HDL CHOLESTEROL 46 MG/DL (>40); LDL CHOLESTEROL 27 MG/DL (<100); NON-HDL-C 42 MG/DL; POTASSIUM SERUM 4.7 MEQ/L (3.5-5.1); SODIUM LEVEL 138 MEQ/L (136-145); TOTAL PROTEIN 7.7 GM/DL (6.4-8.2); TRIGLYCERIDES LEVEL 76 MG/DL (<150)
[2021-11-07 16:32] LABS: TOTAL 25(OH) VITAMIN D 12.8 NG/ML (30.0-100.0)
[2021-11-07 16:33] LABS: VITAMIN B12 LEVEL 776 PG/ML (247-911)
[2021-11-07 17:25] LABS: HEMOGLOBIN A1c 7.6 %
== END ==
LOC: M SHH 15:33
PROVIDERS: ATTEND Internal Medicine Hematology
DX: E66.01 Morbid (severe) obesity due to excess calories (principal); Z79.899 Other long term (current) drug therapy

== ENCOUNTER → 2021-11-12 | Outpatient (REF) | payer MEDICARE ==
[2021-11-12 17:12] LABS: MALB URINE SIEMENS 10.3 MG/L; MAU/CREAT RATIO 7.8 MCG/MG (0.0-30.0)
== END ==
LOC: M SHH 15:25
PROVIDERS: ATTEND Internal Medicine Hematology
DX: E66.01 Morbid (severe) obesity due to excess calories (principal)

== ENCOUNTER → 2022-03-08 | Outpatient (REF) | payer MEDICARE ==
[2022-03-08 17:50] LABS: HEMATOCRIT 39.2 % (42.0-52.0); HEMOGLOBIN 12.6 g/dl (13.5-17.5); MEAN CORPUSCULAR HEMOGLOBIN 28.3 pg (27.0-33.0); MEAN CORPUSCULAR HGB CONC 32.1 g/dl (32.0-36.5); MEAN CORPUSCULAR VOLUME 87.9 fl (80.0-96.0); PLATELET COUNT, AUTOMATED 283 10^3/uL (150-450); RED BLOOD COUNT 4.46 10^6/uL (4.30-6.10); WHITE BLOOD COUNT 9.4 10^3/uL (4.0-10.0)
[2022-03-08 18:53] LABS: ALBUMIN 3.6 GM/DL (3.2-5.2); BILIRUBIN,TOTAL 0.7 MG/DL (0.2-1.0); C REACTIVE PROTEIN QUANTITATIV 1.51 MG/DL (0.00-0.30); CALCIUM LEVEL 8.6 MG/DL (8.8-10.2); CHOLESTEROL RISK RATIO 2.194 (<5); CREATININE FOR GFR 1.46 MG/DL (0.70-1.30); FREE T4 0.99 NG/DL (0.76-1.46); GLOMERULAR FILTRATION RATE 50.7 (>42); POTASSIUM SERUM 4.9 MEQ/L (3.5-5.1); THYROID STIMULATING HORMONE 2.26 uIU/ML (0.358-3.740); TOTAL PROTEIN 8.1 GM/DL (6.4-8.2)
[2022-03-08 19:41] LABS: HEMOGLOBIN A1c 8.4 %; TOTAL 25(OH) VITAMIN D 34.4 NG/ML (30.0-100.0)
== END ==
LOC: M LAB REF 16:29
PROVIDERS: ATTEND Internal Medicine Hematology
DX: E11.42 Type 2 diabetes mellitus with diabetic polyneuropathy (principal)

== ENCOUNTER 2022-05-21 21:48 | Emergency (ER) | payer MEDICARE ==
[~2022-05-21] VITALS: Ht 172.7 cm; Wt 158.6 kg
[2022-05-22 02:01] LABS: BASO % 0.2 % (0.0-1.0); EOS % 0.1 % (0.0-3.0); HEMATOCRIT 40.4 % (42.0-52.0); HEMOGLOBIN 13.4 g/dl (13.5-17.5); LYMPH # 0.9 10^3/uL (1.5-5.0); LYMPH % 5.5 % (24.0-44.0); MEAN CORPUSCULAR HEMOGLOBIN 28.9 pg (27.0-33.0); MEAN CORPUSCULAR HGB CONC 33.2 g/dl (32.0-36.5); MEAN CORPUSCULAR VOLUME 87.1 fl (80.0-96.0); MONO # 0.9 10^3/uL (0.0-0.8); MONO % 5.6 % (2.0-8.0); NEUTROPHILS # 14.6 10^3/uL (1.5-8.5); NEUTROPHILS % 88.3 % (36.0-66.0); PLATELET COUNT, AUTOMATED 244 10^3/uL (150-450); RED BLOOD COUNT 4.64 10^6/uL (4.30-6.10); WHITE BLOOD COUNT 16.6 10^3/uL (4.0-10.0)
[2022-05-22 02:38] LABS: LIPASE 51 U/L (12-53)
[2022-05-22 02:40] LABS: ALBUMIN 3.9 G/DL (3.2-5.2); ALKALINE PHOSPHATASE 120 U/L (46-116); ALT/SGPT 40 U/L (7.0-40); AST/SGOT 22 U/L (<34); BILIRUBIN,DIRECT 0.2 MG/DL (<0.4); BILIRUBIN,TOTAL 0.5 MG/DL (0.3-1.2); BLOOD UREA NITROGEN 20 MG/DL (9-23); CARBON DIOXIDE LEVEL 17 MMOL/L (20-31); CHLORIDE LEVEL 107 MMOL/L (98-107); CREATININE FOR GFR 1.16 MG/DL (0.70-1.30); GLOMERULAR FILTRATION RATE > 60.0 (>42); GLUCOSE, FASTING 164 MG/DL (74-106); POTASSIUM SERUM 4.5 MMOL/L (3.5-5.1); SODIUM LEVEL 137 MMOL/L (136-145); TOTAL PROTEIN 8.1 G/DL (5.7-8.2)
[2022-05-22] MEDS: GASTROGRAFIN SOLUTION 30ML PO SCH ×2 (04:29→04:59)
[2022-05-22] MEDS ORDERED: ISOVUE-370 76% 100ML VIAL As Ordered ONE (11:18)
[2022-05-22 12:52] VITALS: BP 141/69
== END 2022-05-22 15:34 | disposition home or self-care (01) ==
LOC: M ED 21:48
DX: L02.211 Cutaneous abscess of abdominal wall (principal); K31.6 Fistula of stomach and duodenum; K46.9 Unspecified abdominal hernia without obstruction or gangrene; E66.01 Morbid (severe) obesity due to excess calories; E11.9 Type 2 diabetes mellitus without complications; I10 Essential (primary) hypertension; E78.5 Hyperlipidemia, unspecified; F41.9 Anxiety disorder, unspecified; F32.A Depression, unspecified; K21.9 Gastro-esophageal reflux disease without esophagitis; Z87.891 Personal history of nicotine dependence; Z87.442 Personal history of urinary calculi; Z93.3 Colostomy status; Z91.030 Bee allergy status; Z79.82 Long term (current) use of aspirin; Z79.4 Long term (current) use of insulin; Z79.899 Other long term (current) drug therapy; Z79.811 Long term (current) use of aromatase inhibitors
CPT/HCPCS: 36415; 74176; 74177; 80048; 80076; 83605; 83690; 85025; 87070; 87077; 87186; 87205; 87507; 99284; Q9963; Q9967

== ENCOUNTER → 2022-07-01 | Outpatient (CLI) | payer MEDICARE ==
[2022-07-01 15:55] LABS: HEMATOCRIT 36.3 % (42.0-52.0); HEMOGLOBIN 11.8 g/dl (13.5-17.5); MEAN CORPUSCULAR HEMOGLOBIN 29.4 pg (27.0-33.0); MEAN CORPUSCULAR HGB CONC 32.5 g/dl (32.0-36.5); MEAN CORPUSCULAR VOLUME 90.5 fl (80.0-96.0); PLATELET COUNT, AUTOMATED 243 10^3/uL (150-450); RED BLOOD COUNT 4.01 10^6/uL (4.30-6.10); WHITE BLOOD COUNT 11.9 10^3/uL (4.0-10.0)
[2022-07-01 16:20] LABS: ALBUMIN 3.4 G/DL (3.2-5.2); BILIRUBIN,TOTAL 0.3 MG/DL (0.3-1.2); CALCIUM LEVEL 8.8 MG/DL (8.3-10.6); CHOLESTEROL RISK RATIO 2.43 (<5); CREATININE FOR GFR 1.58 MG/DL (0.70-1.30); GLOMERULAR FILTRATION RATE 46.3 (>42); HDL CHOLESTEROL 34.5 MG/DL (>40); LDL CHOLESTEROL 21.3 MG/DL (<100); POTASSIUM SERUM 4.2 MMOL/L (3.5-5.1); TOTAL PROTEIN 7.2 G/DL (5.7-8.2)
[2022-07-01 16:21] LABS: CREATININE, URINE 79.7 MG/DL
[2022-07-01 16:24] LABS: THYROID STIMULATING HORMONE 2.915 uIU/ML (0.55-4.78); TOTAL 25(OH) VITAMIN D 25.8 NG/ML (20.0-100.0)
[2022-07-01 16:25] LABS: FREE T4 0.9 NG/DL (0.89-1.76)
[2022-07-01 16:55] LABS: HEMOGLOBIN A1c 7.6 % (4.0-6.0)
== END ==
LOC: M PLALAB 13:05
PROVIDERS: ATTEND Internal Medicine Hematology
DX: Z00.00 Encounter for general adult medical examination without abnormal findings (principal)

== ENCOUNTER 2022-08-12 09:32 | Inpatient (IN) | payer MEDICARE ==
[~2022-08-12] VITALS: Ht 172.7 cm; Wt 156.6 kg
[~2022-08-12 09:32] MED LIST changes: -FLUO-157 EXT; +FLUO0.0531 EXT
[2022-08-12 10:46] LABS: BASO # 0.1 10^3/uL (0.0-0.2); BASO % 0.4 % (0.0-1.0); EOS # 0.1 10^3/uL (0.0-0.5); EOS % 0.4 % (0.0-3.0); HEMATOCRIT 35.5 % (42.0-52.0); HEMOGLOBIN 11.5 g/dl (13.5-17.5); LYMPH # 0.9 10^3/uL (1.5-5.0); LYMPH % 6.3 % (24.0-44.0); MEAN CORPUSCULAR HGB CONC 32.4 g/dl (32.0-36.5); MEAN CORPUSCULAR VOLUME 89.4 fl (80.0-96.0); MONO # 1.1 10^3/uL (0.0-0.8); MONO % 7.7 % (2.0-8.0); NEUTROPHILS % 84.7 % (36.0-66.0); PLATELET COUNT, AUTOMATED 210 10^3/uL (150-450); RED BLOOD COUNT 3.97 10^6/uL (4.30-6.10); WHITE BLOOD COUNT 14.2 10^3/uL (4.0-10.0)
[2022-08-12] MEDS ORDERED: ATOR40TA75 PO (11:09)
[2022-08-12] MEDS ORDERED: FURO40TA2 PO (11:09)
[2022-08-12] MEDS ORDERED: NOVO1INJ4 SC (11:09)
[2022-08-12] MEDS ORDERED: IRBE150T7 PO (11:09)
[2022-08-12] MEDS ORDERED: GABA-282 PO (11:09)
[2022-08-12] MEDS ORDERED: NYST-13 TOP (11:09)
[2022-08-12] MEDS ORDERED: VITA1CAP25 PO (11:21)
[2022-08-12] MEDS ORDERED: OXYC1TAB23 PO (11:21)
[2022-08-12] MEDS ORDERED: VITAM (11:21)
[2022-08-12] MEDS ORDERED: METF500T13 PO (11:21)
[2022-08-12] MEDS ORDERED: REPA1TAB4 PO (11:21)
[2022-08-12 11:24] LABS: INR 1.06; PARTIAL THROMBOPLASTIN TIME 30.7 SECONDS (24.8-34.2)
[2022-08-12] MEDS ORDERED: HOME MED LIST COMPLETE! XX SCH (11:30)
[2022-08-12 11:45] LABS: RSV AMPLIFICATION NEGATIVE (NEGATIVE)
[2022-08-12 11:59] LABS: ALBUMIN 3.7 G/DL (3.2-5.2); BILIRUBIN,DIRECT 0.1 MG/DL (<0.4); BILIRUBIN,TOTAL 0.4 MG/DL (0.3-1.2); TOTAL PROTEIN 7.6 G/DL (5.7-8.2)
[2022-08-12] MEDS ORDERED: MORPHINE 4 MG/ML 1ML VIAL IV PRN (13:10)
[2022-08-12] MEDS ORDERED: MORPHINE 2 MG/ML 1ML VIAL IV PRN (15:20)
[2022-08-12] MEDS: NS 1,000 ML IV SCH (15:50)
[2022-08-12 15:51] LABS: CALCIUM LEVEL 8.4 MG/DL (8.3-10.6); CREATININE FOR GFR 1.58 MG/DL (0.70-1.30); GLOMERULAR FILTRATION RATE 46.3 (>42); POTASSIUM SERUM 5.7 MMOL/L (3.5-5.1)
[2022-08-12] MEDS ORDERED: HumuLIN R (REGULAR) INSULIN (NovoLIN R) **100U/ML** PER UNIT IV STA (16:21)
[2022-08-12] MEDS ORDERED: DEXTROSE 50% 50ML SYRINGE IV STA (16:21)
[2022-08-12 17:00] VITALS: BP 179/73
[2022-08-12] MEDS: cefTRIAXone SOD 1 GM in D5W MINI-BAG PLUS 50 ML IV SCH (19:35)
[2022-08-12 19:38] VITALS: BP 134/57
[2022-08-12] MEDS ORDERED: PANTOPRAZOLE 40MG VIAL IV SCH (21:00)
[2022-08-12 21:04] LABS: ALBUMIN 3.4 G/DL (3.2-5.2); BILIRUBIN,TOTAL 0.5 MG/DL (0.3-1.2); CALCIUM LEVEL 8.3 MG/DL (8.3-10.6); CREATININE FOR GFR 1.37 MG/DL (0.70-1.30); GLOMERULAR FILTRATION RATE 54.5 (>42); POTASSIUM SERUM 4.4 MMOL/L (3.5-5.1); TOTAL PROTEIN 7.1 G/DL (5.7-8.2)
[2022-08-12] MEDS: HEPARIN SOD (PORCINE) 5000UNITS/ML 1ML VIAL/SYRINGE SQ SCH (22:01)
[2022-08-12] MEDS: MORPHINE 4 MG/ML 1ML VIAL IV PRN (23:09)
[2022-08-13] MEDS: NS 1,000 ML IV SCH ×3 (01:28→15:50)
[2022-08-13 05:16] VITALS: BP 154/72
[2022-08-13] MEDS: ONDANSETRON 4MG 2ML VIAL IV PRN ×3 (05:49→21:37)
[2022-08-13] MEDS: MORPHINE 4 MG/ML 1ML VIAL IV PRN ×4 (05:50→21:37)
[2022-08-13 06:24] LABS: HEMATOCRIT 34.9 % (42.0-52.0); HEMOGLOBIN 11.5 g/dl (13.5-17.5); MEAN CORPUSCULAR VOLUME 87.9 fl (80.0-96.0); PLATELET COUNT, AUTOMATED 194 10^3/uL (150-450); RED BLOOD COUNT 3.97 10^6/uL (4.30-6.10); WHITE BLOOD COUNT 7.5 10^3/uL (4.0-10.0)
[2022-08-13 06:51] LABS: ALBUMIN 3.2 G/DL (3.2-5.2); BILIRUBIN,TOTAL 0.7 MG/DL (0.3-1.2); CALCIUM LEVEL 8.1 MG/DL (8.3-10.6); CREATININE FOR GFR 1.33 MG/DL (0.70-1.30); GLOMERULAR FILTRATION RATE 56.4 (>42); POTASSIUM SERUM 4.4 MMOL/L (3.5-5.1); TOTAL PROTEIN 6.8 G/DL (5.7-8.2)
[2022-08-13] MEDS: HEPARIN SOD (PORCINE) 5000UNITS/ML 1ML VIAL/SYRINGE SQ SCH ×2 (09:49→21:16)
[2022-08-13 10:32] LABS: CHLORIDE,RANDOM URINE 63 MMOL/L
[2022-08-13 10:34] LABS: SODIUM,RANDOM URINE < 10 MMOL/L
[2022-08-13 10:45] LABS: OSMOLALITY URINE 519 MOSM/KG (50-1400)
[2022-08-13 14:00] VITALS: BP 153/77
[2022-08-13] MEDS: GABAPENTIN 300 MG CAP PO SCH ×2 (15:52→21:16)
[2022-08-13] MEDS: cefTRIAXone SOD 1 GM in D5W MINI-BAG PLUS 50 ML IV SCH (15:52)
[2022-08-13] MEDS ORDERED: buPROPion **SR TABLET** (ZYBAN) 150MG PO SCH (21:00)
[2022-08-13] MEDS ORDERED: ATORVASTATIN 20 MG TAB PO SCH (21:00)
[2022-08-13] MEDS ORDERED: ASPIRIN 81MG ENTERIC TABLET PO SCH (21:00)
[2022-08-13 21:44] VITALS: BP 150/50
[2022-08-14] MEDS: NS 1,000 ML IV SCH (01:51)
[2022-08-14 06:00] VITALS: BP 126/70
[2022-08-14] MEDS: HEPARIN SOD (PORCINE) 5000UNITS/ML 1ML VIAL/SYRINGE SQ SCH ×3 (06:09→21:03)
[2022-08-14 06:13] LABS: HEMATOCRIT 31.5 % (42.0-52.0); HEMOGLOBIN 10.4 g/dl (13.5-17.5); MEAN CORPUSCULAR HEMOGLOBIN 29.1 pg (27.0-33.0); PLATELET COUNT, AUTOMATED 198 10^3/uL (150-450); RED BLOOD COUNT 3.58 10^6/uL (4.30-6.10); WHITE BLOOD COUNT 6.2 10^3/uL (4.0-10.0)
[2022-08-14 06:45] LABS: CALCIUM LEVEL 8.1 MG/DL (8.3-10.6); CREATININE FOR GFR 1.61 MG/DL (0.70-1.30); GLOMERULAR FILTRATION RATE 45.3 (>42); POTASSIUM SERUM 4.4 MMOL/L (3.5-5.1)
[2022-08-14 07:23] LABS: ANISOCYTOSIS 1+; BASOPHILS 1 % (0-1); LYMPHOCYTES 14 % (16-44); MONOCYTES 32 % (0-5); MYELOCYTES 2 % (0-0); NEUTROPHILS 19 % (28-66); PLATELET ESTIMATE NORMAL (NORMAL)
[2022-08-14] MEDS: D5W/LR 1,000 ML IV SCH ×3 (07:47→21:03)
[2022-08-14] MEDS: LEVEMIR (INSULIN DETEMIR) 1 UNITS/0.01ML SC SCH (11:33)
[2022-08-14] MEDS: cefTRIAXone SOD 1 GM in D5W MINI-BAG PLUS 50 ML IV SCH (16:22)
[2022-08-14] MEDS ORDERED: GLUCOSE 4GM CHEW TABLET PO PRN (20:50)
[2022-08-14] MEDS ORDERED: GLUCAGON INJ 1MG VIAL SC PRN (20:50)
[2022-08-14] MEDS ORDERED: DEXTROSE 50% 50ML SYRINGE IV PRN (20:50)
[2022-08-14] MEDS ORDERED: SALIVA SUBSTITUTE(MOUTHKOTE) BTL MT PRN (21:10)
[2022-08-14 22:00] VITALS: BP 150/93
[2022-08-15] MEDS: INSULIN LISPRO (NovoLOG) PER UNIT SC SCH ×5 (00:17→23:56)
[2022-08-15 02:09] VITALS: BP 119/64
[2022-08-15] MEDS: D5W/LR 1,000 ML IV SCH ×2 (03:53→08:58)
[2022-08-15] MEDS: HEPARIN SOD (PORCINE) 5000UNITS/ML 1ML VIAL/SYRINGE SQ SCH ×3 (05:26→21:44)
[2022-08-15 06:00] VITALS: BP 119/64
[2022-08-15 07:15] LABS: HEMATOCRIT 31.1 % (42.0-52.0); HEMOGLOBIN 10.3 g/dl (13.5-17.5); MEAN CORPUSCULAR HGB CONC 33.1 g/dl (32.0-36.5); MEAN CORPUSCULAR VOLUME 87.6 fl (80.0-96.0); PLATELET COUNT, AUTOMATED 200 10^3/uL (150-450); RED BLOOD COUNT 3.55 10^6/uL (4.30-6.10); WHITE BLOOD COUNT 5.8 10^3/uL (4.0-10.0)
[2022-08-15 07:31] LABS: ANISOCYTOSIS 1+; ATYPICAL LYMPH 3 % (0-5); BASOPHILS 1 % (0-1); EOSINOPHILS 3 % (0-3); LYMPHOCYTES 18 % (16-44); MONOCYTES 20 % (0-5); NEUTROPHILS 37 % (28-66); PLATELET ESTIMATE NORMAL (NORMAL); POLYCHROMASIA 1+
[2022-08-15 07:36] LABS: CALCIUM LEVEL 8.6 MG/DL (8.3-10.6); CREATININE FOR GFR 1.87 MG/DL (0.70-1.30); GLOMERULAR FILTRATION RATE 38.1 (>42); POTASSIUM SERUM 3.8 MMOL/L (3.5-5.1)
[2022-08-15] MEDS: LEVEMIR (INSULIN DETEMIR) 1 UNITS/0.01ML SC SCH (08:59)
[2022-08-15] MEDS ORDERED: LR 1,000 ML IV SCH (11:05)
[2022-08-15] MEDS: METOPROLOL SUCC (TopROL XL) 100MG *XL* TAB PO SCH (11:43)
[2022-08-15] MEDS: ASPIRIN 81MG CHEW TABLET PO SCH (11:54)
[2022-08-15] MEDS: ATORVASTATIN 20 MG TAB PO SCH (11:54)
[2022-08-15] MEDS: buPROPion **SR TABLET** (ZYBAN) 150MG PO SCH ×2 (11:54→21:43)
[2022-08-15 14:00] VITALS: BP 138/63
[2022-08-15] MEDS: cefTRIAXone SOD 1 GM in D5W MINI-BAG PLUS 50 ML IV SCH (16:28)
[2022-08-15] MEDS: GABAPENTIN 300 MG CAP PO SCH ×2 (16:28→21:43)
[2022-08-15 21:10] VITALS: BP 137/62
[2022-08-16 05:40] VITALS: BP 137/62
[2022-08-16] MEDS: INSULIN LISPRO (NovoLOG) PER UNIT SC SCH ×3 (05:40→17:43)
[2022-08-16] MEDS: HEPARIN SOD (PORCINE) 5000UNITS/ML 1ML VIAL/SYRINGE SQ SCH ×3 (05:43→21:40)
[2022-08-16 06:10] LABS: HEMOGLOBIN 10.8 g/dl (13.5-17.5); MEAN CORPUSCULAR HEMOGLOBIN 28.8 pg (27.0-33.0); MEAN CORPUSCULAR HGB CONC 32.7 g/dl (32.0-36.5); PLATELET COUNT, AUTOMATED 232 10^3/uL (150-450); RED BLOOD COUNT 3.75 10^6/uL (4.30-6.10); WHITE BLOOD COUNT 6.7 10^3/uL (4.0-10.0)
[2022-08-16 06:40] LABS: CREATININE FOR GFR 2.24 MG/DL (0.70-1.30); GLOMERULAR FILTRATION RATE 30.9 (>42); POTASSIUM SERUM 3.8 MMOL/L (3.5-5.1)
[2022-08-16] MEDS ORDERED: LR 1,000 ML IV ONE (07:30)
[2022-08-16 07:51] LABS: EOSINOPHILS 7 % (0-3); LYMPHOCYTES 14 % (16-44); MONOCYTES 19 % (0-5); NEUTROPHILS 58 % (28-66)
[2022-08-16 07:52] LABS: PLATELET ESTIMATE NORMAL (NORMAL)
[2022-08-16] MEDS: CEFDINIR 300 MG CAP (OMNICEF) PO SCH ×2 (09:43→21:39)
[2022-08-16] MEDS: buPROPion **SR TABLET** (ZYBAN) 150MG PO SCH ×2 (09:43→21:39)
[2022-08-16] MEDS: GABAPENTIN 300 MG CAP PO SCH ×3 (09:44→21:40)
[2022-08-16] MEDS: METOPROLOL SUCC (TopROL XL) 100MG *XL* TAB PO SCH (09:44)
[2022-08-16] MEDS: LEVEMIR (INSULIN DETEMIR) 1 UNITS/0.01ML SC SCH (09:44)
[2022-08-16] MEDS: ASPIRIN 81MG CHEW TABLET PO SCH (09:44)
[2022-08-16] MEDS: ATORVASTATIN 20 MG TAB PO SCH (09:44)
[2022-08-16 14:00] VITALS: BP 132/60
[2022-08-16] MEDS: LR 2,000 ML IV SCH ×2 (17:47→22:41)
[2022-08-16] MEDS: LOPERAMIDE 2 MG CAPLET PO PRN (18:39)
[2022-08-16 21:00] VITALS: BP 112/73
[2022-08-17 06:00] VITALS: BP 116/56
[2022-08-17 06:17] LABS: HEMATOCRIT 31.9 % (42.0-52.0); HEMOGLOBIN 10.7 g/dl (13.5-17.5); MEAN CORPUSCULAR HEMOGLOBIN 29.1 pg (27.0-33.0); MEAN CORPUSCULAR HGB CONC 33.5 g/dl (32.0-36.5); MEAN CORPUSCULAR VOLUME 86.7 fl (80.0-96.0); PLATELET COUNT, AUTOMATED 234 10^3/uL (150-450); RED BLOOD COUNT 3.68 10^6/uL (4.30-6.10); WHITE BLOOD COUNT 7.2 10^3/uL (4.0-10.0)
[2022-08-17] MEDS: HEPARIN SOD (PORCINE) 5000UNITS/ML 1ML VIAL/SYRINGE SQ SCH ×3 (06:20→20:50)
[2022-08-17] MEDS: LOPERAMIDE 2 MG CAPLET PO PRN ×2 (06:24→08:39)
[2022-08-17] MEDS: INSULIN LISPRO (NovoLOG) PER UNIT SC SCH ×5 (06:31→20:22)
[2022-08-17 06:41] LABS: CALCIUM LEVEL 8.6 MG/DL (8.3-10.6); CREATININE FOR GFR 2.69 MG/DL (0.70-1.30); POTASSIUM SERUM 3.2 MMOL/L (3.5-5.1)
[2022-08-17 06:43] LABS: ATYPICAL LYMPH 1 % (0-5); EOSINOPHILS 4 % (0-3); LYMPHOCYTES 24 % (16-44); METAMYELOCYTES 2 % (0-0); MONOCYTES 9 % (0-5); MYELOCYTES 2 % (0-0); NEUTROPHILS 52 % (28-66)
[2022-08-17 06:47] LABS: PLATELET ESTIMATE NORMAL (NORMAL)
[2022-08-17] MEDS ORDERED: LR 1,000 ML IV ONE (07:35)
[2022-08-17] MEDS: buPROPion **SR TABLET** (ZYBAN) 150MG PO SCH ×2 (08:37→20:50)
[2022-08-17] MEDS: CEFDINIR 300 MG CAP (OMNICEF) PO SCH ×2 (08:37→20:50)
[2022-08-17] MEDS: GABAPENTIN 300 MG CAP PO SCH ×3 (08:38→20:50)
[2022-08-17] MEDS: ASPIRIN 81MG CHEW TABLET PO SCH (08:38)
[2022-08-17] MEDS: ATORVASTATIN 20 MG TAB PO SCH (08:38)
[2022-08-17] MEDS: POTASSIUM CHLORIDE 10MEQ SR TABLET PO SCH ×2 (08:38→20:50)
[2022-08-17] MEDS: LEVEMIR (INSULIN DETEMIR) 1 UNITS/0.01ML SC SCH (08:39)
[2022-08-17] MEDS: METOPROLOL SUCC (TopROL XL) 100MG *XL* TAB PO SCH (08:39)
[2022-08-17] MEDS: LR 2,000 ML IV SCH (12:02)
[2022-08-17 12:04] LABS: CLOSTRIDIUM DIFFICILE PCR NEGATIVE (NEGATIVE)
[2022-08-17] MEDS: LOMOTIL 2.5MG/0.025MG TABLET PO SCH ×2 (13:27→17:08)
[2022-08-17 14:00] VITALS: BP 117/55
[2022-08-17 19:58] VITALS: BP_SYST 144; BP_DIAS 42; BP_DIAS 67
[2022-08-18] MEDS: HEPARIN SOD (PORCINE) 5000UNITS/ML 1ML VIAL/SYRINGE SQ SCH ×3 (05:54→21:21)
[2022-08-18 06:00] VITALS: BP 136/55
[2022-08-18 06:22] LABS: HEMATOCRIT 32.3 % (42.0-52.0); HEMOGLOBIN 10.7 g/dl (13.5-17.5); MEAN CORPUSCULAR HEMOGLOBIN 28.9 pg (27.0-33.0); MEAN CORPUSCULAR HGB CONC 33.1 g/dl (32.0-36.5); MEAN CORPUSCULAR VOLUME 87.3 fl (80.0-96.0); PLATELET COUNT, AUTOMATED 242 10^3/uL (150-450); WHITE BLOOD COUNT 8.6 10^3/uL (4.0-10.0)
[2022-08-18 06:47] LABS: CALCIUM LEVEL 8.1 MG/DL (8.3-10.6); CREATININE FOR GFR 2.39 MG/DL (0.70-1.30); GLOMERULAR FILTRATION RATE 28.7 (>42); POTASSIUM SERUM 4.1 MMOL/L (3.5-5.1)
[2022-08-18 06:57] LABS: BASOPHILS 1 % (0-1); EOSINOPHILS 4 % (0-3); LYMPHOCYTES 16 % (16-44); METAMYELOCYTES 4 % (0-0); MONOCYTES 4 % (0-5); MYELOCYTES 1 % (0-0); NEUTROPHILS 68 % (28-66)
[2022-08-18 07:01] LABS: PLATELET ESTIMATE NORMAL (NORMAL)
[2022-08-18] MEDS: LR 2,000 ML IV SCH ×3 (08:04→18:56)
[2022-08-18] MEDS: LEVEMIR (INSULIN DETEMIR) 1 UNITS/0.01ML SC SCH (08:09)
[2022-08-18] MEDS: INSULIN LISPRO (NovoLOG) PER UNIT SC SCH ×4 (08:09→21:00)
[2022-08-18] MEDS: ASPIRIN 81MG CHEW TABLET PO SCH (08:10)
[2022-08-18] MEDS: METOPROLOL SUCC (TopROL XL) 100MG *XL* TAB PO SCH (08:10)
[2022-08-18] MEDS: ATORVASTATIN 20 MG TAB PO SCH (08:10)
[2022-08-18] MEDS: GABAPENTIN 300 MG CAP PO SCH ×3 (08:10→21:21)
[2022-08-18] MEDS: LOMOTIL 2.5MG/0.025MG TABLET PO SCH ×2 (08:11→21:21)
[2022-08-18] MEDS: buPROPion **SR TABLET** (ZYBAN) 150MG PO SCH ×2 (08:42→21:21)
[2022-08-18 14:00] VITALS: BP 113/55
[2022-08-18 21:12] VITALS: BP 138/62
[2022-08-18 22:00] VITALS: BP 138/62
[2022-08-19] MEDS: LR 2,000 ML IV SCH ×3 (00:20→14:52)
[2022-08-19] MEDS: HEPARIN SOD (PORCINE) 5000UNITS/ML 1ML VIAL/SYRINGE SQ SCH ×3 (05:00→21:34)
[2022-08-19 05:03] VITALS: BP 138/60
[2022-08-19 06:00] VITALS: BP 138/60
[2022-08-19 06:05] LABS: HEMATOCRIT 31.3 % (42.0-52.0); HEMOGLOBIN 10.2 g/dl (13.5-17.5); MEAN CORPUSCULAR HGB CONC 32.6 g/dl (32.0-36.5); MEAN CORPUSCULAR VOLUME 88.9 fl (80.0-96.0); PLATELET COUNT, AUTOMATED 215 10^3/uL (150-450); RED BLOOD COUNT 3.52 10^6/uL (4.30-6.10)
[2022-08-19 06:28] LABS: CALCIUM LEVEL 7.4 MG/DL (8.3-10.6); CREATININE FOR GFR 1.97 MG/DL (0.70-1.30); GLOMERULAR FILTRATION RATE 35.9 (>42); POTASSIUM SERUM 4.2 MMOL/L (3.5-5.1)
[2022-08-19 08:03] LABS: EOSINOPHILS 3 % (0-3); LYMPHOCYTES 19 % (16-44); MONOCYTES 5 % (0-5); NEUTROPHILS 73 % (28-66)
[2022-08-19 08:04] LABS: PLATELET ESTIMATE NORMAL (NORMAL)
[2022-08-19] MEDS: INSULIN LISPRO (NovoLOG) PER UNIT SC SCH ×4 (08:59→20:16)
[2022-08-19] MEDS: LEVEMIR (INSULIN DETEMIR) 1 UNITS/0.01ML SC SCH (08:59)
[2022-08-19] MEDS: buPROPion **SR TABLET** (ZYBAN) 150MG PO SCH ×2 (09:00→21:33)
[2022-08-19] MEDS: LOMOTIL 2.5MG/0.025MG TABLET PO SCH ×2 (09:00→21:41)
[2022-08-19] MEDS: ATORVASTATIN 20 MG TAB PO SCH (09:01)
[2022-08-19] MEDS: GABAPENTIN 300 MG CAP PO SCH ×3 (09:01→21:34)
[2022-08-19] MEDS: ASPIRIN 81MG CHEW TABLET PO SCH (09:01)
[2022-08-19] MEDS: METOPROLOL SUCC (TopROL XL) 100MG *XL* TAB PO SCH (09:02)
[2022-08-19] MEDS ORDERED: LOPERAMIDE 2 MG CAPLET PO PRN (13:05)
[2022-08-19] MEDS ORDERED: ACETAMINOPHEN 500 MG TAB PO PRN (13:05)
[2022-08-19] MEDS ORDERED: LOPERAMIDE 2 MG CAPLET PO ONE (13:05)
[2022-08-19] MEDS: LIDOCAINE 5% (LIDODERM) PATCH TD SCH (13:21)
[2022-08-19 14:00] VITALS: BP 130/56
[2022-08-19 19:33] VITALS: BP 129/55
[2022-08-20] MEDS: HEPARIN SOD (PORCINE) 5000UNITS/ML 1ML VIAL/SYRINGE SQ SCH ×3 (05:28→20:58)
[2022-08-20 06:00] VITALS: BP 129/54
[2022-08-20 06:12] LABS: HEMATOCRIT 30.2 % (42.0-52.0); HEMOGLOBIN 9.7 g/dl (13.5-17.5); MEAN CORPUSCULAR HGB CONC 32.1 g/dl (32.0-36.5); MEAN CORPUSCULAR VOLUME 90.1 fl (80.0-96.0); PLATELET COUNT, AUTOMATED 205 10^3/uL (150-450); RED BLOOD COUNT 3.35 10^6/uL (4.30-6.10); WHITE BLOOD COUNT 8.5 10^3/uL (4.0-10.0)
[2022-08-20 06:40] LABS: CALCIUM LEVEL 7.9 MG/DL (8.3-10.6); CREATININE FOR GFR 1.72 MG/DL (0.70-1.30); GLOMERULAR FILTRATION RATE 41.9 (>42); POTASSIUM SERUM 4.4 MMOL/L (3.5-5.1)
[2022-08-20 06:43] LABS: ATYPICAL LYMPH 1 % (0-5); EOSINOPHILS 5 % (0-3); LYMPHOCYTES 24 % (16-44); MONOCYTES 7 % (0-5); MYELOCYTES 1 % (0-0); NEUTROPHILS 61 % (28-66); PLATELET ESTIMATE NORMAL (NORMAL); POLYCHROMASIA 1+
[2022-08-20 06:44] LABS: POIKILOCYTOSIS 1+
[2022-08-20] MEDS: LEVEMIR (INSULIN DETEMIR) 1 UNITS/0.01ML SC SCH (08:50)
[2022-08-20] MEDS: LOMOTIL 2.5MG/0.025MG TABLET PO SCH ×2 (08:51→20:58)
[2022-08-20] MEDS: INSULIN LISPRO (NovoLOG) PER UNIT SC SCH ×4 (08:51→20:59)
[2022-08-20] MEDS: NS 1,000 ML IV SCH ×2 (08:51→18:51)
[2022-08-20] MEDS: buPROPion **SR TABLET** (ZYBAN) 150MG PO SCH ×2 (08:51→20:58)
[2022-08-20] MEDS: LIDOCAINE 5% (LIDODERM) PATCH TD SCH (08:52)
[2022-08-20] MEDS: ASPIRIN 81MG CHEW TABLET PO SCH (08:52)
[2022-08-20] MEDS: METOPROLOL SUCC (TopROL XL) 100MG *XL* TAB PO SCH (08:52)
[2022-08-20] MEDS: GABAPENTIN 300 MG CAP PO SCH ×3 (08:52→20:58)
[2022-08-20] MEDS: ATORVASTATIN 20 MG TAB PO SCH (08:52)
[2022-08-20 14:00] VITALS: BP 106/72
[2022-08-20] MEDS ORDERED: LOPERAMIDE 2 MG CAPLET PO PRN (17:55)
[2022-08-21] MEDS: NYSTATIN CREAM 15GM TOP SCH ×3 (01:26→21:05)
[2022-08-21] MEDS: NS 1,000 ML IV SCH ×3 (03:35→22:21)
[2022-08-21 06:00] VITALS: BP 115/63
[2022-08-21] MEDS: HEPARIN SOD (PORCINE) 5000UNITS/ML 1ML VIAL/SYRINGE SQ SCH ×3 (06:03→21:05)
[2022-08-21 06:46] LABS: HEMATOCRIT 28.1 % (42.0-52.0); HEMOGLOBIN 9.4 g/dl (13.5-17.5); MEAN CORPUSCULAR HEMOGLOBIN 29.9 pg (27.0-33.0); MEAN CORPUSCULAR HGB CONC 33.5 g/dl (32.0-36.5); MEAN CORPUSCULAR VOLUME 89.5 fl (80.0-96.0); PLATELET COUNT, AUTOMATED 235 10^3/uL (150-450); RED BLOOD COUNT 3.14 10^6/uL (4.30-6.10); WHITE BLOOD COUNT 7.7 10^3/uL (4.0-10.0)
[2022-08-21 06:53] LABS: ALBUMIN 2.5 G/DL (3.2-5.2); BILIRUBIN,TOTAL 0.3 MG/DL (0.3-1.2); CALCIUM LEVEL 7.5 MG/DL (8.3-10.6); CREATININE FOR GFR 1.54 MG/DL (0.70-1.30); GLOMERULAR FILTRATION RATE 47.6 (>42); POTASSIUM SERUM 4.8 MMOL/L (3.5-5.1); TOTAL PROTEIN 5.4 G/DL (5.7-8.2)
[2022-08-21 08:04] LABS: EOSINOPHILS 6 % (0-3); LYMPHOCYTES 20 % (16-44); METAMYELOCYTES 1 % (0-0); MONOCYTES 7 % (0-5); NEUTROPHILS 64 % (28-66)
[2022-08-21 08:05] LABS: HYPOCHROMASIA 1+; PLATELET ESTIMATE NORMAL (NORMAL)
[2022-08-21] MEDS: LIDOCAINE 5% (LIDODERM) PATCH TD SCH ×2 (09:00→09:23)
[2022-08-21] MEDS: ASPIRIN 81MG CHEW TABLET PO SCH (09:21)
[2022-08-21] MEDS: GABAPENTIN 300 MG CAP PO SCH ×3 (09:21→21:04)
[2022-08-21] MEDS: METOPROLOL SUCC (TopROL XL) 100MG *XL* TAB PO SCH (09:22)
[2022-08-21] MEDS: ATORVASTATIN 20 MG TAB PO SCH (09:22)
[2022-08-21] MEDS: LOMOTIL 2.5MG/0.025MG TABLET PO SCH ×4 (09:22→21:04)
[2022-08-21] MEDS: buPROPion **SR TABLET** (ZYBAN) 150MG PO SCH ×2 (09:22→21:04)
[2022-08-21] MEDS: LEVEMIR (INSULIN DETEMIR) 1 UNITS/0.01ML SC SCH (09:23)
[2022-08-21] MEDS: INSULIN LISPRO (NovoLOG) PER UNIT SC SCH ×4 (09:23→20:59)
[2022-08-21 14:00] VITALS: BP 119/57
[2022-08-21 20:31] VITALS: BP 122/56
[2022-08-22 05:00] VITALS: BP 134/64
[2022-08-22] MEDS: HEPARIN SOD (PORCINE) 5000UNITS/ML 1ML VIAL/SYRINGE SQ SCH ×3 (05:50→21:16)
[2022-08-22 06:38] LABS: BASO % 0.6 % (0.0-1.0); EOS # 0.3 10^3/uL (0.0-0.5); EOS % 3.9 % (0.0-3.0); HEMATOCRIT 30.1 % (42.0-52.0); HEMOGLOBIN 9.5 g/dl (13.5-17.5); LYMPH # 1.4 10^3/uL (1.5-5.0); LYMPH % 19.1 % (24.0-44.0); MEAN CORPUSCULAR HEMOGLOBIN 28.9 pg (27.0-33.0); MEAN CORPUSCULAR HGB CONC 31.6 g/dl (32.0-36.5); MEAN CORPUSCULAR VOLUME 91.5 fl (80.0-96.0); MONO # 0.5 10^3/uL (0.0-0.8); MONO % 7.2 % (2.0-8.0); NEUTROPHILS # 4.6 10^3/uL (1.5-8.5); NEUTROPHILS % 64.8 % (36.0-66.0); PLATELET COUNT, AUTOMATED 212 10^3/uL (150-450); RED BLOOD COUNT 3.29 10^6/uL (4.30-6.10); WHITE BLOOD COUNT 7.1 10^3/uL (4.0-10.0)
[2022-08-22 06:59] LABS: ALBUMIN 2.5 G/DL (3.2-5.2); BILIRUBIN,TOTAL 0.4 MG/DL (0.3-1.2); CALCIUM LEVEL 7.4 MG/DL (8.3-10.6); CREATININE FOR GFR 1.53 MG/DL (0.70-1.30); POTASSIUM SERUM 4.7 MMOL/L (3.5-5.1); TOTAL PROTEIN 5.6 G/DL (5.7-8.2)
[2022-08-22] MEDS: INSULIN LISPRO (NovoLOG) PER UNIT SC SCH ×4 (08:24→21:00)
[2022-08-22] MEDS: LEVEMIR (INSULIN DETEMIR) 1 UNITS/0.01ML SC SCH (08:24)
[2022-08-22] MEDS: NYSTATIN CREAM 15GM TOP SCH ×2 (08:25→21:17)
[2022-08-22] MEDS: GABAPENTIN 300 MG CAP PO SCH ×3 (08:25→21:16)
[2022-08-22] MEDS: LOMOTIL 2.5MG/0.025MG TABLET PO SCH ×4 (08:25→21:16)
[2022-08-22] MEDS: buPROPion **SR TABLET** (ZYBAN) 150MG PO SCH ×2 (08:25→21:16)
[2022-08-22] MEDS: LIDOCAINE 5% (LIDODERM) PATCH TD SCH (08:26)
[2022-08-22] MEDS: METOPROLOL SUCC (TopROL XL) 100MG *XL* TAB PO SCH (08:26)
[2022-08-22] MEDS: ATORVASTATIN 20 MG TAB PO SCH (08:26)
[2022-08-22] MEDS: ASPIRIN 81MG CHEW TABLET PO SCH (08:26)
[2022-08-22] MEDS ORDERED: CHOLESTYRAMINE 4GM PWD PKT PO SCH (12:00)
[2022-08-22] MEDS: NS 1,000 ML IV SCH (13:29)
[2022-08-22 14:00] VITALS: BP 124/61
[2022-08-22 22:00] VITALS: BP 133/63
[2022-08-23] MEDS: NS 1,000 ML IV SCH ×3 (00:06→17:45)
[2022-08-23 05:10] VITALS: BP 124/67
[2022-08-23] MEDS: HEPARIN SOD (PORCINE) 5000UNITS/ML 1ML VIAL/SYRINGE SQ SCH ×3 (05:41→22:01)
[2022-08-23 06:58] LABS: BASO % 0.4 % (0.0-1.0); EOS # 0.2 10^3/uL (0.0-0.5); EOS % 2.9 % (0.0-3.0); HEMATOCRIT 29.5 % (42.0-52.0); HEMOGLOBIN 9.5 g/dl (13.5-17.5); LYMPH # 1.2 10^3/uL (1.5-5.0); LYMPH % 17.3 % (24.0-44.0); MEAN CORPUSCULAR HEMOGLOBIN 29.5 pg (27.0-33.0); MEAN CORPUSCULAR HGB CONC 32.2 g/dl (32.0-36.5); MEAN CORPUSCULAR VOLUME 91.6 fl (80.0-96.0); MONO # 0.4 10^3/uL (0.0-0.8); MONO % 6.2 % (2.0-8.0); NEUTROPHILS # 4.9 10^3/uL (1.5-8.5); NEUTROPHILS % 70.5 % (36.0-66.0); PLATELET COUNT, AUTOMATED 226 10^3/uL (150-450); RED BLOOD COUNT 3.22 10^6/uL (4.30-6.10)
[2022-08-23 07:22] LABS: ALBUMIN 2.7 G/DL (3.2-5.2); BILIRUBIN,TOTAL 0.4 MG/DL (0.3-1.2); CALCIUM LEVEL 7.6 MG/DL (8.3-10.6); CREATININE FOR GFR 1.52 MG/DL (0.70-1.30); GLOMERULAR FILTRATION RATE 48.4 (>42); POTASSIUM SERUM 4.4 MMOL/L (3.5-5.1); TOTAL PROTEIN 5.8 G/DL (5.7-8.2)
[2022-08-23] MEDS: LEVEMIR (INSULIN DETEMIR) 1 UNITS/0.01ML SC SCH (08:00)
[2022-08-23] MEDS: CHOLESTYRAMINE 4GM PWD PKT PO SCH ×2 (08:00→22:01)
[2022-08-23] MEDS: ASPIRIN 81MG CHEW TABLET PO SCH (08:01)
[2022-08-23] MEDS: LOMOTIL 2.5MG/0.025MG TABLET PO SCH ×4 (08:01→20:12)
[2022-08-23] MEDS: INSULIN LISPRO (NovoLOG) PER UNIT SC SCH ×4 (08:01→20:00)
[2022-08-23] MEDS: METOPROLOL SUCC (TopROL XL) 100MG *XL* TAB PO SCH (08:02)
[2022-08-23] MEDS: LIDOCAINE 5% (LIDODERM) PATCH TD SCH (08:03)
[2022-08-23] MEDS: GABAPENTIN 300 MG CAP PO SCH ×3 (08:03→20:12)
[2022-08-23] MEDS: buPROPion **SR TABLET** (ZYBAN) 150MG PO SCH ×2 (08:03→20:12)
[2022-08-23] MEDS: ATORVASTATIN 20 MG TAB PO SCH (08:03)
[2022-08-23] MEDS: NYSTATIN CREAM 15GM TOP SCH ×2 (08:04→20:13)
[2022-08-23] MEDS: LACTOBACILLUS ACIDOPHILUS CAP (BACID) PO SCH ×3 (08:34→17:44)
[2022-08-23 14:00] VITALS: BP 105/40
[2022-08-23 22:00] VITALS: BP 159/68
[2022-08-24] MEDS: NS 1,000 ML IV SCH ×3 (02:14→20:33)
[2022-08-24 06:00] VITALS: BP 155/77
[2022-08-24] MEDS: HEPARIN SOD (PORCINE) 5000UNITS/ML 1ML VIAL/SYRINGE SQ SCH ×3 (06:00→22:00)
[2022-08-24 06:08] LABS: BASO % 0.5 % (0.0-1.0); EOS # 0.2 10^3/uL (0.0-0.5); EOS % 2.7 % (0.0-3.0); HEMOGLOBIN 8.9 g/dl (13.5-17.5); LYMPH # 1.1 10^3/uL (1.5-5.0); LYMPH % 17.4 % (24.0-44.0); MEAN CORPUSCULAR HEMOGLOBIN 29.1 pg (27.0-33.0); MEAN CORPUSCULAR HGB CONC 31.8 g/dl (32.0-36.5); MEAN CORPUSCULAR VOLUME 91.5 fl (80.0-96.0); MONO # 0.4 10^3/uL (0.0-0.8); MONO % 6.6 % (2.0-8.0); NEUTROPHILS # 4.5 10^3/uL (1.5-8.5); NEUTROPHILS % 70.9 % (36.0-66.0); PLATELET COUNT, AUTOMATED 211 10^3/uL (150-450); RED BLOOD COUNT 3.06 10^6/uL (4.30-6.10); WHITE BLOOD COUNT 6.4 10^3/uL (4.0-10.0)
[2022-08-24 06:47] LABS: ALBUMIN 2.4 G/DL (3.2-5.2); BILIRUBIN,TOTAL 0.4 MG/DL (0.3-1.2); CALCIUM LEVEL 7.2 MG/DL (8.3-10.6); CREATININE FOR GFR 1.39 MG/DL (0.70-1.30); GLOMERULAR FILTRATION RATE 53.6 (>42); POTASSIUM SERUM 4.2 MMOL/L (3.5-5.1); TOTAL PROTEIN 5.3 G/DL (5.7-8.2)
[2022-08-24] MEDS: LEVEMIR (INSULIN DETEMIR) 1 UNITS/0.01ML SC SCH (08:27)
[2022-08-24] MEDS: CHOLESTYRAMINE 4GM PWD PKT PO SCH ×2 (08:27→20:26)
[2022-08-24] MEDS: INSULIN LISPRO (NovoLOG) PER UNIT SC SCH ×4 (08:28→20:05)
[2022-08-24] MEDS: buPROPion **SR TABLET** (ZYBAN) 150MG PO SCH ×2 (08:29→20:26)
[2022-08-24] MEDS: GABAPENTIN 300 MG CAP PO SCH ×3 (08:29→20:26)
[2022-08-24] MEDS: ASPIRIN 81MG CHEW TABLET PO SCH (08:29)
[2022-08-24] MEDS: LOMOTIL 2.5MG/0.025MG TABLET PO SCH ×4 (08:29→20:26)
[2022-08-24] MEDS: ATORVASTATIN 20 MG TAB PO SCH (08:29)
[2022-08-24] MEDS: LACTOBACILLUS ACIDOPHILUS CAP (BACID) PO SCH ×3 (08:29→18:22)
[2022-08-24] MEDS: METOPROLOL SUCC (TopROL XL) 100MG *XL* TAB PO SCH (08:32)
[2022-08-24] MEDS: LIDOCAINE 5% (LIDODERM) PATCH TD SCH (08:45)
[2022-08-24] MEDS: NYSTATIN CREAM 15GM TOP SCH ×2 (12:23→20:26)
[2022-08-24 15:50] VITALS: BP 167/73
[2022-08-24 15:53] VITALS: BP 163/70
[2022-08-24 22:00] VITALS: BP 160/77
[2022-08-24 23:09] VITALS: BP 162/75
[2022-08-25] MEDS ORDERED: **hydrALAZINE** 10 MG TAB PO ONE
[2022-08-25 00:23] VITALS: BP 136/61
[2022-08-25] MEDS: NS 1,000 ML IV SCH (02:42)
[2022-08-25] MEDS: HEPARIN SOD (PORCINE) 5000UNITS/ML 1ML VIAL/SYRINGE SQ SCH ×3 (05:50→21:24)
[2022-08-25 06:00] VITALS: BP 139/65
[2022-08-25 06:31] LABS: BASO % 0.3 % (0.0-1.0); EOS # 0.2 10^3/uL (0.0-0.5); EOS % 2.8 % (0.0-3.0); HEMATOCRIT 28.5 % (42.0-52.0); LYMPH # 1.2 10^3/uL (1.5-5.0); MEAN CORPUSCULAR HGB CONC 31.6 g/dl (32.0-36.5); MEAN CORPUSCULAR VOLUME 91.9 fl (80.0-96.0); MONO # 0.5 10^3/uL (0.0-0.8); MONO % 7.4 % (2.0-8.0); NEUTROPHILS # 4.9 10^3/uL (1.5-8.5); NEUTROPHILS % 70.3 % (36.0-66.0); PLATELET COUNT, AUTOMATED 223 10^3/uL (150-450); WHITE BLOOD COUNT 6.9 10^3/uL (4.0-10.0)
[2022-08-25 07:01] LABS: ALBUMIN 2.4 G/DL (3.2-5.2); BILIRUBIN,TOTAL 0.3 MG/DL (0.3-1.2); CREATININE FOR GFR 1.42 MG/DL (0.70-1.30); GLOMERULAR FILTRATION RATE 52.3 (>42); POTASSIUM SERUM 4.7 MMOL/L (3.5-5.1); TOTAL PROTEIN 5.3 G/DL (5.7-8.2)
[2022-08-25] MEDS: INSULIN LISPRO (NovoLOG) PER UNIT SC SCH ×4 (07:25→21:00)
[2022-08-25] MEDS: LEVEMIR (INSULIN DETEMIR) 1 UNITS/0.01ML SC SCH (08:16)
[2022-08-25] MEDS: buPROPion **SR TABLET** (ZYBAN) 150MG PO SCH ×2 (08:16→20:02)
[2022-08-25] MEDS: CHOLESTYRAMINE 4GM PWD PKT PO SCH ×2 (08:16→21:24)
[2022-08-25] MEDS: LOMOTIL 2.5MG/0.025MG TABLET PO SCH ×4 (08:16→20:02)
[2022-08-25] MEDS: LACTOBACILLUS ACIDOPHILUS CAP (BACID) PO SCH ×3 (08:17→17:34)
[2022-08-25] MEDS: GABAPENTIN 300 MG CAP PO SCH ×3 (08:17→20:02)
[2022-08-25] MEDS: ASPIRIN 81MG CHEW TABLET PO SCH (08:18)
[2022-08-25] MEDS: ATORVASTATIN 20 MG TAB PO SCH (08:18)
[2022-08-25] MEDS: METOPROLOL SUCC (TopROL XL) 100MG *XL* TAB PO SCH (08:19)
[2022-08-25] MEDS: NYSTATIN CREAM 15GM TOP SCH ×2 (08:19→20:03)
[2022-08-25] MEDS: LIDOCAINE 5% (LIDODERM) PATCH TD SCH (08:19)
[2022-08-25] MEDS ORDERED: FUROSEMIDE 20MG/2ML VIAL IV ONE (09:20)
[2022-08-25 16:00] VITALS: BP 137/63
[2022-08-25] MEDS: FUROSEMIDE 40 MG TAB PO SCH (17:34)
[2022-08-25 20:00] VITALS: BP 132/69
[2022-08-26] MEDS: HEPARIN SOD (PORCINE) 5000UNITS/ML 1ML VIAL/SYRINGE SQ SCH ×3 (05:09→20:51)
[2022-08-26 06:28] LABS: BASO % 0.4 % (0.0-1.0); EOS # 0.2 10^3/uL (0.0-0.5); EOS % 2.5 % (0.0-3.0); HEMATOCRIT 31.7 % (42.0-52.0); HEMOGLOBIN 10.1 g/dl (13.5-17.5); LYMPH # 1.4 10^3/uL (1.5-5.0); LYMPH % 14.5 % (24.0-44.0); MEAN CORPUSCULAR HEMOGLOBIN 28.7 pg (27.0-33.0); MEAN CORPUSCULAR HGB CONC 31.9 g/dl (32.0-36.5); MEAN CORPUSCULAR VOLUME 90.1 fl (80.0-96.0); MONO # 0.7 10^3/uL (0.0-0.8); MONO % 7.8 % (2.0-8.0); NEUTROPHILS % 74.1 % (36.0-66.0); PLATELET COUNT, AUTOMATED 289 10^3/uL (150-450); RED BLOOD COUNT 3.52 10^6/uL (4.30-6.10); WHITE BLOOD COUNT 9.4 10^3/uL (4.0-10.0)
[2022-08-26 06:30] VITALS: BP 122/87
[2022-08-26 06:56] LABS: BILIRUBIN,TOTAL 0.8 MG/DL (0.3-1.2); CALCIUM LEVEL 7.9 MG/DL (8.3-10.6); CREATININE FOR GFR 1.52 MG/DL (0.70-1.30); GLOMERULAR FILTRATION RATE 48.4 (>42); POTASSIUM SERUM 3.9 MMOL/L (3.5-5.1); TOTAL PROTEIN 6.4 G/DL (5.7-8.2)
[2022-08-26] MEDS: CHOLESTYRAMINE 4GM PWD PKT PO SCH ×4 (07:30→20:50)
[2022-08-26] MEDS: INSULIN LISPRO (NovoLOG) PER UNIT SC SCH ×4 (07:30→21:00)
[2022-08-26] MEDS: LOMOTIL 2.5MG/0.025MG TABLET PO SCH ×4 (08:13→20:51)
[2022-08-26] MEDS: ASPIRIN 81MG CHEW TABLET PO SCH (08:13)
[2022-08-26] MEDS: buPROPion **SR TABLET** (ZYBAN) 150MG PO SCH ×2 (08:13→20:50)
[2022-08-26] MEDS: LACTOBACILLUS ACIDOPHILUS CAP (BACID) PO SCH ×3 (08:13→17:43)
[2022-08-26] MEDS: ATORVASTATIN 20 MG TAB PO SCH (08:14)
[2022-08-26] MEDS: FUROSEMIDE 40 MG TAB PO SCH ×2 (08:14→17:41)
[2022-08-26] MEDS: GABAPENTIN 300 MG CAP PO SCH ×3 (08:14→20:50)
[2022-08-26] MEDS: METOPROLOL SUCC (TopROL XL) 100MG *XL* TAB PO SCH (08:15)
[2022-08-26] MEDS: NYSTATIN CREAM 15GM TOP SCH ×2 (08:16→20:52)
[2022-08-26] MEDS: LIDOCAINE 5% (LIDODERM) PATCH TD SCH (08:16)
[2022-08-26] MEDS: LEVEMIR (INSULIN DETEMIR) 1 UNITS/0.01ML SC SCH (08:16)
[2022-08-26 09:07] VITALS: BP 133/60
[2022-08-26 16:00] VITALS: BP 113/51
[2022-08-27] MEDS: HEPARIN SOD (PORCINE) 5000UNITS/ML 1ML VIAL/SYRINGE SQ SCH ×3 (05:23→20:43)
[2022-08-27 05:31] VITALS: BP 88/51
[2022-08-27 06:03] LABS: HEMATOCRIT 28.9 % (42.0-52.0); HEMOGLOBIN 9.4 g/dl (13.5-17.5); MEAN CORPUSCULAR HEMOGLOBIN 29.6 pg (27.0-33.0); MEAN CORPUSCULAR HGB CONC 32.5 g/dl (32.0-36.5); MEAN CORPUSCULAR VOLUME 90.9 fl (80.0-96.0); PLATELET COUNT, AUTOMATED 259 10^3/uL (150-450); RED BLOOD COUNT 3.18 10^6/uL (4.30-6.10)
[2022-08-27 06:34] LABS: ALBUMIN 2.7 G/DL (3.2-5.2); BILIRUBIN,TOTAL 0.5 MG/DL (0.3-1.2); CALCIUM LEVEL 7.6 MG/DL (8.3-10.6); CREATININE FOR GFR 1.47 MG/DL (0.70-1.30); GLOMERULAR FILTRATION RATE 50.3 (>42); POTASSIUM SERUM 3.9 MMOL/L (3.5-5.1); TOTAL PROTEIN 5.8 G/DL (5.7-8.2)
[2022-08-27] MEDS: LOMOTIL 2.5MG/0.025MG TABLET PO SCH ×4 (08:21→20:43)
[2022-08-27] MEDS: buPROPion **SR TABLET** (ZYBAN) 150MG PO SCH ×2 (08:21→20:43)
[2022-08-27] MEDS: ASPIRIN 81MG CHEW TABLET PO SCH (08:21)
[2022-08-27] MEDS: METOPROLOL SUCC (TopROL XL) 100MG *XL* TAB PO SCH (08:29)
[2022-08-27] MEDS: ATORVASTATIN 20 MG TAB PO SCH (08:29)
[2022-08-27] MEDS: FUROSEMIDE 40 MG TAB PO SCH ×2 (08:30→17:31)
[2022-08-27] MEDS: GABAPENTIN 300 MG CAP PO SCH ×3 (08:30→20:43)
[2022-08-27] MEDS: LEVEMIR (INSULIN DETEMIR) 1 UNITS/0.01ML SC SCH (08:30)
[2022-08-27] MEDS: INSULIN LISPRO (NovoLOG) PER UNIT SC SCH ×4 (08:30→21:00)
[2022-08-27] MEDS: LACTOBACILLUS ACIDOPHILUS CAP (BACID) PO SCH ×3 (08:32→17:31)
[2022-08-27] MEDS: NYSTATIN CREAM 15GM TOP SCH ×2 (08:33→20:44)
[2022-08-27] MEDS: LIDOCAINE 5% (LIDODERM) PATCH TD SCH (08:33)
[2022-08-27] MEDS: CHOLESTYRAMINE 4GM PWD PKT PO SCH ×4 (10:13→20:43)
[2022-08-27 14:00] VITALS: BP 140/70
[2022-08-27 22:00] VITALS: BP 110/84
[2022-08-28] MEDS: HEPARIN SOD (PORCINE) 5000UNITS/ML 1ML VIAL/SYRINGE SQ SCH ×3 (05:19→21:02)
[2022-08-28 05:27] VITALS: BP 136/55
[2022-08-28 06:22] LABS: BASO % 0.6 % (0.0-1.0); EOS # 0.2 10^3/uL (0.0-0.5); EOS % 3.1 % (0.0-3.0); HEMATOCRIT 28.4 % (42.0-52.0); HEMOGLOBIN 9.3 g/dl (13.5-17.5); LYMPH # 1.3 10^3/uL (1.5-5.0); LYMPH % 19.8 % (24.0-44.0); MEAN CORPUSCULAR HEMOGLOBIN 29.5 pg (27.0-33.0); MEAN CORPUSCULAR HGB CONC 32.7 g/dl (32.0-36.5); MEAN CORPUSCULAR VOLUME 90.2 fl (80.0-96.0); MONO # 0.7 10^3/uL (0.0-0.8); MONO % 10.2 % (2.0-8.0); NEUTROPHILS # 4.3 10^3/uL (1.5-8.5); NEUTROPHILS % 65.5 % (36.0-66.0); PLATELET COUNT, AUTOMATED 275 10^3/uL (150-450); RED BLOOD COUNT 3.15 10^6/uL (4.30-6.10); WHITE BLOOD COUNT 6.5 10^3/uL (4.0-10.0)
[2022-08-28 06:38] LABS: ALBUMIN 2.8 G/DL (3.2-5.2); BILIRUBIN,TOTAL 0.5 MG/DL (0.3-1.2); CALCIUM LEVEL 7.3 MG/DL (8.3-10.6); CREATININE FOR GFR 1.5 MG/DL (0.70-1.30); GLOMERULAR FILTRATION RATE 49.1 (>42); MAGNESIUM LEVEL 0.8 MG/DL (1.8-2.4); POTASSIUM SERUM 3.8 MMOL/L (3.5-5.1); TOTAL PROTEIN 5.8 G/DL (5.7-8.2)
[2022-08-28] MEDS: LACTOBACILLUS ACIDOPHILUS CAP (BACID) PO SCH ×3 (07:55→16:57)
[2022-08-28] MEDS: LOMOTIL 2.5MG/0.025MG TABLET PO SCH ×4 (07:55→21:03)
[2022-08-28] MEDS: CHOLESTYRAMINE 4GM PWD PKT PO SCH ×4 (07:55→21:03)
[2022-08-28] MEDS: INSULIN LISPRO (NovoLOG) PER UNIT SC SCH ×4 (07:56→21:00)
[2022-08-28] MEDS: MAG SULF 1GM/100ML (MAG RUN) 1 GM in IV 1 EA IV SCH ×2 (07:56→08:59)
[2022-08-28] MEDS: ASPIRIN 81MG CHEW TABLET PO SCH (08:09)
[2022-08-28] MEDS: GABAPENTIN 300 MG CAP PO SCH ×3 (08:09→21:03)
[2022-08-28] MEDS: buPROPion **SR TABLET** (ZYBAN) 150MG PO SCH ×2 (08:09→21:02)
[2022-08-28] MEDS: METOPROLOL SUCC (TopROL XL) 100MG *XL* TAB PO SCH (08:09)
[2022-08-28] MEDS: ATORVASTATIN 20 MG TAB PO SCH (08:10)
[2022-08-28] MEDS: LEVEMIR (INSULIN DETEMIR) 1 UNITS/0.01ML SC SCH (08:10)
[2022-08-28] MEDS: LIDOCAINE 5% (LIDODERM) PATCH TD SCH (08:10)
[2022-08-28] MEDS: FUROSEMIDE 40 MG TAB PO SCH ×2 (08:10→16:57)
[2022-08-28] MEDS: NYSTATIN CREAM 15GM TOP SCH ×2 (08:10→21:04)
[2022-08-28] MEDS: MAGNESIUM OXIDE 400MG TAB (MAG-OX) PO SCH (09:02)
[2022-08-28 14:00] VITALS: BP 132/48
[2022-08-28] MEDS: PERCOCET 5MG/325MG TAB PO PRN (21:03)
[2022-08-28 21:32] VITALS: BP 140/54
[2022-08-29 06:08] LABS: BASO # 0.1 10^3/uL (0.0-0.2); BASO % 0.8 % (0.0-1.0); EOS # 0.2 10^3/uL (0.0-0.5); HEMATOCRIT 28.4 % (42.0-52.0); HEMOGLOBIN 9.1 g/dl (13.5-17.5); LYMPH # 1.3 10^3/uL (1.5-5.0); MEAN CORPUSCULAR HEMOGLOBIN 28.8 pg (27.0-33.0); MEAN CORPUSCULAR VOLUME 89.9 fl (80.0-96.0); MONO # 0.8 10^3/uL (0.0-0.8); MONO % 11.1 % (2.0-8.0); NEUTROPHILS # 4.7 10^3/uL (1.5-8.5); NEUTROPHILS % 66.4 % (36.0-66.0); PLATELET COUNT, AUTOMATED 268 10^3/uL (150-450); RED BLOOD COUNT 3.16 10^6/uL (4.30-6.10); WHITE BLOOD COUNT 7.1 10^3/uL (4.0-10.0)
[2022-08-29] MEDS: HEPARIN SOD (PORCINE) 5000UNITS/ML 1ML VIAL/SYRINGE SQ SCH ×2 (06:29→14:39)
[2022-08-29] MEDS: PERCOCET 5MG/325MG TAB PO PRN (06:30)
[2022-08-29 06:40] LABS: ALBUMIN 2.7 G/DL (3.2-5.2); BILIRUBIN,TOTAL 0.5 MG/DL (0.3-1.2); CALCIUM LEVEL 7.5 MG/DL (8.3-10.6); CREATININE FOR GFR 1.42 MG/DL (0.70-1.30); GLOMERULAR FILTRATION RATE 52.3 (>42); MAGNESIUM LEVEL 1.1 MG/DL (1.8-2.4); POTASSIUM SERUM 3.9 MMOL/L (3.5-5.1); TOTAL PROTEIN 5.8 G/DL (5.7-8.2)
[2022-08-29 06:53] VITALS: BP 133/54
[2022-08-29] MEDS ORDERED: MAGNESIUM OXIDE 400MG TAB (MAG-OX) PO ONE (07:45)
[2022-08-29] MEDS ORDERED: MAG SULF 1GM/100ML (MAG RUN) 1 GM in IV 1 EA IV ONE ×2 (08:00→12:00)
[2022-08-29 08:49] VITALS: BP 133/54
[2022-08-29] MEDS: METOPROLOL SUCC (TopROL XL) 100MG *XL* TAB PO SCH (08:49)
[2022-08-29] MEDS: buPROPion **SR TABLET** (ZYBAN) 150MG PO SCH (08:49)
[2022-08-29] MEDS: ASPIRIN 81MG CHEW TABLET PO SCH (08:49)
[2022-08-29] MEDS: FUROSEMIDE 40 MG TAB PO SCH (08:50)
[2022-08-29] MEDS: MAGNESIUM OXIDE 400MG TAB (MAG-OX) PO SCH (08:50)
[2022-08-29] MEDS: ATORVASTATIN 20 MG TAB PO SCH (08:50)
[2022-08-29] MEDS: LACTOBACILLUS ACIDOPHILUS CAP (BACID) PO SCH ×2 (08:50→12:19)
[2022-08-29] MEDS: GABAPENTIN 300 MG CAP PO SCH (08:50)
[2022-08-29] MEDS: INSULIN LISPRO (NovoLOG) PER UNIT SC SCH ×2 (08:52→12:19)
[2022-08-29] MEDS: LEVEMIR (INSULIN DETEMIR) 1 UNITS/0.01ML SC SCH (08:53)
[2022-08-29] MEDS: LOMOTIL 2.5MG/0.025MG TABLET PO SCH ×2 (08:53→12:19)
[2022-08-29] MEDS: CHOLESTYRAMINE 4GM PWD PKT PO SCH ×2 (08:53→12:19)
[2022-08-29] MEDS: LIDOCAINE 5% (LIDODERM) PATCH TD SCH (08:54)
[2022-08-29] MEDS: NYSTATIN CREAM 15GM TOP SCH (08:54)
[2022-08-29] MEDS ORDERED: RISATAB3 PO (11:31)
[2022-08-29] MEDS ORDERED: DIPH2.5T15 PO (11:31)
[2022-08-29] MEDS ORDERED: MAGN400T2 PO (11:31)
[2022-08-29] MEDS ORDERED: CHOL4PW PO (11:31)
[2022-08-29] MEDS ORDERED: FURO40TA2 PO (11:31)
[2022-08-29 14:00] VITALS: BP 125/58
== END 2022-08-29 16:08 | disposition home or self-care (01) | DRG 394 ==
LOC: M ED 09:32 → M ED INP 15:11 → ENRESERV 15:49 → M MSPAV 16:53
PROVIDERS: ADMIT Internal Medicine; ATTEND Family Medicine
DX: K43.6 Other and unspecified ventral hernia with obstruction, without gangrene (principal); K51.90 Ulcerative colitis, unspecified, without complications; N17.9 Acute kidney failure, unspecified; N39.0 Urinary tract infection, site not specified; Z68.43 Body mass index [BMI] 50.0-59.9, adult; E87.20 Acidosis, unspecified; T85.79XA Infection and inflammatory reaction due to other internal prosthetic devices, implants and grafts, initial encounter; K56.609 Unspecified intestinal obstruction, unspecified as to partial versus complete obstruction; E11.42 Type 2 diabetes mellitus with diabetic polyneuropathy; E87.5 Hyperkalemia; F32.A Depression, unspecified; E78.5 Hyperlipidemia, unspecified; E66.01 Morbid (severe) obesity due to excess calories; E87.6 Hypokalemia; R19.7 Diarrhea, unspecified; E83.51 Hypocalcemia; I12.9 Hypertensive chronic kidney disease with stage 1 through stage 4 chronic kidney disease, or unspecified chronic kidney disease; E11.22 Type 2 diabetes mellitus with diabetic chronic kidney disease; D64.9 Anemia, unspecified; N18.9 Chronic kidney disease, unspecified; Z93.2 Ileostomy status; Z93.3 Colostomy status; Z91.030 Bee allergy status; Z79.899 Other long term (current) drug therapy; Z79.82 Long term (current) use of aspirin; Z79.4 Long term (current) use of insulin; Z85.048 Personal history of other malignant neoplasm of rectum, rectosigmoid junction, and anus; Z98.41 Cataract extraction status, right eye; Z98.42 Cataract extraction status, left eye; Z85.820 Personal history of malignant melanoma of skin; Y83.1 Surgical operation with implant of artificial internal device as the cause of abnormal reaction of the patient, or of later complication, without mention of misadventure at the time of the procedure

== ENCOUNTER → 2022-10-03 | Outpatient (CLI) | payer MEDICARE ==
[~2022-10-03] MED LIST changes: +ATOR40TA75 PO; +GABA-282 PO; +IRBE150T7 PO; +MAGN400T2 PO; +NYST-13 TOP; +OXYC1TAB23 PO; +REPA1TAB4 PO; +VITA1CAP25 PO; +VITAM
[2022-10-03 15:16] LABS: HEMATOCRIT 37.2 % (42.0-52.0); HEMOGLOBIN 12.2 g/dl (13.5-17.5); MEAN CORPUSCULAR HEMOGLOBIN 29.8 pg (27.0-33.0); MEAN CORPUSCULAR HGB CONC 32.8 g/dl (32.0-36.5); MEAN CORPUSCULAR VOLUME 90.7 fl (80.0-96.0); PLATELET COUNT, AUTOMATED 209 10^3/uL (150-450); WHITE BLOOD COUNT 11.2 10^3/uL (4.0-10.0)
[2022-10-03 15:48] LABS: ALBUMIN 3.6 G/DL (3.2-5.2); BILIRUBIN,TOTAL 0.6 MG/DL (0.3-1.2); CALCIUM LEVEL 8.9 MG/DL (8.3-10.6); CREATININE FOR GFR 1.31 MG/DL (0.70-1.30); GLOMERULAR FILTRATION RATE 57.3 (>42); POTASSIUM SERUM 4.2 MMOL/L (3.5-5.1); TOTAL PROTEIN 7.3 G/DL (5.7-8.2)
== END ==
LOC: M RAD 12:50
PROVIDERS: ATTEND Internal Medicine Hematology
DX: M79.602 Pain in left arm (principal); D50.8 Other iron deficiency anemias; M47.892 Other spondylosis, cervical region; M46.92 Unspecified inflammatory spondylopathy, cervical region

== ENCOUNTER 2022-10-15 12:21 | Outpatient (CLI) | payer MEDICARE ==
[~2022-10-15] VITALS: Ht 172.7 cm; Wt 156.8 kg
[~2022-10-15 12:21] MED LIST changes: +ALBUTEROL SULFATE 2.5MG/0.5ML INH NEB SOLN INH PRN; +EPINEPHrine INJ 1 MG/ML 1ML AMP IM PRN; +diphenhydrAMINE 50MG/ML VIAL IV PRN; +methylPREDNISolone 125MG 2ML VIAL IV PRN
[2022-10-15 12:30] VITALS: BP 136/66
[2022-10-15] MEDS ORDERED: NS 1,000 ML IV SCH (13:00)
[2022-10-15] MEDS ORDERED: FERRIC CARBOXYMALTOSE INJ 750 MG in NS 250 ML (>50kg) IV ONE ×3 (13:00)
[2022-10-15 14:20] VITALS: BP 140/70
== END 2022-10-15 14:20 | disposition home or self-care (01) ==
LOC: M INFU 12:21
PROVIDERS: ATTEND Internal Medicine Hematology
DX: D50.9 Iron deficiency anemia, unspecified (principal); Z91.030 Bee allergy status
CPT/HCPCS: 96365; 96366; J1439

== ENCOUNTER → 2022-11-01 | Outpatient (REF) | payer MEDICARE ==
[~2022-11-01] MED LIST changes: -ALBUTEROL SULFATE 2.5MG/0.5ML INH NEB SOLN INH PRN; -EPINEPHrine INJ 1 MG/ML 1ML AMP IM PRN; -K-TA10TA PO; +POTA-164 PO; -diphenhydrAMINE 50MG/ML VIAL IV PRN; -methylPREDNISolone 125MG 2ML VIAL IV PRN
== END ==
LOC: M SFHCWOUN 12:12
PROVIDERS: ATTEND Physician Assistant
DX: L98.6 Other infiltrative disorders of the skin and subcutaneous tissue (principal)

== ENCOUNTER → 2023-01-13 | Outpatient (CLI) | payer MEDICARE ==
[2023-01-13 16:05] LABS: HEMATOCRIT 38.8 % (42.0-52.0); HEMOGLOBIN 12.7 g/dl (13.5-17.5); MEAN CORPUSCULAR HEMOGLOBIN 28.8 pg (27.0-33.0); MEAN CORPUSCULAR HGB CONC 32.7 g/dl (32.0-36.5); PLATELET COUNT, AUTOMATED 229 10^3/uL (150-450); RED BLOOD COUNT 4.41 10^6/uL (4.30-6.10); WHITE BLOOD COUNT 9.2 10^3/uL (4.0-10.0)
[2023-01-13 16:29] LABS: HEMOGLOBIN A1c 7.7 % (4.0-6.0)
[2023-01-13 16:39] LABS: IRON (FE) 61 UG/DL (65-175); PERCENT SATURATION 18.7 % (19.7-50.0); TOTAL IRON BINDING CAPACITY 326 UG/DL (250-425)
[2023-01-13 16:46] LABS: ALBUMIN 3.4 G/DL (3.2-5.2); ALKALINE PHOSPHATASE 130 U/L (46-116); ALT/SGPT 44 U/L (7.0-40); AST/SGOT 13 U/L (<34); BILIRUBIN,TOTAL 0.6 MG/DL (0.3-1.2); BLOOD UREA NITROGEN 25 MG/DL (9-23); CALCIUM LEVEL 8.5 MG/DL (8.3-10.6); CARBON DIOXIDE LEVEL 20 MMOL/L (20-31); CHLORIDE LEVEL 108 MMOL/L (98-107); CHOLESTEROL LEVEL 96 MG/DL (<200); CHOLESTEROL RISK RATIO 2.59 (<5); CREATININE FOR GFR 1.07 MG/DL (0.70-1.30); FREE T4 0.88 NG/DL (0.89-1.76); GLOMERULAR FILTRATION RATE > 60.0 (>42); GLUCOSE, FASTING 155 MG/DL (74-106); LDL CHOLESTEROL 31.4 MG/DL (<100); POTASSIUM SERUM 4.1 MMOL/L (3.5-5.1); SODIUM LEVEL 136 MMOL/L (136-145); THYROID STIMULATING HORMONE 3.845 uIU/ML (0.55-4.78); TOTAL 25(OH) VITAMIN D 16.8 NG/ML (20.0-100.0); TOTAL PROTEIN 7.3 G/DL (5.7-8.2); TRIGLYCERIDES LEVEL 138 MG/DL (<150); VITAMIN B12 LEVEL 245 PG/ML (211-911)
== END ==
LOC: M PLALAB 13:26
PROVIDERS: ATTEND Internal Medicine Hematology
DX: E11.65 Type 2 diabetes mellitus with hyperglycemia (principal); E61.1 Iron deficiency; E66.01 Morbid (severe) obesity due to excess calories
CPT/HCPCS: 36415; 80053; 80061; 82306; 82607; 83036; 83550; 84439; 84443; 85027; 86140; G0103

== ENCOUNTER 2023-02-21 15:10 | Outpatient (CLI) | payer MEDICARE ==
[~2023-02-21] VITALS: Ht 172.7 cm; Wt 158.6 kg
[2023-02-21 15:10] VITALS: BP 169/72; O2SAT 96
[~2023-02-21 15:10] MED LIST changes: +ALBUTEROL SULFATE 2.5MG/0.5ML INH NEB SOLN INH PRN; +EPINEPHrine INJ 1 MG/ML 1ML AMP IM PRN; +NS 1,000 ML IV SCH; +diphenhydrAMINE 50MG/ML VIAL IV PRN; +methylPREDNISolone 125MG 2ML VIAL IV PRN
[2023-02-21] MEDS ORDERED: IRON SUCROSE 200 MG in NS 100 ML IV ONE (15:30)
[2023-02-21 16:30] VITALS: BP 159/68; O2SAT 96
[2023-02-21 17:30] VITALS: BP 144/73; O2SAT 96
== END 2023-02-21 17:30 | disposition home or self-care (01) ==
LOC: M INFU 15:10
PROVIDERS: ATTEND Internal Medicine Hematology
DX: D50.9 Iron deficiency anemia, unspecified (principal); Z91.030 Bee allergy status
CPT/HCPCS: 96365; J1756

== ENCOUNTER 2023-03-03 15:15 | Outpatient (CLI) | payer MEDICARE ==
[~2023-03-03] VITALS: Ht 172.7 cm; Wt 158.0 kg
[2023-03-03 15:15] VITALS: BP 150/70; O2SAT 98
[2023-03-03] MEDS ORDERED: IRON SUCROSE 200 MG in NS 100 ML IV ONE (15:30)
[2023-03-03 16:45] VITALS: BP 158/69; O2SAT 97
== END 2023-03-03 17:00 ==
LOC: M INFU 15:15
PROVIDERS: ATTEND Internal Medicine Hematology
DX: D50.9 Iron deficiency anemia, unspecified (principal); Z91.030 Bee allergy status
CPT/HCPCS: 96365; J1756

== ENCOUNTER 2023-03-14 14:50 | Outpatient (CLI) | payer MEDICARE ==
[~2023-03-14] VITALS: Ht 170.2 cm; Wt 175.0 kg
[2023-03-14 15:00] VITALS: BP 134/63; O2SAT 98
[2023-03-14] MEDS ORDERED: IRON SUCROSE 200 MG in NS 100 ML IV ONE (15:00)
[2023-03-14 16:15] VITALS: BP 123/58; O2SAT 97
== END 2023-03-14 16:45 ==
LOC: M INFU 14:50
PROVIDERS: ATTEND Internal Medicine Hematology
DX: D50.9 Iron deficiency anemia, unspecified (principal); Z91.030 Bee allergy status
CPT/HCPCS: 96365; J1756

== ENCOUNTER → 2023-05-26 | Outpatient (CLI) | payer MEDICARE ==
[~2023-05-26] MED LIST changes: -ALBUTEROL SULFATE 2.5MG/0.5ML INH NEB SOLN INH PRN; -EPINEPHrine INJ 1 MG/ML 1ML AMP IM PRN; +IRBE150T27 PO; -IRBE150T7 PO; +IRBE300T25 PO; -IRBE300T7 PO; +IRBE75TA11 PO; -IRBE75TA4 PO; -NS 1,000 ML IV SCH; -diphenhydrAMINE 50MG/ML VIAL IV PRN; -methylPREDNISolone 125MG 2ML VIAL IV PRN
[2023-05-26 17:44] LABS: HEMATOCRIT 38.9 % (42.0-52.0); HEMOGLOBIN 12.9 g/dl (13.5-17.5); MEAN CORPUSCULAR HEMOGLOBIN 30.7 pg (27.0-33.0); MEAN CORPUSCULAR HGB CONC 33.2 g/dl (32.0-36.5); MEAN CORPUSCULAR VOLUME 92.6 fl (80.0-96.0); PLATELET COUNT, AUTOMATED 215 10^3/uL (150-450); WHITE BLOOD COUNT 10.8 10^3/uL (4.0-10.0)
[2023-05-26 18:07] LABS: HEMOGLOBIN A1c 7.7 % (4.0-6.0)
[2023-05-26 18:11] LABS: ALBUMIN 3.6 G/DL (3.2-5.2); ALKALINE PHOSPHATASE 120 U/L (46-116); ALT/SGPT 49 U/L (7.0-40); AST/SGOT 28 U/L (<34); BILIRUBIN,TOTAL 0.4 MG/DL (0.3-1.2); BLOOD UREA NITROGEN 25 MG/DL (9-23); CALCIUM LEVEL 8.6 MG/DL (8.3-10.6); CARBON DIOXIDE LEVEL 23 MMOL/L (20-31); CHLORIDE LEVEL 109 MMOL/L (98-107); CREATININE FOR GFR 1.16 MG/DL (0.70-1.30); GLOMERULAR FILTRATION RATE > 60.0 (>42); GLUCOSE, FASTING 160 MG/DL (74-106); IRON (FE) 36 UG/DL (65-175); POTASSIUM SERUM 4.5 MMOL/L (3.5-5.1); SODIUM LEVEL 138 MMOL/L (136-145); THYROID STIMULATING HORMONE 4.685 uIU/ML (0.55-4.78); TOTAL 25(OH) VITAMIN D 31.5 NG/ML (20.0-100.0); TOTAL PROTEIN 7.3 G/DL (5.7-8.2)
[2023-05-26 18:14] LABS: VITAMIN B12 LEVEL 305 PG/ML (211-911)
== END ==
LOC: M PLALAB 16:22
PROVIDERS: ATTEND Internal Medicine Hematology
DX: D64.9 Anemia, unspecified (principal); E11.65 Type 2 diabetes mellitus with hyperglycemia; Z79.899 Other long term (current) drug therapy

== ENCOUNTER 2023-06-06 15:06 | Outpatient (CLI) | payer MEDICARE ==
[~2023-06-06] VITALS: Ht 172.7 cm; Wt 161.0 kg
[~2023-06-06 15:06] MED LIST changes: +ALBUTEROL SULFATE 2.5MG/0.5ML INH NEB SOLN INH PRN; +EPINEPHrine INJ 1 MG/ML 1ML AMP IM PRN; +diphenhydrAMINE 50MG/ML VIAL IV PRN; +methylPREDNISolone 125MG 2ML VIAL IV PRN
[2023-06-06 15:20] VITALS: BP 144/67; O2SAT 95
[2023-06-06] MEDS ORDERED: NS 1,000 ML IV SCH (15:30)
[2023-06-06] MEDS ORDERED: IRON SUCROSE 200 MG in NS 100 ML OVER 1 HR IV ONE (15:30)
[2023-06-06 16:50] VITALS: BP 150/67; O2SAT 97
== END 2023-06-06 16:50 | disposition home or self-care (01) ==
LOC: M INFU 15:06
PROVIDERS: ATTEND Internal Medicine Hematology
DX: D50.9 Iron deficiency anemia, unspecified (principal); Z91.030 Bee allergy status
CPT/HCPCS: 96365; J1756

== ENCOUNTER 2023-06-13 10:30 | Outpatient (CLI) | payer MEDICAID, MEDICARE ==
[~2023-06-13] VITALS: Ht 172.7 cm; Wt 161.0 kg
[2023-06-13 10:30] VITALS: BP 158/70; O2SAT 96
[~2023-06-13 10:30] MED LIST changes: +NS 1,000 ML IV SCH
[2023-06-13] MEDS: IRON SUCROSE 200 MG in NS 100 ML IV ONE (11:17)
[2023-06-13 12:30] VITALS: BP 144/65; O2SAT 95
== END 2023-06-13 12:30 | disposition home or self-care (01) ==
LOC: M INFU 10:30
PROVIDERS: ATTEND Internal Medicine Hematology
DX: D50.9 Iron deficiency anemia, unspecified (principal); Z91.030 Bee allergy status
CPT/HCPCS: 96365; J1756

== ENCOUNTER → 2023-06-19 | Outpatient (CLI) | payer MEDICARE ==
[~2023-06-19] MED LIST changes: -ALBUTEROL SULFATE 2.5MG/0.5ML INH NEB SOLN INH PRN; -EPINEPHrine INJ 1 MG/ML 1ML AMP IM PRN; +ISOVUE-300 61% 100ML VIAL As Ordered ONE; -NS 1,000 ML IV SCH; -diphenhydrAMINE 50MG/ML VIAL IV PRN; -methylPREDNISolone 125MG 2ML VIAL IV PRN
== END ==
LOC: M RADPRO 12:02
PROVIDERS: ATTEND Physician Assistant
DX: S31.109A Unspecified open wound of abdominal wall, unspecified quadrant without penetration into peritoneal cavity, initial encounter (principal); X58.XXXA Exposure to other specified factors, initial encounter; Y92.9 Unspecified place or not applicable
CPT/HCPCS: 20501; 76080; Q9967

== ENCOUNTER 2023-06-20 16:05 | Outpatient (CLI) | payer MEDICARE ==
[2023-06-20 16:05] VITALS: BP 176/76; O2SAT 95
[~2023-06-20 16:05] MED LIST changes: +ALBUTEROL SULFATE 2.5MG/0.5ML INH NEB SOLN INH PRN; +EPINEPHrine INJ 1 MG/ML 1ML AMP IM PRN; +IRON SUCROSE 200 MG in NS 100 ML OVER 1 HR IV ONE; -ISOVUE-300 61% 100ML VIAL As Ordered ONE; +NS 1,000 ML IV SCH; +diphenhydrAMINE 50MG/ML VIAL IV PRN; +methylPREDNISolone 125MG 2ML VIAL IV PRN
[2023-06-20 17:40] VITALS: BP 130/58; O2SAT 97
== END 2023-06-20 17:40 ==
LOC: M INFU 16:05
PROVIDERS: ATTEND Internal Medicine Hematology
DX: D50.9 Iron deficiency anemia, unspecified (principal); Z91.030 Bee allergy status
CPT/HCPCS: 96365; J1756

== ENCOUNTER 2023-06-27 15:30 | Outpatient (CLI) | payer MEDICARE ==
[~2023-06-27] VITALS: Ht 172.7 cm; Wt 161.0 kg
[~2023-06-27 15:30] MED LIST changes: -IRON SUCROSE 200 MG in NS 100 ML OVER 1 HR IV ONE
[2023-06-27 15:31] VITALS: BP 164/69; O2SAT 95
[2023-06-27] MEDS: IRON SUCROSE 200 MG in NS 100 ML OVER 1 HR IV ONE (15:33)
[2023-06-27 16:45] VITALS: BP 142/65; O2SAT 96
== END 2023-06-27 16:45 ==
LOC: M INFU 15:30
PROVIDERS: ATTEND Internal Medicine Hematology
DX: D50.9 Iron deficiency anemia, unspecified (principal); Z91.030 Bee allergy status
CPT/HCPCS: 96365; J1756

== ENCOUNTER → 2023-10-29 | Outpatient (REF) | payer MEDICARE ==
[~2023-10-29] MED LIST changes: -ALBUTEROL SULFATE 2.5MG/0.5ML INH NEB SOLN INH PRN; +DIPH1TAB81 PO; -DIPH2.5T15 PO; -EPINEPHrine INJ 1 MG/ML 1ML AMP IM PRN; -MINO100T PO; +MINO100T6 PO; -NS 1,000 ML IV SCH; -diphenhydrAMINE 50MG/ML VIAL IV PRN; -methylPREDNISolone 125MG 2ML VIAL IV PRN
[2023-10-29 18:39] LABS: BASO # 0.1 10^3/uL (0.0-0.2); BASO % 0.5 % (0.0-1.0); EOS # 0.2 10^3/uL (0.0-0.5); EOS % 1.6 % (0.0-3.0); HEMATOCRIT 38.6 % (42.0-52.0); HEMOGLOBIN 12.6 g/dl (13.5-17.5); LYMPH # 1.6 10^3/uL (1.5-5.0); LYMPH % 15.3 % (24.0-44.0); MEAN CORPUSCULAR HEMOGLOBIN 30.9 pg (27.0-33.0); MEAN CORPUSCULAR HGB CONC 32.6 g/dl (32.0-36.5); MEAN CORPUSCULAR VOLUME 94.6 fl (80.0-96.0); MONO % 9.2 % (2.0-8.0); NEUTROPHILS # 7.7 10^3/uL (1.5-8.5); NEUTROPHILS % 73.1 % (36.0-66.0); PLATELET COUNT, AUTOMATED 199 10^3/uL (150-450); RED BLOOD COUNT 4.08 10^6/uL (4.30-6.10); WHITE BLOOD COUNT 10.5 10^3/uL (4.0-10.0)
[2023-10-29 19:12] LABS: THYROID STIMULATING HORMONE 2.782 uIU/ML (0.55-4.78); TOTAL 25(OH) VITAMIN D 20.3 NG/ML (20.0-100.0)
[2023-10-29 19:14] LABS: FREE T4 1.04 NG/DL (0.89-1.76)
[2023-10-29 19:15] LABS: VITAMIN B12 LEVEL 266 PG/ML (211-911)
[2023-10-29 19:18] LABS: ALBUMIN 3.3 G/DL (3.2-5.2); ALKALINE PHOSPHATASE 108 U/L (46-116); ALT/SGPT 40 U/L (7.0-40); AST/SGOT 12 U/L (<34); BILIRUBIN,TOTAL 0.8 MG/DL (0.3-1.2); BLOOD UREA NITROGEN 21 MG/DL (9-23); CALCIUM LEVEL 8.7 MG/DL (8.3-10.6); CARBON DIOXIDE LEVEL 22 MMOL/L (20-31); CHLORIDE LEVEL 107 MMOL/L (98-107); CHOLESTEROL LEVEL 88 MG/DL (<200); CHOLESTEROL RISK RATIO 2.62 (<5); CREATININE FOR GFR 1.22 MG/DL (0.70-1.30); GLOMERULAR FILTRATION RATE > 60.0 (>42); GLUCOSE, FASTING 185 MG/DL (74-106); HDL CHOLESTEROL 33.5 MG/DL (>40); IRON (FE) 46 UG/DL (65-175); LDL CHOLESTEROL 27.1 MG/DL (<100); NON-HDL-C 54.5 MG/DL; POTASSIUM SERUM 4.2 MMOL/L (3.5-5.1); SODIUM LEVEL 139 MMOL/L (136-145); TOTAL PROTEIN 7.1 G/DL (5.7-8.2); TRIGLYCERIDES LEVEL 137 MG/DL (<150)
[2023-10-29 19:40] LABS: HEMOGLOBIN A1c 7.6 % (4.0-6.0)
== END ==
LOC: M LABDRAWP 17:18
PROVIDERS: ATTEND Internal Medicine Hematology
DX: E11.65 Type 2 diabetes mellitus with hyperglycemia (principal); D50.9 Iron deficiency anemia, unspecified; Z79.899 Other long term (current) drug therapy

== ENCOUNTER → 2024-03-17 | Outpatient (REF) | payer MEDICARE ==
[~2024-03-17] MED LIST changes: +B-12100010 PO; +GABA-1172 PO; +GABA-1490; +GABA-1490 PO; -GABA-282 PO; -GABA600T4; -GABA600T4 PO; +REPA0.5T2; +REPA0.5T2 PO; -REPA1TAB3; -REPA1TAB3 PO
[2024-03-17 18:36] LABS: BASO # 0.1 10^3/uL (0.0-0.2); BASO % 0.6 % (0.0-1.0); EOS # 0.1 10^3/uL (0.0-0.5); EOS % 0.8 % (0.0-3.0); HEMATOCRIT 35.4 % (42.0-52.0); HEMOGLOBIN 11.7 g/dl (13.5-17.5); LYMPH # 1.8 10^3/uL (1.5-5.0); LYMPH % 14.3 % (24.0-44.0); MEAN CORPUSCULAR HEMOGLOBIN 30.7 pg (27.0-33.0); MEAN CORPUSCULAR HGB CONC 33.1 g/dl (32.0-36.5); MEAN CORPUSCULAR VOLUME 92.9 fl (80.0-96.0); NEUTROPHILS # 9.5 10^3/uL (1.5-8.5); NEUTROPHILS % 75.7 % (36.0-66.0); PLATELET COUNT, AUTOMATED 298 10^3/uL (150-450); RED BLOOD COUNT 3.81 10^6/uL (4.30-6.10); WHITE BLOOD COUNT 12.6 10^3/uL (4.0-10.0)
[2024-03-17 18:50] LABS: HEMOGLOBIN A1c 8.1 % (4.0-6.0); IRON (FE) 84 UG/DL (65-175)
[2024-03-17 18:52] LABS: ALBUMIN 3.6 G/DL (3.2-5.2); ALKALINE PHOSPHATASE 128 U/L (40-129); ALT/SGPT 62 U/L (7.0-40); AST/SGOT 27 U/L (<34); BILIRUBIN,TOTAL 0.5 MG/DL (0.3-1.2); BLOOD UREA NITROGEN 65 MG/DL (9-23); CALCIUM LEVEL 9.2 MG/DL (8.3-10.6); CARBON DIOXIDE LEVEL 16 MMOL/L (20-31); CHLORIDE LEVEL 106 MMOL/L (98-107); CREATININE FOR GFR 3.52 MG/DL (0.70-1.30); GLOMERULAR FILTRATION RATE 18.2 (>42); GLUCOSE, FASTING 184 MG/DL (74-106); SODIUM LEVEL 131 MMOL/L (136-145); TOTAL PROTEIN 8.2 G/DL (5.7-8.2)
[2024-03-17 18:56] LABS: FERRITIN 383.9 NG/ML (10.5-307.3)
[2024-03-17 18:57] LABS: THYROID STIMULATING HORMONE 5.089 uIU/ML (0.55-4.78)
[2024-03-22 16:40] LABS: PROSTATIC SPECIFIC AG MONITOR 1.03 NG/ML (< 4.00)
[2024-03-22 16:43] LABS: CARCINOEMBRYONIC ANTIGEN < 2.0 NG/ML (<2.5)
== END ==
LOC: M SFHCPLAZ 17:37
PROVIDERS: ATTEND Internal Medicine Hematology
DX: D50.9 Iron deficiency anemia, unspecified (principal); E11.65 Type 2 diabetes mellitus with hyperglycemia

== ENCOUNTER 2024-03-19 16:11 | Inpatient (IN) | payer MEDICARE ==
[~2024-03-19] VITALS: Ht 172.7 cm; Wt 159.5 kg
[2024-03-19] MEDS: PATIROMER SORBITEX CALCIUM 8.4 GM POWDER PACKET (VELTASSA) PO SCH (12:00)
[~2024-03-19 16:11] MED LIST changes: -B-12100010 PO
[2024-03-19 17:15] LABS: BASO # 0.1 10^3/uL (0.0-0.2); BASO % 0.4 % (0.0-1.0); EOS # 0.1 10^3/uL (0.0-0.5); EOS % 1.2 % (0.0-3.0); HEMATOCRIT 31.3 % (42.0-52.0); HEMOGLOBIN 10.3 g/dl (13.5-17.5); LYMPH # 1.7 10^3/uL (1.5-5.0); LYMPH % 14.3 % (24.0-44.0); MEAN CORPUSCULAR HEMOGLOBIN 30.6 pg (27.0-33.0); MEAN CORPUSCULAR HGB CONC 32.9 g/dl (32.0-36.5); MEAN CORPUSCULAR VOLUME 92.9 fl (80.0-96.0); MONO # 0.7 10^3/uL (0.0-0.8); MONO % 6.3 % (2.0-8.0); NEUTROPHILS % 77.4 % (36.0-66.0); PLATELET COUNT, AUTOMATED 253 10^3/uL (150-450); RED BLOOD COUNT 3.37 10^6/uL (4.30-6.10); WHITE BLOOD COUNT 11.6 10^3/uL (4.0-10.0)
[2024-03-19 17:59] LABS: CALCIUM LEVEL 8.4 MG/DL (8.3-10.6); CREATININE FOR GFR 3.83 MG/DL (0.70-1.30); GLOMERULAR FILTRATION RATE 16.6 (>42); POTASSIUM SERUM 5.9 MMOL/L (3.5-5.1)
[2024-03-19] MEDS: NS 500 ML IV ONE (18:19)
[2024-03-19] MEDS: NS 1,000 ML IV SCH (18:25)
[2024-03-19] MEDS ORDERED: RISATAB3 PO (21:22)
[2024-03-19] MEDS ORDERED: IRBE75TA11 PO (21:23)
[2024-03-19] MEDS ORDERED: B-12100010 PO (21:23)
[2024-03-19] MEDS ORDERED: HOME MED LIST COMPLETE! XX SCH (21:25)
[2024-03-19] MEDS: cefTRIAXone SOD 1 GM in DEXTROSE 5% (D5W) ADV/MINI-BAG 50 ML IV ONE (21:37)
[2024-03-19] MEDS ORDERED: GLUCAGON INJ 1MG VIAL SC PRN (23:10)
[2024-03-19] MEDS ORDERED: DEXTROSE 50% 50ML SYRINGE IV PRN (23:10)
[2024-03-19] MEDS ORDERED: GLUCOSE 4 GM CHEW PO PRN (23:10)
[2024-03-19 23:51] LABS: VENOUS BASE EXCESS -13.2 (-2.0-2.0); VENOUS HCO3 15.7 MMOL/L (23.0-27.0); VENOUS O2 SATURATION 81.1 % (60.0-80.0); VENOUS PARTIAL PRESSURE O2 49.3 mmHg (30.0-50.0); VENOUS PH 7.123 UNITS (7.330-7.430); VENOUS STANDARD HCO3 13.9 MMOL/L; VENOUS TOTAL CO2 17.2 MMOL/L (24.0-28.0)
[2024-03-20] VITALS (10 sets, daily range): BP systolic 114–169; BP diastolic 44–84; TEMP 97.3–97.9; O2SAT 89–98
[2024-03-20 00:20] LABS: BILIRUBIN,TOTAL 0.4 MG/DL (0.3-1.2); CALCIUM LEVEL 8.2 MG/DL (8.3-10.6); CREATININE FOR GFR 3.45 MG/DL (0.70-1.30); GLOMERULAR FILTRATION RATE 18.7 (>42); POTASSIUM SERUM 4.5 MMOL/L (3.5-5.1); TOTAL PROTEIN 6.9 G/DL (5.7-8.2)
[2024-03-20] MEDS: buPROPion **SR TABLET** (ZYBAN) 150MG PO SCH (00:44)
[2024-03-20] MEDS: INSULIN LISPRO (NovoLOG) PER UNIT SC SCH ×3 (00:47→20:52)
[2024-03-20] MEDS: LEVEMIR (INSULIN DETEMIR) 1 UNITS/0.01ML SC SCH (00:48)
[2024-03-20] MEDS: CYANOCOBALAMIN 500 MCG TAB PO SCH (00:49)
[2024-03-20] MEDS: SODIUM BICARBONATE 8.4% INJ 50ML SYRINGE IV ONE (00:49)
[2024-03-20] MEDS: ASPIRIN 81MG ENTERIC TABLET PO SCH (00:49)
[2024-03-20] MEDS: METOPROLOL SUCC (TopROL XL) 100MG *XL* TAB PO SCH (00:50)
[2024-03-20] MEDS ORDERED: SODIUM BICARBONATE 150 MEQ in STERILE WATER LITER BAG 1,000 ML IV SCH (01:00)
[2024-03-20] MEDS: SODIUM BICARBONATE 150 MEQ in D5W 1,000 ML IV SCH (02:38)
[2024-03-20 05:12] LABS: VENOUS HCO3 15.5 MMOL/L (23.0-27.0); VENOUS O2 SATURATION 78.4 % (60.0-80.0); VENOUS PARTIAL PRESSURE CO2 41.1 mmHg (38.0-50.0); VENOUS PARTIAL PRESSURE O2 44.6 mmHg (30.0-50.0); VENOUS PH 7.194 UNITS (7.330-7.430); VENOUS STANDARD HCO3 14.7 MMOL/L; VENOUS TOTAL CO2 16.7 MMOL/L (24.0-28.0)
[2024-03-20 05:17] LABS: HEMATOCRIT 30.4 % (42.0-52.0); HEMOGLOBIN 10.3 g/dl (13.5-17.5); MEAN CORPUSCULAR HEMOGLOBIN 30.8 pg (27.0-33.0); MEAN CORPUSCULAR HGB CONC 33.9 g/dl (32.0-36.5); PLATELET COUNT, AUTOMATED 229 10^3/uL (150-450); RED BLOOD COUNT 3.34 10^6/uL (4.30-6.10)
[2024-03-20] MEDS: SODIUM BICARBONATE 8.4% INJ 50ML SYRINGE IV STA (05:48)
[2024-03-20 06:01] LABS: BILIRUBIN,TOTAL 0.4 MG/DL (0.3-1.2); CALCIUM LEVEL 8.4 MG/DL (8.3-10.6); CREATININE FOR GFR 3.12 MG/DL (0.70-1.30); POTASSIUM SERUM 4.3 MMOL/L (3.5-5.1)
[2024-03-20] MEDS: LOMOTIL 2.5MG/0.025MG TABLET PO SCH (07:30)
[2024-03-20] MEDS: cefTRIAXone SOD 1GM VIAL As Ordered ONE (14:18)
[2024-03-20] MEDS ORDERED: ACETAMINOPHEN 1000MG 100ML IV BAG As Ordered ONE (14:30)
[2024-03-20] MEDS ORDERED: ONDANSETRON 4MG 2ML VIAL As Ordered ONE (14:30)
[2024-03-20] MEDS ORDERED: propofoL 200 MG/20 ML VIAL As Ordered ONE (14:30)
[2024-03-20] MEDS ORDERED: LIDOCAINE 2% 100MG/5ML SDV (FOR ANES.) As Ordered ONE (14:30)
[2024-03-20] MEDS ORDERED: METOCLOPRAMIDE INJ 10MG/2ML VIAL As Ordered ONE (14:30)
[2024-03-20] MEDS ORDERED: MIDAZOLAM INJ 2MG/2ML VIAL As Ordered ONE (14:30)
[2024-03-20] MEDS ORDERED: fentaNYL 100 MCG/2 ML INJECTION As Ordered ONE (14:30)
[2024-03-20] MEDS ORDERED: dexmedeTOMIDine (4MCG/ML)200MCG/50ML BTL (PRECEDEX) As Ordered ONE (14:30)
[2024-03-20] MEDS: LIDOCAINE 2% 5ML JELLY UROJET As Ordered ONE (14:36)
[2024-03-20] MEDS: ISOVUE-300 61% 100ML VIAL As Ordered ONE (14:44)
[2024-03-20] MEDS ORDERED: oxyCODONE 5MG TAB PO PRN (14:45)
[2024-03-20 15:27] LABS: APPEARANCE, URINE CLOUDY (CLEAR); BACTERIA, URINE AUTO NEGATIVE (NEGATIVE); BILIRUBIN, URINE AUTO NEGATIVE (NEGATIVE); BLOOD, URINE BLOOD 3+ (NEGATIVE); CALCIUM OXALATE CRYSTALS LARGE; COLOR, URINE RED (YELLOW); GLUCOSE, URINE (UA) AUTO 1+ mg/dL (NEGATIVE); KETONE, URINE AUTO NEGATIVE (NEGATIVE); LEUKOCYTE ESTERASE, URINE AUTO 2+ (NEGATIVE); MUCUS, URINE SMALL (NEGATIVE); NITRITE, URINE AUTO NEGATIVE (NEGATIVE); PROTEIN, URINE AUTO 2+ mg/dL (NEGATIVE); RBC, URINE AUTO TNTC /HPF (0-3); SPECIFIC GRAVITY URINE AUTO 1.008 (1.002-1.035); SQUAMOUS EPITHELIAL CELL UR AU 0 /HPF (0-6); UROBILINOGEN, URINE AUTO 0.2 mg/dL (0.0-2.0); WBC, URINE AUTO 42 /HPF (0-3)
[2024-03-20 17:03] LABS: CALCIUM LEVEL 8.1 MG/DL (8.3-10.6); CREATININE FOR GFR 2.59 MG/DL (0.70-1.30); POTASSIUM SERUM 4.2 MMOL/L (3.5-5.1)
[2024-03-20] MEDS: cefTRIAXone SOD 1 GM in DEXTROSE 5% (D5W) ADV/MINI-BAG 50 ML IV SCH (20:50)
[2024-03-20] MEDS ORDERED: ATORVASTATIN 20 MG TAB PO SCH (21:00)
[2024-03-21 00:15] VITALS: BP 122/49; TEMP 98.4; O2SAT 98
[2024-03-21 04:00] VITALS: BP 119/49; TEMP 97.5; O2SAT 94
[2024-03-21 05:52] LABS: HEMATOCRIT 27.4 % (42.0-52.0); HEMOGLOBIN 9.6 g/dl (13.5-17.5); MEAN CORPUSCULAR HEMOGLOBIN 31.3 pg (27.0-33.0); MEAN CORPUSCULAR VOLUME 89.3 fl (80.0-96.0); PLATELET COUNT, AUTOMATED 231 10^3/uL (150-450); RED BLOOD COUNT 3.07 10^6/uL (4.30-6.10); WHITE BLOOD COUNT 11.1 10^3/uL (4.0-10.0)
[2024-03-21 06:19] LABS: CALCIUM LEVEL 8.3 MG/DL (8.3-10.6); CREATININE FOR GFR 2.35 MG/DL (0.70-1.30); GLOMERULAR FILTRATION RATE 29.1 (>42); POTASSIUM SERUM 4.4 MMOL/L (3.5-5.1)
[2024-03-21 08:00] VITALS: BP 117/44; TEMP 98.4; O2SAT 95
[2024-03-21] MEDS: PERCOCET 5MG/325MG TAB PO PRN (11:58)
[2024-03-21 12:00] VITALS: BP 137/63; TEMP 97.7; O2SAT 96
[2024-03-21 20:00] VITALS: BP 158/64; TEMP 98.4; O2SAT 94
[2024-03-22 04:00] VITALS: BP 146/56; TEMP 97.2; O2SAT 96
[2024-03-22 06:09] LABS: HEMATOCRIT 29.9 % (42.0-52.0); HEMOGLOBIN 10.2 g/dl (13.5-17.5); MEAN CORPUSCULAR HEMOGLOBIN 30.4 pg (27.0-33.0); MEAN CORPUSCULAR HGB CONC 34.1 g/dl (32.0-36.5); PLATELET COUNT, AUTOMATED 271 10^3/uL (150-450); RED BLOOD COUNT 3.36 10^6/uL (4.30-6.10); WHITE BLOOD COUNT 13.3 10^3/uL (4.0-10.0)
[2024-03-22 06:39] LABS: CALCIUM LEVEL 8.9 MG/DL (8.3-10.6); CREATININE FOR GFR 2.64 MG/DL (0.70-1.30); GLOMERULAR FILTRATION RATE 25.4 (>42); POTASSIUM SERUM 4.6 MMOL/L (3.5-5.1)
[2024-03-22] MEDS: ATORVASTATIN 20 MG TAB PO SCH (11:05)
[2024-03-22 12:00] VITALS: BP 160/74; TEMP 97.2; O2SAT 94
[2024-03-22 18:52] VITALS: BP 130/55
[2024-03-22 20:52] VITALS: BP 131/55; TEMP 97.7; O2SAT 96
[2024-03-23 03:59] VITALS: BP 134/77; TEMP 97.5; O2SAT 96
[2024-03-23 06:19] LABS: CALCIUM LEVEL 8.7 MG/DL (8.3-10.6); CREATININE FOR GFR 2.48 MG/DL (0.70-1.30); GLOMERULAR FILTRATION RATE 27.3 (>42); POTASSIUM SERUM 4.3 MMOL/L (3.5-5.1)
[2024-03-23 08:03] LABS: HEMATOCRIT 30.2 % (42.0-52.0); HEMOGLOBIN 10.5 g/dl (13.5-17.5); MEAN CORPUSCULAR HEMOGLOBIN 31.2 pg (27.0-33.0); MEAN CORPUSCULAR HGB CONC 34.8 g/dl (32.0-36.5); MEAN CORPUSCULAR VOLUME 89.6 fl (80.0-96.0); PLATELET COUNT, AUTOMATED 231 10^3/uL (150-450); RED BLOOD COUNT 3.37 10^6/uL (4.30-6.10); WHITE BLOOD COUNT 13.9 10^3/uL (4.0-10.0)
[2024-03-23] MEDS: oxyBUTYnin 5 MG TAB PO SCH (11:24)
[2024-03-23] MEDS: GABAPENTIN 300 MG CAP PO SCH (11:24)
[2024-03-23 12:00] VITALS: BP 127/73; TEMP 97.9; O2SAT 95
[2024-03-23 20:00] VITALS: BP 139/52; TEMP 97.9; O2SAT 95
[2024-03-23] MEDS: CEFDINIR 300 MG CAP (OMNICEF) PO SCH (21:33)
[2024-03-23 21:35] VITALS: BP 136/72
[2024-03-24 04:00] VITALS: BP 153/80; TEMP 96.8; O2SAT 96
[2024-03-24 05:55] LABS: HEMATOCRIT 30.5 % (42.0-52.0); HEMOGLOBIN 10.4 g/dl (13.5-17.5); MEAN CORPUSCULAR HEMOGLOBIN 30.5 pg (27.0-33.0); MEAN CORPUSCULAR HGB CONC 34.1 g/dl (32.0-36.5); MEAN CORPUSCULAR VOLUME 89.4 fl (80.0-96.0); PLATELET COUNT, AUTOMATED 226 10^3/uL (150-450); RED BLOOD COUNT 3.41 10^6/uL (4.30-6.10); WHITE BLOOD COUNT 11.5 10^3/uL (4.0-10.0)
[2024-03-24 06:17] LABS: CALCIUM LEVEL 9.1 MG/DL (8.3-10.6); CREATININE FOR GFR 2.49 MG/DL (0.70-1.30); GLOMERULAR FILTRATION RATE 27.2 (>42); POTASSIUM SERUM 4.2 MMOL/L (3.5-5.1)
[2024-03-24] MEDS ORDERED: OXYB5TAB14 PO (10:22)
[2024-03-24] MEDS ORDERED: CEFD300CAP PO (10:23)
[2024-03-24 12:00] VITALS: BP 150/75; TEMP 98.2; O2SAT 97
[2024-03-24] MEDS ORDERED: NORV5TAB PO (13:10)
== END 2024-03-24 15:10 | disposition home or self-care (01) | DRG 660 ==
LOC: M ED 16:11 → EEVIPCON 22:56 → M ED INP 22:56 → M MSPAV 03-20 01:57
PROVIDERS: ADMIT Student in an Organized Health Care Education/Training Program; ATTEND Internal Medicine
PROC: 0T778DZ Dilation of Left Ureter with Intraluminal Device, Via Natural or Artificial Opening Endoscopic (ICD-10-PCS; principal; 2024-03-20 12:30)
DX: N13.6 Pyonephrosis (principal); E87.20 Acidosis, unspecified; K51.90 Ulcerative colitis, unspecified, without complications; N17.9 Acute kidney failure, unspecified; D64.9 Anemia, unspecified; I12.9 Hypertensive chronic kidney disease with stage 1 through stage 4 chronic kidney disease, or unspecified chronic kidney disease; E11.22 Type 2 diabetes mellitus with diabetic chronic kidney disease; E11.42 Type 2 diabetes mellitus with diabetic polyneuropathy; R31.0 Gross hematuria; E78.5 Hyperlipidemia, unspecified; E87.5 Hyperkalemia; F32.A Depression, unspecified; Z79.4 Long term (current) use of insulin; Z79.899 Other long term (current) drug therapy; Z91.030 Bee allergy status; E66.01 Morbid (severe) obesity due to excess calories; Z85.828 Personal history of other malignant neoplasm of skin; I87.2 Venous insufficiency (chronic) (peripheral); Z98.41 Cataract extraction status, right eye; Z98.42 Cataract extraction status, left eye; N18.9 Chronic kidney disease, unspecified

== ENCOUNTER → 2024-03-29 | Outpatient (CLI) | payer MEDICARE ==
[~2024-03-29] MED LIST changes: +B-12100010 PO; +CEFD300CAP PO; +NORV5TAB PO; +OXYB5TAB14 PO
[2024-03-29 11:54] LABS: CALCIUM LEVEL 8.9 MG/DL (8.3-10.6); CREATININE FOR GFR 2.25 MG/DL (0.70-1.30); GLOMERULAR FILTRATION RATE 30.6 (>42); POTASSIUM SERUM 4.9 MMOL/L (3.5-5.1)
== END ==
LOC: M LAB 10:40
PROVIDERS: ATTEND Internal Medicine
DX: N17.9 Acute kidney failure, unspecified (principal)

== ENCOUNTER → 2024-04-06 | Outpatient (CLI) | payer MEDICARE ==
[2024-04-06 19:17] LABS: CALCIUM LEVEL 9.1 MG/DL (8.3-10.6); CREATININE FOR GFR 2.03 MG/DL (0.70-1.30); GLOMERULAR FILTRATION RATE 34.4 (>42)
== END ==
LOC: M PLALAB 14:51
PROVIDERS: ATTEND Student in an Organized Health Care Education/Training Program
DX: N17.9 Acute kidney failure, unspecified (principal)

== ENCOUNTER → 2024-05-04 | Outpatient (CLI) | payer MEDICARE ==
[~2024-05-04] MED LIST changes: +AMLO1TAB24 PO; +DIPH1TAB80 PO; +FLOM0.4C39 PO; +POTA1TAB23 PO; +VITA200016 PO
== END ==
LOC: M LAB 12:08
PROVIDERS: ATTEND Student in an Organized Health Care Education/Training Program
DX: R79.89 Other specified abnormal findings of blood chemistry (principal); Z79.899 Other long term (current) drug therapy

== ENCOUNTER → 2024-05-04 | Outpatient (CLI) | payer MEDICARE ==
[~2024-05-04] MED LIST changes: -FLOM0.4C39 PO
== END ==
LOC: M EKG 12:04
PROVIDERS: ATTEND Physician Assistant
DX: Z01.818 Encounter for other preprocedural examination (principal)

== ENCOUNTER → 2024-05-04 | Outpatient (CLI) | payer MEDICARE ==
[~2024-05-04] MED LIST changes: +FLOM0.4C39 PO
[2024-05-04 13:22] LABS: HEMATOCRIT 34.6 % (42.0-52.0); HEMOGLOBIN 11.5 g/dl (13.5-17.5); MEAN CORPUSCULAR HEMOGLOBIN 30.3 pg (27.0-33.0); MEAN CORPUSCULAR HGB CONC 33.2 g/dl (32.0-36.5); MEAN CORPUSCULAR VOLUME 91.3 fl (80.0-96.0); PLATELET COUNT, AUTOMATED 238 10^3/uL (150-450); RED BLOOD COUNT 3.79 10^6/uL (4.30-6.10); WHITE BLOOD COUNT 13.5 10^3/uL (4.0-10.0)
[2024-05-04 13:27] LABS: APPEARANCE, URINE HAZY (CLEAR); BACTERIA, URINE AUTO 1+ (NEGATIVE); BILIRUBIN, URINE AUTO NEGATIVE (NEGATIVE); BLOOD, URINE BLOOD 2+ (NEGATIVE); COLOR, URINE YELLOW (YELLOW); GLUCOSE, URINE (UA) AUTO NEGATIVE (NEGATIVE); KETONE, URINE AUTO NEGATIVE (NEGATIVE); LEUKOCYTE ESTERASE, URINE AUTO 3+ (NEGATIVE); MUCUS, URINE SMALL (NEGATIVE); NITRITE, URINE AUTO NEGATIVE (NEGATIVE); PROTEIN, URINE AUTO 1+ mg/dL (NEGATIVE); RBC, URINE AUTO 12 /HPF (0-3); SPECIFIC GRAVITY URINE AUTO 1.014 (1.002-1.035); SQUAMOUS EPITHELIAL CELL UR AU 1 /HPF (0-6); UROBILINOGEN, URINE AUTO 0.2 mg/dL (0.0-2.0); WBC, URINE AUTO 106 /HPF (0-3)
[2024-05-04 13:55] LABS: CALCIUM LEVEL 8.9 MG/DL (8.3-10.6); CREATININE FOR GFR 2.56 MG/DL (0.70-1.30); GLOMERULAR FILTRATION RATE 26.4 (>42); POTASSIUM SERUM 4.2 MMOL/L (3.5-5.1)
== END ==
LOC: M PLALAB 11:06 → M PLAIMG 11:06
PROVIDERS: ATTEND Physician Assistant
DX: Z01.818 Encounter for other preprocedural examination (principal); Z79.899 Other long term (current) drug therapy

== ENCOUNTER 2024-05-14 08:19 | Day surgery (SDC) | payer MEDICARE ==
[~2024-05-14] VITALS: Ht 172.7 cm; Wt 153.9 kg
[~2024-05-14 08:19] MED LIST changes: -FLOM0.4C39 PO
[2024-05-14] MEDS ORDERED: NS (Normal Saline) 0.9% 1,000 ML IV SCH (08:50)
[2024-05-14] MEDS ORDERED: fentaNYL 100 MCG/2 ML INJECTION As Ordered ONE (09:50)
[2024-05-14] MEDS ORDERED: ONDANSETRON 4MG 2ML VIAL As Ordered ONE (09:50)
[2024-05-14] MEDS ORDERED: propofoL 200 MG/20 ML VIAL As Ordered ONE (09:50)
[2024-05-14] MEDS ORDERED: LIDOCAINE 2% 100MG/5ML SDV (FOR ANES.) As Ordered ONE (09:50)
[2024-05-14] MEDS ORDERED: MIDAZOLAM INJ 2MG/2ML VIAL As Ordered ONE (09:50)
[2024-05-14] MEDS: ceFAZolin SOD 1 GM in DEXTROSE 5% (D5W) ADV/MINI-BAG 50 ML IV ONE (10:30)
[2024-05-14] MEDS: ceFAZolin SOD 2 GM in IV 1 EA IV ONE (10:30)
[2024-05-14] MEDS: LIDOCAINE 2% 5ML JELLY UROJET As Ordered ONE (10:43)
[2024-05-14] MEDS: ISOVUE-300 61% 100ML VIAL As Ordered ONE (10:48)
[2024-05-14] MEDS ORDERED: ePHEDrine SULFATE 25 MG/5 ML(5MG/ML) SYRINGE As Ordered ONE (11:00)
[2024-05-14] MEDS ORDERED: ACETAMINOPHEN 1000MG/100ML IV BAG As Ordered ONE (11:07)
[2024-05-14] MEDS ORDERED: SUGAMMADEX SODIUM 500 MG/5 ML VIAL (BRIDION) As Ordered ONE (11:22)
[2024-05-14] MEDS ORDERED: fentaNYL 100 MCG/2 ML INJECTION IV PRN (13:05)
[2024-05-14] MEDS ORDERED: ONDANSETRON 4MG 2ML VIAL IV PRN (13:05)
[2024-05-14] MEDS ORDERED: oxyCODONE 5MG TAB PO PRN (13:05)
[2024-05-14] MEDS ORDERED: FLOM0.4C39 PO (13:48)
[2024-05-14 13:55] VITALS: BP 139/63; TEMP 97; O2SAT 95
== END 2024-05-14 14:45 | disposition home or self-care (01) ==
LOC: M SDC 08:19
PROVIDERS: ATTEND Urology
DX: N20.0 Calculus of kidney (principal); I10 Essential (primary) hypertension; E11.9 Type 2 diabetes mellitus without complications; E78.5 Hyperlipidemia, unspecified; Z79.4 Long term (current) use of insulin; Z85.09 Personal history of malignant neoplasm of other digestive organs; D64.9 Anemia, unspecified; F32.A Depression, unspecified; Z79.899 Other long term (current) drug therapy; Z91.030 Bee allergy status
CPT/HCPCS: 52356; 74420; 82365; C1769; C1894; C2617; J0131; J0690; J1100; J2250; J2405; J3010; Q9967

== ENCOUNTER → 2024-06-15 | Outpatient (REF) | payer MEDICARE ==
[~2024-06-15] MED LIST changes: +FLOM0.4C39 PO
[2024-06-15 14:21] LABS: APPEARANCE, URINE HAZY (CLEAR); BACTERIA, URINE AUTO NEGATIVE (NEGATIVE); BILIRUBIN, URINE AUTO NEGATIVE (NEGATIVE); BLOOD, URINE BLOOD 3+ (NEGATIVE); COLOR, URINE YELLOW (YELLOW); GLUCOSE, URINE (UA) AUTO NEGATIVE (NEGATIVE); KETONE, URINE AUTO NEGATIVE (NEGATIVE); LEUKOCYTE ESTERASE, URINE AUTO 3+ (NEGATIVE); MUCUS, URINE SMALL (NEGATIVE); NITRITE, URINE AUTO NEGATIVE (NEGATIVE); PROTEIN, URINE AUTO 2+ mg/dL (NEGATIVE); RBC, URINE AUTO 111 /HPF (0-3); SPECIFIC GRAVITY URINE AUTO 1.014 (1.002-1.035); SQUAMOUS EPITHELIAL CELL UR AU 1 /HPF (0-6); UROBILINOGEN, URINE AUTO 0.2 mg/dL (0.0-2.0); WBC, URINE AUTO 53 /HPF (0-3)
== END ==
LOC: M SMT 12:57
PROVIDERS: ATTEND Urology
DX: N20.0 Calculus of kidney (principal)

== ENCOUNTER → 2024-06-22 | Outpatient (CLI) | payer MEDICARE ==
[2024-06-22 15:49] LABS: HEMATOCRIT 32.8 % (42.0-52.0); HEMOGLOBIN 10.8 g/dl (13.5-17.5); MEAN CORPUSCULAR HEMOGLOBIN 30.5 pg (27.0-33.0); MEAN CORPUSCULAR HGB CONC 32.9 g/dl (32.0-36.5); MEAN CORPUSCULAR VOLUME 92.7 fl (80.0-96.0); PLATELET COUNT, AUTOMATED 222 10^3/uL (150-450); RED BLOOD COUNT 3.54 10^6/uL (4.30-6.10); WHITE BLOOD COUNT 11.2 10^3/uL (4.0-10.0)
[2024-06-22 16:03] LABS: HEMOGLOBIN A1c 6.8 % (4.0-6.0)
[2024-06-22 16:04] LABS: ALBUMIN 3.3 G/DL (3.2-5.2); BILIRUBIN,TOTAL 0.4 MG/DL (0.3-1.2); CALCIUM LEVEL 8.7 MG/DL (8.3-10.6); CHOLESTEROL RISK RATIO 2.75 (<5); CREATININE FOR GFR 2.47 MG/DL (0.70-1.30); GLOMERULAR FILTRATION RATE 27.5 (>42); HDL CHOLESTEROL 28.7 MG/DL (>40); LDL CHOLESTEROL 28.3 MG/DL (<100); NON-HDL-C 50.3 MG/DL; POTASSIUM SERUM 4.6 MMOL/L (3.5-5.1); TOTAL PROTEIN 7.2 G/DL (5.7-8.2)
[2024-06-22 16:06] LABS: TOTAL 25(OH) VITAMIN D 28.2 NG/ML (20.0-100.0)
== END ==
LOC: M PLALAB 11:39
PROVIDERS: ATTEND Student in an Organized Health Care Education/Training Program
DX: Z00.00 Encounter for general adult medical examination without abnormal findings (principal); Z79.899 Other long term (current) drug therapy

== ENCOUNTER → 2024-06-22 | Outpatient (REF) | payer MEDICARE | LOC: M SFHCPLAZ 11:24 | PROVIDERS: ATTEND Family Medicine | DX: Z00.00 Encounter for general adult medical examination without abnormal findings (principal) ==

== ENCOUNTER → 2024-11-23 | Outpatient (CLI) | payer MEDICARE ==
[~2024-11-23] MED LIST changes: -FLOM0.4C39 PO; -NYST-13 TOP; +NYST0.1C TOP; +TAMS-18 PO
[2024-11-23 18:29] LABS: PLATELET COUNT, AUTOMATED 240 10^3/uL (150-450)
[2024-11-23 19:02] LABS: ESTIMATED AVERAGE GLUCOSE 134.0 MG/DL (60-110)
[2024-11-23 19:04] LABS: ALT/SGPT 81 U/L (7.0-40); AST/SGOT 42 U/L (<34); CALCIUM LEVEL 8.5 MG/DL (8.3-10.6); CARBON DIOXIDE LEVEL 15 MMOL/L (20-31); CHLORIDE LEVEL 113 MMOL/L (98-107); CHOLESTEROL LEVEL 77 MG/DL (<200); CHOLESTEROL RISK RATIO 2.12 (<5); CREATININE FOR GFR 2.51 MG/DL (0.70-1.30); GLOMERULAR FILTRATION RATE 26.2 (>42); LDL CHOLESTEROL 22.7 MG/DL (<100); NON-HDL-C 40.7 MG/DL; POTASSIUM SERUM 4.4 MMOL/L (3.5-5.1); SODIUM LEVEL 139 MMOL/L (136-145); TRIGLYCERIDES LEVEL 90 MG/DL (<150)
[2024-11-23 19:06] LABS: TOTAL 25(OH) VITAMIN D 25.9 NG/ML (20.0-100.0)
== END ==
LOC: M PLALAB 16:55
PROVIDERS: ATTEND Student in an Organized Health Care Education/Training Program
DX: Z00.00 Encounter for general adult medical examination without abnormal findings (principal); Z85.038 Personal history of other malignant neoplasm of large intestine; N18.4 Chronic kidney disease, stage 4 (severe); E11.42 Type 2 diabetes mellitus with diabetic polyneuropathy

== ENCOUNTER → 2024-12-21 | Outpatient (CLI) | payer MEDICARE | LOC: M RAD 16:17 | PROVIDERS: ATTEND Urology | DX: N20.0 Calculus of kidney (principal) ==

== ENCOUNTER → 2025-04-28 | Outpatient (CLI) | payer MEDICARE ==
[2025-04-28 15:09] LABS: C REACTIVE PROTEIN QUANTITATIV 0.64 MG/DL (<1.0)
[2025-04-28 15:10] LABS: ALT/SGPT 81.0 U/L (7.0-40); AST/SGOT 48.0 U/L (<34); CALCIUM LEVEL 8.2 MG/DL (8.3-10.6); CARBON DIOXIDE LEVEL 20.0 MMOL/L (20-31); CHLORIDE LEVEL 114.0 MMOL/L (98-107); CREATININE FOR GFR 2.14 MG/DL (0.70-1.30); GLOMERULAR FILTRATION RATE 31.7 (>42); POTASSIUM SERUM 5.1 MMOL/L (3.5-5.1); SODIUM LEVEL 143.0 MMOL/L (136-145)
[2025-04-28 15:12] LABS: BASO # 0.1 10^3/uL (0.0-0.2); BASO % 0.5 % (0.0-1.0); EOS # 0.2 10^3/uL (0.0-0.5); EOS % 1.8 % (0.0-3.0); LYMPH # 1.4 10^3/uL (1.5-5.0); LYMPH % 12.4 % (24.0-44.0); MONO # 0.9 10^3/uL (0.0-0.8); MONO % 8.0 % (2.0-8.0); NEUTROPHILS # 8.6 10^3/uL (1.5-8.5); NEUTROPHILS % 76.9 % (36.0-66.0); PLATELET COUNT, AUTOMATED 245 10^3/uL (150-450)
== END ==
LOC: EEVIPCON 11:15 → M PLALAB 11:15
PROVIDERS: ATTEND Internal Medicine Infectious Disease
DX: S31.109A Unspecified open wound of abdominal wall, unspecified quadrant without penetration into peritoneal cavity, initial encounter (principal); S21.202A Unspecified open wound of left back wall of thorax without penetration into thoracic cavity, initial encounter; X58.XXXA Exposure to other specified factors, initial encounter; Y92.9 Unspecified place or not applicable; Y93.9 Activity, unspecified; Y99.9 Unspecified external cause status